=== PATIENT | female | born 1955 | race Caucasian/White ===

== ENCOUNTER 2023-04-07 12:07 | Emergency (ER) | payer MEDICARE, SELFPAY ==
[2023-04-07 12:15] VITALS: BP 176/82; PULSE 68; RESP 18; TEMP 36.8; O2SAT 96; BMI 35.2
--- NOTE | 2023-04-07 12:31 | ECG_ITS ---
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
[2023-04-07 12:52] LABS: Basophils Absolute Auto 0.1 10^3/uL (0.0-0.1); Basophils Percent Auto 0.9 % (0.2-2.0); Eosinophils Absolute Auto 0.3 10^3/uL (0.0-0.7); Eosinophils Percent Auto 3.5 % (0.9-7.0); Hematocrit 42.4 % (36.0-48.0); Hemoglobin 14.2 g/dL (12.0-16.0); Immature Granulocytes Abs Auto 0.02 10^3/uL (0.00-0.03); Immature Granulocytes Pct Auto 0.3 % (0.0-0.5); Lymphocytes Absolute Auto 2.5 10^3/uL (1.2-3.8); Lymphocytes Percent Auto 33.7 % (20.5-60.0); Mean Corpuscular HGB Conc 33.5 g/dL (29.9-35.2); Mean Corpuscular Hemoglobin 28.7 pg (26.7-34.0); Mean Corpuscular Volume 85.7 fL (81.0-99.0); Mean Platelet Volume 8.3 fL (9.5-13.5); Monocytes Absolute Auto 0.4 10^3/uL (0.3-0.8); Monocytes Percent Auto 5.8 % (1.7-12.0); Neutrophils Absolute Auto 4.1 10^3/uL (1.4-6.5); Neutrophils Percent Auto 55.8 % (43.0-75.0); Platelet Count 264 10^3/uL (150-450); Red Blood Count 4.95 10^6/uL (4.20-5.40); Red Cell Distribution Width 12.1 % (11.0-15.0); White Blood Count 7.4 10^3/uL (4.0-11.0)
[2023-04-07 13:10] LABS: Alanine Aminotransferase 15 U/L (14-59); Albumin Level 3.8 g/dL (3.4-5.0); Alkaline Phosphatase 52 U/L (46-116); Anion Gap 8.1; Aspartate Amino Transferase 7 U/L (15-37); BUN Creatinine Ratio 28.8; Bilirubin Total 0.5 mg/dL (0.2-1.0); Calcium 9.1 mg/dL (8.5-10.1); Carbon Dioxide 32.4 mmol/L (21.0-32.0); Chloride 99 mmol/L (98-107); Estimated GFR (African America >60 (>=60); Estimated GFR (Non-African Ame >60 (>=60); Globulin 3.8 g/dL; Glucose 92 mg/dL (74-106); Potassium 3.5 mmol/L (3.5-5.1); Sodium 136 mmol/L (136-145); Total Protein 7.6 g/dL (6.4-8.2); Troponin I High Sensitivity 4.9 pg/mL (4.0-51.3)
[2023-04-07 13:32] VITALS: BP 163/85
[2023-04-07 14:12] VITALS: BP 175/72; PULSE 88; RESP 18; O2SAT 98
--- NOTE | 2023-04-07 17:37 | ED_ITS ---
HPI - General Adult General Chief complaint: Chest Pain Stated complaint: HYPERTENSION Time Seen by Provider: 04/07/23 12:30 Source: patient Mode of arrival: walk-in Limitations: no limitations History of Present Illness HPI narrative: The patient presenting to us with a history of recently having her blood pressure not easy to control and she had amlodipine started yesterday by her primary care doctor, the patient seems to be anxious she is denying any acute complaint at the moment other than the fact that her blood pressure is elevated No specific chest pain or headache at the moment no abdominal pain but the patient is worried about her family history because she have a history of heart disease as well as worried about stroke Related Data Home Medications Medication Instructions Recorded Confirmed albuterol sulfate 90 mcg/actuation inhalation 04/07/23 aerosol inhaler amlodipine 5 mg tablet 5 mg PO DAILY 04/07/23 04/07/23 atorvastatin 40 mg tablet 40 mg PO DAILY 04/07/23 04/07/23 buspirone 10 mg tablet 10 mg PO BID 04/07/23 04/07/23 citalopram 40 mg tablet 40 mg PO DAILY 04/07/23 04/07/23 levothyroxine 75 mcg tablet 75 mcg PO DAILY 04/07/23 04/07/23 (Synthroid) lisinopril 20 mg tablet 20 mg PO DAILY 04/07/23 04/07/23 lisinopril 20 1 tab PO DAILY 04/07/23 04/07/23 mg-hydrochlorothiazide 25 mg tablet montelukast 10 mg tablet 10 mg PO DAILY 04/07/23 04/07/23 omeprazole 40 mg capsule,delayed 40 mg PO DAILY 04/07/23 04/07/23 release potassium chloride 10 mEq 10 meq PO DAILY 04/07/23 04/07/23 tablet,extended release verapamil 180 mg 24 hr 180 mg PO DAILY 04/07/23 04/07/23 capsule,extended release Allergies Allergy/AdvReac Type Severity Reaction Status Date / Time sulfamethoxazole Allergy Intermediate Verified 04/07/23 12:20 [From Bactrim] trimethoprim [From Bactrim] Allergy Intermediate Verified 04/07/23 12:20 Review of Systems ROS Status of ROS 10 or more systems reviewed and unremarkable except as noted in history and below PFSH PFSH Social History Smoking status: Former smoker Exam Narrative Exam Narrative: Nurses notes and vital signs reviewed and patient is not hypoxic. General: Well-appearing and in no apparent distress. Skin: Warm, dry, no pallor noted. No rash. Head: Normocephalic, atraumatic. Neck: Supple, non-tender. Eye: Pupils are equal, round and EOMI. No scleral icterus. Ears, Nose, Mouth, and Throat: TM are clear, no nasal mucosal hypertrophy. Oral mucosa is moist, no posterior oropharynx erythema, uvula is mid-line Cardiovascular: Regular Rate and Rhythm without murmur, gallop or rub. Respiratory: No accessory muscle use or respiratory distress. Lungs are clear to auscultation, no wheezing, rales or rhonchi Chest Wall: no tenderness Back: No midline thoracic or lumbar vertebral tenderness. No CVA tenderness Musculoskeletal: normal ROM, no calf or popliteal tenderness, no lower extremity edema/swelling GI: Abdomen is soft, non-distended. Normal bowel sounds. No masses appreciated. No tenderness to palpation. No rebound, guarding, or rigidity noted. Neurological: A&O x4. No cranial nerve dysfunction observed. No truncal ataxia. Moves all extremities. Sensation intact. Psychiatric: Cooperative and interactive. Normal mood and affect. Constitutional Vital Signs, click to edit/add: Last Vital Signs Temp 98.3 F 04/07/23 12:15 Pulse 88 04/07/23 14:12 Resp 18 04/07/23 14:12 BP 175/72 H 04/07/23 14:12 Pulse Ox 98 04/07/23 14:12 O2 Del Method Room Air 04/07/23 12:15 Course Vital Signs Vital signs: Vital Signs Temperature 98.3 F 04/07/23 12:15 Pulse Rate 68 04/07/23 12:15 Respiratory Rate 18 04/07/23 12:15 Blood Pressure 176/82 H 04/07/23 12:15 Pulse Oximetry 96 04/07/23 12:15 Oxygen Delivery Method Room Air 04/07/23 12:15 Temperature 98.3 F 04/07/23 12:15 Pulse Rate 88 04/07/23 14:12 Respiratory Rate 18 04/07/23 14:12 Blood Pressure 175/72 H 04/07/23 14:12 Pulse Oximetry 98 04/07/23 14:12 Oxygen Delivery Method Room Air 04/07/23 12:15 Medical Decision Making MDM Narrative Medical decision making narrative: The patient EKG was showing sinus rhythm with a heart rate of [address] elevation or depression She is presenting to us with anxiety about her blood pressure and she does seem very anxious most of the history that she gave was about concerns there was no symptoms at the moment The patient blood pressure was 160 systolic in the ER upon presentation and her CBC chemistry showed no acute pathology she was just started on her amlodipine yesterday I will just continue to given the same medication I explained to the patient extensively the importance of giving time for the medication to work The patient is to follow up with primary care physician in next 2-3 days or to return to the emergency department should any of the signs or symptoms worsen or new symptoms develop. The patient agrees with the following Diagnosis and Treatment plan and the patient will be discharged home. Lab Data Labs: Lab Results 04/07/23 Range/Units 12:47 WBC 7.4 (4.0-11.0) 10^3/uL RBC 4.95 (4.20-5.40) 10^6/uL Hgb 14.2 (12.0-16.0) g/dL Hct 42.4 (36.0-48.0) % MCV 85.7 (81.0-99.0) fL MCH 28.7 (26.7-34.0) pg MCHC 33.5 (29.9-35.2) g/dL RDW 12.1 (11.0-15.0) % Plt Count 264 (150-450) 10^3/uL MPV 8.3 L (9.5-13.5) fL Neut % (Auto) 55.8 (43.0-75.0) % Lymph % (Auto) 33.7 (20.5-60.0) % [place] % (Auto) 5.8 (1.7-12.0) % Eos % (Auto) 3.5 (0.9-7.0) % Baso % (Auto) 0.9 (0.2-2.0) % Neut # (Auto) 4.1 (1.4-6.5) 10^3/uL Lymph # (Auto) 2.5 (1.2-3.8) 10^3/uL [place] # (Auto) 0.4 (0.3-0.8) 10^3/uL Eos # (Auto) 0.3 (0.0-0.7) 10^3/uL Baso # (Auto) 0.1 (0.0-0.1) 10^3/uL Abs Immat Gran (auto) 0.02 (0.00-0.03) 10^3/uL Imm/Tot Granulo (auto) 0.3 (0.0-0.5) % Sodium 136 (136-145) mmol/L Potassium 3.5 (3.5-5.1) mmol/L Chloride 99 (98-107) mmol/L Carbon Dioxide 32.4 H (21.0-32.0) mmol/L Anion Gap 8.1 BUN 17.0 (7.0-18.0) mg/dL Creatinine 0.59 (0.55-1.02) mg/dL Est GFR ( Amer) >60 (>=60) Est GFR (Non-Af Amer) >60 (>=60) BUN/Creatinine Ratio 28.8 Glucose 92 (74-106) mg/dL Calcium 9.1 (8.5-10.1) mg/dL Total Bilirubin 0.5 (0.2-1.0) mg/dL AST 7 L (15-37) U/L ALT 15 (14-59) U/L Alkaline Phosphatase 52 (46-116) U/L Troponin I High Sens 4.9 (4.0-51.3) pg/mL Total Protein 7.6 (6.4-8.2) g/dL Albumin 3.8 (3.4-5.0) g/dL Globulin 3.8 g/dL Albumin/Globulin Ratio 1.0 Discharge Plan Discharge Chief Complaint: Chest Pain Clinical Impression: Hypertension Patient Disposition: Home, Self-Care Time of Disposition Decision: 14:19 Prescriptions / Home Meds: No Action amlodipine 5 mg tablet 5 mg PO DAILY albuterol sulfate 90 mcg/actuation HFA aerosol inhaler INHALATION atorvastatin 40 mg tablet 40 mg PO DAILY buspirone 10 mg tablet 10 mg PO BID citalopram 40 mg tablet 40 mg PO DAILY lisinopril-hydrochlorothiazide 20-25 mg tablet 1 tab PO DAILY lisinopril 20 mg tablet 20 mg PO DAILY levothyroxine [Synthroid] 75 mcg tablet 75 mcg PO DAILY montelukast 10 mg tablet 10 mg PO DAILY omeprazole 40 mg capsule,delayed release(DR/EC) 40 mg PO DAILY potassium chloride 10 mEq tablet extended release 10 meq PO DAILY verapamil 180 mg capsule,ext rel. pellets 24 hr 180 mg PO DAILY Instructions: Chronic Hypertension (ED) Stand Alone Forms: Portal Instructions Referrals: Physician,Non-Staff, MD [Primary Care Provider] - 1 week Discharge Date/Time: 04/07/23 14:29
== END 2023-04-07 14:29 | disposition home or self-care (01) ==
PROVIDERS: Emergency Provider Emergency Medicine
DX: I10 Essential (primary) hypertension (principal); Z79.899 Other long term (current) drug therapy; Z79.890 Hormone replacement therapy; Z87.891 Personal history of nicotine dependence
CPT/HCPCS: 36415; 80053; 84484; 85025; 93005; 99284

== ENCOUNTER 2025-03-04 13:00 | Outpatient (OUT) | payer MEDICARE, SELFPAY ==
--- OUTSIDE RECORDS SUMMARY | 2025-03-05 12:23 | XMS_ITS | Encounter Summary ---
Author Organization [facility] tem Address [id number] [address] [place] [address] Care Team Providers Care Supervisor Fish Processing Name Role Phone Rebeca Kelly MD Primary Care Provider [phone] Encounter Details Date Type Department Care Team (Late st Contact Info) Description 04/08/2020 Orders Only [facility] [address] [place] [phone] External, Scanning Provider Social History Tobacco Use Types Packs/Day Years Used Date Smoking Tobacco: Former Cigarettes 0.5 20 Smokeless Tobacco: Never Alcohol Use Standard Drinks/Week Comments No 0 (1 standard drink = 0.6 oz pur e alcohol) Childcare Answer Date Recorded Childcare Unknown 11/18/2018 Employment Answer Date Recorded Employment Unknown 11/18/2018 Comments No Sex and Gender Information Value Date Recorded Sex Assigned at Not on file Legal Sex Female 11:58 AM EDT Gender Identity Not on file Sexual Orientation Not on file COVID-19 Exposure Response Date Recorded In the last month, have you been in contact with someone who was confirmed or suspected to have Coronavirus / COVID-19? No / Unsure 03/30/2020 1:24 PM EDT documented as of this encounter Plan of Treatment Not on file documented as of this encounter Procedures Procedure Name Priority Date/Time Associated Diagnosis Comments MULTIPLE LABS Routine 04/05/2020 documented in this encounter Results * Multiple labs (04/05/2020) us Scanning Provider External NM IMAGING Final Result MANUALLY TRANSCRIBED RESULTS documented in this encounter Visit Diagnoses Not on filedocumented in this encounter Care Teams Supervisor Fish Processing Relationship Specialty Start Date End Date Rebeca Kelly MD [address] [place] [address] PCP - General Internal Medicine 06/13/24 documented as of this encounter
--- OUTSIDE RECORDS SUMMARY | 2025-03-05 12:23 | XMS_ITS | Clinical Summary ---
Author Organization [facility] tem Address [facility] [place] [id number] [address] [place] [address] Care Team Providers Care Ornament Stitcher Name Role Phone Rebeca Kelly MD Primary Care Provider [phone] Allergies Active Allergy Reactions Criticality Noted Date Comments Sulfamethoxazole-Trimethoprim 2017 Pneumococcal Vaccine 01/24/2017 Medications citalopram (CeleXA) 20 mg tablet Take 1 tablet (20 mg total) by mouth in the morning. Active aspirin 81 mg Take 1 tablet (81 mg total) by mouth in the morning. Active levothyroxine (SYNTHROID, LEVOTHROID) 125 MCG tablet Take 75 mcg by mouth daily. Active potassium chloride (K-TAB,KLOR-CON ) 10 MEQ CR tablet Take 1 tablet (10 mEq total) by mouth in the morning. Active atorvastatin (LIPITOR) 40 mg tablet Take 1 tablet (40 mg total) by mouth in the morning. Active albuterol (ACCUNEB) 1.25 mg/3 mL nebulizer solution Inhale 3 mL (1.25 mg total) by nebulization every 6 (six) hours as needed for wheezing. Active levETIRAcetam (KEPPRA) 250 mg tablet Take 2 tablets (500 mg total) by mouth in the morning and 2 tablets (500 mg total) before bedtime. Active montelukast (SINGULAIR) 10 mg tablet Take 1 tablet (10 mg total) by mouth nightly. Active lisinopril-hydr oCHLOROthiazide (PRINZIDE,ZESTO RETIC) 20-25 mg per tablet Take 1 tablet by mouth in the morning. Active loratadine (CLARITIN) 10 mg tablet Take 1 tablet (10 mg total) by mouth in the morning. Active fluticasone propionate (FLOVENT HFA) 110 mcg/actuation inhaler Inhale 2 puffs in the morning and at bedtime. Active lisinopriL (PRINIVIL,ZESTR IL) 20 mg tablet Take 1 tablet (20 mg total) by mouth in the morning. Active ibuprofen (MOTRIN) 800 mg tablet Take 1 tablet (800 mg total) by mouth every 6 (six) hours as needed for pain. 3 Active amoxicillin (AMOXIL) 500 mg capsule Take 1 capsule (500 mg total) by mouth 3 (three) times a day. Active busPIRone (BUSPAR) 10 mg tablet Take 1 tablet (10 mg total) by mouth in the morning and at bedtime. 3 Active omeprazole (PriLOSEC) 40 mg capsule Take 1 capsule (40 mg total) by mouth every morning before breakfast. 3 Active albuterol (PROVENTIL HFA;VENTOLIN HFA) 90 mcg/actuation inhaler Inhale 2 puffs every 4 (four) hours as needed for wheezing or shortness of breath. Active verapamil SR (CALAN-SR) 180 mg CR tablet Take 1 tablet (180 mg total) by mouth in the morning. 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 Her urinary retention has resolved. I recommended stopping the tamsulosin and stopping the bethanechol. Encounters Date Type Department Care Team Description 03/04/2025 Refill [facility] [address] [place] [id number] Hasmukh Trinidad MD Med Refill from Last 3 Months Family History Medical History Relation Name Comments Heart disease Father Lung cancer Father Diabetes Maternal Aunt Heart disease Mother Hyperlipidemia Mother Hypertension Mother Diabetes Paternal Aunt Hypertension Sister Leukemia Sister Relation Name Status Comments Father Maternal Aunt Mother Paternal Aunt Sister Social History Tobacco Use Types Packs/Day Years Used Date Smoking Tobacco: Former Cigarettes 0.5 20 1 - 03/27/1995 Smokeless Tobacco: Never Alcohol Use Standard Drinks/Week Comments No 0 (1 standard drink = 0.6 oz pur e alcohol) Childcare Answer Date Recorded Childcare Unknown 11/18/2018 Employment Answer Date Recorded Employment Unknown 11/18/2018 Hunger Screening Answer Date Recorded Within the past 12 months we worried whether our food would run out before we got money to buy more. Never True 03/06/2024 Within the past 12 months th e food we bought just didn't last and we didn't have money to get more. Never True 03/06/2024 Purpose - Life Answer Date Recorded Purpose and direction in life Unknown Comments No Sex and Gender Information Value Date Recorded Sex Assigned at Not on file Legal Sex Female 11:58 AM EDT Gender Identity Not on file Sexual Orientation Not on file Last Filed Vital Signs Vital Sign Reading Time Taken Comments Blood Pressure 130/70 03/06/2024 10:30 AM EDT Pulse 55 03/06/2024 10:30 AM EDT Temperature 36.6 C (97.9 F) 02/20/2024 3:32 PM EDT Respiratory Rate 18 02/20/2024 5:45 PM EDT Oxygen Saturation 98% 03/06/2024 10:30 AM EDT Inhaled Oxygen Concentration - - Weight 89.8 kg (198 lb) 03/06/2024 10:30 AM EDT Height 152.4 cm (5') 03/06/2024 10:30 AM EDT Body Mass Index 38.67 03/06/2024 10:30 AM EDT Plan of Treatment Health Maintenance Due Date Last Done Comments Depression Screening 1966 Adult BMI Follow Up Plan 1972 DTaP,Tdap and Td Vaccines (1 - Tdap) 1973 Zoster (Shingles) Vaccine (1 of 2) 2004 Fall Risk Screening 10/14/2019 COVID-19 Vaccine (3 - 2024-2 6 season) 2025 08/10/2023, 08/23/2020 Influenza Vaccine 02/16/2025 06/07/2022, , 03/19/2017, Additional history exists Adult BMI Screening 03/06/2025 03/06/2024 Tobacco Screening 03/06/2025 03/06/2024 Colonoscopy 10/16/2025 10/17/2015 Medical Devices Not on file Insurance [employer] Care Teams Ornament Stitcher Relationship Specialty Start Date End Date Rebeca Kelly MD [address] [place], [place] [id number] PCP - General Internal Medicine 06/13/24
--- OUTSIDE RECORDS SUMMARY | 2025-03-05 12:23 | XMS_ITS | Encounter Summary ---
Author Organization [facility] tem Address [id number] [address] [place] [address] Care Team Providers Care Program Developer Name Role Phone Rebeca Kelly MD Primary Care Provider [phone] Encounter Details Date Type Department Care Team (Late st Contact Info) Description 04/07/2020 Orders Only [facility] [address] [phone] Sarah Jacobson MA Palpitation Social History Tobacco Use Types Packs/Day Years [...] Procedure Name Priority Date/Time Associated Diagnosis Comments MAGNESIUM Routine 04/05/2020 Palpitation documented in this encounter Results * Magnesium (04/05/2020) 04/05/2020 us Peterson G Paul DO LAB BLOOD ORDERABLES Final Resul t SUNQUEST documented in this encounter Visit Diagnoses Diagnosis Palpitation Palpitations documented in this encounter Care Teams Program Developer Relationship Specialty Start Date End Date Rebeca Kelly MD [address] [place] [address] PCP - General Internal Medicine 06/13/24 documented as of this encounter
--- OUTSIDE RECORDS SUMMARY | 2025-03-05 12:23 | XMS_ITS | Encounter Summary ---
Author Organization [facility] tem Address [id number] [address] [place] [address] Care Team Providers Care Legal Examiner Name Role Phone Rebeca Kelly MD Primary Care Provider [phone] Encounter Details Date Type Department Care Team (Late st Contact Info) Description 04/08/2020 Orders Only [facility] [address] [place] [phone] External, Scanning Provider Social History Tobacco Use [...] Procedure Name Priority Date/Time Associated Diagnosis Comments LIPID PROFILE Routine 04/05/2020 documented in this encounter Results * Lipid profile (04/05/2020) External Cholesterol 173 MANUALLY TRANSCRIBED RESULTS External Cholesterol:Hdl 3.8 MANUALLY TRANSCRIBED RESULTS External Hdl Cholesterol 46 MANUALLY TRANSCRIBED RESULTS External Ldl (Calc) 101 MANUALLY TRANSCRIBED RESULTS External Triglycerides 129 MANUALLY TRANSCRIBED RESULTS External Very Low Lipoprotein 26 MANUALLY TRANSCRIBED RESULTS us Scanning Provider External LAB BLOOD ORDERABLES Edited Result - Final MANUALLY TRANSCRIBED RESULTS documented in this encounter Visit Diagnoses Not on filedocumented in this encounter Care Teams Legal Examiner Relationship Specialty Start Date End Date Rebeca Kelly MD [address] [place] [address] PCP - General Internal Medicine 06/13/24 documented as of this encounter
--- OUTSIDE RECORDS SUMMARY | 2025-03-05 12:23 | XMS_ITS | Clinical Summary ---
Author Organization [facility] Address [address], [address] [place] [address] Care Team Providers Care Enrollment Clerk Name Role Phone Buck Garibay PA-C Primary Care Provider Allergies Active Allergy Reactions Criticality Noted Date Comments Amlodipine Other (See Comments) 07/14/2024 Sulfamethoxazole-Trimetho prim Swelling,Rash Low 09/10/2017 Ciprofloxacin Other (See Comments) 06/06/2017 Not sure of what but knows that it does not agree with her Fluticasone-Salmeterol Other (See Comments) Iodinated Contrast Media Nausea Only 01/24/2017 Other Anaphylaxis High 01/30/2017 BP meds unsure of what they are Pneumococcal Vaccines 01/29/2017 Prednisone Other (See Comments) 07/14/2024 Sulfacetamide Other (See Comments) 07/14/2024 Sulfamethoxazole Medium 04/07/2023 Medications atorvastatin (LIPITOR) 40 MG tablet Take 1 tablet by mouth daily 30 tablet 3 7 Active furosemide (LASIX) 20 MG tablet Active citalopram (CELEXA) 20 MG tablet Take 1 tablet by mouth Active fluticasone (FLOVENT HFA) 110 MCG/ACT inhaler Inhale 1 puff into the lungs Active levothyroxine (SYNTHROID) 125 MCG tablet Take 1 tablet by mouth Daily Active potassium chloride (KLOR-CON) 20 MEQ packet Take 20 mEq by mouth Active aspirin 81 MG chewable tablet Take 1 tablet by mouth daily Active levETIRAcetam (KEPPRA) 500 MG tablet Take 1 tablet by mouth 2 times daily Active acetaminophen (TYLENOL) 500 MG tablet Take 1 tablet by mouth every 6 hours as needed for Pain Active bethanechol (URECHOLINE) 10 MG tablet Take 1 tablet by mouth 3 times daily Active polyethylene glycol (GLYCOLAX) packet Take 17 g by mouth daily as needed for Constipation Active lisinopril (PRINIVIL;ZESTR IL) 20 MG tablet Take 1 tablet by mouth daily Active LORazepam (ATIVAN) 0.5 MG tablet Take 0.5 mg by mouth every 8 hours as needed for Anxiety Active diphenhydrAMINE (BENADRYL) 25 MG capsule Take 25 mg by mouth every 6 hours as needed for Itching Three times a day prn Active omeprazole (PRILOSEC) 20 MG delayed release capsule Take 20 mg by mouth daily Active verapamil (CALAN SR) 120 MG extended release tablet Take 1 tablet by mouth daily 7 Active montelukast (SINGULAIR) 10 MG tablet Take 1 tablet by mouth daily 7 Active tamsulosin (FLOMAX) 0.4 MG capsule Take 1 capsule by mouth daily 30 capsule 3 7 Active Additional Information Patient not taking.Reported on 01/01/2025 albuterol sulfate HFA 108 (90 Base) MCG/ACT inhaler Inhale 2 puffs into the lungs every 6 hours as needed for Wheezing Active loratadine (CLARITIN) 10 MG tablet 9 Active budesonide-form oterol (SYMBICORT) 160-4.5 MCG/ACT AERO Inhalation for 30 Days Active cetirizine (ZYRTEC) 10 MG tablet Take 1 tablet by mouth Every Day Active lisinopril-hydr oCHLOROthiazide (PRINZIDE;ZESTO RETIC) 20-25 MG per tablet Take 1 tablet by mouth daily 4 Active Active Problems Problem Noted Date Diagnosed Date Asthma, persistent 01/29/2017 Hypothyroidism in adult 01/29/2017 Brain mass 01/25/2017 Midline shift of brain 01/25/2017 Essential hypertension 01/25/2017 Left-sided weakness Meningioma Cerebral edema Hypokalemia Resolved Problems Problem Noted Date Diagnosed Date Resolved Date Post-operative state 018 Encounters Date Type Department Care Team Description 01/27/[address] - [address] Floor, [address] [place] [address] Xuan Foy, PHILIPPE - DRILL SERGEANT MRI Results and Appointment 01/20/2025 Orders Only [place] [address] - Ground Floor, [facility] [place] [id number] Hilary Hensley DO 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 Telephone [place] [address] [place] [address] - Ground Floor, [address] [phone] Hilary Hensley DO 01/01/2025 3:00 PM EDT Office Visit [place] [address] [place] [address] - Ground Floor, [address] [phone] Xuan Foy, PHILIPPE - DRILL SERGEANT Hemangiopericytoma (Primary Dx) 01/01/2025 12:12 PM EDT - 01/03/2025 11:59 PM EDT Hospital Encounter [facility] MRI [address] [place], [place] [id number] Hilary Hensley DO Hemangiopericytoma Discharge Disposition: Home or Self Care 12/12/2024 Telephone [place] [id number]icaela Rios [address] - Ground Floor, [address] [phone] Hilary Hensley DO Need for appt 12/09/[address] [place] [address] - Ground Floor, [address] [phone] Hilary Hensley DO 12/08/2024 [address] [place] [address] - Ground Floor, [address] [place] [phone] Hilary Hensley DO Medication Problem from Last 3 Months Social History Tobacco Use Types Packs/Day Years Used Date Smoking Tobacco: Former Cigarettes Q uit: 06/18/1994 Smokeless Tobacco: Never Tobacco Cessation:Counseling Given: Not Answered Alcohol Use Standard Drinks/Week Comments No 0 (1 standard drink = 0.6 oz pur e alcohol) Comments No Sex and Gender Information Value Date Recorded Sex Assigned at Not on file Legal Sex Female 3:30 PM EST Gender Identity Not on file Sexual Orientation Not on file Last Filed Vital Signs Vital Sign Reading Time Taken Comments Blood Pressure 135/60 01/01/2025 3:01 PM EDT Pulse 66 01/01/2025 3:01 PM EDT Temperature 36.3 C (97.4 F) 06/21/2022 9:33 AM EST Respiratory Rate 18 03/02/2022 9:13 AM EDT Oxygen Saturation 96% 06/21/2022 9:33 AM EST Inhaled Oxygen Concentration - - Weight 91.4 kg (201 lb 6.4 oz) 01/01/2025 3:01 P M EDT Height 152.4 cm (5') 01/01/2025 3:01 PM EDT Body Mass Index 39.33 01/01/2025 3:01 PM EDT Plan of Treatment Upcoming Encounters Date Type Department Care Team (Latest Contact Info) Description 07/20/2025 12:15 PM EST Appointment [facility] MRI [address] [place], [place] [id number] Hilary Hensley, [address] [address] epic/ pt 07/20/2025 2:00 PM EST Office Visit [address] - Ground Floor, [place] [place] [address] [place] [address] [place] [address] [address] [address] 6 month follow up 12/30/2025 1:30 PM EDT Office Visit [address] - Ground Floor, [address] [place] [address] Hilary Hensley, [address] [facility] [address] [place] [address] Considering the malignant nature of this tumor I would recommend continued surveillance but we can definitely space her out to a least every 18 months. She states that she is considering not getting the MRIs anymore considering the discomfort related to contrast as well as the long duration of recurrence free survival. Health Maintenance Due Date Last Done Comments Lipids 1964 Depression Screen 1966 Hepatitis C screen 1972 DTaP/Tdap/Td vaccine (1 - Tdap) 1973 Breast cancer screen 1994 Colonoscopy 10/14/1999 Colorectal Cancer Screen 10/14/1999 FIT/FOBT: Average risk 10/14/1999 Fecal-DNA (Cologuard): Norman ge risk 10/14/1999 Sigmoidoscopy/CT colonography 10/14/1999 Shingles vaccine (1 of 2) 2004 DEXA (modify frequency per FRAX score) 2009 Respiratory Syncytial Virus (RSV) or age 60 yrs+ (1 - Risk 60-74 years 1-dose series) 2014 Diabetes screen 01/26/2020 01/25/2017 Annual Wellness Visit (Medicare Advantage) 06/18/2024 Flu vaccine (#1) 01/16/2025 06/07/2022, 04/05/2018, 03/19/2017 COVID-19 Vaccine (2 - 2024-2 6 season) 2025 08/23/2020 Hepatitis A vaccine Aged Out No longe r eligible based on patient's age to complete this topic Hepatitis B vaccine Aged Out No longe r eligible based on patient's age to complete this topic Hib vaccine Aged Out No longer eligi ble based on patient's age to complete this topic Meningococcal (ACWY) vaccine Aged Out No longer eligible based on patient's age to complete this topic Meningococcal B vaccine Aged Out No l onger eligible based on patient's age to complete this topic Polio vaccine Aged Out No longer elig ible based on patient's age to complete this topic Medical Devices Implanted Type Area Reserve Officer Device Identifier Shelf Expiration Date Model / Serial / Lot Cover Plate Bur Hole Low Prof W/Tab 20mm Implanted:Qty: 4 on 01/30/2017 by Hilary Hensley DO at [facility] Screw/Pl ate/Nail /Gabriel Right: Cranial LASHAUN: ORTHOPAEDICS- M [id number] / / Screw Self Drilling 1.5x4mm Min Order 5 Implanted:Qty: 25 on 01/30/2017 by Hilary Hensley DO at [facility] Screw/Pl ate/Nail /Gabriel Right: Cranial LASHAUN: ORTHOPAEDICS- M [id number] / / Plate Mesh Contourabl 1.7mm [id number] Implanted:Qty: 1 on 01/30/2017 by Hilary Hensley DO at [facility] Screw/Pl ate/Nail /Gabriel Right: Cranial LASHAUN: ORTHOPAEDICS-[facility] [id number] / / Mina-Graft Patch Dura Regeneration 3x3in Implanted:Qty: 1 on 01/30/2017 by Hilary Hensley DO at [facility] Vascular /Graft/P atch/Carlos Manuel ter Right: Cranial [employer]-PM 12/15/2017 [id number] / / [id number] Procedures Procedure Name Priority Date/Time Associated Diagnosis Comments MRI BRAIN W WO CONTRAST Routine 01/01/2025 2:42 PM EDT Hemangiopericytoma CREATININE W/GFR POINT OF CARE Routine 01/01/2025 2:13 PM EDT HEMOGLOBIN A1C Routine 01/25/2017 2:53 AM EDT from Last 3 Months or Most Recently Relevant to Health Maintenance Results * MRI BRAIN W WO CONTRAST (01/01/2025 2:42 PM EDT) Anatomical Region Laterality Modality Head Magnetic Resonan ce 01/01/2025 3:58 PM EDT Impressions 01/01/2025 4:09 PM EDT 1. No acute findings. 2. 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 3. Encephalomalacia in the right temporal occipital region with surrounding gliosis. 4. Scattered mild chronic microvascular white matter ischemic disease. Narrative 01/01/2025 4:09 PM EDT EXAM: MRI BRAIN WITH AND WITHOUT CONTRAST 01/01/2025 02:42:10 PM TECHNIQUE: Multiplanar multisequence MRI of the head/brain was performed with and without the administration of intravenous contrast. COMPARISON: 07/14/2024, 07/18/2023. CLINICAL HISTORY: Hemangiopericytoma. ORDERING SYSTEM PROVIDED HISTORY: Hemangiopericytoma; TECHNOLOGIST PROVIDED HISTORY: STAT Creatinine as needed:->Yes; f/u scan; What is the sedation requirement?->None; Reason for exam: f/u scan, Hemangiopericytoma FINDINGS: BRAIN AND VENTRICLES: No acute infarct. No acute intracranial hemorrhage. No mass effect or midline shift. No hydrocephalus. The sella is unremarkable. Normal flow voids. Scattered mild chronic microvascular white matter ischemic disease. Encephalomalacia noted in the right temporal occipital region with surrounding areas of gliosis. Nodular extra-axial enhancement is noted along the undersurface of the right tentorium measuring 11 x 11 x 8 mm, slightly increased over serial exams dating back to 07/18/2023. ORBITS: No acute abnormality. SINUSES: No acute abnormality. BONES AND SOFT TISSUES: Right-sided craniotomy. No other areas of abnormal enhancement. Procedure Note Orion Henao MD - 01/01/2025 EXAM: MRI BRAIN WITH AND WITHOUT CONTRAST 01/01/2025 02:42:10 PM TECHNIQUE: Multiplanar multisequence MRI of the head/brain was performed with andwithout the administration of intravenous contrast. COMPARISON: 07/14/2024, 07/18/2023. CLINICAL HISTORY: Hemangiopericytoma. ORDERING SYSTEM PROVIDED HISTORY: Hemangiopericytoma;TECHNOLOGIST PROVIDED HISTORY: STAT Creatinine as needed:->Yes; f/u scan;What is the sedation requirement?->None; Reason for exam: f/u scan,Hemangiopericytoma FINDINGS: BRAIN AND VENTRICLES: No acute infarct. No acute intracranial hemorrhage. No mass effect ormidline shift. No hydrocephalus. The sella is unremarkable. Normal flowvoids. Scattered mild chronic microvascular white matter ischemic disease. Encephalomalacia noted in the right temporal occipital region withsurrounding areas of gliosis. Nodular extra-axial enhancement is noted along the undersurface of theright tentorium measuring 11 x 11 x 8 mm, slightly increased over serialexams dating back to 07/18/2023. ORBITS: No acute abnormality. SINUSES: No acute abnormality. BONES AND SOFT TISSUES: Right-sided craniotomy. No other areas of abnormal enhancement. IMPRESSION: 1. No acute findings. 2. 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 3. Encephalomalacia in the right temporal occipital region withsurrounding gliosis. 4. Scattered mild chronic microvascular white matter ischemic disease. Jaco Solarsi DO IMG MRI ORDERABLES Final Resul t * (ABNORMAL) Creatinine W/GFR Point of Care (01/01/2025 2:13 PM EDT) POC Creatinine 0.4(L) 0.51 - 1.19 mg/dL 01/01/2025 2:13 PM EDT [employer] eGFR, POC >90 >60 mL/min/1. 73m2 01/01/2025 2:13 PM EDT [employer] Comment: These results are not intended for use in patients <18 years of age. eGFR results are calculated without a race factor using the 2020 CKD-EPI equation. Careful clinical correlation is recommended, particularly when comparing to results calculated using previous equations. The CKD-EPI equation is less accurate in patients with extremes of muscle mass, extra-renal metabolism of creatine, excessive creatine ingestion, or following therapy that affects renal tubular secretion. 01/01/2025 2:13 PM EDT 01/01/2025 2:16 PM EDT Jaco Solarsi DO POINT OF CARE TEST ORDERABLES Final Result [employer] [address] [place] [address], [facility] [phone] * HEMOGLOBIN A1C (01/25/2017 2:53 AM EDT) Hemoglobin A1C 5.6 4.0 - 6.0 % 01/25/2017 9:39 AM EDT [facility] Estimated Avg Glucose 114 mg/dL 01/25/2017 9:39 AM EDT [facility] Comment: The ADA and AACC recommend providing the estimated average glucose result to permit better patient understanding of their HBA1c result. [employer] [address] [place] [id number] BLOOD SPECIMEN / Unknown 01/25/2017 2:53 AM EDT 01/25/2017 3:09 AM EDT us Alba Heaton MD CHEMISTRY ORDERABLES Final Resul t [employer] [address] [place] [id number], [facility] [phone] [facility] from Last 3 Months or Most Recently Relevant to Health Maintenance Insurance [facility] MEDICARE Advance Directives * Full Code (Latest Code Status on File) Date Activated Date Inactivated Comments 01/30/2017 5:59 PM 02/02/2017 7:26 PM * Full Code Date Activated Date Inactivated Comments 01/29/2017 3:43 PM 01/30/2017 5:59 PM * Full Code Date Activated Date Inactivated Comments 01/29/2017 3:43 PM 01/29/2017 3:43 PM * Full Code Date Activated Date Inactivated Comments 01/25/2017 1:20 AM 01/27/2017 9:36 AM Care Teams Enrollment Clerk Relationship Specialty Start Date End Date Buck Garibay PA-C [address] [place], [place] [id number] PCP - General Family Medicine 06/25/18
--- OUTSIDE RECORDS SUMMARY | 2025-03-05 12:23 | XMS_ITS | Encounter Summary ---
Author Organization [facility] Address [address], [address] [place] [address] Care Team Providers Care Pressure Dispatcher Name Role Phone Buck Garibay PA-C Primary Care Provider [phone] Encounter Details Date Type Department Care Team (Late st Contact Info) Description 01/29/2017 Direct Admit Orders [facility] [address] [place], [place] [id number] Luther Gonzales MD [address] [place] [address] Social History Tobacco Use Types Packs/Day Years Used Date Smoking Tobacco: Former Alcohol Use Standard Drinks/Week Comments No 0 (1 standard drink = 0.6 oz pur e alcohol) Comments Unknown Sex and Gender Information Value Date Recorded Sex Assigned at Not on file Legal Sex Female 3:30 PM EST Gender Identity Not on file Sexual Orientation Not on file documented as of this encounter Plan of Treatment Upcoming Encounters Date Type Department Care Team (Latest Contact Info) Description 07/20/2025 12:15 PM EST Appointment [facility] [address] [place], [place] [phone] Hilary Hensley, [address] [facility] [address] [place] [address] epic/ pt 07/20/2025 2:00 PM EST Office Visit [facility] [address] [facility] [address] - Ground Floor, [place] [place] [address] Hilary Hensley, DO [address] [place] [address] 6 month follow up 12/30/2025 1:30 PM EDT Office Visit [facility] [address] - Ground Floor, [place] [place] [address] Hilary Hensley, DO [address] [place] [address] Considering the malignant nature of this tumor I would recommend continued surveillance but we can definitely space her out to a least every 18 months. She states that she is considering not getting the MRIs anymore considering the discomfort related to contrast as well as the long duration of recurrence free survival. documented as of this encounter Visit Diagnoses Not on filedocumented in this encounter Care Teams Pressure Dispatcher Relationship Specialty Start Date End Date Buck Garibay PA-C [address] [place] [address] PCP - General Family Medicine 06/25/18 documented as of this encounter
--- OUTSIDE RECORDS SUMMARY | 2025-03-05 12:29 | XMS_ITS | CCD ---
Author Organization [facility] [place] [facility] Team Providers Care Arc Air Operator Name Role Phone SHRUTHI, YOUNGSOOK Unavailable Unavailable SHRUTHI, YOUNGSOOK Unavailable Unavailable IMM, MARISOL Unavailable Unavailable SHRUTHI, YOUNGSOOK Unavailable Unavailable SHRUTHI, YOUNGSOOK Unavailable Unavailable IMM, MARISOL Unavailable Unavailable AHAMMAD, LYNDA Unavailable Unavailable KAMINI, TREVIN Unavailable Unavailable IMM, MARISOL P Unavailable Unavailable KAMINI, TREVIN Unavailable Unavailable KAMINI, TREVIN Unavailable Unavailable DEIDRA BARAHONAU N Unavailable Unavailable SADEK, BETRO T Unavailable Unavailable SADEK, BETRO T Unavailable Unavailable KALEB MACK I Unavailable Unavailable IMM, MARISOL P Unavailable Unavailable AHAMMAD, LYNDA Unavailable Unavailable LASZELDA Downs M Unavailable Unavailable THAISCROCE, TAMIKO Unavailable Unavailable Mitchell Gonzáles Unavailable Unavail able Mitchell Gonzáles Unavailable Unavail able Marva Garibay Unavailable Unavailable Marva Garibay Primary Care Provider Marva Garibay PA-C Primary Care Provider [phone] Humaira Beth MD Primary Care Provider Santi Smith MD Unavailable [phone] Rebeca Archer MD Primary Care Provider Marva Garibay PA-C Primary Care Provider [phone] HUMAIRA BETH Primary Care Unavailable CHELSEA YOUSSEF Attending Unavailable CHELSEA YOUSSEF Attending Unavailable CHELSEA YOUSSEF Referring Unavailable BETH, HUMAIRA L Primary Care Unavailable BETH, HUMAIRA L Primary Care Unavailable TIN ROMAN Attending Unavailable MAKENZIE TRINIDAD Attending Unavailable BETH, HUMAIRA L Referring Unavailable BETH, HUMAIRA L Primary Care Unavailable ROBIN REBECA Referring Unavailable ROBIN, REBECA Primary Care Unavailable TRINIDAD, MAKENZIE B Attending Unavailable MAKENZIE TRINIDAD Referring Unavailable ROBIN, REBECA Primary Care Unavailable Luis TUTTLE, Santi Unavailable [phone] Robin TUTTLE, Rebeca Primary Care Provider [phone] JIL EVANGELISTA Attending Unavailable RUSHER, SANTI Vargas Attending Unavailable HILL, PATRICIA Referring Unavailable HILL, PATRICIA Referring Unavailable HILL, PATRICIA Referring Unavailable RUSHER, SANTI A Referring Unavailable AHAMMAD, LYNDA Attending Unavailable AHAMMAD, LYNDA Referring Unavailable MARVA GARIBAY A Primary Care Unavailable AHAMMAD, LYNDA Attending Unavailable AHAMMAD, LYNDA Referring Unavailable MARVA GARIBAY A Primary Care Unavailable AHAMMAD, LYNDA Attending Unavailable AHAMMAD, LYNDA Referring Unavailable GARIBAY, MARVA A Primary Care Unavailable AHAMMAD, LYNDA Attending Unavailable AHAMMAD, LYNDA Referring Unavailable MARVA GARIBAY A Primary Care Unavailable Marisol Clancy MD Primary Care Provider [phone] Bhakti Simpson DO Attending Provider Allergies Allergy Classification Reported Allergen(s) Allergy Type Date of Onset Reaction(s) Facility (6 sources) Ciprofloxacin Drug Allergy 06-06-20 17 Other (See Comments) [place], [place] (16 sources) Sulfamethoxazole / Trimethoprim; Translations: [SULFAMETHOXAZOLE-T RIMETHOPRIM] Drug Allergy 09-11-19 18 Swelling, Rash [place], [place] (1 source) Iodinated Diagnostic Agents Propensity to adverse reactions to drug 01-25-20 17 Nausea Only [place] (1 source) Other Propensity to adverse reactions 01-31-20 17 Anaphylaxis [place] (6 sources) Pneumococcal Vaccines Propensity to adverse reactions to drug 01-30-20 17 [place] (12 sources) Iodinated Contrast Media Propensity to adverse reactions to drug 01-25-20 17 Nausea Only [facility] (11 sources) Pneumococcal vaccine; Translations: [PNEUMOCOCCAL VACCINE] Drug Allergy 01-25-20 17 Unknown Reaction [facility] (6 sources) Iodine Drug Allergy 12-27-19 24 [facility] (2 sources) amLODIPine Drug Allergy 07-14-19 25 Other (See Comments) [facility] (2 sources) fluticasone / salmeterol Drug Allergy 07-14-19 Other (See Comments) [facility] (2 sources) predniSONE Drug Allergy 07-14-19 Other (See Comments) [facility] (2 sources) Sulfacetamide Drug Allergy 07-14-19 Other (See Comments) [facility] (3 sources) Sulfamethoxazole Drug Allergy 04-07-20 rash [facility] [employer] (1 source) Trimethoprim Drug Allergy 02-13-20 rash [facility] NEGATED: Highlighted row has been ruled out! (5 sources) Other Propensity to adverse reactions 01-31-20 Anaphylaxis [facility] [employer] Medications Current Medications Medication Drug Class(es) Dates Sig (Normalized) Sig (Original) acetaminophen 325 mg oral tablet (8 sources) Start: 02-15-2017 End: 02-23-2017 Acetaminophen (Tylenol) 325 mg Tablet Active 500 MG PO EVERY 4-6 HOURS as needed for Pain 60 February 23, 2017 10:29am Complies with drug therapy take 1 tablet by candelaria th every six hours as needed for pain acetaminophen (TYLENOL) 500 MG tablet Ta ke 1 tablet by mouth every 6 hours as needed for Pain Active 200 actuat albuterol 0.09 mg/actuat dry powder inhaler (16 sources) beta2-Adrenergic Agonist Start: 02-12-2025 Albut rayray Sulfate 90 mcg/actuation aerosol powdr breath activated Active 1 INH INHALATION EVERY 4-6 HOURS as needed February 12, 2025 12:00am Complies with drug therapy Start: 02-15-2017 End: 02-23-2017 take 1.25 mg by inhalation every four hours as needed for hypertension Albuterol Sulfate 1.25 mg/3 mL Solution For Nebulization Discontinued 1.25 MG INHALATION Q4H as needed for Hypertension February 15, 2017 12:00am February 23, 2017 9:54am take 2 puff(s) by in halation every four hours for wheezing albuterol HFA 90 mcg/act inhaler Inhale 2 puffs every 4 (four) hours if needed for wheezing Active take 2 puff(s) by in halation every six hours as needed for wheezing albuterol sulfate HFA 108 (90 Base) MCG/ACT inhaler Inhale 2 puffs into the lungs every 6 hours as needed for Wheezing Active take 1.25 mg by inha lation every six hours as needed for wheezing albuterol (ACCUNEB) 1.25 mg/3 mL nebulizer solution Inhale 3 mL (1.25 mg total) by nebulization every 6 (six) hours as needed for wheezing. Active take 2 puff(s) by in halation every four hours as needed for wheezing albuterol (PROVENTIL HFA;VENTOLIN HFA) 90 mcg/actuation inhaler Inhale 2 puffs every 4 (four) hours as needed for wheezing or shortness of breath. Active take 2 puff(s) by in halation every six hours as needed for wheezing albuterol sulfate HFA 108 (90 Base) MCG/ACT inhaler Inhale 2 puffs into the lungs every 6 hours as needed for Wheezing 0 Active amoxicillin 500 mg oral capsule (3 sources) Penicillin-class Antibacterial take 1 capsule by mouth three times daily amoxicillin (AMOXIL) 500 mg capsule Take 1 capsule (500 mg total) by mouth 3 (three) times a day. Active aspirin 81 mg chewable tablet (17 sources) Platelet Aggregation Inhibitor, Nonsteroidal Anti-inflammatory Drug Start: 02-16-20 End: 02-24-20 take 1 tablet by mouth once daily Aspirin 81 mg Tablet,Chewable Active 81 MG PO Daily February 23, 2017 12:00am Complies with drug therapy take 1 tablet by mouth once bhavik y aspirin 81 MG EC tablet Take 81 mg by mouth Daily Active 60 actuat budesonide 0.16 mg/actuat / formoterol fumarate 0.0045 mg/actuat metered dose inhaler (1 source) Corticosteroid, beta2-Adrenergic Agonist budesonide-formotero l (SYMBICORT) 160-4.5 MCG/ACT AERO Inhalation for 30 Days Active buPROPion hydrochloride 75 mg oral tablet (7 sources) Aminoketone Start: 2024 take 1 tablet by mouth once daily Bupropion Hcl 75 mg tablet Active 75 MG PO Daily February 12, 2025 12:00am Complies with drug therapy End: 01-16-2025 take 1 tablet by mouth once daily buPROPion (Wellbutrin) 75 MG tablet Take 75 mg by mouth Daily 01/16/2025 Discontinued (Discontinued by another clinician) busPIRone hydrochloride 10 mg oral tablet (9 sources) Start: 03-14-2023 take 1 tablet by mouth at bedtime busPIRone (BUSPAR) 10 mg tablet Take 1 tablet (10 mg total) by mouth in the morning and at bedtime. 03/14/2023 Active End: 01-16-2025 take 5 mg by mouth in the morning busPIRone (Buspar) 10 MG tablet Take 5 mg by mouth in the morning and 5 mg before bedtime. 01/16/2025 Discontinued (Discontinued by another clinician) cetirizine hydrochloride 10 mg oral tablet (8 sources) Histamine-1 Receptor Antagonist Start: 02-12-2025 take 1 tablet by mouth once daily as needed Cetirizine (All Day Allergy (Cetirizine)) 10 mg tablet Active 10 MG PO Daily as needed February 12, 2025 12:00am Complies with drug therapy take 1 tablet by mouth once bhavik y cetirizine (ZyrTEC) 10 MG tablet Take 10 mg by mouth Daily Active hydroCHLOROthiazide 25 mg / lisinopril 20 mg oral tablet (7 sources) Thiazide Diuretic, Angiotensin Converting Enzyme Inhibitor Start: 02-12-2025 take 1 tablet by mouth once Lisinopril-Hydrochlorothiazide 20-25 mg tablet Active 1 TAB PO Once February 12, 2025 12:00am Complies with drug therapy Start: 04-16-2024 take 1 tablet by candelaria th once daily lisinopril-hydroCHLOROthiazide (PRINZIDE;ZESTORETIC) 20-25 MG per tablet Take 1 tablet by mouth daily 04/16/2024 Active take 1 tablet by candelaria th once in the morning lisinopril-hydroCHLOROthiazide (PRINZIDE,ZESTORETIC) 20-25 mg per tablet Take 1 tablet by mouth in the morning. Active ibuprofen 800 mg oral tablet (3 sources) Nonsteroidal Anti-inflammatory Drug Start: 04-10-2023 take 1 tablet by mouth every six hours as needed for pain ibuprofen (MOTRIN) 800 mg tablet Take 1 tablet (800 mg total) by mouth every 6 (six) hours as needed for pain. 04/10/2023 Active levETIRAcetam 500 mg oral tablet (20 sources) Start: 02-12-2025 take 1 tablet by mouth twice daily Levetiracetam 500 mg tablet Active 500 MG PO Twice daily February 12, 2025 12:00am Complies with drug therapy Start: 12-27-2023 End: 07-08-2024 take 1 tablet by mouth once levETIRAcetam (Keppra) 500 MG tablet Indications: Seizure (HCC) Take 1 tablet (500 mg) by mouth every 12 (twelve) hours 180 tablet 3 07/08/2024 Active Start: 02-23-2017 End: 02-12-2025 take 3 tablets by mouth twice daily Levetiracetam 250 mg Tablet Discontinued 750 MG PO Twice daily February 23, 2017 12:00am February 12, 2025 1:35pm Start: 02-15-2017 End: 02-23-2017 take 1 tablet by mouth every twelve hours Levetiracetam 500 mg Tablet Discontinued 500 MG PO Q12H February 15, 2017 12:00am February 23, 2017 9:53am take 1 tablet by candelaria twice daily levETIRAcetam (KEPPRA) 500 MG tablet Take 1 tablet by mouth 2 times daily Active take 2 tablets by mo [facility] in the morning, then take 2 tablets by mouth at bedtime levETIRAcetam (KEPPRA) 250 mg tablet Take 2 tablets (500 mg total) by mouth in the morning and 2 tablets (500 mg total) before bedtime. Active levothyroxine sodium 0.125 mg oral tablet (17 sources) l-Thyroxine Start: 02-15-2017 End: 02-23-2017 take 1 tablet by mouth once daily Levothyroxine (Synthroid) 125 mcg Tablet Active 125 MCG PO Daily February 23, 2017 10:29am Complies with drug therapy levothyroxine (S ynthroid, Levoxyl) 100 MCG tablet Take by mouth in the morning. Take before meals. Active levothyroxine (S YNTHROID, LEVOTHROID) 125 MCG tablet Take 75 mcg by mouth daily. Active lisinopril 20 mg oral tablet (17 sources) Angiotensin Converting Enzyme Inhibitor Start: 02-15-2017 End: 02-23-2017 take 1 tablet by mouth once daily Lisinopril 20 mg Tablet Active 20 MG PO Daily February 23, 2017 10:29am Complies with drug therapy lisinopril 10 MG tablet Take by mouth Daily Active loratadine 10 mg oral tablet (9 sources) Start: 07-18-2018 loratadine (CLARITIN) 10 MG tablet 07/18/2018 Active omeprazole 40 mg delayed release oral capsule (11 sources) Proton Pump Inhibitor Start: 03-15-2023 take 1 capsule by mouth once daily before breakfast omeprazole (PriLOSEC) 40 mg capsule Take 1 capsule (40 mg total) by mouth every morning before breakfast. 03/15/2023 Active Start: 02-15-2017 End: 02-12-2025 take 1 capsule by mouth once daily Omeprazole 20 mg Capsule,Delayed Release(Dr/Ec) Discontinued 20 MG PO Daily February 23, 2017 10:29am February 12, 2025 1:36pm OXcarbazepine 150 mg oral tablet (6 sources) Anti-epileptic Agent End: 01-16-2025 OXcarbazepine (Trileptal) 150 MG tablet Take 150 mg by mouth 01/16/2025 Discontinued (Discontinued by another clinician) verapamil hydrochloride 120 mg extended release oral tablet (20 sources) Calcium Channel Sherman Start: 02-12-2025 take 1 tablet by mouth twice daily Start: 03-06-2024 take 1 tablet by candelaria th in the morning verapamil SR (CALAN-SR) 180 mg CR tablet Take 1 tablet (180 mg total) by mouth in the morning. 90 tablet 3 03/06/2024 Active Start: 03-30-2020 End: 03-06-2024 take 1 tablet by mouth in the morning verapamil SR (CALAN-SR) 180 mg CR tablet Take 1 tablet (180 mg total) by mouth in the morning. 90 tablet 3 03/06/2024 Active Start: 01-04-2017 End: 02-12-2025 take 1 tablet by mouth once daily Verapamil 120 mg Tablet Extended Release Discontinued 120 MG PO daily February 23, 2017 10:29am February 12, 2025 1:37pm take 1 tablet by candelaria th in the morning, then take 1 tablet by mouth in the evening, then take 1 tablet by mouth at bedtime verapamil (Calan) 120 MG tablet Take 120 mg by mouth in the morning and 120 mg in the evening and 120 mg before bedtime. Active End: 03-06-2024 take 1 tablet by mouth once daily verapamil SR (CALAN-SR) 240 mg CR tablet Take 1 tablet (240 mg total) by mouth nightly. 03/06/2024 Discontinued Completed/Discontinued Medications Medication Drug Class(es) Dates Sig (Normalized) Sig (Original) acetaminophen 325 mg / HYDROcodone bitartrate 5 mg oral tablet (4 sources) Opioid Agonist Start: 02-15-2017 End: 02-12-2025 take 1 tablet by mouth every four to six hours as needed for pain Hydrocodone-Acetam inophen 5-325 mg Tablet Discontinued 1 TAB PO EVERY 4-6 HOURS as needed for Pain February 23, 2017 10:29am February 12, 2025 1:35pm atorvastatin 40 mg oral tablet (17 sources) HMG-CoA Reductase Inhibitor Start: 01-26-2017 End: 02-23-2017 take 1 tablet by mouth once daily at bedtime Atorvastatin (Lipitor) 40 mg Tablet Discontinued 40 MG PO Daily at bedtime February 15, 2017 12:00am February 23, 2017 10:29am take 4 tablets by mouth once damon ly atorvastatin (Lipitor) 10 MG tablet Take 40 mg by mouth Daily Active take 1 tablet by mouth once bhavik y atorvastatin (Lipitor) 10 MG tablet Take 10 mg by mouth Daily Active bethanechol chloride 10 mg oral tablet (8 sources) Cholinergic Muscarinic Agonist Start: 02-15-2017 End: 02-12-2025 take 1 tablet by mouth three times daily Bethanechol Chloride (Urecholine) 10 mg Tablet Discontinued 10 MG PO Three times daily February 23, 2017 10:29am February 12, 2025 1:33pm cephalexin 500 mg oral capsule (1 source) Cephalosporin Antibacterial Start: 02-15-2017 End: 02-23-2017 take 1 capsule by mouth three times daily Cephalexin (Keflex) 500 mg Capsule Discontinued 500 MG PO Three times daily February 15, 2017 12:00am February 23, 2017 9:48am citalopram 20 mg oral tablet (17 sources) Serotonin Reuptake Inhibitor Start: 02-15-2017 End: 02-12-2025 take 1 tablet by mouth once daily Citalopram (Celexa) 20 mg Tablet Discontinued 20 MG PO Daily February 23, 2017 10:29am February 12, 2025 1:33pm End: 01-16-2025 take 1 tablet by mouth once daily citalopram (CeleXA) 10 MG tablet Take 10 mg by mouth Daily 01/16/2025 Discontinued (Discontinued by another clinician) take 2 tablets by [facility] in the morning citalopram (CeleXA) 20 mg tablet Take 2 tablets (40 mg total) by mouth in the morning. Active cloNIDine hydrochloride 0.1 mg oral tablet (1 source) Central alpha-2 Adrenergic Agonist Start: 02-15-2017 End: 02-23-2017 take 1 tablet by mouth every four hours as needed for hypertension Clonidine Hcl 0.1 mg Tablet Discontinued 0.1 MG PO Q4H as needed for Hypertension February 15, 2017 12:00am February 23, 2017 9:48am dexamethasone 0.5 mg oral tablet (6 sources) Corticosteroid Start: 02-15-2017 End: 02-23-2017 take 2 tablets by mouth twice daily Dexamethasone 0.5 mg Tablet Discontinued 2 TAB PO Twice daily February 15, 2017 12:00am February 23, 2017 9:48am Start: 02-15-2017 End: 02-12-2025 take 2 tablets by mouth once daily Dexamethasone 0.5 mg Tablet Discontinued 1 MG PO Daily 3 February 23, 2017 12:00am February 12, 2025 1:35pm Start: 02-15-2017 End: 02-15-2017 Dexamethasone 1.5 mg Tablet Discontinued February 15, 2017 12:00am February 15, 2017 10:27am Start: 02-15-2017 End: 02-15-2017 Dexamethasone 2 mg Tablet Discontinued February 15, 2017 12:00am February 15, 2017 11:17am Start: 02-15-2017 End: 02-23-2017 take 2 mg by mouth twice daily Dexamethasone 4 mg Tabl et Discontinued 2 MG PO Twice daily February 15, 2017 12:00am February 23, 2017 9:49am diphenhydrAMINE hydrochloride 25 mg oral capsule (8 sources) Histamine-1 Receptor Antagonist Start: 02-15-2017 End: 02-12-2025 take 1 capsule by mouth three times daily as needed Diphenhydramine Hcl (Benadryl) 25 mg Capsule Discontinued 25 MG PO Three times daily as needed for Itching 60 February 23, 2017 10:29am February 12, 2025 1:35pm diphenhydrAMINE (BENADRYL) 25 MG capsule Take 25 mg by mouth every 6 hours as needed for Itching Three times a day prn Active fludeoxyglucose F 18 injection 10 millicurie (1 source) Start: 10-05-2022 End: 10-05-2022 fludeoxyglucose F 18 injection 10 millicurie 120 actuat fluticasone propionate 0.11 mg/actuat metered dose inhaler (13 sources) Corticosteroid Start: 02-15-2017 End: 02-12-2025 take 1 puff(s) by inhalation once daily Fluticasone Propionate (Flovent Hfa) 110 mcg/actuation Hfa Aerosol Inhaler Discontinued 1 PUFF INHALATION Daily February 23, 2017 10:29am February 12, 2025 1:35pm take 1 spray(s) nasal route once daily fluticasone (Flonase) 50 MCG/ACT nasal spray Administer 1 spray into each nostril Daily Shake gently. Before first use, prime pump. After use, clean tip and replace cap. Active fluticasone (GERRY VENT HFA) 110 MCG/ACT inhaler Inhale 1 puff into the lungs Active take 2 puff(s) by inhalation at bedtime fluticasone propionate (FLOVENT HFA) 110 mcg/actuation inhaler Inhale 2 puffs in the morning and at bedtime. Active furosemide 20 mg oral tablet (8 sources) Loop Diuretic Start: 02-15-2017 End: 02-12-2025 take 1 tablet by mouth once daily Furosemide (Lasix) 20 mg Tablet Discontinued 20 MG PO Daily February 23, 2017 10:29am February 12, 2025 1:35pm gadoteridol (PROHANCE) injection 10 mL (1 source) Start: 07-14-2024 End: 07-14-2024 take 1 dose intravenously once 10 mL, IntraVENous, IMG ONCE PRN, 1 dose, Starting on Sun07/14/24 at 1239, Until Sun07/14/24 at 1254, Other gadoteridol (PROHANCE) injection 17 mL (1 source) Start: 06-16-2020 End: 06-16-2020 gadoteridol (PROHANCE) injection 17 mL gadoteridol (PROHANCE) injection 18 mL (1 source) Start: 06-21-2022 End: 06-21-2022 gadoteridol (PROHANCE) injection 18 mL gadoteridol (PROHANCE) injection 20 mL (1 source) Start: 01-01-2025 End: 01-01-2025 take 1 dose intravenously once 20 mL, IntraVENous, IMG ONCE PRN, 1 dose, Starting on Sophie 01/01/25 at 1402, Until Sophie 01/01/25 at 1442, Other LORazepam 0.5 mg oral tablet (8 sources) Benzodiazepine Start: 02-15-2017 End: 02-12-2025 take 1 tablet by mouth three times daily as needed for anxiety Lorazepam (Ativan) 0.5 mg Tablet Discontinued 0.5 MG PO Three times daily as needed for Anxiety February 23, 2017 10:29am February 12, 2025 1:36pm take 1 tablet by candelaria th every eight hours as needed for anxiety LORazepam (ATIVAN) 0.5 MG tablet Take 0. 5 mg by mouth every 8 hours as needed for Anxiety Active mineral oil 0.14 mg/mg / petrolatum 0.749 mg/mg / phenylephrine hydrochloride 0.0025 mg/mg rectal ointment (1 source) alpha-1 Adrenergic Agonist Start: 02-23-2017 End: 02-12-2025 Phenyleph-Min Oil-Petrolatum (Hemorrhoidal) 0.25-14-74.9 % Ointment Discontinued 1 EACH ME Q6H as needed for HEMORRHOIDS February 23, 2017 12:00am February 12, 2025 1:36pm montelukast 10 mg oral tablet (17 sources) Leukotriene Receptor Antagonist Start: 01-14-2017 End: 02-12-2025 take 1 tablet by mouth once daily in the evening Montelukast (Singulair) 10 mg Tablet Discontinued 10 MG PO Every evening February 23, 2017 10:29am February 12, 2025 1:36pm ondansetron 4 mg disintegrating oral tablet (2 sources) Serotonin-3 Receptor Antagonist Start: 02-15-2017 End: 02-12-2025 take 1 tablet by mouth every four hours as needed for nausea Ondansetron (Zofran Odt) 4 mg Tablet,Disintegrati ng Discontinued 4 MG PO Q4H as needed for Nausea February 23, 2017 10:29am February 12, 2025 1:36pm polyethylene glycol 3350 35021 mg powder for oral solution (8 sources) Osmotic Laxative Start: 02-15-2017 End: 02-12-2025 Polyethylene Glycol 3350 (Miralax) 17 gram Powder In Packet Discontinued 17 GM PO Daily February 23, 2017 10:29am February 12, 2025 1:36pm microencapsulated potassium chloride 20 meq extended release oral tablet (12 sources) Start: 02-23-2017 End: 02-12-2025 Potassium Chloride (Klor-Con M20) 20 mEq Tablet,Er Particles/Crystals Discontinued 10 MEQ PO daily February 23, 2017 10:29am February 12, 2025 1:36pm Start: 02-15-2017 End: 02-23-2017 Potassium Chloride (Klor-Con M20) 20 mEq Tablet,Er Particles/Crystals Discontinued 20 MEQ PO daily February 15, 2017 12:00am February 23, 2017 10:29am potassium chlori de (KLOR-CON) 20 MEQ packet Take 20 mEq by mouth Active potassium chlori de (K-TAB,KLOR-CON) 10 MEQ CR tablet Take 1 tablet (10 mEq total) by mouth in the morning. Active sennosides, prison 8.6 mg oral tablet (2 sources) Start: 02-23-2017 End: 02-12-2025 Sennosides (Senna Lax) 8.6 m g Tablet Discontinued 2 EACH PO DAILY@1200 as needed for Constipation February 23, 2017 12:00am February 12, 2025 1:36pm Start: 02-15-2017 End: 02-23-2017 take 2 tablets by mouth once daily Sennosides 8.6 mg Tablet Discontinued 2 TAB PO Daily February 15, 2017 12:00am February 23, 2017 10:25am 5 ml sodium chloride 9 mg/ml injection (4 sources) Start: 01-01-2025 10 mL, LesleyE NoZAIRE bobbyN, Starting on Sun01/01/25 at 1402, Until Discontinued, Line Care, For Line Patency: Peripheral IV = 5 mL; Midline or Central Line = 10 mL/lumen. If following IV push medication, administer flush at same rate as the IV push. Flush volume is determined by type of infusion therapy being given. For non-viscous solutions use: Peripheral IV = 5 mL Midline or Central Line = 10 mL/lumen For viscous solutions (i.e. blood components, parenteral nutrition, contrast media, or after obtaining blood sample) use: Peripheral IV = 10 mL Midline or Central Line = 20 mL/lumen Start: 07-14-2024 10 mL, IntraVE Nous, PRN, Starting on Sun07/14/24 at 1239, Until Discontinued, Line Care, For Line Patency: Peripheral IV = 5 mL; Midline or Central Line = 10 mL/lumen. If following IV push medication, administer flush at same rate as the IV push. Flush volume is determined by type of infusion therapy being given. For non-viscous solutions use: Peripheral IV = 5 mL Midline or Central Line = 10 mL/lumen For viscous solutions (i.e. blood components, parenteral nutrition, contrast media, or after obtaining blood sample) use: Peripheral IV = 10 mL Midline or Central Line = 20 mL/lumen Start: 10-05-2022 sodium chlorid e flush 0.9 % injection 5-40 mL Start: 06-21-2022 sodium chlorid e flush 0.9 % injection 10 mL tamsulosin hydrochloride 0.4 mg oral capsule (8 sources) alpha-Adrenergic Sherman Start: 02-03-2017 End: 02-12-2025 take 1 capsule by mouth once daily Tamsulosin 0.4 mg Capsule,Extended Release 24hr Discontinued 0.4 MG PO daily February 23, 2017 10:29am February 12, 2025 1:36pm Problems Active Problems Problem Classification Problem Date Documented Date Episodic/Chronic Anxiety disorders (7 sources) Anxiety; Translations: [Anxiety disorder, unspecified] Onset: 11-28-2023 12-27-2023 Chronic Asthma (6 sources) Persistent asthma; Translations: [Asthma, persistent] Onset: 01-29-2017 01-29-2017 Chronic Cancer of bone and connective tissue (1 source) Primary malignant neoplasm of blood vessel; 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, malignant (HCC)] Chronic Cardiac dysrhythmias (5 sources) Ventricular premature complex; Translations: [Ventricular premature depolarization] Onset: 03-30-2020 03-30-2020 Chronic Cardiac dysrhythmias (7 sources) Bradycardia; Translations: [Bradycardia, unspecified] Onset: 03-30-2020 06-12-2024 Episodic Disorders of lipid metabolism (3 sources) Mixed hyperlipidemia; Translations: [Mixed hyperlipidemia] Onset: 01-06-2021 01-06-2021 Chronic Epilepsy; convulsions (10 sources) Seizure; Translations: [Unspecified convulsions] Onset: 12-27-2023 12-27-2023 Episodic Comment on above: Problem List clean-u p per request of Phys. EHR [facility] Esophageal disorders (1 source) Gastroesophageal reflux disease; Translations: [Gastro-esophageal reflux disease without esophagitis] 05-30-2023 Chronic Comment on above: Problem List clean-u p per request of Phys. EHR [facility] Essential hypertension (14 sources) Essential hypertension; Translations: [Essential (primary) hypertension] Onset: 01-25-2017 01-29-2017 Chronic Comment on above: Problem List clean-u p per request of Phys. 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 Episodic Other and unspecified benign neoplasm (1 source) Benign neoplasm of meninges, unspecified; Translations: [Benign neoplasm of meninges, unspecified] Onset: 01-29-2017 Chronic Other and unspecified benign neoplasm (5 sources) Neoplasm of meninges; Translations: [Benign neoplasm of meninges, unspecified] 01-29-2017 Chronic Other and unspecified benign neoplasm (6 sources) Benign neoplasm of cerebral meninges; 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] 12-27-2023 Chronic Other connective tissue disease (1 source) Midline shift of brain; 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] Onset: 01-25-2017 01-29-2017 Chronic Other connective tissue disease (2 sources) Pain in left foot; Translations: [Pain in left foot] 01-16-2025 Episodic Other nervous system disorders (1 source) Disorder of brain, unspecified; Translations: [Disorder of brain, unspecified] Onset: 01-24-2017 Chronic Other nervous system disorders (6 sources) Cerebral edema; Translations: [Cerebral edema] 01-29-2017 Chronic Other nervous system disorders (2 sources) Difficulty walking; Translations: [Difficulty in walking, not elsewhere classified] 01-16-2025 Chronic Other nutritional; endocrine; and metabolic disorders (3 sources) Body mass index 30+ - obesity; Translations: [Obesity, unspecified] Onset: 01-06-2021 01-06-2021 Chronic Other screening for suspected conditions (not mental disorders or infectious disease) (11 sources) Midline shift of brain; Translations: [Other abnormal findings on diagnostic imaging of central nervous system] Onset: 01-25-2017 01-29-2017 Episodic Other skin disorders (6 sources) Mass lesion of brain; Translations: [Other specified disorders of brain] Onset: 01-25-2017 01-31-2017 Chronic Paralysis (1 source) Left hemiparesis; Translations: [Left-sided weakness] 01-29-2017 Chronic Residual codes; unclassified (3 sources) Obstructive sleep apnea syndrome; Translations: [Obstructive sleep apnea (adult) (pediatric)] Onset: 01-06-2021 01-06-2021 Chronic Residual codes; unclassified (8 sources) Sleep apnea; Translations: [Sleep apnea, unspecified] Onset: 12-27-2023 12-27-2023 Chronic Superficial injury; contusion (2 sources) Foreign body of foot; Translations: [Superficial foreign body, left foot, initial encounter] 01-16-2025 Episodic Thyroid disorders (7 sources) Hypothyroidism; Translations: [Hypothyroidism, unspecified] Onset: 01-29-2017 01-29-2017 Chronic Comment on above: Problem List clean-u p per request of Phys. EHR Cmte Unclassified (1 source) Other specified neoplasm of uncertain behavior of connective and other soft tissue; Translations: [Other specified neoplasm of uncertain behavior of connective and other soft tissue] Onset: 07-14-2024 Past or Other Problems Problem Classification Problem Date Documented Date Episodic/Chronic Conditions associated with dizziness or vertigo (3 sources) Lightheadedness; Translations: [Dizziness and giddiness] Onset: 11-28-2023 07-08-2024 Episodic Genitourinary symptoms and ill-defined conditions (3 sources) Retention of urine; Translations: [Retention of urine, unspecified] Onset: 04-17-2017 04-17-2017 Episodic Nonspecific chest pain (5 sources) Chest pain; Translations: [Other chest pain] Onset: 03-30-2020 03-30-2020 Episodic Other nervous system disorders (6 sources) Paresthesia; Translations: [Paresthesia of skin] Onset: 12-27-2023 12-27-2023 Episodic Residual codes; unclassified (5 sources) Postoperative state; Translations: [Other specified postprocedural states] Resolved: 03-13-2018 03-13-2018 Episodic Residual codes; unclassified (1 source) Postoperative state; Translations: [Post-operative state] Resolved: 03-13-2018 03-13-2018 Spondylosis; intervertebral disc disorders; other back problems (8 sources) Cervico-occipital neuralgia; Translations: [Occipital neuralgia] Onset: 12-27-2023 12-27-2023 Episodic Results Test Name Value Interpretation Reference Range Facility XR Calcaneus - left 2 Viewso n 01-16-2025 Imaging Result: 2 vi ews left foot: Medial oblique, lateral (NWB heel): 01/16/2025: Unremarkable for acute osseous or joint pathology. No distinct radio opaque foreign body is identified. Unremarkable for soft tissue emphysema. [facility] [employer] [facility] [employer] Radiology Study observation (narrative) [facility] Creatinine W/GFR Point of Ca reon 01-01-2025 Creatinine [Mass/Vol] 0.4 mg/dL Low 0.51 - 1.19 mg/dL [facility] eGFR, POC - PINF [facility] Comment on above: These results are not intended for use [...] following therapy that affects renal tubular secretion. Interpretation and review of laboratory results Abnormal [facility] [employer] [facility] Creatinine w/GFR, POCon 12-16 Creatinine [Mass/Vol] 0.4 mg/dL Low 0.51-1.19 [facility] GFR/1.73 sq M.predicted among non-blacks MDRD (S/P/Bld) [Vol rate/Area] mL/min/{1.73_m2} Normal >60 [facility] Comment on above: Result Comment: These results are not intended for use in patients <18 years of age. eGFR results are calculated without a race factor using the 1 CKD-EPI equation. Careful clinical correlation is recommended, particularly when comparing to results calculated using previous equations. The CKD-EPI equation is less accurate in patients with extremes of muscle mass, extra-renal metabolism of creatine, excessive creatine ingestion, or following therapy that affects renal tubular secretion. MR Brain WO and W contrast I Von 01-01-2025 1. No acute findings . 2. 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 3. Encephalomalacia in the right temporal occipital region with surrounding gliosis. 4. Scattered mild chronic microvascular white matter ischemic disease. [facility] EXAM: MRI BRAIN WITH AND WITHOUT CONTRAST [...] craniotomy. No other areas of abnormal enhancement. [facility] Orion Henao MD - 01/01/2025 EXAM: MRI [...] mild chronic microvascular white matter ischemic disease. [facility] Radiology Study observation (narrative) [facility] MR Brain WO and W contrast I VOrdered By: Orion Henao on 01-01-2025 [facility] Work Phone: MRI BRAIN W WO CONTRASTon MRI BRAIN W WO CONTRAST EXAM: MRI BRAIN WITH AND WITHOUT CONTRAST [...] mild chronic microvascular white matter ischemic disease. Interpreted by: Orion Henao MD Signed by: Orion Henao MD 01/01/25 Final result Normal [facility] XR CHEST 2 VWSon 08-09-2024 XR CHEST 2 VWS XR CHEST 2 VWS PA and lateral chest: HISTORY: Chest pain. 2 views of the chest are obtained. Cardiac and mediastinal contours are within normal limits. Lungs are clear. There is no vascular congestion, effusion, or pneumothorax. Osseous structures appear intact. IMPRESSION: No acute findings. Finalized by Brodie Mcknight MD on 08/09/2024 4:20 PM Normal [facility] Creatinine W/GFR Point of Ca reon 07-14-2024 Creatinine [Mass/Vol] 0.5 mg/dL Low 0.51 - 1.19 mg/dL [facility] eGFR, POC - PINF [facility] Comment on above: These results are not intended for use [...] following therapy that affects renal tubular secretion. Interpretation and review of laboratory results Abnormal [facility] Creatinine w/GFR, POCon 06-19 Creatinine [Mass/Vol] 0.5 mg/dL Low 0.51-1.19 [facility] GFR/1.73 sq M.predicted among non-blacks MDRD (S/P/Bld) [Vol rate/Area] mL/min/{1.73_m2} Normal >60 [facility] Comment on above: Result Comment: These results are not intended for [...] following therapy that affects renal tubular secretion. MR Brain WO and W contrast I Von 07-14-2024 Enhancing extra-axia l lesion along the right cerebellar tentorium projecting over the superior aspect of the right cerebellar hemisphere demonstrating progressive slow growth across exams since 06/06/2017. Minimal interval growth since MRI of the brain dated 07/18/2023. Finding is concerning for recurrence. Postoperative changes as detailed. No acute intracranial infarction or hemorrhage. [facility] EXAMINATION: MRI OF THE BRAIN WITHOUT AND WITH CONTRAST 07/14/2024 12:30 pm TECHNIQUE: Multiplanar multisequence MRI of the head/brain was performed without and with the administration of intravenous contrast. COMPARISON: MRI brain with and without contrast dated 07/18/2023 through MRI of the brain dated 06/06/2017. 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 Postoperative right occipital craniotomy defect. Acute Change: No evidence of restricted diffusion to suggest an acute infarct. Hemorrhage: Susceptibility artifact along the surgical bed of the right occipital and temporal lobes resection likely postsurgical. Mass Lesion / Mass Effect: There is redemonstration of extra-axial enhancing mass lesion extending from the right cerebellar tentorium leaflet opposing superior aspect of the right cerebellar hemisphere measuring approximately 0.9 x 0.7 x 0.95 cm (AP X TS x CC) (series 9 image 7) (series 801 image 150). This lesion demonstrates progressive slow growth across exams since MRI of the brain dated 06/06/2017. Chronic Change: Scattered patchy areas of increased T2 and FLAIR signal, likely representing mild chronic microvascular ischemia. T2/FLAIR hyperintense signal at the edges of the postsurgical resection defect/encephalomalacia along the right temporal/occipital lobes consistent with gliosis. Parenchymal Volume Loss: No significant parenchymal volume loss for age. Ventricles: Ex vacuo dilatation along the right occipital horn. Otherwise, the ventricles demonstrates normal caliber. Skull Base: Postsurgical changes as detailed. Pituitary gland and pineal glands are unremarkable.Craniocervical junction is normal.No significant marrow replacement process. Vasculature: Major intracranial arteries and dural venous sinuses demonstrate typical flow voids, suggesting patency by spin echo criteria. ORBITS: The visualized portion of the orbits demonstrate no acute abnormality. SINUSES: The visualized paranasal sinuses and mastoid air cells demonstrate no acute abnormality. Bilateral bo bullosa. BONES/SOFT TISSUES: The bone marrow signal intensity appears normal. The soft tissues demonstrate no acute abnormality. [facility] Casa Michelle MD - EXAMINATION: MRI OF THE BRAIN WITHOUT AND WITH CONTRAST 07/14/2024 12:30 pm TECHNIQUE: Multiplanar multisequence MRI of the head/brain was performed without and with the administration of intravenous contrast. COMPARISON: MRI brain with and without contrast dated 07/18/2023 through MRI of the brain dated 06/06/2017. 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 Postoperative right occipital craniotomy defect. Acute Change: No evidence of restricted diffusion to suggest an acute infarct. Hemorrhage: Susceptibility artifact along the surgical bed of the right occipital and temporal lobes resection likely postsurgical. Mass Lesion / Mass Effect: There is redemonstration of extra-axial enhancing mass lesion extending from the right cerebellar tentorium leaflet opposing superior aspect of the right cerebellar hemisphere measuring approximately 0.9 x 0.7 x 0.95 cm (AP X TS x CC) (series 9 image 7) (series 801 image 150). This lesion demonstrates progressive slow growth across exams since MRI of the brain dated 06/06/2017. Chronic Change: Scattered patchy areas of increased T2 and FLAIR signal, likely representing mild chronic microvascular ischemia. T2/FLAIR hyperintense signal at the edges of the postsurgical resection defect/encephalomalacia along the right temporal/occipital lobes consistent with gliosis. Parenchymal Volume Loss: No significant parenchymal volume loss for age. Ventricles: Ex vacuo dilatation along the right occipital horn. Otherwise, the ventricles demonstrates normal caliber. Skull Base: Postsurgical changes as detailed. Pituitary gland and pineal glands are unremarkable.Craniocervical junction is normal.No significant marrow replacement process. Vasculature: Major intracranial arteries and dural venous sinuses demonstrate typical flow voids, suggesting patency by spin echo criteria. ORBITS: The visualized portion of the orbits demonstrate no acute abnormality. SINUSES: The visualized paranasal sinuses and mastoid air cells demonstrate no acute abnormality. Bilateral bo bullosa. BONES/SOFT TISSUES: The bone marrow signal intensity appears normal. The soft tissues demonstrate no acute abnormality. IMPRESSION: Enhancing extra-axial lesion along the right cerebellar tentorium projecting over the superior aspect of the right cerebellar hemisphere demonstrating progressive slow growth across exams since 06/06/2017. Minimal interval growth since MRI of the brain dated 07/18/2023. Finding is concerning for recurrence. Postoperative changes as detailed. No acute intracranial infarction or hemorrhage. [facility] Radiology Study observation (narrative) [facility] MR Brain WO and W contrast I VOrdered By: Casa Michelle on 07-14-2024 [facility] Work Phone: MRI BRAIN W WO CONTRASTon MRI BRAIN W WO CONTRAST EXAMINATION: MRI OF THE BRAIN WITHOUT AND WITH CONTRAST 07/14/2024 12:30 pm TECHNIQUE: Multiplanar multisequence MRI of the head/brain was performed without and with the administration of intravenous contrast. COMPARISON: MRI brain with and without contrast dated 07/18/2023 through MRI of the brain dated 06/06/2017. 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 Postoperative right occipital craniotomy defect. Acute Change: No evidence of restricted diffusion to suggest an acute infarct. Hemorrhage: Susceptibility artifact along the surgical bed of the right occipital and temporal lobes resection likely postsurgical. Mass Lesion / Mass Effect: There is redemonstration of extra-axial enhancing mass lesion extending from the right cerebellar tentorium leaflet opposing superior aspect of the right cerebellar hemisphere measuring approximately 0.9 x 0.7 x 0.95 cm (AP X TS x CC) (series 9 image 7) (series 801 image 150). This lesion demonstrates progressive slow growth across exams since MRI of the brain dated 06/06/2017. Chronic Change: Scattered patchy areas of increased T2 and FLAIR signal, likely representing mild chronic microvascular ischemia. T2/FLAIR hyperintense signal at the edges of the postsurgical resection defect/encephalomalacia along the right temporal/occipital lobes consistent with gliosis. Parenchymal Volume Loss: No significant parenchymal volume loss for age. Ventricles: Ex vacuo dilatation along the right occipital horn. Otherwise, the ventricles demonstrates normal caliber. Skull Base: Postsurgical changes as detailed. Pituitary gland and pineal glands are unremarkable.Craniocervical junction is normal.No significant marrow replacement process. Vasculature: Major intracranial arteries and dural venous sinuses demonstrate typical flow voids, suggesting patency by spin echo criteria. ORBITS: The visualized portion of the orbits demonstrate no acute abnormality. SINUSES: The visualized paranasal sinuses and mastoid air cells demonstrate no acute abnormality. Bilateral bo bullosa. BONES/SOFT TISSUES: The bone marrow signal intensity appears normal. The soft tissues demonstrate no acute abnormality. IMPRESSION: Enhancing extra-axial lesion along the right cerebellar tentorium projecting over the superior aspect of the right cerebellar hemisphere demonstrating progressive slow growth across exams since 06/06/2017. Minimal interval growth since MRI of the brain dated 07/18/2023. Finding is concerning for recurrence. Postoperative changes as detailed. No acute intracranial infarction or hemorrhage. Interpreted by: Casa Michelle MD Signed by: Casa Michelle MD 07/14/24 Final result [facility] CBC AND AUTO DIFFon 09-04-20 24 ABSOLUTE BASOPHIL 0.1 X10E9/L Normal 0.0-0.2 [facility] Comment on above: Performed By: #### C BCA, CMP, 55666-8, 91406-6, PINR, [id number] #### [facility] ([id number]) [address] [place] [address] 00434 ABSOLUTE NEUTROPHIL 3.9 X10E9/L Normal 1.5-6.6 [facility] Comment on above: Performed By: #### C BCA, CMP, 10223-5, 10571-6, PINR, [id number] #### [facility] ([id number]) [address] [place] [address] 01639 Basophils/100 WBC (Bld) 1.6 % Normal [facility] Comment on above: Performed By: #### C BCA, CMP, 45915-8, 11484-1, PINR, [id number] #### [facility] ([id number]) [address] [place] [address] 08761 Eosinophils (Bld) [#/Vol] 0.2 10*3/uL Normal 0.0-0.4 [facility] Comment on above: Performed By: #### C BCA, CMP, 37774-6, 62506-4, PINR, [id number] #### [facility] ([id number]) [address] [place] [address] 52952 Eosinophils/100 WBC (Bld) 2.9 % Normal [facility] Comment on above: Performed By: #### C BCA, CMP, 88110-7, 96339-6, PINR, 98995-6 #### [facility] ([id number]) [address] [place] [address] 02956 Erythrocyte distribution width (RBC) [Ratio] 13.2 % Normal 11.5-15.0 [facility] Comment on above: Performed By: #### C BCA, CMP, 29477-0, 67717-9, PINR, [id number] #### [facility] ([id number]) [address] [place] [address] 26992 Hematocrit (Bld) [Volume fraction] 38.0 % Normal 35-47 [facility] Comment on above: Performed By: #### C BCA, CMP, 60458-3, 25745-7, PINR, [id number] #### [facility] ([id number]) [address] [place] [address] 39507 Hemoglobin (Bld) [Mass/Vol] 12.8 g/dL Normal 11.7-15.5 [facility] Comment on above: Performed By: #### C BCA, CMP, 30660-3, 90563-7, PINR, 24799-4 #### [facility] ([id number]) [address] [place] [address] 95179 Lymphocytes (Bld) [#/Vol] 3.6 10*3/uL High 1.0-3.5 [facility] Comment on above: Performed By: #### C BCA, CMP, 08602-8, 97482-2, PINR, [id number] #### [facility] ([id number]) [address] [place] [address] 14828 Lymphocytes/100 WBC (Bld) 43.0 % Normal [facility] Comment on above: Performed By: #### C BCA, CMP, 91013-6, 15974-2, PINR, 26675-4 #### [facility] ([id number]) [address] [place] [address] 41817 MCH (RBC) [Entitic mass] 28.5 pg Normal 27-34 [facility] Comment on above: Performed By: #### C BCA, CMP, 80649-8, 15079-9, PINR, 10312-6 #### [facility] ([id number]) [address] [place] [address] 08958 MCHC (RBC) [Mass/Vol] 33.8 g/dL Normal 32-36 [facility] Comment on above: Performed By: #### C BCA, CMP, 11360-5, 06995-3, PINR, 68339-8 #### [facility] ([id number]) [address] [place] [address] 42443 MCV (RBC) [Entitic vol] 84 fL Normal 80-100 [facility] Comment on above: Performed By: #### C BCA, CMP, 85929-8, 22655-0, PINR, 73383-8 #### [facility] ([id number]) [address] [place] [address] 65670 Monocytes (Bld) [#/Vol] 0.4 10*3/uL Normal 0-0.9 [facility] Comment on above: Performed By: #### C BCA, CMP, 24067-7, 88139-4, PINR, [id number] #### [facility] ([id number]) [address] [place] [address] 50938 Monocytes/100 WBC (Bld) 4.8 % Normal [facility] Comment on above: Performed By: #### C BCA, CMP, 62846-1, 46908-8, PINR, 59896-3 #### [facility] ([id number]) [address] [place] [address] 48336 Neutrophils/100 WBC (Bld) 47.7 % Normal [facility] Comment on above: Performed By: #### C BCA, CMP, 86745-5, 62126-9, PINR, 59322-4 #### [facility] ([id number]) [address] [place] [address] 00054 Platelet mean volume (Bld) [Entitic vol] 7.2 fL Normal 7-12 [facility] Comment on above: Performed By: #### C BCA, CMP, 79202-4, 86374-5, PINR, 44750-6 #### [facility] ([id number]) [address] [place] [address] 28701 Platelets (Bld) [#/Vol] 274 10*3/uL Normal 150-450 [facility] Comment on above: Performed By: #### C BCA, CMP, 61263-9, 51591-8, PINR, 90411-4 #### [facility] ([id number]) [address] [place] [address] 35807 RBC COUNT 4.52 X10E12/L Normal 3.80-5.20 [facility] Comment on above: Performed By: #### C BCA, CMP, 67447-4, 59595-1, PINR, 75471-1 #### [facility] ([id number]) [address] [place] [address] 31326 WBC (Bld) [#/Vol] 8.3 10*3/uL Normal 4.0-11.0 [facility] Comment on above: Performed By: #### C BCA, CMP, 54384-3, 04227-5, PINR, 86146-6 #### [facility] ([id number]) [address] [place] [address] 95708 COMPREHENSIVE METABOLIC PANE Gautam 02-20-2024 Albumin [Mass/Vol] 3.9 g/dL Normal 3.2-5.3 [facility] Comment on above: Performed By: #### C BCA, CMP, 61831-0, 57870-8, PINR, 49573-6 #### [facility] ([id number]) [address] [place] [address] 25820 ALP [Catalytic activity/Vol] 46 U/L Normal 39-130 [facility] Comment on above: Performed By: #### C BCA, CMP, 53889-1, 56554-4, PINR, 47335-3 #### [facility] ([id number]) [address] [place] [address] 70678 ALT [Catalytic activity/Vol] 24 U/L Normal 0-31 [facility] Comment on above: Performed By: #### C BCA, CMP, 94427-9, 90248-3, PINR, 12525-1 #### [facility] ([id number]) [address] [place] [address] 82263 Anion gap [Moles/Vol] 9 mmol/L Normal 5-15 [facility] Comment on above: Performed By: #### C BCA, CMP, 01502-6, 26477-0, PINR, 37190-7 #### [facility] ([id number]) [address] [place] [address] 30040 AST [Catalytic activity/Vol] 11 U/L Normal 0-41 [facility] Comment on above: Performed By: #### C BCA, CMP, 39013-5, 79698-0, PINR, 98847-8 #### [facility] ([id number]) [address] [place] [address] 34058 Bilirubin [Mass/Vol] 0.5 mg/dL Normal 0.3-1.2 [facility] Comment on above: Performed By: #### C BCA, CMP, 32137-2, 90639-0, PINR, 38577-2 #### [facility] ([id number]) [address] [place] [address] 16509 Calcium [Mass/Vol] 9.0 mg/dL Normal 8.5-10.5 [facility] Comment on above: Performed By: #### C BCA, CMP, 19884-0, 66088-5, PINR, 34951-1 #### [facility] ([id number]) [address] [place] [address] 55569 Chloride [Moles/Vol] 102 mmol/L Normal 98-109 [facility] Comment on above: Performed By: #### C BCA, CMP, 84063-1, 32554-3, PINR, 06235-1 #### [facility] ([id number]) [address] [place] [address] 04683 CO2 [Moles/Vol] 29 mmol/L Normal 22-32 [facility] Comment on above: Performed By: #### C BCA, CMP, 51720-4, 78031-3, PINR, 52108-8 #### [facility] ([id number]) [address] [place] [address] 34134 Creatinine [Mass/Vol] 0.59 mg/dL Normal 0.40-1.00 [facility] Comment on above: Result Comment: METH OD TRACEABLE TO IDMS STANDARD Performed By: #### C BCA, CMP, 41497-2, 46769-5, PINR, 15057-0 #### [facility] ([id number]) [address] [place] [address] 94710 eGFR (CKD-EPI) NON-RACE DEPENDENT >90 Normal >59 [facility] Comment on above: Result Comment: Reported eGFR is based on the CKD-EPI 1 equation that does not use a race coefficient. Performed By: #### C BCA, CMP, 20568-4, 86670-7, PINR, 39040-5 #### [facility] ([id number]) [address] [place] [address] 60352 Glucose [Mass/Vol] 95 mg/dL Normal 65-99 [facility] Comment on above: Performed By: #### C BCA, CMP, 47426-3, 43745-0, PINR, 29585-5 #### [facility] ([id number]) [address] [place] [address] 91726 Potassium [Moles/Vol] 3.8 mmol/L Normal 3.5-5.0 [facility] Comment on above: Performed By: #### C BCA, CMP, 67822-7, 66620-2, PINR, 95671-3 #### [facility] ([id number]) [address] [place] [address] 69398 Protein [Mass/Vol] 6.9 g/dL Normal 6.0-8.0 [facility] Comment on above: Performed By: #### C BCA, CMP, 09166-1, 02627-4, PINR, 93982-6 #### [facility] ([id number]) [address] [place] [address] 76583 Sodium [Moles/Vol] 140 mmol/L Normal 134-146 [facility] Comment on above: Performed By: #### C BCA, CMP, 42025-7, 26070-2, PINR, 17789-9 #### [facility] ([id number]) [address] [place] [address] 19954 Urea nitrogen [Mass/Vol] 22 mg/dL Normal 5-27 [facility] Comment on above: Performed By: #### C BCA, CMP, 40995-2, 70194-4, PINR, 17436-6 #### [facility] ([id number]) [address] [place] [address] 31251 Fibrin D-dimer DDU (PPP) [Ma ss/Vol]on 02-20-2024 D DIMER <150 Normal <255 [facility] Comment on above: Result Comment: Results <255 ng/mL DDU: The presence of a VTE can safely be excluded with a negative D-Dimer result and Wells score. A negative result doesn't exclude the possibility of DIC. The test be repeated along with other diagnostic tests if the patient's symptoms persist or worsen. [email or web address] Performed By: #### C BCA, CMP, 38429-8, 25562-3, PINR, 04778-2 #### [facility] ([id number]) [address] [place] [address] 51864 PROTIME AND INRon 02-20-2024 INR Coag (PPP) [Relative time] 1.1 {INR} Normal 0.8-1.1 [facility] Comment on above: Performed By: #### C NANNETTE, SHARRON, 62976-5, 12574-4 #### [facility] ([id number]) [address] [place] [address] 67639 PT Coag (PPP) [Time] 12.7 s Normal 9.8-13.2 [facility] Comment on above: Result Comment: NEW REFERENCE RANGE Performed By: #### C NANNETTE, SHARRON, 57833-9, 31943-5 #### [facility] ([id number]) [address] [place] [address] 33619 SARS/FLU A+B/RSV by NAAT/Mol ecularon 02-20-2024 SARS/FLU A+B/RSV by NAAT/Molecular FLU A PCR Negative (qualifier value) FLU B PCR Negative (qualifier value) RSV by PCR Negative (qualifier value) SARS CoV 2 Not detected (qualifier value) NOTE The Xpert Xpress SARS-CoV-2/Flu/RSV Plus test is a rapid, multiplexed real-time RT-PCR test intended for the simultaneous qualitative detection and differentiation of SARS-CoV-2, influenza A, influenza B and respiratory syncytial virus (RSV) viral RNA from individuals suspected of respiratory viral infection consistent with COVID-19 by their healthcare provider. This test has not been validated in asymptomatic patients. The Xpert Xpress SARS-CoV-2 test is intended for use by qualified and trained operators who are performing tests using either ReliSen DX or rVita systems and is limited to laboratories that meet the CLIA requirements to perform high and moderate complexity tests. The Xpert Xpress SARS-CoV-2/Flu/RSV Plus is only for use under the Food and Drug Administration's Emergency Use Authorization. Results are for the simultaneous detection and differentiation of SARS-CoV-2, influenza A, influenza B and RSV nucleic acids in clinical specimens. SARS-CoV-2, influenza A, influenza B and RSV RNA identified by this test are generally detectable in upper respiratory samples during the acute phase of infection. Positive results are indicative of the presence of the identified virus, but do not rule out bacterial infection or co-infection with other pathogens not detected by this test. Clinical correlation with patient history and other diagnostic information is necessary to determine patient infection status. The agent detected may not be the definite cause of disease. Negative results do not preclude SARS-CoV-2, influenza A, influenza B and RSV infection and should not be used as the sole basis for treatment or other patient management decisions. Negative results must be combined with clinical observations, patient history and epidemiological information. An Invalid result may occur with specimen-associated inhibition unable to be resolved with specimen repeat. Fact Sheet for Healthcare Providers: https://www.fda.gov/media/1 29270/download Fact Sheet for Patients: https://www.fda.gov/media/1 27531/download Normal [facility] Comment on above: Performed By: #### C NANNETTE [facility], 07712-8, 49676-9 #### [facility] ([id number]) [address] [place] [address] 15057 Troponin I.cardiac High sens itivity method [Mass/Vol]on 02-20-2024 1 HOUR TROP I, HIGH SENSITIVITY 3 ng/L Normal <16 [facility] Comment on above: Performed By: #### C NANNETTE CMP, 51192-5, 20847-6 #### [facility] ([id number]) [address] [place] [address] 33062 TROPONIN I, HIGH SENSITIVITY 3 ng/L Normal <16 [facility] Comment on above: Performed By: #### C NANNETTE [facility], 83445-2, 71754-2, PINR, 79538-2 #### [facility] ([id number]) [address] [place] [address] 89966 aPTT Coag (PPP) [Time]on aPTT Coag (Bld) [Time] 29 s Normal 26-37 [facility] Comment on above: Result Comment: NEW REFERENCE RANGE Performed By: #### C NANNETTE, CMP, , 78850-7 #### [facility] ([id number]) [address] [place] [address] 28758 CBC AND AUTO DIFFon 11-28-19 24 ABSOLUTE BASOPHIL 0.1 X10E9/L Normal 0.0-0.2 [facility] Comment on above: Performed By: #### C NANNETTE, CMP, , 34638-4 #### [facility] ([id number]) [address] [place] [address] 42580 ABSOLUTE NEUTROPHIL 3.8 X10E9/L Normal 1.5-6.6 [facility] Comment on above: Performed By: #### C BCA, CMP, , 24314-7 #### [facility] ([id number]) [address] [place] [address] 74619 Basophils/100 WBC (Bld) 1.2 % Normal [facility] Comment on above: Performed By: #### Vincent BCA, CMP, , 53281-7 #### [facility] ([id number]) [address] [place] [address] 53239 Eosinophils (Bld) [#/Vol] 0.3 10*3/uL Normal 0.0-0.4 [facility] Comment on above: Performed By: #### C BCA, CMP, , 45779-2 #### [facility] ([id number]) [address] [place] [address] 92867 Eosinophils/100 WBC (Bld) 3.8 % Normal [facility] Comment on above: Performed By: #### Vincent BCA, CMP, , 74297-2 #### [facility] ([id number]) [address] [place] [address] 14384 Erythrocyte distribution width (RBC) [Ratio] 13.3 % Normal 11.5-15.0 [facility] Comment on above: Performed By: #### C NANNETTE, CMP, , 87535-3 #### [facility] ([id number]) [address] [place] [address] 54158 Hematocrit (Bld) [Volume fraction] 39.0 % Normal 35-47 [facility] Comment on above: Performed By: #### Vincent BRUNSON, SHARRON, , 39134-3 #### [facility] ([id number]) [address] [place] [address] 37165 Hemoglobin (Bld) [Mass/Vol] 13.7 g/dL Normal 11.7-15.5 [facility] Comment on above: Performed By: #### Vincent BRUNSON, CMP, , 07355-2 #### [facility] ([id number]) [address] [place] [address] 10413 Lymphocytes (Bld) [#/Vol] 2.4 10*3/uL Normal 1.0-3.5 [facility] Comment on above: Performed By: #### Vincent BRUNSON CMP, , 12326-8 #### [facility] ([id number]) [address] [place] [address] 52968 Lymphocytes/100 WBC (Bld) 33.5 % Normal [facility] Comment on above: Performed By: #### Vincent BRUNSON, CMP, , 27947-3 #### [facility] ([id number]) [address] [place] [address] 84582 MCH (RBC) [Entitic mass] 29.4 pg Normal 27-34 [facility] Comment on above: Performed By: #### Vincent BRUNSON CMP, , 09608-3 #### [facility] ([id number]) [address] [place] [address] 46029 MCHC (RBC) [Mass/Vol] 35.2 g/dL Normal 32-36 [facility] Comment on above: Performed By: #### Vincent BRUNSON, CMP, , 73602-2 #### [facility] ([id number]) [address] [place] [address] 37289 MCV (RBC) [Entitic vol] 84 fL Normal 80-100 [facility] Comment on above: Performed By: #### Vincent BRUNSON CMP, , 88344-0 #### [facility] ([id number]) [address] [place] [address] 83852 Monocytes (Bld) [#/Vol] 0.5 10*3/uL Normal 0-0.9 [facility] Comment on above: Performed By: #### Vincent BRUNSON, CMP, , 41601-0 #### [facility] ([id number]) [address] [place] [address] 07446 Monocytes/100 WBC (Bld) 7.5 % Normal [facility] Comment on above: Performed By: #### Vincent BRUNSON, CMP, , 79216-1 #### [facility] ([id number]) [address] [place] [address] 35125 Neutrophils/100 WBC (Bld) 54.0 % Normal [facility] Comment on above: Performed By: #### Vincent BRUNSON, CMP, , 58839-1 #### [facility] ([id number]) [address] [place] [address] 01149 Platelet mean volume (Bld) [Entitic vol] 6.4 fL Low 7-12 [facility] Comment on above: Performed By: #### C BCA, CMP, , 11458-0 #### [facility] ([id number]) [address] [place] [address] 30635 Platelets (Bld) [#/Vol] 272 10*3/uL Normal 150-450 [facility] Comment on above: Performed By: #### C BCA, CMP, , 77278-5 #### [facility] ([id number]) [address] [place] [address] 66384 RBC COUNT 4.66 X10E12/L Normal 3.80-5.20 [facility] Comment on above: Performed By: #### C BCA, CMP, , 57485-9 #### [facility] ([id number]) [address] [place] [address] 79954 WBC (Bld) [#/Vol] 7.1 10*3/uL Normal 4.0-11.0 [facility] Comment on above: Performed By: #### C BCA, CMP, , 54385-0 #### [facility] ([id number]) [address] [place] [address] 92623 COMPREHENSIVE METABOLIC PANE [facility] 11-28-2023 Albumin [Mass/Vol] 4.1 g/dL Normal 3.2-5.3 [facility] Comment on above: Performed By: #### C BCA, CMP, , 16282-1 #### [facility] ([id number]) [address] [place] [address] 80426 ALP [Catalytic activity/Vol] 47 U/L Normal 39-130 [facility] Comment on above: Performed By: #### C BCA, CMP, , 19557-6 #### [facility] ([id number]) [address] [place] [address] 91740 ALT [Catalytic activity/Vol] 29 U/L Normal 0-31 [facility] Comment on above: Performed By: #### C BCA, CMP, , 18221-9 #### [facility] ([id number]) [address] [place] [address] 37766 Anion gap [Moles/Vol] 7 mmol/L Normal 5-15 [facility] Comment on above: Performed By: #### C BCA, CMP, , 78071-8 #### [facility] ([id number]) [address] [place] [address] [place] [address] AST [Catalytic activity/Vol] 13 U/L Normal 0-41 [facility] Comment on above: Performed By: #### C BCA, CMP, , 15205-1 #### [facility] ([id number]) [address] [place] [address] [place] [address] Bilirubin [Mass/Vol] 0.6 mg/dL Normal 0.3-1.2 [facility] Comment on above: Performed By: #### C BCA, CMP, , 10096-0 #### [facility] ([id number]) [address] [place] [address] 01953 Calcium [Mass/Vol] 8.5 mg/dL Normal 8.5-10.5 [facility] Comment on above: Performed By: #### C BCA, CMP, , 87597-9 #### [facility] ([id number]) [address] [place] [address] [place] [address] Chloride [Moles/Vol] 100 mmol/L Normal 98-109 [facility] Comment on above: Performed By: #### C BCA, CMP, , 30921-6 #### [facility] ([id number]) [address] [place] [address] [place] [address] CO2 [Moles/Vol] 27 mmol/L Normal 22-32 [facility] Comment on above: Performed By: #### C BCA, CMP, , 58315-6 #### [facility] ([id number]) [address] [place] [address] 72210 Creatinine [Mass/Vol] 0.57 mg/dL Normal 0.40-1.00 [facility] Comment on above: Result Comment: METH OD TRACEABLE TO IDMS STANDARD Performed By: #### C NANNETTE, CMP, , 27269-5 #### [facility] ([id number]) [address] [place] [address] 42414 eGFR (CKD-EPI) NON-RACE DEPENDENT >90 Normal >59 [facility] Comment on above: Result Comment: Reported eGFR is based on the CKD-EPI 2020 equation that does not use a race coefficient. Performed By: #### C NANNETTE, CMP, , 83809-5 #### [facility] ([id number]) [address] [place] [address] 58766 Glucose [Mass/Vol] 103 mg/dL High 65-99 [facility] Comment on above: Performed By: #### C NANNETTE, CMP, , 81040-9 #### [facility] ([id number]) [address] [place] [address] 21696 Potassium [Moles/Vol] 3.5 mmol/L Normal 3.5-5.0 [facility] Comment on above: Performed By: #### C BCA, CMP, , 98688-5 #### [facility] ([id number]) [address] [place] [address] 47080 Protein [Mass/Vol] 7.1 g/dL Normal 6.0-8.0 [facility] Comment on above: Performed By: #### C BCA, CMP, , 54483-4 #### [facility] ([id number]) [address] [place] [address] 46822 Sodium [Moles/Vol] 134 mmol/L Normal 134-146 [facility] Comment on above: Performed By: #### C NANNETTE CMP, , 10101-7 #### [facility] ([id number]) [address] [place] [address] 34820 Urea nitrogen [Mass/Vol] 13 mg/dL Normal 5-27 [facility] Comment on above: Performed By: #### C BCA, CMP, , 83988-6 #### [facility] ([id number]) [address] [place] [address] 64882 MAGNESIUMon 11-28-2023 Magnesium [Mass/Vol] 2.0 mg/dL Normal 1.8-2.6 [facility] Comment on above: Performed By: #### C NANNETTE, CMP, , 92864-8 #### [facility] ([id number]) [address] [place] [address] 14771 Troponin I.cardiac High sens itivity method [Mass/Vol]on 11-28-2023 1 HOUR TROP I, HIGH SENSITIVITY 3 ng/L Normal <16 [facility] Comment on above: Performed By: #### 8 9579-7 #### [facility] ([id number]) [address] [place] [address] 61432 TROPONIN I, HIGH SENSITIVITY 3 ng/L Normal <16 [facility] Comment on above: Performed By: #### C BCA, CMP, , 86023-5 #### [facility] ([id number]) [address] [place] [address] 69238 XR CHEST 2 VWSon 11-28-2023 XR CHEST 2 VWS XR CHEST 2 VWS History: Hypertension. Exam/Technique: PA and lateral views of the Chest Comparison: 02/27/2023 Findings: Heart appears mildly enlarged. Lung bases partially obscured by overlapping soft tissue. No evidence of pneumonia, effusion or definitive acute pulmonary pathology. Bony structures are age compatible. IMPRESSION: * No evidence of acute disease. Finalized by Rolly Back DO on 11/28/2023 12:29 PM Normal [facility] No Panel Informationon 10-07 1. Photopenic area i n the right temporoparietal area of the brain consistent with encephalomalacia from prior surgery/tumor resection. 2. No abnormal radiotracer uptake in the neck, chest, abdomen, pelvis, or lower extremities to suggest metastasis. [facility] RIS CONSOLIDATED EXAMINATION: WHOLE BODY PET/CT WITH LOWER EXTREMITIES. 10/05/2022 TECHNIQUE: Following IV injection of 13.518 mCi of F 18 -FDG, PET tumor imaging was acquired from the top of the skull to the mid thighs. Then, a separate acquisition of the lower extremities from mid thigh to the tip of the toes was acquired. Computed tomography was used for purposes of attenuation correction and anatomic localization. Fusion imaging was utilized for interpretation. Body uptake time 63 minutes. Glucose level 86 mg/dl. 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 FINDINGS: HEAD/NECK: Photopenic area in the right temporal occipital area of the brain consistent with known encephalomalacia from craniotomy and tumor removal. No metabolically active cervical adenopathy. CHEST: Uptake of radiotracer in the great vessels and left ventricular myocardium within physiologic range. No metabolically active mediastinal adenopathy. No metabolically active pulmonary nodules. ABDOMEN/PELVIS: Uptake of radiotracer in the liver, spleen and urinary collecting systems is within physiologic range although the patient has bilateral pelviectasis and extra renal collecting systems. Bowel activity is within physiologic range. There is some activity on the perineum which may be related to urinary leakage. No metabolically active intraperitoneal masses. No metabolically active lymph nodes in the abdomen, pelvis or inguinal areas. BONES/SOFT TISSUE: No areas of suspicious metabolic uptake in the osseous or subcutaneous tissues of the lower extremity. There is some radiotracer uptake in the soles of the feet, likely due to activity. There is uptake in both shoulder joints, distribution favoring degenerative process. Uptake of radiotracer in the hips is degenerative in appearance. No suspicious osseous metabolic activity. INCIDENTAL CT FINDINGS: Atherosclerotic calcification of the aorta. Small hiatal hernia. Extra renal dilated collecting systems both kidneys right greater than left. Moderate stool burden. MHPN Mana Pabon MD - 10/07/2022 EXAMINATION: WHOLE BODY PET/CT WITH LOWER EXTREMITIES. 10/05/2022 TECHNIQUE: Following IV injection of 13.518 mCi of F 18 -FDG, PET tumor imaging was acquired from the top of the skull to the mid thighs. Then, a separate acquisition of the lower extremities from mid thigh to the tip of the toes was acquired. Computed tomography was used for purposes of attenuation correction and anatomic localization. Fusion imaging was utilized for interpretation. Body uptake time 63 minutes. Glucose level 86 mg/dl. 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 FINDINGS: HEAD/NECK: Photopenic area in the right temporal occipital area of the brain consistent with known encephalomalacia from craniotomy and tumor removal. No metabolically active cervical adenopathy. CHEST: Uptake of radiotracer in the great vessels and left ventricular myocardium within physiologic range. No metabolically active mediastinal adenopathy. No metabolically active pulmonary nodules. ABDOMEN/PELVIS: Uptake of radiotracer in the liver, spleen and urinary collecting systems is within physiologic range although the patient has bilateral pelviectasis and extra renal collecting systems. Bowel activity is within physiologic range. There is some activity on the perineum which may be related to urinary leakage. No metabolically active intraperitoneal masses. No metabolically active lymph nodes in the abdomen, pelvis or inguinal areas. BONES/SOFT TISSUE: No areas of suspicious metabolic uptake in the osseous or subcutaneous tissues of the lower extremity. There is some radiotracer uptake in the soles of the feet, likely due to activity. There is uptake in both shoulder joints, distribution favoring degenerative process. Uptake of radiotracer in the hips is degenerative in appearance. No suspicious osseous metabolic activity. INCIDENTAL CT FINDINGS: Atherosclerotic calcification of the aorta. Small hiatal hernia. Extra renal dilated collecting systems both kidneys right greater than left. Moderate stool burden. IMPRESSION: 1. Photopenic area in the right temporoparietal area of the brain consistent with encephalomalacia from prior surgery/tumor resection. 2. No abnormal radiotracer uptake in the neck, chest, abdomen, pelvis, or lower extremities to suggest metastasis. [facility] Work Phone: No Panel InformationOrdered By: Mana Nielson on 10-07-2022 [facility] Work Phone: No Panel Informationon 10-05 Radiology Study observation (narrative) [facility] Work Phone: POC Glucose Fingerstickon Glucose [Mass/Vol] 86 mg/dL 65 - 105 mg/dL [facility] Creatinine W/GFR [facility] 06-21-2022 Creatinine [Mass/Vol] 0.67 mg/dL 0.51 - 1.19 mg/dL [facility] eGFR, POC mL/min/1.7 3m2 [facility] Comment on above: Effective Mar 20, 2022 These results are not intended for use [...] following therapy that affects renal tubular secretion. [facility] Creatinine W/GFR [facility] [employer] 06-16-2020 Creatinine [Mass/Vol] 0.52 mg/dL 0.51 - 1.19 mg/dL [facility] [place] GFR Non- >60 >60 mL/min [facility] [place] GFR/1.73 sq M predicted among non-blacks MDRD (S/P/Bld) [Vol rate/Area] mL/min/{1.73_m2} >60 mL/min [facility] [place] GFR/1.73 sq M predicted among non-blacks MDRD (S/P/Bld) [Vol rate/Area] [facility] [place], [place] Comment on above: Average GFR for 60-6 9 years old: 85 mL/min/1.73sq m Chronic Kidney Disease: <60 mL/min/1.73sq m Kidney failure: <15 mL/min/1.73sq m eGFR calculated using average adult body mass. Additional eGFR calculator available at: [email or web address]_[email or web address] MRI BRAIN W WO CONTRASTon Postsurgical change from prior mass resection involving the right temporal and right occipital lobes. No evidence for residual or recurrent mass. No acute intracranial abnormality. [facility] [place] EXAM[facility]ATION: MRI OF THE BRAIN WITHOUT AND WITH CONTRAST 06/16/2020 1:39 pm TECHNIQUE: Multiplanar multisequence MRI of the head/brain was performed without and with the administration of intravenous contrast. COMPARISON: MRI brain performed 08/28/2018. HISTORY: ORDERING SYSTEM PROVIDED HISTORY: Hemangiopericytoma, malignant (HCC) FINDINGS: INTRACRANIAL STRUCTURES/VENTRICLES: The sellar and suprasellar structures, optic chiasm, corpus callosum, pineal gland, tectum, and midline brainstem structures are unremarkable. The craniocervical junction is unremarkable. There is no acute hemorrhage, mass effect, or midline shift. There is stable postsurgical change from mass resection involving the right temporal lobe and right occipital lobe. There is otherwise satisfactory overall silva-white matter differentiation. The ventricular structures are symmetric and unremarkable. The infratentorial structures including the cerebellopontine angles and internal auditory canals are unremarkable. There is no abnormal restricted diffusion. There is no abnormal blooming artifact on susceptibility weighted imaging. There is no abnormal postcontrast enhancement. ORBITS: The visualized portion of the orbits demonstrate no acute abnormality. SINUSES: The visualized paranasal sinuses and mastoid air cells are well aerated. BONES/SOFT TISSUES: The bone marrow signal intensity appears normal. The soft tissues demonstrate no acute abnormality. [facility] [place] [facility], [facility] Incoming R adiant Results From [employer] - 06/16/2020 2:44 PM EST EXAMINATION: MRI OF THE BRAIN WITHOUT AND WITH CONTRAST 06/16/2020 1:39 pm TECHNIQUE: Multiplanar multisequence MRI of the head/brain was performed without and with the administration of intravenous contrast. COMPARISON: MRI brain performed 08/28/2018. HISTORY: ORDERING SYSTEM PROVIDED HISTORY: Hemangiopericytoma, malignant (HCC) FINDINGS: INTRACRANIAL STRUCTURES/VENTRICLES: The sellar and suprasellar structures, optic chiasm, corpus callosum, pineal gland, tectum, and midline brainstem structures are unremarkable. The craniocervical junction is unremarkable. There is no acute hemorrhage, mass effect, or midline shift. There is stable postsurgical change from mass resection involving the right temporal lobe and right occipital lobe. There is otherwise satisfactory overall silva-white matter differentiation. The ventricular structures are symmetric and unremarkable. The infratentorial structures including the cerebellopontine angles and internal auditory canals are unremarkable. There is no abnormal restricted diffusion. There is no abnormal blooming artifact on susceptibility weighted imaging. There is no abnormal postcontrast enhancement. ORBITS: The visualized portion of the orbits demonstrate no acute abnormality. SINUSES: The visualized paranasal sinuses and mastoid air cells are well aerated. BONES/SOFT TISSUES: The bone marrow signal intensity appears normal. The soft tissues demonstrate no acute abnormality. IMPRESSION: Postsurgical change from prior mass resection involving the right temporal and right occipital lobes. No evidence for residual or recurrent mass. No acute intracranial abnormality. [place], [place] Coding Summaryon 03-18-2018 Coding Summary CODING DATE: 018 [facility] STATUS: Home PAYOR: Medicaid HMO ADMIT DX: REASON FOR VISIT DX: R60.0 Localized edema G56.02 Carpal tunnel syndrome, left upper limb FINAL DX: PRINCIPAL: R60.0 Localized edema SECONDARY: G56.02 Carpal tunnel syndrome, left upper limb PROCEDURES DOCTOR NAME DATE NOTE: The code number assigned matches the documented diagnosis and / or procedure in the patient's chart. However, the narrative phrase printed from the coding software may appear abbreviated, or result in slightly different terminology. Coded By: Candice Zeng Date Saved: 03/18/2018 06:09 am [facility] Provider [place] 03-07-2018 Protein mass conc [id number]#1.00OTGTIFF [facility] Provider [place] 03-06-2018 Protein mass conc [id number]#1.00OTGTIFF [facility] Basic Metabolic Profon 02-02 (cont.) [facility] Comment on above: Result Comment: Aver age GFR for 60-69 years old: 85 mL/min/1.73sq mChronic Kidney Disease: <60 mL/min/1.73sq mKidney failure: <15 mL/min/1.73sq meGFR calculated using average adult body mass. Additional eGFR calculator available at:http://www.[employer].Confidex/multiple_crcl_2012.htmSan [facility] [address] [place] [address] Performed By: #### C DP, BMP ####[address] [address] Anion gap 12 mmol/L Normal 9-17 [facility] Comment on above: Performed By: #### C DP, BMP ####[address] [address] Calcium 8.0 mg/dL Low 8.6-10.4 [facility] Comment on above: Performed By: #### C DP, BMP ####[address] [address] Chloride 101 mmol/L Normal 98-107 [facility] Comment on above: Performed By: #### C DP, BMP ####[address] [address] CO2 25 mmol/L Normal 20-31 [facility] Comment on above: Performed By: #### C DP, BMP ####[facility] [address] [place] [address] Creatinine 0.25 mg/dL Low 0.50-0.90 [facility] Comment on above: Performed By: #### C DP, BMP ####[address] [address] eGFR (non-black) mL/min/{1.73_m2} Normal >60 [facility] Comment on above: Performed By: #### C DP, BMP ####[address] [address] Glucose mass conc 141 mg/dL High 70-99 [facility] Comment on above: Performed By: #### C DP, BMP ####[address] [address] Potassium molar conc 3.7 mmol/L Normal 3.7-5.3 [facility] Comment on above: Performed By: #### C DP, BMP ####[address] [address] Sodium 138 mmol/L Normal 135-144 [facility] Comment on above: Performed By: #### C DP, BMP ####[address] [address] Urea nitrogen 13 mg/dL Normal 8-23 [facility] Comment on above: Performed By: #### C DP, BMP ####[address] [address] BUN/CRE Ratio NOT REPORTED Normal 9-20 [facility] Comment on above: Performed By: #### C DP, BMP ####[address] [address] Staging: NOT REPORTED Normal [facility] Comment on above: Performed By: #### C DP, BMP ####[address] [address] CBC with Diffon 02-02-2017 Abs. Basophil 0.10 k/uL Normal 0.0-0.2 [facility] Comment on above: Result Comment: [address] [place] [address] Performed By: #### C DP, BMP ####[address] [address] Abs.Neutrophil (Seg) 11.40 k/uL High 1.8-7.7 [facility] Comment on above: Performed By: #### C DP, BMP ####[address] [address] Basophils/100 WBC Auto (Bld) 0 % [facility] Comment on above: Performed By: #### C DP, BMP ####[address] [address] Eosinophils 0.00 10*3/uL Normal 0.0-0.4 [facility] Comment on above: Performed By: #### C DP, BMP ####[address] [address] Eosinophils/100 leukocytes 0 % [facility] Comment on above: Performed By: #### C DP, BMP ####[address] [address] Erythrocyte distribution width Auto Ratio (RBC) 13.8 % Normal 12.5-15.4 [facility] Comment on above: Performed By: #### C DP, BMP ####[address] [address] Erythrocytes (RBC) 2.84 10*6/uL Low 4.0-5.2 [facility] Comment on above: Performed By: #### C DP, BMP ####[address] [address] Hematocrit (HCT) 24.0 % Low 36-46 [facility] Comment on above: Performed By: #### C DP, BMP ####[address] [address] Hemoglobin mass conc (Bld) 8.2 g/dL Low 12.0-16.0 [facility] Comment on above: Performed By: #### C DP, BMP ####[address] [address] Lymphocytes 1.30 10*3/uL Normal 1.0-4.8 [facility] Comment on above: Performed By: #### C DP, BMP ####[address] [address] Lymphocytes/100 leukocytes 9 % [facility] Comment on above: Performed By: #### C DP, BMP ####[address] [address] MCH 29.0 pg Normal 26-34 [facility] Comment on above: Performed By: #### C DP, BMP ####[address] [address] MCHC mass conc (RBC) 34.4 g/dL Normal 31-37 [facility] Comment on above: Performed By: #### C DP, BMP ####[address] [address] MCV 84.4 fL Normal 80-100 [facility] Comment on above: Performed By: #### C DP, BMP ####[address] [address] Monocytes 0.90 10*3/uL Normal 0.1-1.2 [facility] Comment on above: Performed By: #### C DP, BMP ####[address] [address] Monocytes/100 leukocytes 7 % [facility] Comment on above: Performed By: #### C DP, BMP ####[address] [address] Neutrophil (Seg) 84 % Normal [facility] Comment on above: Performed By: #### C DP, BMP ####[address] [address] Platelet mean volume (PMV) 6.9 fL Normal 6.0-12.0 [facility] Comment on above: Performed By: #### C DP, BMP ####[address] [address] Platelets 206 10*3/uL Normal 140-450 [facility] Comment on above: Performed By: #### C DP, BMP ####[address] [address] WBC (Leukocytes) 13.6 10*3/uL High 3.5-11.0 [facility] Comment on above: Performed By: #### C DP, BMP ####[address] [address] Auto Diff Performed NOT REPORTED Normal [facility] Comment on above: Performed By: #### C DP, BMP ####[address] [address] Erythrocyte morphology NOT REPORTED [facility] Comment on above: Performed By: #### C DP, BMP ####[address] [address] Platelets NOT REPORTED [facility] Comment on above: Performed By: #### C DP, BMP ####[address] [address] WBC Morphology NOT REPORTED Normal [facility] Comment on above: Performed By: #### C DP, BMP ####[address] [address] Discharge Summaryon 02-03-20 17 HIM IP Note OR Ticker Wirer [facility] Basic Metabolic Profon 02-01 (cont.) [facility] Comment on above: Result Comment: Aver age GFR for 60-69 years old: 85 mL/min/1.73sq mChronic Kidney Disease: <60 mL/min/1.73sq mKidney failure: <15 mL/min/1.73sq meGFR calculated using average adult body mass. Additional eGFR calculator available at:http://www.[employer]/multiple_crcl_2012.htmSan [facility] [address] [place] [address] Performed By: #### C DP, BMP ####[address] [address] Anion gap 11 mmol/L Normal 9-17 [facility] Comment on above: Performed By: #### C DP, BMP ####[address] [address] Calcium 7.6 mg/dL Low 8.6-10.4 [facility] Comment on above: Performed By: #### C DP, BMP ####[address] [address] Chloride 104 mmol/L Normal 98-107 [facility] Comment on above: Performed By: #### C DP, BMP ####[address] [address] CO2 24 mmol/L Normal 20-31 [facility] Comment on above: Performed By: #### C DP, BMP ####[address] [address] Creatinine 0.26 mg/dL Low 0.50-0.90 [facility] Comment on above: Performed By: #### C DP, BMP ####[address] [address] eGFR (non-black) mL/min/{1.73_m2} Normal >60 [facility] Comment on above: Performed By: #### C DP, BMP ####[address] [address] Glucose mass conc 128 mg/dL High 70-99 [facility] Comment on above: Performed By: #### C DP, BMP ####[address] [address] Potassium molar conc 3.9 mmol/L Normal 3.7-5.3 [facility] Comment on above: Performed By: #### C DP, BMP ####[address] [address] Sodium 139 mmol/L Normal 135-144 [facility] Comment on above: Performed By: #### C DP, BMP ####[address] [address] Urea nitrogen 14 mg/dL Normal 8- [facility] Comment on above: Performed By: #### C DP, BMP ####[address] [address] BUN/CRE Ratio NOT REPORTED Normal 9- [facility] Comment on above: Performed By: #### C DP, BMP ####[address] [address] Staging: NOT REPORTED Normal [facility] Comment on above: Performed By: #### C DP, BMP ####[address] [address] CBC with Diffon 02-01-2017 Abs. Basophil 0.00 k/uL Normal 0.0-0.2 [facility] Comment on above: Result Comment: [address] [address] Performed By: #### C DP, BMP ####[address] [address] Abs.Neutrophil (Seg) 16.30 k/uL High 1.8-7.7 [facility] Comment on above: Performed By: #### C DP, BMP ####[address] [address] Basophils/100 WBC Auto (Bld) 0 % [facility] Comment on above: Performed By: #### C DP, BMP ####[address] [address] Eosinophils 0.00 10*3/uL Normal 0.0-0.4 [facility] Comment on above: Performed By: #### C DP, BMP ####[address] [address] Eosinophils/100 leukocytes 0 % [facility] Comment on above: Performed By: #### C DP, BMP ####[address] [address] Erythrocyte distribution width Auto Ratio (RBC) 13.6 % Normal 12.5-15.4 [facility] Comment on above: Performed By: #### C DP, BMP ####[address] [address] Erythrocytes (RBC) 2.94 10*6/uL Low 4.0-5.2 [facility] Comment on above: Performed By: #### C DP, BMP ####[address] [address] Hematocrit (HCT) 24.4 % Low 36-46 [facility] Comment on above: Performed By: #### C DP, BMP ####[address] [address] Hemoglobin mass conc (Bld) 8.6 g/dL Low 12.0-16.0 [facility] Comment on above: Performed By: #### C DP, BMP ####[address] [address] Lymphocytes 1.10 10*3/uL Normal 1.0-4.8 [facility] Comment on above: Performed By: #### C DP, BMP ####[address] [address] Lymphocytes/100 leukocytes 6 % [facility] Comment on above: Performed By: #### C DP, BMP ####[address] [address] MCH 29.3 pg Normal 26-34 [facility] Comment on above: Performed By: #### C DP, BMP ####[address] [address] MCHC mass conc (RBC) 35.3 g/dL Normal 31-37 [facility] Comment on above: Performed By: #### C DP, BMP ####[address] [address] MCV 83.0 fL Normal 80-100 [facility] Comment on above: Performed By: #### C DP, BMP ####[address] [address] Monocytes 1.50 10*3/uL High 0.1-1.2 [facility] Comment on above: Performed By: #### C DP, BMP ####[address] [address] Monocytes/100 leukocytes 8 % [facility] Comment on above: Performed By: #### C DP, BMP ####[address] [address] Neutrophil (Seg) 86 % Normal [facility] Comment on above: Performed By: #### C DP, BMP ####[address] [address] Platelet mean volume (PMV) 6.9 fL Normal 6.0-12.0 [facility] Comment on above: Performed By: #### C DP, BMP ####[address] [address] Platelets 195 10*3/uL Normal 140-450 [facility] Comment on above: Performed By: #### C DP, BMP ####[address] [address] WBC (Leukocytes) 18.9 10*3/uL High 3.5-11.0 [facility] Comment on above: Performed By: #### C DP, BMP ####[address] [address] Auto Diff Performed NOT REPORTED Normal [facility] Comment on above: Performed By: #### C DP, BMP ####[address] [address] Erythrocyte morphology NOT REPORTED [facility] Comment on above: Performed By: #### C DP, BMP ####[address] [address] Platelets NOT REPORTED [facility] Comment on above: Performed By: #### C DP, BMP ####[address] [address] WBC Morphology NOT REPORTED Normal [facility] Comment on above: Performed By: #### C DP, BMP ####[address] [address] Calcium, Ionicon 02-01-2017 Calcium 1.11 mmol/L Low 1.13-1.33 [facility] Comment on above: Result Comment: [address] [address] Performed By: #### I OCAL ####[address] [address] CBC with Diffon 01-31-2017 Abs. Basophil 0.00 k/uL Normal 0.0-0.2 [facility] Comment on above: Performed By: #### C DP ####[address] [address] Abs.Neutrophil (Seg) 16.47 k/uL High 1.8-7.7 [facility] Comment on above: Performed By: #### C DP ####[address] [address] Basophils/100 WBC Auto (Bld) 0 % [facility] Comment on above: Performed By: #### C DP ####[address] [address] Blood morphology Normal Normal [facility] Comment on above: Result Comment: [address] [place] [address] Performed By: #### C DP ####[address] [address] Eosinophils 0.00 10*3/uL Normal 0.0-0.4 [facility] Comment on above: Performed By: #### C DP ####[address] [address] Eosinophils/100 leukocytes 0 % [facility] Comment on above: Performed By: #### C DP ####[address] [address] Lymphocytes 1.37 10*3/uL Normal 1.0-4.8 [facility] Comment on above: Performed By: #### C DP ####[address] [address] Lymphocytes/100 leukocytes 7 % [facility] Comment on above: Performed By: #### C DP ####[facility] [place] [address] Monocytes 1.76 10*3/uL High 0.1-1.2 [facility] Comment on above: Performed By: #### C DP ####[address] [address] Monocytes/100 leukocytes 9 % [facility] Comment on above: Performed By: #### C DP ####[address] [address] Neutrophil (Seg) 84 % Normal [facility] Comment on above: Performed By: #### C DP ####[address] [address] Erythrocyte distribution width Auto Ratio (RBC) 13.8 % Normal 12.5-15.4 [facility] Comment on above: Performed By: #### C DP ####[address] [address] Erythrocytes (RBC) 3.19 10*6/uL Low 4.0-5.2 [facility] Comment on above: Performed By: #### C DP ####[address] [address] Hematocrit (HCT) 26.8 % Low 36-46 [facility] Comment on above: Performed By: #### C DP ####[address] [address] Hemoglobin mass conc (Bld) 9.4 g/dL Low 12.0-16.0 [facility] Comment on above: Performed By: #### C DP ####[address] [address] MCH 29.4 pg Normal 26-34 [facility] Comment on above: Performed By: #### C DP ####[address] [place] [address] MCHC mass conc (RBC) 35.1 g/dL Normal 31-37 [facility] Comment on above: Performed By: #### C DP ####[address] [address] MCV 83.8 fL Normal 80-100 [facility] Comment on above: Performed By: #### C DP ####[address] [address] Platelet mean volume (PMV) 7.3 fL Normal 6.0-12.0 [facility] Comment on above: Performed By: #### C DP ####[address] [address] Platelets 226 10*3/uL Normal 140-450 [facility] Comment on above: Performed By: #### C DP ####[address] [address] WBC (Leukocytes) 19.6 10*3/uL High 3.5-11.0 [facility] Comment on above: Performed By: #### C DP ####[address] [address] Auto Diff Performed NOT REPORTED Normal [facility] Comment on above: Performed By: #### C DP ####[address] [address] Erythrocyte morphology NOT REPORTED [facility] Comment on above: Performed By: #### C DP ####[address] [address] Platelets NOT REPORTED [facility] Comment on above: Performed By: #### C DP ####[address] [address] WBC Morphology NOT REPORTED Normal [facility] Comment on above: Performed By: #### C DP ####[address] [address] Comp Metabolic Profon 2016 (cont.) [facility] Comment on above: Result Comment: Aver age GFR for 60-69 years old: 85 mL/min/1.73sq mChronic Kidney Disease: <60 mL/min/1.73sq mKidney failure: <15 mL/min/1.73sq meGFR calculated using average adult body mass. Additional eGFR calculator available at:http://www.[employer] Engine/multiple_crcl_2012.htmShel[address] [place] [address] Performed By: #### C P ####[address] [address] Alanine aminotransferase (ALT) 16 U/L Normal 5-33 [facility] Comment on above: Performed By: #### C P ####[address] [address] Albumin 2.7 g/dL Low 3.5-5.2 [facility] Comment on above: Performed By: #### C P ####[address] [address] Albumin/Globulin Ratio 1.6 {ratio} Normal 1.0-2.5 [facility] Comment on above: Performed By: #### C P ####[address] [address] Alkaline Phos 23 U/L Low 35-104 [facility] Comment on above: Performed By: #### C P ####[address] [address] Anion gap 13 mmol/L Normal 9-17 [facility] Comment on above: Performed By: #### C P ####[facility] [place] [address] Aspartate aminotransferase (AST) 8 U/L Normal <32 [facility] Comment on above: Performed By: #### C P ####[address] [address] Bilirubin Ql (U) 0.42 mg/dL Normal 0.3-1.2 [facility] Comment on above: Performed By: #### C P ####[address] [address] Calcium 6.8 mg/dL Low 8.6-10.4 [facility] Comment on above: Performed By: #### C P ####[address] [address] Chloride 111 mmol/L High 98-107 [facility] Comment on above: Performed By: #### C P ####[address] [address] CO2 19 mmol/L Low 20-31 [facility] Comment on above: Performed By: #### C P ####[address] [address] Creatinine 0.31 mg/dL Low 0.50-0.90 [facility] Comment on above: Performed By: #### C P ####[address] [address] eGFR (non-black) mL/min/{1.73_m2} Normal >60 [facility] Comment on above: Performed By: #### C P ####[facility] [place] [address] Glucose mass conc 127 mg/dL High 70-99 [facility] Comment on above: Performed By: #### C P ####[address] [address] Potassium molar conc 3.6 mmol/L Low 3.7-5.3 [facility] Comment on above: Performed By: #### C P ####[address] [address] Protein 4.4 g/dL Low 6.4-8.3 [facility] Comment on above: Performed By: #### C P ####[address] [address] Sodium 143 mmol/L Normal 135-144 [facility] Comment on above: Performed By: #### C P ####[address] [address] Urea nitrogen 22 mg/dL Normal 02-07 [facility] Comment on above: Performed By: #### C P ####[address] [address] BUN/CRE Ratio NOT REPORTED Normal - [facility] Comment on above: Performed By: #### C P ####[address] [address] Staging: NOT REPORTED [facility] Comment on above: Performed By: #### C P ####[address] [address] Cult, Bloodon 01-31-2017 Cult, Blood Specimen Description .BLOOD Special Requests LT HAND 6ML Culture NO GROWTH 6 DAYS Report Status FINAL 01/31/2017 [facility] Comment on above: Performed By: #### B CUL2 ####[address] [address] Cult,Bloodon 01-31-2017 Cult,Blood Specimen Description .BLOOD Special Requests LT ARM 3ML Culture NO GROWTH 6 DAYS Report Status FINAL 01/31/2017 [facility] Comment on above: Performed By: #### B C ####[address] [place] [address] MRI BRAIN W WO CONTRASTon MRI BRAIN W WO CONTRAST EXAMINATION:MRI OF THE BRAIN WITHOUT AND WITH CONTRAST 01/31/2017 2:27 amTECHNIQUE:Multiplanar multisequence MRI of the head/brain was performed without andwith the administration of intravenous contrast.COMPARISON: 017, 01/29/2017, CT head January 30, 2017HISTORY:ORDERING SYSTEM PROVIDED HISTORY: S/P tumor resectionFINDINGS:INTRACRAN IAL STRUCTURES/VENTRICLES: Right parieto-occipital craniotomydefect with right posterior temporal occipital resection cavity. Extra-axialfluid measuring approximately 8 mm with mild pneumocephalus noted. Resectioncavity contains T1 hyperintense subacute blood product. Leftward midlineshift of 8 mm. Right parietal, occipital, temporal and cerebellarhemispheric edema present. No hydrocephalus. No evidence of acute infarct.Postcontrast images reveal irregular marginal enhancement of the resectioncavity. There is nodularity along the posterior inferior aspect of theresection cavity inseparable from intrinsic T1 hyperintensity. Mildirregular thickening of the right tentorium.ORBITS: The visualized portion of the orbits demonstrate no acute abnormality.SINUSES: The visualized paranasal sinuses and mastoid air cells are wellaerated.BONES/SOFT TISSUES: Right hemispheric craniotomy defect. Scalp soft tissueswelling with fluid and subcutaneous emphysema.IMPRESSION: Gross total resection of right supratentorial and infratentorial avidlyenhancing lesion. Resection cavity contains subacute blood productsuperimposed on minimal margin of irregular enhancement which may obscureresidual tumor. Continued surveillance recommended.Leftward midline shift of 8 mm.Postoperative extra-axial fluid/hemorrhage and pneumocephalus. Scalp fluidand subcutaneous emphysema. Continued surveillance recommended.Interpreted by:ANNA Friasigned by:Maximo Mercer MD01/31/17Final result [facility] APTTon 01-30-2017 aPTT 21.6 s Normal 21.3-31.3 [facility] Comment on above: Result Comment: [address] [place] [address] Performed By: #### B MP ####[facility] [place] [address] Basic Metabolic Profon 01-30 (cont.) [facility] Comment on above: Result Comment: Aver age GFR for 60-69 years old: 85 mL/min/1.73sq mChronic Kidney Disease: <60 mL/min/1.73sq mKidney failure: <15 mL/min/1.73sq meGFR calculated using average adult body mass. Additional eGFR calculator available at:http://www.WP Engine/multiple_crcl_2012.htm[address] [address] Performed By: #### C CHRISTINA, BMP ####[address] [address] Anion gap 13 mmol/L Normal 9-17 [facility] Comment on above: Performed By: #### C CHRISTINA, BMP ####[address] [address] Calcium 7.8 mg/dL Low 8.6-10.4 [facility] Comment on above: Performed By: #### C BC, BMP ####[facility] [address] [address] Chloride 105 mmol/L Normal 98-107 [facility] Comment on above: Performed By: #### C BC, BMP ####[facility] [address] [address] [address] CO2 23 mmol/L Normal 20-31 [facility] Comment on above: Performed By: #### C BC, BMP ####[facility] [place] [address] Creatinine 0.74 mg/dL Normal 0.50-0.90 [facility] Comment on above: Performed By: #### C BC, BMP ####[address] [place] [address] eGFR (non-black) mL/min/{1.73_m2} Normal >60 [facility] Comment on above: Performed By: #### C BC, BMP ####[address] [address] Glucose mass conc 162 mg/dL High 70-99 [facility] Comment on above: Performed By: #### C CHRISTINA, BMP ####[address] [address] Potassium molar conc 4.2 mmol/L Normal 3.7-5.3 [facility] Comment on above: Performed By: #### C BC, BMP ####[facility] [address] [address] Sodium 141 mmol/L Normal 135-144 [facility] Comment on above: Performed By: #### C BC, BMP ####[facility] [address] [address] Urea nitrogen 23 mg/dL Normal 8-23 [facility] Comment on above: Performed By: #### C BC, BMP ####[address] [address] BUN/CRE Ratio NOT REPORTED Normal 9-20 [facility] Comment on above: Performed By: #### C BC, BMP ####[address] [address] Staging: NOT REPORTED Normal [facility] Comment on above: Performed By: #### C BC, BMP ####[facility] [place] [address] (cont.) Normal [facility] Comment on above: Result Comment: Aver age GFR for 60-69 years old: 85 mL/min/1.73sq mChronic Kidney Disease: <60 mL/min/1.73sq mKidney failure: <15 mL/min/1.73sq meGFR calculated using average adult body mass. Additional eGFR calculator available at:http://[email or web address]_[email or web address] [facility] [address] [place] [address] Performed By: #### B MP ####[address] [address] Anion gap 11 mmol/L Normal 9-17 [facility] Comment on above: Performed By: #### B MP ####[facility] [place] [address] Calcium 8.4 mg/dL Low 8.6-10.4 [facility] Comment on above: Performed By: #### B MP ####[facility] [place] [address] Chloride 104 mmol/L Normal 98-107 [facility] Comment on above: Performed By: #### B MP ####[address] [address] CO2 24 mmol/L Normal 20-31 [facility] Comment on above: Performed By: #### B MP ####[address] [address] Creatinine 0.39 mg/dL Low 0.50-0.90 [facility] Comment on above: Performed By: #### B MP ####[address] [place] [address] eGFR (non-black) mL/min/{1.73_m2} Normal >60 [facility] Comment on above: Performed By: #### B MP ####[facility] LehmnaAgwxolhfrh[address]43 [place] [address] Glucose mass conc 143 mg/dL High 70-99 [facility] Comment on above: Performed By: #### B MP ####[facility] LehmanQjdtyxgjcbiz0599 [place] [address] Potassium molar conc 4.1 mmol/L Normal 3.7-5.3 [facility] Comment on above: Performed By: #### B MP ####[facility] [address]mooxlr0474 [place] [address] Sodium 139 mmol/L Normal 135-144 [facility] Comment on above: Performed By: #### B MP ####[facility] [address]ock5760 [place] [address] Urea nitrogen 16 mg/dL Normal 8-23 [facility] Comment on above: Performed By: #### B MP ####[facility] LehmanZezyyonzddrq4583 [place] [address] BUN/CRE Ratio NOT REPORTED Normal 9-20 [facility] Comment on above: Performed By: #### B MP ####[facility] LehmanLlmndlawvyxi7353 [place] [address] Staging: NOT REPORTED Normal [facility] Comment on above: Performed By: #### B MP ####[facility] [address] [address] CBCon 01-30-2017 Erythrocyte distribution width Auto Ratio (RBC) 13.4 % Normal 12.5-15.4 [facility] Comment on above: Performed By: #### C BC, BMP ####[facility] I[address]jbqhjilkg2876 [place] [address] Erythrocytes (RBC) 3.76 10*6/uL Low 4.0-5.2 [facility] Comment on above: Performed By: #### C BC, BMP ####[facility] [address]mb[address]83 [place] [address] Hematocrit (HCT) 31.8 % Low 36-46 [facility] Comment on above: Performed By: #### C BC, BMP ####[address] [address] Hemoglobin mass conc (Bld) 10.9 g/dL Low 12.0-16.0 [facility] Comment on above: Performed By: #### C BC, BMP ####[address] [address] MCH 29.1 pg Normal 26-34 [facility] Comment on above: Performed By: #### C BC, BMP ####[address] [address] MCHC mass conc (RBC) 34.4 g/dL Normal 31-37 [facility] Comment on above: Performed By: #### C BC, BMP ####[address] [address] MCV 84.5 fL Normal 80-100 [facility] Comment on above: Performed By: #### C BC, BMP ####[address] [address] Platelet mean volume (PMV) 6.7 fL Normal 6.0-12.0 [facility] Comment on above: Result Comment: [address] [place] [address] Performed By: #### C BC, BMP ####[address] [address] Platelets 301 10*3/uL Normal 140-450 [facility] Comment on above: Performed By: #### C BC, BMP ####[address] [address] WBC (Leukocytes) 22.0 10*3/uL High 3.5-11.0 [facility] Comment on above: Performed By: #### C BC, BMP ####[facility] [place] [address] CBC with Diffon 01-30-2017 Abs. Basophil 0.00 k/uL Normal 0.0-0.2 [facility] Comment on above: Result Comment: [facility] [address] [place] [address] Performed By: #### B MP ####[address] [address] Abs.Neutrophil (Seg) 10.10 k/uL High 1.8-7.7 [facility] Comment on above: Performed By: #### B MP ####[address] [address] Basophils/100 WBC Auto (Bld) 0 % Normal [facility] Comment on above: Performed By: #### B MP ####[address] [address] Eosinophils 0.00 10*3/uL Normal 0.0-0.4 [facility] Comment on above: Performed By: #### B MP ####[address] [address] Eosinophils/100 leukocytes 0 % Normal [facility] Comment on above: Performed By: #### B MP ####[facility] [place] [address] Erythrocyte distribution width Auto Ratio (RBC) 13.6 % Normal 12.5-15.4 [facility] Comment on above: Performed By: #### B MP ####[address] [address] Erythrocytes (RBC) 4.58 10*6/uL Normal 4.0-5.2 [facility] Comment on above: Performed By: #### B MP ####[address] [address] Hematocrit (HCT) 38.3 % Normal 36-46 [facility] Comment on above: Performed By: #### B MP ####[address] [address] Hemoglobin mass conc (Bld) 13.2 g/dL Normal 12.0-16.0 [facility] Comment on above: Performed By: #### B MP ####[address] [address] Lymphocytes 1.00 10*3/uL Normal 1.0-4.8 [facility] Comment on above: Performed By: #### B MP ####[address] [address] Lymphocytes/100 leukocytes 8 % Normal [facility] Comment on above: Performed By: #### B MP ####[address] [address] MCH 28.8 pg Normal 26-34 [facility] Comment on above: Performed By: #### B MP ####[address] [address] MCHC mass conc (RBC) 34.4 g/dL Normal 31-37 [facility] Comment on above: Performed By: #### B MP ####[address] [address] MCV 83.7 fL Normal 80-100 [facility] Comment on above: Performed By: #### B MP ####[address] [address] Monocytes 0.40 10*3/uL Normal 0.1-1.2 [facility] Comment on above: Performed By: #### B MP ####[address] [address] Monocytes/100 leukocytes 4 % Normal [facility] Comment on above: Performed By: #### B MP ####[address] [place] [address] Neutrophil (Seg) 88 % Normal [facility] Comment on above: Performed By: #### B MP ####[address] [address] Platelet mean volume (PMV) 6.8 fL Normal 6.0-12.0 [facility] Comment on above: Performed By: #### B MP ####[address] [address] Platelets 301 10*3/uL Normal 140-450 [facility] Comment on above: Performed By: #### B MP ####[address] [address] WBC (Leukocytes) 11.5 10*3/uL High 3.5-11.0 [facility] Comment on above: Performed By: #### B MP ####[address] [address] Auto Diff Performed NOT REPORTED Normal [facility] Comment on above: Performed By: #### B MP ####[address] [place] [address] Erythrocyte morphology NOT REPORTED Normal [facility] Comment on above: Performed By: #### B MP ####[address] [address] Platelets NOT REPORTED Normal [facility] Comment on above: Performed By: #### B MP ####[address] [address] WBC Morphology NOT REPORTED Normal [facility] Comment on above: Performed By: #### B ####[facility] [place] [address] HEAD WO CONTRASTon 2016 CT HEAD WO CONTRAST EXAMINATION:CT OF TH E HEAD WITHOUT CONTRAST 01/30/2017 5:25 pmTECHNIQUE:CT of the head was performed without the administration of intravenouscontrast. Dose modulation, iterative reconstruction, and/or weight basedadjustment of the mA/kV was utilized to reduce the radiation dose to as lowas reasonably achievable.COMPARISON:MR brain January 29, 2017.HISTORY:ORDERING SYSTEM PROVIDED HISTORY: POSTOPERATIVE SELLAFINDINGS:BRAIN/VENTRIC LES: There is a new right occipital craniotomy with subjacentintraparenchymal hemorrhage adjacent to the surgical bed in the rightoccipital lobe. The hemorrhage measures approximately 23 x 24 mm. There isstill 8 mm right to left midline shift at the level of the septum pellucidum.There is an extra-axial hypodense fluid collection and air-fluid levelsubjacent to the craniotomy. It measures 9 mm in thickness and 70 mm inlength.There is still some effacement of the right uncus, basilar cisterns and midbrain in the incisura.There is extensive pneumocephalus. There is sulcal effacement of the entireright cerebral hemisphere. Silva-white matter differentiation is preservedhowever.ORBITS: The visualized portion of the orbits demonstrate no acute abnormality.SINUSES: The visualized paranasal sinuses and mastoid air cells demonstrateno acute abnormality.SOFT TISSUES/SKULL: As above.IMPRESSION: Right occipital craniotomy and subjacent intraparenchymal hemorrhage adjacentto the surgical bed. Residual edema and midline shift as above.RECOMMENDATIONS:Case discussed with the clinician at 6 p.m..Interpreted by:ANNA Alvesigned by:Ramo Thomas MD01/30/17Final result [facility] Calcium, Ionicon 01-30-2017 Calcium 1.15 mmol/L Normal 1.13-1.33 [facility] Comment on above: Result Comment: [facility] [place] [address] Performed By: #### O HP, IOCAL ####[address] [address] Calcium 1.14 mmol/L Normal 1.13-1.33 [facility] Comment on above: Result Comment: [facility] [address] [place] [address] Performed By: #### B MP ####[address] [address] Calcium 1.16 mmol/L Normal 1.13-1.33 [facility] Comment on above: Result Comment: [facility] [address] [place] [address] Performed By: #### B MP ####[address] [address] Cult,Urine,Cathon 01-30-2017 Cult,Urine,Cath Specimen Description .CATHETERIZED URINE Special Requests NOT REPORTED Culture NO GROWTH Report Status FINAL 01/30/2017 [facility] Comment on above: Performed By: #### C THUC ####[address] [address] MRSA, DNA, Nasalon 7 MRSA, DNA, Nasal NEGATIVE: MRSA DNA n ot detected by nucleic acid amplification. [facility] Comment on above: Result Comment: Resu lts should be used as an adjunct to nosocomial control efforts to identify patients needing enhanced precautions.The test is not intended to identify patients with staphylococcal infections. Results should not be used to guide or monitor treatment for MRSA infections.[facility] [employer] [address] [place] [address] Performed By: #### B MP ####[address] [address] Magnesiumon 01-30-2017 Magnesium 2.2 mg/dL Normal 1.6-2.6 [facility] Comment on above: Result Comment: [facility] [address] [place] [address] Performed By: #### B MP ####[address] [address] Magnesium 2.0 mg/dL Normal 1.6-2.6 [facility] Comment on above: Result Comment: [facility] [address] [place] [address] Performed By: #### M G ####[address] [address] Open Heart Panelon 7 Parvez Test NOT PERFORMED Normal [facility] Comment on above: Performed By: #### O HP, IOCAL ####[address] [address] Bicarbonate (HCO3) 23.9 mmol/L Normal 22-27 [facility] Comment on above: Performed By: #### O HP, IOCAL ####[address] [address] Body Temp. 37.0 Normal [facility] Comment on above: Performed By: #### O HP, IOCAL ####[address] [address] Chloride 106 mmol/L Normal 98-110 [facility] Comment on above: Result Comment: [facility] [address] [place] [address] Performed By: #### O HP, IOCAL ####[address] [address] CO2 32.4 mmHg Normal 32-45 [facility] Comment on above: Performed By: #### O HP, IOCAL ####[facility] [address] [place] [address] FIO2 54% Normal [facility] Comment on above: Performed By: #### O HP, IOCAL ####[facility] LehmanZjpqeherbhib6839 [place] [address] Glucose mass conc 175 mg/dL High 65-105 [facility] Comment on above: Performed By: #### O HP, IOCAL ####[facility] [address] [place] [address] Hematocrit (HCT) 34.9 % Normal [facility] Comment on above: Performed By: #### O HP, IOCAL ####[facility] [address] [address] Hemoglobin mass conc (Bld) 11.3 g/dL Normal [facility] Comment on above: Performed By: #### O HP, IOCAL ####[facility] [address] [address] Hemoglobin mass conc (Bld) 1.2 % Normal 0-5.0 [facility] Comment on above: Result Comment: %Ref erence Range:Non-Smokers 0.0-0.8 %Smokers 4-20 % Performed By: #### O HP, IOCAL ####[facility] [address] [address] O2 saturation 100.0 % Normal 94-100 [facility] Comment on above: Performed By: #### O HP, IOCAL ####[facility] Rcdlpssrbvio5286 [place] [address] Oxygen in arterial blood 218.0 mm[Hg] High 75-95 [facility] Comment on above: Performed By: #### O HP, IOCAL ####[facility] [address]plfi9383 [place] [address] pH of blood 7.481 [pH] High 7.350-7.45 0 [facility] Comment on above: Performed By: #### O HP, IOCAL ####[address]fcp[address]1155 [place] [address] Positive Base Excess 1.3 mmol/L Normal 0.0-2.0 [facility] Comment on above: Performed By: #### O HP, IOCAL ####[facility] Eg[address]izqtiwcja9672 [place] [address] Potassium molar conc 4.3 mmol/L Normal 3.6-5.0 [facility] Comment on above: Performed By: #### O HP, IOCAL ####[facility] Toagmwfcjooe7483 [place] [address] Sodium 137 mmol/L Normal 136-145 [facility] Comment on above: Performed By: #### O HP, IOCAL ####[facility] Hvcvvnnavmje5463 [place] [address] CO2 NOT REPORTED Normal 32-45 [facility] Comment on above: Performed By: #### O HP, IOCAL ####[facility] Gikdrtuextmp3558 [place] [address] Hemoglobin mass conc (Bld) NOT REPORTED Normal 95.0-98.0 [facility] Comment on above: Performed By: #### O HP, IOCAL ####[facility] Zyxtdoticzvz3486 [place] [address] Mode NOT REPORTED Normal [facility] Comment on above: Performed By: #### O HP, IOCAL ####[facility] Ukvsfdsrlzoo5595 [place] [address] Negative Base Excess NOT REPORTED Normal 0.0-2.0 [facility] Comment on above: Performed By: #### O HP, IOCAL ####[facility] Vsaaudqwhcsm8825 [place] [address] Notification Time NOT REPORTED Normal [facility] Comment on above: Performed By: #### O HP, IOCAL ####[address] Hepzktndxevw[address]52 [place] [address] Notification: NOT REPORTED Normal [facility] Comment on above: Performed By: #### O HP, IOCAL ####[address] Snkltadvtinj6747 [place] [address] O2 Device/Flow/% NOT REPORTED Normal [facility] Comment on above: Performed By: #### O HP, IOCAL ####[facility] Azgjrbmkworc7105 [place] [address] PEEP/CPAP NOT REPORTED Normal [facility] Comment on above: Performed By: #### O HP, IOCAL ####[facility] Biqhrgfjhkhs7259 [place] [address] pH Adjst'd for Temp. NOT REPORTED Normal 7.350-7 .45 0 [facility] Comment on above: Performed By: #### O HP, IOCAL ####[facility] Kaasxsmtldze2602 [place] [address] pO2 Adjst'd for Temp NOT REPORTED Normal 75-95 [facility] Comment on above: Performed By: #### O HP, IOCAL ####[facility] [address] [place] [address] PSV NOT REPORTED Normal [facility] Comment on above: Performed By: #### O HP, IOCAL ####[facility] Gihrftqucpgp9566 [place] [address] Pt. Position NOT REPORTED Normal [facility] Comment on above: Performed By: #### O HP, IOCAL ####[facility] Viyxjxwtztsd5974 [place] [address] Respiratory rate NOT REPORTED [facility] Comment on above: Performed By: #### O HP, IOCAL ####[facility] [address] [place] [address] Set Rate NOT REPORTED [facility] Comment on above: Performed By: #### O HP, IOCAL ####[address] [place] [address] Site Drawn NOT REPORTED Normal [facility] Comment on above: Performed By: #### O HP, IOCAL ####[address] [address] Text for Respiratory NOT REPORTED Normal [facility] Comment on above: Performed By: #### O HP, IOCAL ####[address] [address] Total Hb NOT REPORTED Normal 12.0-16.0 [facility] Comment on above: Performed By: #### O HP, IOCAL ####[address] [address] Total Rate NOT REPORTED Normal [facility] Comment on above: Performed By: #### O HP, IOCAL ####[facility] [address] [place] [address] [place] NOT REPORTED Normal [facility] Comment on above: Performed By: #### O HP, IOCAL ####[address] [address] Parvez Test NOT PERFORMED Normal [facility] Comment on above: Performed By: #### B MP ####[facility] Rcqhffaapmsl0900 [place] [address] Bicarbonate (HCO3) 24.0 mmol/L Normal 22-27 [facility] Comment on above: Performed By: #### B MP ####[facility] Kcqzyjwvozay5393 [place] [address] Body Temp. 37.0 [facility] Comment on above: Performed By: #### B MP ####[address] [place] [address] Chloride 104 mmol/L Normal 98-110 [facility] Comment on above: Result Comment: [facility] [address] [place] [address] Performed By: #### B MP ####[facility] Spcbkpkhefzu0362 [place] [address] CO2 30.4 mmHg Low 32-45 [facility] Comment on above: Performed By: #### B MP ####[facility] Mwsoovqxywaa0351 [place] [address] FIO2 55% Normal [facility] Comment on above: Performed By: #### B MP ####[facility] [address] [address] Glucose mass conc 149 mg/dL High 65-105 [facility] Comment on above: Performed By: #### B MP ####[facility] [address] [address] Hematocrit (HCT) 38.1 % Normal [facility] Comment on above: Performed By: #### B MP ####[facility] [address] [address] Hemoglobin mass conc (Bld) 1.2 % Normal 0-5.0 [facility] Comment on above: Result Comment: %Ref erence Range:Non-Smokers 0.0-0.8 %Smokers 4-20 % Performed By: #### B MP ####[address] [place] [address] Hemoglobin mass conc (Bld) 12.4 g/dL Normal [facility] Comment on above: Performed By: #### B MP ####[address] [address] O2 saturation 99.5 % Normal 94-100 [facility] Comment on above: Performed By: #### B MP ####[facility] LehmanExhwggocewsu3183 [place] [address] Oxygen in arterial blood 146.0 mm[Hg] High 75-95 [facility] Comment on above: Performed By: #### B MP ####[facility] LehmanDzywcgudzqal5560 [place] [address] pH of blood 7.509 [pH] High 7.350-7.45 0 [facility] Comment on above: Performed By: #### B MP ####[facility] Xepccmhwygyw9847 [place] [address] Positive Base Excess 1.9 mmol/L Normal 0.0-2.0 [facility] Comment on above: Performed By: #### B MP ####[facility] [place] [address] Potassium molar conc 4.1 mmol/L Normal 3.6-5.0 [facility] Comment on above: Performed By: #### B MP ####[facility] [place] [address] Sodium 136 mmol/L Normal 136-145 [facility] Comment on above: Performed By: #### B MP ####[facility] [place] [address] CO2 NOT REPORTED Normal 32-45 [facility] Comment on above: Performed By: #### B MP ####[facility] [place] [address] Hemoglobin mass conc (Bld) NOT REPORTED Normal 95.0-98.0 [facility] Comment on above: Performed By: #### B MP ####[facility] [address] [address] Mode NOT REPORTED Normal [facility] Comment on above: Performed By: #### B MP ####[address] [place] [address] Negative Base Excess NOT REPORTED Normal 0.0-2.0 [facility] Comment on above: Performed By: #### B MP ####[address] [address] Notification Time NOT REPORTED [facility] Comment on above: Performed By: #### B MP ####[address] [address] Notification: NOT REPORTED [facility] Comment on above: Performed By: #### B MP ####[address] [address] O2 Device/Flow/% NOT REPORTED [facility] Comment on above: Performed By: #### B MP ####[address] [address] PEEP/CPAP NOT REPORTED [facility] Comment on above: Performed By: #### B MP ####[address] [address] pH Adjst'd for Temp. NOT REPORTED Normal 7.350-7 .45 0 [facility] Comment on above: Performed By: #### B MP ####[address] [address] pO2 Adjst'd for Temp NOT REPORTED Normal 75-95 Me [facility] Comment on above: Performed By: #### B MP ####[address] [address] PSV NOT REPORTED [facility] Comment on above: Performed By: #### B MP ####[address] [address] Pt. Position NOT REPORTED [facility] Comment on above: Performed By: #### B MP ####[facility] [address] [place] [address] Respiratory rate NOT REPORTED [facility] Comment on above: Performed By: #### B MP ####[facility] LehmanFavtqiolsvcf0653 [place] [address] Set Rate NOT REPORTED [facility] Comment on above: Performed By: #### B MP ####[facility] Rvviqydnfego0598 [place] [address] Site Drawn NOT REPORTED [facility] Comment on above: Performed By: #### B MP ####[address] [place] [address] Text for Respiratory NOT REPORTED Normal [facility] Comment on above: Performed By: #### B MP ####[address] [address] Total Hb NOT REPORTED Normal 12.0-16.0 [facility] Comment on above: Performed By: #### B MP ####[facility] [place] [address] Total Rate NOT REPORTED [facility] Comment on above: Performed By: #### B MP ####[address] [place] [address] [place] NOT REPORTED Normal [facility] Comment on above: Performed By: #### B MP ####[facility] [place] [address] Parvez Test NOT PERFORMED [facility] Comment on above: Performed By: #### B MP ####[facility] [place] [address] Bicarbonate (HCO3) 24.6 mmol/L Normal 22-27 [facility] Comment on above: Performed By: #### B MP ####[facility] Szzdrauctbnq3970 [place] [address] Body Temp. 37.0 [facility] Comment on above: Performed By: #### B MP ####[facility] [place] [address] Chloride 105 mmol/L Normal 98-110 [facility] Comment on above: Result Comment: [facility] [address] [place] [address] Performed By: #### B MP ####[address] [address] CO2 35.3 mmHg Normal 32-45 [facility] Comment on above: Performed By: #### B MP ####[address] [address] FIO2 96% Normal [facility] Comment on above: Performed By: #### B MP ####[address] [address] Glucose mass conc 154 mg/dL High 65-105 [facility] Comment on above: Performed By: #### B MP ####[address] [address] Hematocrit (HCT) 38.7 % Normal [facility] Comment on above: Performed By: #### B MP ####[address] [address] Hemoglobin mass conc (Bld) 12.6 g/dL [facility] Comment on above: Performed By: #### B MP ####[address] [address] Hemoglobin mass conc (Bld) 1.1 % Normal 0-5.0 [facility] Comment on above: Result Comment: %Ref erence Range:Non-Smokers 0.0-0.8 %Smokers 4-20 % Performed By: #### B MP ####[facility] [place] [address] O2 saturation 100.0 % Normal 94-100 [facility] Comment on above: Performed By: #### B MP ####[address] [address] Oxygen in arterial blood 346.0 mm[Hg] High 75-95 [facility] Comment on above: Performed By: #### B MP ####[address] [address] pH of blood 7.457 [pH] High 7.350-7.45 0 [facility] Comment on above: Performed By: #### B MP ####[address] [address] Positive Base Excess 1.5 mmol/L Normal 0.0-2.0 [facility] Comment on above: Performed By: #### B MP ####[address] [address] Potassium molar conc 4.0 mmol/L Normal 3.6-5.0 [facility] Comment on above: Performed By: #### B MP ####[address] [address] Sodium 139 mmol/L Normal 136-145 [facility] Comment on above: Performed By: #### B MP ####[address] [address] CO2 NOT REPORTED Normal 32-45 [facility] Comment on above: Performed By: #### B MP ####[facility] [place] [address] Hemoglobin mass conc (Bld) NOT REPORTED Normal 0.0-1.5 [facility] Comment on above: Performed By: #### B MP ####[address] [place] [address] Mode NOT REPORTED [facility] Comment on above: Performed By: #### B MP ####[address] [address] Negative Base Excess NOT REPORTED Normal 0.0-2.0 [facility] Comment on above: Performed By: #### B MP ####[address] [address] Notification Time NOT REPORTED [facility] Comment on above: Performed By: #### B MP ####[address] [address] Notification: NOT REPORTED [facility] Comment on above: Performed By: #### B MP ####[address] [address] O2 Device/Flow/% NOT REPORTED [facility] Comment on above: Performed By: #### B MP ####[address] [address] PEEP/CPAP NOT REPORTED [facility] Comment on above: Performed By: #### B MP ####[address] [address] pH Adjst'd for Temp. NOT REPORTED Normal 7.350-7 .45 0 [facility] Comment on above: Performed By: #### B MP ####[address] [address] pO2 Adjst'd for Temp NOT REPORTED Normal 75-95 [facility] Comment on above: Performed By: #### B MP ####[address] [address] PSV NOT REPORTED [facility] Comment on above: Performed By: #### B MP ####[facility]imm[facility] Lehman[address] [place] [address] Pt. Position NOT REPORTED [facility] Comment on above: Performed By: #### B MP ####[facility] LehmanLqloktfyhpvq2748 [place] [address] Respiratory rate NOT REPORTED [facility] Comment on above: Performed By: #### B MP ####[facility] [address] [place] [address] Set Rate NOT REPORTED [facility] Comment on above: Performed By: #### B MP ####[address] [address] Site Drawn NOT REPORTED [facility] Comment on above: Performed By: #### B MP ####[facility] LehmanY[address]olqq[address] [place] [address] Text for Respiratory NOT REPORTED Normal [facility] Comment on above: Performed By: #### B MP ####[facility] LehmanLvdkpwkjhayt6932 [place] [address] Total Hb NOT REPORTED Normal 12.0-16.0 [facility] Comment on above: Performed By: #### B MP ####[facility] LehmanSbopkzlytate[address] [place] [address] Total Rate NOT REPORTED [facility] Comment on above: Performed By: #### B MP ####[facility] LehmanItruibbtyuaf2909 [place] [address] VT NOT REPORTED [facility] Comment on above: Performed By: #### B MP ####[address] [address] PTon 01-30-2017 INR Coag RelTime (PPP) 1.1 {INR} [facility] Comment on above: Result Comment: Ther apeutic Range: Moderate Anticoagulant Intensity: INR = 2.0-3.0 High Anticoagulant Intensity: INR = 2.5-3.[address] [address] Performed By: #### B MP ####[address] [address] Prothrombin time (PT) Coag time (PPP) 12.1 s Normal 9.4-12.6 [facility] Comment on above: Performed By: #### B MP ####[address] [address] APTTon 01-29-2017 aPTT 19.8 s Low 21.3-31.3 [facility] Comment on above: Result Comment: No c lot found in specimen, results questionable.[address] [address] Performed By: #### C BC, BMP, PT, PTT ####[address] [address] Basic Metabolic Profon 01-29 (cont.) [facility] Comment on above: Result Comment: Aver age GFR for 60-69 years old: 85 mL/min/1.73sq mChronic Kidney Disease: <60 mL/min/1.73sq mKidney failure: <15 mL/min/1.73sq meGFR calculated using average adult body mass. Additional eGFR calculator available at:http://www.[employer].com/multiple_crcl_2012.htm[address] [address] Performed By: #### B MP ####[address] [address] Anion gap 11 mmol/L Normal 9-17 [facility] Comment on above: Performed By: #### B MP ####[facility] [address] [place] [address] Calcium 7.9 mg/dL Low 8.6-10.4 [facility] Comment on above: Performed By: #### B MP ####[facility] [address] [place] [address] Chloride 103 mmol/L Normal 98-107 [facility] Comment on above: Performed By: #### B MP ####[facility] [place] [address] CO2 26 mmol/L Normal 20-31 [facility] Comment on above: Performed By: #### B MP ####[facility] [address]4356 [place] [address] Creatinine 0.50 mg/dL Normal 0.50-0.90 [facility] Comment on above: Performed By: #### B MP ####[facility] V[address]8993 [place] [address] eGFR (non-black) mL/min/{1.73_m2} Normal >60 [facility] Comment on above: Performed By: #### B MP ####[facility] Z[address]cpf5007 [place] [address] Glucose mass conc 129 mg/dL High 70-99 [facility] Comment on above: Performed By: #### B MP ####[facility] [address]lem[address]270 [place] [address] Potassium molar conc 4.0 mmol/L Normal 3.7-5.3 [facility] Comment on above: Performed By: #### B MP ####[facility] [address]61 [place] [address] Sodium 140 mmol/L Normal 135-144 [facility] Comment on above: Performed By: #### B MP ####[facility] [place] [address] Urea nitrogen 21 mg/dL Normal 8- [facility] Comment on above: Performed By: #### B MP ####[facility] [place] [address] BUN/CRE Ratio NOT REPORTED Normal - [facility] Comment on above: Performed By: #### B MP ####[address] [address] Staging: NOT REPORTED [facility] Comment on above: Performed By: #### B MP ####[address] [address] (cont.) Normal [facility] Comment on above: Result Comment: Aver age GFR for 60-69 years old: 85 mL/min/1.73sq mChronic Kidney Disease: <60 mL/min/1.73sq mKidney failure: <15 mL/min/1.73sq meGFR calculated using average adult body mass. Additional eGFR calculator available at:http://www.[employer]/multiple_crcl_2012.htmSan [facility] [address] [place] [address] Performed By: #### C BC, BMP, PT, PTT ####[address] [address] Anion gap 12 mmol/L Normal 9- [facility] Comment on above: Performed By: #### C BC, BMP, PT, PTT ####[address] [address] Calcium 8.7 mg/dL Normal 8.6-10.4 [facility] Comment on above: Performed By: #### C BC, BMP, PT, PTT ####[address] [address] Chloride 102 mmol/L Normal 98-107 [facility] Comment on above: Performed By: #### C BC, BMP, PT, PTT ####[facility] [address]253 [place] [address] CO2 24 mmol/L Normal 20-31 [facility] Comment on above: Performed By: #### C BC, BMP, PT, PTT ####[facility] L[address]unrrzqmd8404 [place] [address] Creatinine 0.37 mg/dL Low 0.50-0.90 [facility] Comment on above: Performed By: #### C BC, BMP, PT, PTT ####[facility] Ept[address]9775 [place] [address] eGFR (non-black) mL/min/{1.73_m2} Normal >60 [facility] Comment on above: Performed By: #### C BC, BMP, PT, PTT ####[facility] Vrhhvqsbub[address]6916 [place] [address] Glucose mass conc 135 mg/dL High 70-99 [facility] Comment on above: Performed By: #### C BC, BMP, PT, PTT ####[facility] Jhdcjlujbdex9039 [place] [address] Potassium molar conc 4.3 mmol/L Normal 3.7-5.3 [facility] Comment on above: Performed By: #### C BC, BMP, PT, PTT ####[facility] A[address]pb6947 [place] [address] Sodium 138 mmol/L Normal 135-144 [facility] Comment on above: Performed By: #### C BC, BMP, PT, PTT ####[facility] [address]tr[address]ls[address]1114 [place] [address] Urea nitrogen 20 mg/dL Normal 8-23 [facility] Comment on above: Performed By: #### C BC, BMP, PT, PTT ####[facility] Ulpt[address]ukxi[address]bb5060 [place] [address] BUN/CRE Ratio NOT REPORTED Normal 9-20 [facility] Comment on above: Performed By: #### C BC, BMP, PT, PTT ####[address] [address] Staging: NOT REPORTED [facility] Comment on above: Performed By: #### C BC, BMP, PT, PTT ####[facility] [address] [place] [address] CBCon 01-29-2017 Erythrocyte distribution width Auto Ratio (RBC) 13.7 % Normal 12.5-15.4 [facility] Comment on above: Performed By: #### C BC, BMP, PT, PTT ####[address] [address] Erythrocytes (RBC) 4.99 10*6/uL Normal 4.0-5.2 [facility] Comment on above: Performed By: #### C BC, BMP, PT, PTT ####[facility] [address] [place] [address] Hematocrit (HCT) 41.8 % Normal 36-46 [facility] Comment on above: Performed By: #### C BC, BMP, PT, PTT ####[facility]ino SystemsYajzamwfbabn1254 [place] [address] Hemoglobin mass conc (Bld) 14.2 g/dL Normal 12.0-16.0 [facility] Comment on above: Performed By: #### C BC, BMP, PT, PTT ####[facility] SystemsWygnlgppictl5077 [place] [address] MCH 28.4 pg Normal 26-34 [facility] Comment on above: Performed By: #### C BC, BMP, PT, PTT ####[address] [address] MCHC mass conc (RBC) 33.9 g/dL Normal 31-37 [facility] Comment on above: Performed By: #### C BC, BMP, PT, PTT ####[address] [address] MCV 83.9 fL Normal 80-100 [facility] Comment on above: Performed By: #### C BC, BMP, PT, PTT ####[address] [address] Platelet mean volume (PMV) 7.3 fL Normal 6.0-12.0 [facility] Comment on above: Result Comment: [address] [address] Performed By: #### C BC, BMP, PT, PTT ####[address] [address] Platelets 329 10*3/uL Normal 140-450 [facility] Comment on above: Performed By: #### C BC, BMP, PT, PTT ####[address] [address] WBC (Leukocytes) 10.4 10*3/uL Normal 3.5-11.0 [facility] Comment on above: Performed By: #### C BC, BMP, PT, PTT ####[address] [address] History and Physicalon 01-29 HIM IP Note OR Ticker Wirer [facility] IR ANGIOGRAM CAROTID CEREBRA L BILATERALon 01-29-2017 IR ANGIOGRAM CAROTID CEREBRAL BILATERAL Date:01/29/2017 5:47 PMProcedure: Cerebral angiogram with PVA particle embolization of the large right meningioma from the right occipital artery.Operators: Mack Wong M.D.Clinical history:61 y.o.?female?who presents with h/o htn, hypothyroidism, Afib, asthma tx from [place] for rle weakness, numbness and forgetfulness x 3 weeks with headache and gait ataxia. ?Ct head concerning for right parietal meningioma with midline shift. MRI brain confirming 5.7x6.6x8.4cm enhancing extraaxial mass with extension in the right posterior fossa and mass effect after evaluation by Dr. Hensley, she was referred for cerebral angiogram with possible preoperative embolization prior to surgical resection.AnesthesiaGeneral anesthesia was supervised by the anesthesia departmentContrast: Visipaque [id number] CcFluoroscopy time: 24.3 MinutesVessel selection1. Right common carotid artery2. Right internal carotid artery3. Right external carotid artery4. Superselective angiography from the right occipital artery5. Right vertebral artery6. Right common femoral arteryIntervention1. Contour PVA particle 150- 250 um embolization from the right occipital arteryProcedureThe rationale risks and benefits of the procedure were discussed with the patient and her family. After all of their questions were appropriately answered to satisfaction, informed consent was obtained from the patient. She understood all of the risks and complications related to the procedure and demonstrated a willingness to proceed.The patient was brought to the neuroangiography room and placed on the angiographic table in the supine position. A timeout was taken to recheck information regarding the patient's identification and procedure with staff present in the procedure room.The patient's groins were prepped and draped in the usual sterile fashion. Following 1% lidocaine as local anesthetic, using a micropuncture set, the right common femoral artery was accessed and a 6 Liberian 55 cm sheath was inserted over the wire. The sheath was then flushed and connected to regulated pressurized, heparinized saline infusion.A 5 Liberian angled glide catheter in conjunction with a Agennix glide wire was used to successfully select the vessels:1. Right common carotid artery2. Right internal carotid artery3. Right external carotid artery4. Superselective angiography from the right occipital artery5. Right vertebral artery6. Right common femoral arteryMultiple contrast injections were performed and the cervical as well as the cranial vessels were imaged in multiple projections.InterventionA roadmap was then obtained from the right common carotid artery. A Tad II exchange wire was then positioned within the right external carotid artery. The 5 Liberian angled glide catheter was exchanged for a Hytle 6 Liberian guiding catheter.Then a Prowler select plus microcatheter in conjunction with a Synchro 2 14 microwire was carefully navigated and positioned within the right occipital artery. Superselective angiography was performed to confirm arterial supply to approximately three quarters of the posterior portion of the large parietal temporal and occipital meningioma.Then under continuous fluoroscopy, with contour PVA 150-250 um particles and 50-50 contrast, particle embolization proceeded until there was contrast stagnation with minimal reflux. After the microcatheter was carefully removed and the guiding catheter cleared, follow-up angiography demonstrated sluggish anterograde flow within the proximal right occipital artery. There was decreased parenchymal blush from arterial feeders from the right occipital artery. There is residual arterial feeders from the right middle meningeal arteries.Due to concern of possible necrosis, there was no further embolization from the right middle meningeal arterial feeders.Final angiography from the right internal carotid artery demonstrated no evidence of distal embolic nor thromboembolic complications.After the procedure was completed the catheter was then removed. Hemostasis was achieved with a StarClose 6F closure device and approximately 5 min of manual compression. The patient tolerated the procedure well with no immediate complications and was transported to recovery unit for further monitoring.DiscussionRight common carotid artery cervical images:No evidence of hemodynamic stenosis at the right carotid bifurcationRight internal carotid artery cranial images:No evidence evidence of aneurysmal sac, arteriovenous malformation, or fistula in the distal right internal carotid artery, right middle cerebral artery or right anterior cerebral artery. There is superior displacement of the distal right M3 and M4 branches in the temporal regions. This likely represents mass effect from the underlying meningioma. In addition there is a dominant left transverse sinus. There is decreased venous drainage within the right transverse sinus with likely mass effect from the meningioma.Right external carotid artery cranial images:There is predominant arterial feeders from the right occipital artery distal branches along with some arterial feeders from the right middle meningeal artery to the large meningioma.Right vertebral artery cranial images:There are several distal right posterior cerebral artery arterial feeders to the large meningioma. There is no evidence of aneurysm or arteriovenous malformation in the left posterior cerebral artery basilar artery or visualized cerebellar arteries. Again the right transverse sinus is hypoplastic or stenotic.Selective angiography from the right occipital artery images:There is contrast opacification of approximately 50 percent of the large meningioma from branches of the right occipital artery.Right external carotid artery cranial images status post PVA embolization:There is sluggish anterograde flow with decreased parenchymal blush of the large meningioma. There is residual arterial feeders from the right middle meningeal artery branches.Right internal carotid arteries cranial images status post embolization:There is no evidence of distal embolic nor thromboembolic complications.Right common femoral artery images:There is no evidence of intimal dissection at the puncture site.Impression:1. Superior displacement of the distal right M3 and M4 MCA branches in the temporal regions. This likely represents mass effect from the underlying meningioma. 2. Arterial supply to the meningioma predominantly from right occipital artery branches along with right middle meningeal and distal right posterior cerebral artery branches.3. Hypoplastic or stenotic right transverse sinus with a dominant left transverse patent sinus.Intervention1. Successful Contour PVA 1 50-2 50 um particles embolization from the right occipital artery of the large right meningioma with residual arterial feeders from the right middle meningeal arteries.The above findings were discussed with the patient , her family and Dr. Jignesh Wong M.D.Final report electronically signed by Mack Wong M.D. on 01/29/2017 7:04 PMInterpreted by:ANNA Smithigned by:Mack Wong MD01/29/17Final result [facility] K (Potassium)on 01-29-2017 Potassium molar conc 2.0 mmol/L Critically low 3.7-5.3 [facility] Comment on above: Result Comment: [facility] [place], [place] [id number] [phone] Performed By: #### K ####[facility] [place], [place] [id number] MRI BRAIN W CONTRASTon 01-29 MRI BRAIN W CONTRAST EXAMINATION:MRI OF THE BRAIN WITH CONTRAST 01/29/2017 9:20 pmTECHNIQUE:Multiplanar multisequence MRI of the head/brain was performed with theadministration of intravenous contrast. Stealth protocol with fiducials.COMPARISON:MRV and MRA head January 26, 2017. MR brain January 24, 2017HISTORY:ORDERING SYSTEM PROVIDED HISTORY: STEALTH PROTOCOL W FIDUCIALSFINDINGS:INTRACRAN IAL STRUCTURES/VENTRICLES: No acute abnormality is seen within thesellar/suprasellar regions.There appears to be a large supratentorial and slightly infratentorialextra-axial lobulated avidly enhancing mass measuring 61 x 58 x 76 mm in APtransverse and craniocaudal dimension. It causes local sulcal effacement andeffacement of the occipital horn of the right lateral ventricle. There is 8mm right to left midline shift. There is effacement of the occipital horn ofthe right lateral ventricle and midbrain, right greater than left. There is5-6 mm tonsillar ectopia of the cerebellum. There appears to be diffusesulcal effacement throughout the right cerebral hemisphere.ORBITS: The visualized portion of the orbits demonstrate no acute abnormality.SINUSES: The visualized paranasal sinuses and mastoid air cells are wellaerated.BONES/SOFT TISSUES: The bone marrow signal intensity appears normal. Thecraniocervical junction is normal in appearance.IMPRESSION: Large extra-axial mass as above causing midline shift and transtentorialherniation.In terpreted by:ANNA Alvesigned by:Ramo Thomas MD01/29/17Final result [facility] MRSA, DNA, Nasalon 7 Specimen Description .NASAL SWAB Normal [facility] Comment on above: Performed By: #### B MP ####[facility] [address] [place] [address] PTon 01-29-2017 INR Coag RelTime (PPP) 1.1 {INR} [facility] Comment on above: Result Comment: Ther apeutic Range: Moderate Anticoagulant Intensity: INR = 2.0-3.0 High Anticoagulant Intensity: INR = 2.5-3.5[facility] [place] [address] Performed By: #### C BC, BMP, PT, PTT ####[facility] [address] [place] [address] Prothrombin time (PT) Coag time (PPP) 12.1 s Normal 9.4-12.6 [facility] Comment on above: Result Comment: No c lot found in specimen, results questionable. Performed By: #### C BC, BMP, PT, PTT ####[address] [address] Type + Screenon 01-29-2017 Type + Screen Sample Expiration 02/01/2017 Arm Band Number [id number] ABO/Rh(D) A POSITIVE Antibody Screen NEGATIVE Unit Number [id number] Blood Component Type Leukocyte Reduced Red Cell Unit Division 00 Status of Unit REL FROM ALLOC Transfusion Status OK TO TRANSFUSE Crossmatch Result COMPATIBLE Unit Number [id number] Blood Component Type Leukocyte Reduced Red Cell Unit Division 00 Status of Unit REL FROM ALLOC Transfusion Status OK TO TRANSFUSE Crossmatch Result COMPATIBLEMer Laboratories [address] [place] [address] [facility] Comment on above: Performed By: #### T YS ####[address] [address] Urinalysis, Routineon 2016 Acetaminophen mass conc Negative Normal NEG [facility] Comment on above: Performed By: #### NAEL Michel ####[address] [address] Bilirubin (direct) Negative Normal NEG [facility] Comment on above: Performed By: #### NAEL Michel ####[facility] [address] [address] Hemoglobin mass conc (Bld) MODERATE Abnormal NEG [facility] Comment on above: Performed By: #### NAEL Michel ####[facility] [address] [address] Nitrite,Ur Negative Normal NEG [facility] Comment on above: Performed By: #### NAEL Michel ####[facility] [address] [address] Turbidity CLEAR Normal CLEAR [facility] Comment on above: Performed By: #### NAEL Michel ####[address] [address] Urine, color YELLOW Normal YEL [facility] Comment on above: Performed By: #### NAEL Michel ####[address] [place] [address] Urine, glucose presence Negative Normal NEG [facility] Comment on above: Performed By: #### NAEL Michel ####[address] [address] Urine, leukocyte esterase presence Negative Normal NEG [facility] Comment on above: Result Comment: [address] [address] Performed By: #### NAEL Michel ####[address] [address] Urine, pH 6.5 [pH] Normal 5.0-8.0 [facility] Comment on above: Performed By: #### NAEL Michel ####[address] [address] Urine, protein presence Negative Normal NEG [facility] Comment on above: Performed By: #### NAEL Michel ####[facility] [address] [place] [address] Urine, specific gravity 1.036 High 1.005-1.03 0 [facility] Comment on above: Performed By: #### NAEL Michel ####[facility] [address]otcjk3516 [place] [address] Urobilinogen,Ur Normal Normal NORM [facility] Comment on above: Performed By: #### NAEL Michel ####[facility] [address]17 [place] [address] Comment NOT REPORTED Normal City [facility] Comment on above: Performed By: #### NAEL Michel ####[address] [address] Urinalysis,Microon 7 ----- [facility] Comment on above: Performed By: #### NAEL Michel ####[address] [address] Urine WBC's 5 TO 10 Normal 0-5 [facility] Comment on above: Performed By: #### NAEL Michel ####[address] [address] Urine, epithelial cells in sediment 0 TO 2 Normal 0-5 [facility] Comment on above: Result Comment: [address] [address] Performed By: #### NAEL Michel ####[address] [address] Urine, erythrocytes 20 TO 50 Normal 0-4 [facility] Comment on above: Result Comment: Refe rence range defined for non-centrifuged specimen. Performed By: #### NAEL Michel ####[address] [address] Epithelial, Renal NOT REPORTED Normal 0 [facility] Comment on above: Performed By: #### NAEL Michel ####[address] [address] Mucus Strands NOT REPORTED Normal NONE [facility] Comment on above: Performed By: #### NAEL Michel ####[address] [address] Other Observations NOT REPORTED Normal NREQ [facility] Comment on above: Performed By: #### NAEL Michel ####[address] [address] Trichomonas NOT REPORTED [facility] Comment on above: Performed By: #### U A, UMICAO ####[facility] [address]3450 [place] [address] Urine, amorphous sediment presence in sediment NOT REPORTED [facility] N[facility] Comment on above: Performed By: #### U A, UMICAO ####[facility] [address]taqklxj[address] [place] [address] Urine, bacteria in sediment NOT REPORTED Normal NONE [facility] Comment on above: Performed By: #### U A, UMICAO ####[facility] [address]70 [place] [address] Urine, casts in sediment NOT REPORTED Normal 0-8 [facility] Comment on above: Performed By: #### U A, UMICAO ####[facility] Xetvyoyyuqsj1063 [place] [address] Urine, crystals in sediment NOT REPORTED Normal NONE [facility] Comment on above: Performed By: #### U A, UMICAO ####[facility] [address]ikudilazep9789 [place] [address] Urine, yeast presence in sediment NOT REPORTED Normal NONE [facility] Comment on above: Performed By: #### U A, UMICAO ####[facility] Tspz[address]ylbxrxv6097 [place] [address] Basic Metabolic Profon 01-26 (cont.) [facility] Comment on above: Result Comment: Aver age GFR for 60-69 years old: 85 mL/min/1.73sq mChronic Kidney Disease: <60 mL/min/1.73sq mKidney failure: <15 mL/min/1.73sq meGFR calculated using average adult body mass. Additional eGFR calculator available at:http://www.[employer].com/multiple_crcl_2012.htmSan [facility] [address] [place] [address] Performed By: #### B MP ####[facility] [address]67 [place] [address] Anion gap 17 mmol/L Normal 9-17 [facility] Comment on above: Performed By: #### B MP ####[facility] Bcblaqihivst7674 [place] [address] Calcium 9.0 mg/dL Normal 8.6-10.4 [facility] Comment on above: Performed By: #### B MP ####[facility] [place] [address] Chloride 105 mmol/L Normal 98-107 [facility] Comment on above: Performed By: #### B MP ####[facility] [place] [address] CO2 21 mmol/L Normal 20-31 [facility] Comment on above: Performed By: #### B MP ####[facility] Bfpccpbsrzhy4043 [place] [address] Creatinine 0.45 mg/dL Low 0.50-0.90 [facility] Comment on above: Performed By: #### B MP ####[facility] [place] [address] eGFR (non-black) mL/min/{1.73_m2} Normal >60 [facility] Comment on above: Performed By: #### B MP ####[facility] Kgvbsdtdvbvk3659 [place] [address] Glucose mass conc 128 mg/dL High 70-99 [facility] Comment on above: Performed By: #### B MP ####[facility] Lmlentrwgtse8360 [place] [address] Potassium molar conc 4.0 mmol/L Normal 3.7-5.3 [facility] Comment on above: Performed By: #### B MP ####[facility] [address] [place] [address] Sodium 143 mmol/L Normal 135-144 [facility] Comment on above: Performed By: #### B MP ####[facility] [place] [address] Urea nitrogen 18 mg/dL [facility] Comment on above: Performed By: #### B MP ####[facility] LehmanTwyhamvnaxdy[address] [place] [address] BUN/CRE Ratio NOT REPORTED [facility] - [facility] Comment on above: Performed By: #### B MP ####[facility] LehmanHpqnteqmlbao9412 [place] [address] Staging: NOT REPORTED [facility] Comment on above: Performed By: #### B MP ####[facility] LehmanBiluhcqshgrf8609 [place] [address] MRA HEAD WO CONTRASTon 01-26 MRA HEAD WO CONTRAST EXAMINATION:MRA OF THE HEAD WITHOUT CONTRAST; MRA/MRV OF THE HEAD WITH AND WITHOUTCONTRAST 01/26/2017 3:38 amTECHNIQUE:MRA of the head was performed utilizing auet-yc-wsougn imaging with [employer]. No intravenous contrast was administered.; Multiplanar multisequenceMRA/MRV of the head was performed with and without the administration ofintravenous contrast.COMPARISON:MRI brain January 25, 2017HISTORY:ORDERING SYSTEM PROVIDED HISTORY: HEADACHE; ORDERING SYSTEM PROVIDED HISTORY:surgical planningFINDINGS:There are extensive motion artifacts.MRA brain:ANTERIOR CIRCULATION: The internal carotid arteries are normal in course andcaliber without focal stenosis. The anterior cerebral and middle cerebralarteries demonstrate no focal stenosis.POSTERIOR CIRCULATION: The posterior cerebral arteries demonstrate no focalstenosis. The vertebral and basilar arteries appear unremarkable.ANEURYSM: No intracranial aneurysm is seen.There is a known right temporoparietal lobe large mass measuring 5.3 x 6.4cm, more likely to be extra-axial than intra-axial. There are small vesselswithin the mass which is hypervascular.MRV head:Limited evaluation of the venous sinuses due to motion artifacts. There isasymmetrically decreased signal in the right transverse sinus, possiblyrelated to tumor compression or tumor involvement of the right transversesinus. The distal right sigmoid sinus and the right jugular bulb are patent.The remainder of the intracranial venous sinuses are patent.IMPRESSION: Extensive motion artifacts.Unremarkable MRA of the head.Known right temporoparietal lobe large hypervascular mass, more likely to beextra-axial than intra-axial.Asymmetrically decreased signal in the right transverse sinus, possiblysecondary to tumor compression or tumor involvement of the right transversesinus. The distal right sigmoid sinus and the right jugular bulb are patent.Interpreted by:ANNA Lantiguaigned by:Abner Jacobson MD01/26/17Final result [facility] MRV HEAD W WO CONTRASTon MRV HEAD W WO CONTRAST EXAMINATION:MRA OF THE HEAD WITHOUT CONTRAST; MRA/MRV OF THE HEAD WITH AND WITHOUTCONTRAST 01/26/2017 3:38 amTECHNIQUE:MRA of the head was performed utilizing trnj-is-kpfvsy imaging with MIPimages. No intravenous contrast was administered.; Multiplanar multisequenceMRA/MRV of the head was performed with and without the administration ofintravenous contrast.COMPARISON:MRI brain January 25, 2017HISTORY:ORDERING SYSTEM PROVIDED HISTORY: HEADACHE; ORDERING SYSTEM PROVIDED HISTORY:surgical planningFINDINGS:There are extensive motion artifacts.MRA brain:ANTERIOR CIRCULATION: The internal carotid arteries are normal in course andcaliber without focal stenosis. The anterior cerebral and middle cerebralarteries demonstrate no focal stenosis.POSTERIOR CIRCULATION: The posterior cerebral arteries demonstrate no focalstenosis. The vertebral and basilar arteries appear unremarkable.ANEURYSM: No intracranial aneurysm is seen.There is a known right temporoparietal lobe large mass measuring 5.3 x 6.4cm, more likely to be extra-axial than intra-axial. There are small vesselswithin the mass which is hypervascular.MRV head:Limited evaluation of the venous sinuses due to motion artifacts. There isasymmetrically decreased signal in the right transverse sinus, possiblyrelated to tumor compression or tumor involvement of the right transversesinus. The distal right sigmoid sinus and the right jugular bulb are patent.The remainder of the intracranial venous sinuses are patent.IMPRESSION: Extensive motion artifacts.Unremarkable MRA of the head.Known right temporoparietal lobe large hypervascular mass, more likely to beextra-axial than intra-axial.Asymmetrically decreased signal in the right transverse sinus, possiblysecondary to tumor compression or tumor involvement of the right transversesinus. The distal right sigmoid sinus and the right jugular bulb are patent.Interpreted by:ANNA Lantiguaigned by:Abner Jacobson MD01/26/17Final result [facility] Basic Metabolic Profon 01-25 (cont.) [facility] Comment on above: Result Comment: Aver age GFR for 60-69 years old: 85 mL/min/1.73sq mChronic Kidney Disease: <60 mL/min/1.73sq mKidney failure: <15 mL/min/1.73sq meGFR calculated using average adult body mass. Additional eGFR calculator available at:http://www.[employer]/eXIthe[employer]_crcl_2012.htmSan [facility] [address] [place] [address] Performed By: #### L ACTIC, PT, CBC, BMP ####[facility]ino SystemsLytdundgjmls[address] [place] [address] Anion gap 14 mmol/L Normal 9-17 [facility] Comment on above: Performed By: #### L ACTIC, PT, CBC, BMP ####[facility] SystemsLyahsnmwckrc[address] [place] [address] Calcium 9.0 mg/dL Normal 8.6-10.4 [facility] Comment on above: Performed By: #### L ACTIC, PT, CBC, BMP ####[facility] SystemsUekhvvqrppzx[address] [place] [address] Chloride 101 mmol/L Normal 98-107 [facility] Comment on above: Performed By: #### L ACTIC, PT, CBC, BMP ####[facility] SystemsWoegomrigfhw[address] [place] [address] CO2 24 mmol/L Normal 20-31 [facility] Comment on above: Performed By: #### L ACTIC, PT, CBC, BMP ####[address] [place] [place] [address] Creatinine 0.43 mg/dL Low 0.50-0.90 [facility] Comment on above: Performed By: #### L ACTIC, PT, CBC, BMP ####[address] [address] eGFR (non-black) mL/min/{1.73_m2} Normal >60 [facility] Comment on above: Performed By: #### L ACTIC, PT, CBC, BMP ####[facility] [address]wt[address] [place] [address] Glucose mass conc 149 mg/dL High 70-99 [facility] Comment on above: Performed By: #### L ACTIC, PT, CBC, BMP ####[facility] [address]hauu[address]7 [place] [address] Potassium molar conc 3.4 mmol/L Low 3.7-5.3 [facility] Comment on above: Performed By: #### L ACTIC, PT, CBC, BMP ####[address] [place] [address] Sodium 139 mmol/L Normal 135-144 [facility] Comment on above: Performed By: #### L ACTIC, PT, CBC, BMP ####[facility] [address]xzuvr5666 [place] [address] Urea nitrogen 13 mg/dL Normal 8-23 [facility] Comment on above: Performed By: #### L ACTIC, PT, CBC, BMP ####[facility] [address] [place] [address] BUN/CRE Ratio NOT REPORTED Normal 9-20 [facility] Comment on above: Performed By: #### L ACTIC, PT, CBC, BMP ####[address] [place] [address] Staging: NOT REPORTED [facility] Comment on above: Performed By: #### L ACTIC, PT, CBC, BMP ####[address] [place] [address] (cont.) [facility] Comment on above: Result Comment: Aver age GFR for 60-69 years old: 85 mL/min/1.73sq mChronic Kidney Disease: <60 mL/min/1.73sq mKidney failure: <15 mL/min/1.73sq meGFR calculated using average adult body mass. Additional eGFR calculator available at:http://www.[employer]/multiple_crcl_2012.htmSan Gabriel Valley [facility] [address] [place] [address] Performed By: #### B MP ####[address] [address] Anion gap 15 mmol/L Normal 9-17 [facility] Comment on above: Performed By: #### B MP ####[facility] [place] [address] Calcium 9.3 mg/dL Normal 8.6-10.4 [facility] Comment on above: Performed By: #### B MP ####[address] [place] [address] Chloride 99 mmol/L Normal 98-107 [facility] Comment on above: Performed By: #### B MP ####[address] [address] CO2 25 mmol/L Normal 20-31 [facility] Comment on above: Performed By: #### B MP ####[address] [address] Creatinine 0.37 mg/dL Low 0.50-0.90 [facility] Comment on above: Performed By: #### B MP ####[address] [address] eGFR (non-black) mL/min/{1.73_m2} Normal >60 [facility] Comment on above: Performed By: #### B MP ####[address] [address] Glucose mass conc 76 mg/dL Normal 70-99 [facility] Comment on above: Performed By: #### B MP ####[address] [address] Potassium molar conc 3.7 mmol/L Normal 3.7-5.3 [facility] Comment on above: Performed By: #### B MP ####[address] [address] Sodium 139 mmol/L Normal 135-144 [facility] Comment on above: Performed By: #### B MP ####[address] [address] Urea nitrogen 10 mg/dL Normal 8-23 [facility] Comment on above: Performed By: #### B MP ####[address] [address] BUN/CRE Ratio NOT REPORTED Normal 9-20 [facility] Comment on above: Performed By: #### B MP ####[address] [address] Staging: NOT REPORTED [facility] Comment on above: Performed By: #### B MP ####[address] [address] CBCon 01-25-2017 Erythrocyte distribution width Auto Ratio (RBC) 13.2 % Normal 12.5-15.4 [facility] Comment on above: Performed By: #### L ACTIC, PT, CBC, BMP ####[address] [address] Erythrocytes (RBC) 4.88 10*6/uL Normal 4.0-5.2 [facility] Comment on above: Performed By: #### L ACTIC, PT, CBC, BMP ####[facility] [address] [place] [address] Hematocrit (HCT) 41.2 % Normal 36-46 [facility] Comment on above: Performed By: #### L ACTIC, PT, CBC, BMP ####[address] [address] Hemoglobin mass conc (Bld) 13.7 g/dL Normal 12.0-16.0 [facility] Comment on above: Performed By: #### L ACTIC, PT, CBC, BMP ####[address] [address] MCH 28.1 pg Normal 26-34 [facility] Comment on above: Performed By: #### L ACTIC, PT, CBC, BMP ####[address] [address] MCHC mass conc (RBC) 33.3 g/dL Normal 31-37 [facility] Comment on above: Performed By: #### L ACTIC, PT, CBC, BMP ####[facility] [address]ecv[address]uk[address]127 [place] [address] MCV 84.4 fL Normal 80-100 [facility] Comment on above: Performed By: #### L ACTIC, PT, CBC, BMP ####[address] [address] Platelet mean volume (PMV) 6.8 fL Normal 6.0-12.0 [facility] Comment on above: Result Comment: [facility] [employer] [address] [place] [address] Performed By: #### L ACTIC, PT, CBC, BMP ####[facility] [address]bw[address]pevm3598 [place] [address] Platelets 289 10*3/uL Normal 140-450 [facility] Comment on above: Performed By: #### L ACTIC, PT, CBC, BMP ####[facility] SystemsEnjujewkxbdk9818 [place] [address] WBC (Leukocytes) 8.3 10*3/uL Normal 3.5-11.0 [facility] Comment on above: Performed By: #### L ACTIC, PT, CBC, BMP ####[facility] [address]dnjiexvxjax4799 [place] [address] CT ABDOMEN PELVIS W IV CONTR Yovani 01-25-2017 CT ABDOMEN PELVIS W IV CONTRAST EXAMINATION:CT OF THE ABDOMEN AND PELVIS WITH CONTRAST 01/25/2017 12:05 amTECHNIQUE:CT of the abdomen and pelvis was performed with the administration ofintravenous contrast. Multiplanar reformatted images are provided for review.Dose modulation, iterative reconstruction, and/or weight based adjustment ofthe mA/kV was utilized to reduce the radiation dose to as low as reasonablyachievable.COMPAR ALYCIA:None.HISTORY:ORDERING SYSTEM PROVIDED HISTORY: metastatic workupTECHNOLOGIST PROVIDED HISTORY:Additional Contrast?->NoneFINDINGS:Low er Chest: There is a 5 mm nodule in the right lower lobe adjacent to themajor fissure on the 1st scan obtained through the lung bases. The heartsize is normal.Organs: There are a few small low-attenuation lesions within the livermeasuring up to 1.2 cm. A few have well-defined margins and may representcysts. Others are less well-defined. The spleen, pancreas, adrenal glandsand kidneys are normal.GI/Bowel: Unopacified bowel loops are grossly normal. No evidence bowelobstruction.Pelvis: Urinary bladder is grossly normal. There are several surgical clipsin the lower pelvis apparently related to complete hysterectomy. Severalclips in the left pelvic sidewall suggest prior lymph node dissection.Peritoneum/Retro peritoneum: There is no adenopathy, free air or free fluid.There is no omental tumor.Bones/Soft Tissues: No definite osseous metastatic disease.IMPRESSION: There are a few small low-attenuation lesions within the liver that mayrepresent a combination of small hepatic cysts and hemangiomas. Metastaticdisease is not excluded. If prior studies are available, comparison would behelpful.There is a 5 mm right basilar lung nodule adjacent to the major fissure onthe 1st scan obtained. This likely represents a lymph node. Metastaticlesion is not excluded.Evidence of a hysterectomy with lymph node dissection.Interpreted by:ANNA Pinkigned by:Mitchell Salcido MD01/25/17Final result [facility] CT CHEST W CONTRASTon 2016 CT CHEST W CONTRAST EXAMINATION:CT OF TH E CHEST WITH CONTRAST 01/25/2017 12:05 amTECHNIQUE:CT of the chest was performed with the administration of intravenouscontrast. Multiplanar reformatted images are provided for review. Dosemodulation, iterative reconstruction, and/or weight based adjustment of themA/kV was utilized to reduce the radiation dose to as low as reasonablyachievable.COMPAR ALYCIA:None.HISTORY:ORDERING SYSTEM PROVIDED HISTORY: metastatic work upFINDINGS:Mediastinum: There is no mediastinal or hilar adenopathy. The heart size isnormal. No pericardial. Thoracic aorta is normal caliber.Lungs/pleura: There is a 5 mm triangular-shaped nodule with smooth margins inthe right lower lobe adjacent to the major fissure (axial scan 55). No otherpulmonary nodules. The lungs are free of acute infiltrate. No pneumothoraxor pleural effusionUpper Abdomen: There several low-attenuation lesions in the liver measuringup to 1.2 cm. These described on the concurrent CT.Soft Tissues/Bones: No definite osseous metastatic disease.IMPRESSION: 5 mm triangular-shaped nodule with smooth margins adjacent to right majorfissure likely represents a lymph node. Small metastatic lesion is notentirely excluded and if prior studies are available, comparison would behelpful.No other abnormality in the chest to suggest metastatic disease.Interpreted by:ANNA Pinkigned by:Mitchell Salcido MD01/25/17Final result [facility] ED Noteon 01-25-2017 HIM IP Note OR Ticker Wirer [facility] HIM IP Note OR Ticker Wirer [facility] HIM IP Note OR Ticker Wirer [facility] HIM IP Note OR Ticker Wirer [facility] Hemoglobin A1Con 01-25-2017 Glucose mass conc 114 mg/dL Normal [facility] Comment on above: Result Comment: The ADA and AACC recommend providing the estimated average glucose result to permit better patient understanding of their HBA1c result.[employer] [address] [place] [address] Performed By: #### T SHX, GLYHGB ####[address] [address] Hemoglobin A1c/Hemoglobin.total mass fraction (Bld) 5.6 % Normal 4.0-6.0 [facility] Comment on above: Performed By: #### T SHX, GLYHGB ####[facility] [address] [place] [address] History and Physicalon 01-25 HIM IP Note OR Ticker Wirer [facility] Lactic Acidon 01-25-2017 Lactic Acid,Whole Bl 2.4 mmol/L High 0.7-2.1 [facility] Comment on above: Result Comment: [employer] [address] [place] [address] Performed By: #### L ACTIC, PT, CBC, BMP ####[facility] [address] [place] [address] Lactate NOT REPORTED [facility] Comment on above: Performed By: #### L ACTIC, PT, CBC, BMP ####[facility] [address] [place] [address] MRI BRAIN W WO CONTRASTon MRI BRAIN W WO CONTRAST EXAMINATION:MRI OF THE BRAIN WITHOUT AND WITH CONTRAST 01/25/2017 1:21 amTECHNIQUE:Multiplanar multisequence MRI of the head/brain was performed without andwith the administration of intravenous contrast.COMPARISON:None.HI STORY:ORDERING SYSTEM PROVIDED HISTORY: Intracranial Mass seen on CTFINDINGS:INTRACRANIAL STRUCTURES/VENTRICLES: There is a 5.7 x 6.6 x 8.4 cm(transverse by AP by craniocaudal) enhancing mass of the righttemporoparietal occipital lobes, more likely to be extra-axial thanintra-axial in location. There is calcification associated with the mass atthe inferior aspect. There is extension of the mass through the righttentorium into the right posterior fossa. There is adjacent vasogenic edemaparticularly in the right parietal occipital lobes. There is mass effectwith 1 cm right to left midline shift. There is displacement of the alberto andmidbrain to the left. There is involvement of the mass with the righttransverse and sigmoid sinuses without occlusion.There are scattered foci of T2/FLAIR hyperdensity in the subcortical andperiventricular white matter likely related to mild chronic microvasculardisease. There is no acute infarct. No abnormal extra-axial fluid collectionor hydrocephalus. The sella/suprasellar region appear unremarkable. Thenormal signal voids within the major intracranial vessels appear maintained.There is mild crowding of the foramen magnum.ORBITS: The visualized portion of the orbits otherwise demonstrate no acuteabnormality.SINUSES: There is scattered mild mucosal thickening in the paranasal sinuses.The bilateral mastoid air cells are clear.BONES/SOFT TISSUES: The bone marrow signal intensity appears normal. Thecraniocervical junction is normal in appearance.IMPRESSION: 5.7 x 6.6 x 8.4 cm enhancing mass of the right temporoparietal occipitallobes, more likely to be extra-axial than intra-axial in location. Findingsare likely related to a meningioma. Less likely differential considerationsinclude primary RANGE CONSERVATIONIST neoplasm or metastatic disease.Extension of the mass through the right tentorium into the right posteriorfossa, with possible involvement of the right transverse and sigmoid sinuseswithout sinus occlusion.Vasogenic edema and mass effect in the adjacent brain parenchyma, with 1 cmright to left midline shift.Displacement of the alberto and midbrain to the left.The results were called by Dr. Abner Jacobson MD to Dr. CHRISTY SALVADOR on01/25/2017 at 02:05.Interpreted by:ANNA Lantiguaigned by:Abner Jacobson MD01/25/17Final result [facility] MRSA, DNA, Nasalon 7 MRSA, DNA, Nasal NEGATIVE: MRSA DNA n ot detected by nucleic acid amplification. [facility] Comment on above: Result Comment: Resu lts should be used as an adjunct to nosocomial control efforts to identify patients needing enhanced precautions.The test is not intended to identify patients with staphylococcal infections. Results should not be used to guide or monitor treatment for MRSA infections.[facility] [employer] [address] [place] [address] Performed By: #### M RSANO ####[address] [address] Specimen Description .NASAL SWAB Normal [facility] Comment on above: Performed By: #### M RSANO ####[address] [address] PTon 01-25-2017 INR Coag RelTime (PPP) 1.1 {INR} [facility] Comment on above: Result Comment: Ther apeutic Range: Moderate Anticoagulant Intensity: INR = 2.0-3.0 High Anticoagulant Intensity: INR = 2.5-3.[address] [address] Performed By: #### L ACTIC, PT, CBC, BMP ####[address] [address] Prothrombin time (PT) Coag time (PPP) 12.0 s Normal 9.4-12.6 [facility] Comment on above: Performed By: #### L ACTIC, PT, CBC, BMP ####[address] [id number] TSH w/reflex to FT4on 2016 Thyroid stimulating hormone (TSH) 4.51 m[IU]/L [facility] Comment on above: Result Comment: [employer] [address] [place] [address] Performed By: #### T SHX, GLYHGB ####Kimmie [address] [place] [address] Type + Screenon 01-25-2017 Type + Screen Sample Expiration 01/28/2017 Arm Band Number BE [id number] ABO/Rh(D) A POSITIVE Antibody Screen NEGATIVE [facility] [address] [place] [address] [facility] Comment on above: Performed By: #### T YS ####Kimmie [id number] [place] [address] XR CHEST STANDARD TWO VWon 0 01-25-2017 XR CHEST STANDARD TWO VW EXAMINATION:TWO VIEWS OF THE CHEST01/25/2017 11:16 amCOMPARISON:CT 01/24/2017HISTORY:ORDERING SYSTEM PROVIDED HISTORY: COUGH , SOBTECHNOLOGIST PROVIDED HISTORY:Reason for exam:->COUGH , SOBAcuity: UnknownType of Exam: UnknownFINDINGS:Heart is stable in size without evidence of vascular congestion. Lungs areessentially clear. No focal infiltrates or significant pleural effusions areseen. The patient is slightly rotated. Monitor leads overlie the chest.Mild degenerative changes of the spine and shoulders with no acute osseousabnormality identified. .IMPRESSION: No acute findings.Interpreted by:ANNA Pedrazaigned by:Aramis Lubin MD01/25/17Final result [facility] ED Noteon 01-24-2017 HIM IP Note OR Ticker Wirer [facility] HIM IP Note OR Ticker Wire[facility] HIM IP Note OR Ticker Wirer [facility] ED Provider Noteon 7 HIM IP Note OR Ticker Wirer [facility] Vital Signs Date Time Vital Sign Value Performing Clinician Facility 02-12-2025 13:38-0400 Body height 152.4 cm Marisol Clancy MD Work Phone: [facility] 02-12-2025 13:38-0400 Body mass index (BMI) [Ratio] 40 kg/m2 Marisol Clancy MD Work Phone: [facility] 02-12-2025 13:38-0400 Body weight 92.98 kg Marisol Clancy MD Work Phone: [facility] 02-12-2025 13:38-0400 Diastolic blood pressure 96 mm[Hg] Marisol Clancy MD Work Phone: [facility] 02-12-2025 13:38-0400 Heart rate 62 /min Marisol Clancy MD Work Phone: [facility] 02-12-2025 13:38-0400 SaO2% (BldA) [Mass fraction] 97 % Marisol Clancy MD Work Phone: [facility] 02-12-2025 13:38-0400 Systolic blood pressure 148 mm[Hg] Marisol Clancy MD Work Phone: [facility] 01-16-2025 10:00-0400 Body height 152.4 cm Santi Poe DPM Work Phone: [facility] 01-16-2025 10:00-0400 Body mass index (BMI) [Ratio] 39.06 kg/m2 Santi Poe DPM Work Phone: [facility] 01-16-2025 10:00-0400 Body weight 90.72 kg Santi Poe DPM Work Phone: [facility] 07-08-2024 12:17-0500 Body height 152.4 cm Jil Lowe PA Work Phone: [facility] 07-08-2024 12:17-0500 Body mass index (BMI) [Ratio] 40.04 kg/m2 Jil Lowe PA Work Phone: [facility] 07-08-2024 12:17-0500 Body weight 92.99 kg Jil Lowe PA Work Phone: [facility] 07-08-2024 12:17-0500 Diastolic blood pressure 84 mm[Hg] Jil Lowe PA Work Phone: [facility] 07-08-2024 12:17-0500 Heart rate 62 /min Jil Lowe PA Work Phone: [facility] 07-08-2024 12:17-0500 Respiratory rate 16 /min Jil Lowe PA Work Phone: [facility] 07-08-2024 12:17-0500 SaO2% (BldA) [Mass fraction] 98 % Jil Lowe PA Work Phone: [facility] 07-08-2024 12:17-0500 Systolic blood pressure 132 mm[Hg] Jil Lowe PA Work Phone: [facility] 03-06-2024 10:30-0400 Body height 152.4 cm Makenzie Trinidad MD Work Phone: [facility] 03-06-2024 10:30-0400 Body mass index (BMI) [Ratio] 38.67 kg/m2 Makenzie Trinidad MD Work Phone: [facility] 03-06-2024 10:30-0400 Body weight 89.81 kg Makenzie Trinidad MD Work Phone: [facility] 03-06-2024 10:30-0400 Diastolic blood pressure 70 mm[Hg] Makenzie Trinidad MD Work Phone: [facility] 03-06-2024 10:30-0400 Heart rate 55 /min Makenzie Trinidad MD Work Phone: [facility] 03-06-2024 10:30-0400 SaO2% (BldA) [Mass fraction] 98 % Makenzie Trinidad MD Work Phone: [facility] 03-06-2024 10:30-0400 Systolic blood pressure 130 mm[Hg] Makenzie Trinidad MD Work Phone: [facility] Encounters Encounter Date Encounter Type Care Provider Facility Start: [facility]DA [facility] Start: 07-20-2025 ambulatory [facility] Start: 02-12-2025 End: 02-12-2025 ambulatory Marisol Clancy MD Work Phone: [facility] Work Phone: Start: 02-12-2025 End: 02-12-2025 Patient encounter procedure Bhakti Simpson DO -[facility] Work Phone: Start: 01-16-2025 End: 01-16-2025 Bamboo flowsheet Santi Poe DPM Work Phone: [facility] Start: 01-16-2025 End: 01-16-2025 Bamboo flowsheet Santi Poe DPM Work Phone: [facility] Start: 01-16-2025 End: 01-16-2025 ambulatory SANTI POE Not Available Start: 01-16-2025 End: 01-16-2025 Office outpatient new 30 minutes Santi Poe DPM Work Phone: [facility] Comment on above: Superficial foreign body of left foot without major open wound and without infection, initial encounter (Primary Dx); Pain in left foot; Difficulty walking Start: 01-16-2025 End: 01-16-2025 ambulatory SANTI POE Not Available Start: 01-01-2025 End: 01-03-2025 ambulatory [facility] Start: 01-01-2025 End: 01-03-2025 Subsequent hospital visit by physician Lynda Hensley DO Work Phone: [facility] 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 Start: 10-02-2024 End: 10-02-2024 ambulatory MAKENZIE TRINIDAD [facility] Start: 08-08-2024 End: 08-08-2024 ambulatory REBECA ARCHER [facility] Start: 07-14-2024 End: 01-29-2025 ambulatory [facility]DA [facility] Start: 07-14-2024 End: 07-16-2024 Subsequent hospital visit by physician Lynda Hensley DO Work Phone: [facility] 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 Start: 07-08-2024 End: 07-08-2024 Bamboo flowsheet Jil Lowe PA Work Phone: [facility] Start: 07-08-2024 End: 07-08-2024 Bamboo flowsheet Jil Lowe PA Work Phone: [facility] Start: 07-08-2024 End: 07-08-2024 ambulatory JIL LOWE Not Available Start: 07-08-2024 End: 07-08-2024 Office outpatient visit 25 minutes Jil Evangelista PA Work Phone: [facility] Comment on above: Occipital neuralgia of right side (Primary Dx); Seizure (CMS/HCC); Sleep apnea, unspecified type; Lightheadedness Start: 06-04-2024 End: 06-12-2024 Telephone encounter Tiffanie Chaudhry RN [facility] Start: 06-02-2024 End: 06-02-2024 ambulatory PATRICIA SIMON Not Available Start: 03-06-2024 End: 03-06-2024 Office outpatient visit 25 minutes Makenzie Trinidad MD Work Phone: [facility] Comment on above: Essential hypertensi on (Primary Dx); Ventricular premature depolarization Start: 03-06-2024 End: 03-06-2024 ambulatory MAKENZIE TRINIDAD [facility] Start: 03-05-2024 End: 03-05-2024 Telephone encounter Sarah Davis CMA [facility] Start: 02-20-2024 End: 02-20-2024 Emergency department patient visit HUMAIRA BETH [facility] Start: 02-11-2024 End: 02-11-2024 ambulatory PATRICIA SIMON Not Available Start: 11-28-2023 End: 11-29-2023 Emergency department patient visit CHELSEA YOUSSEF [facility] Start: 10-05-2022 End: 10-07-2022 Subsequent hospital visit by physician Pedro Martínez Pet/Ct Room 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, malignant (HCC) Start: 03-01-2018 End: 03-04-2018 Patient encounter Mitchell Dimitrios Nivia Facility:[facility] Start: 03-21-2017 Ambulatory [facility] Facility : Start: 01-30-2017 Ambulatory [facility] Facility : Start: 01-29-2017 End: 02-02-2017 Evaluation and management of inpatient BETRO T [facility] Start: 01-24-2017 End: 01-26-2017 [facility] Procedures Date Procedure Procedure Detail Performing Clinician Start: 01-16-2025 Radex calcaneus mini mum 2 views Santi Poe DPM Work Phone: Start: 01-01-2025 Mri brain brain stem w/o w/contrast material Lynda Ahammad DO Work Phone: Start: 01-01-2025 CREATININE W/GFR POI NT OF CARE Lynda Ahammad DO Work Phone: Start: 07-14-2024 Mri brain brain stem w/o w/contrast material Lynda Ahammad DO Work Phone: Start: 07-14-2024 CREATININE W/GFR POI NT OF CARE Lynda Ahammad DO Work Phone: Start: 03-06-2024 Follow-up visit Follow-up MAKENZIE TRINIDAD Start: 10-05-[address] attenuation whole body Lynda Ahammad DO Work Phone: Start: 10-05-2022 Glucose blood reagen t strip Lynda Ahammad DO Work Phone: Start: 06-21-2022 Mri brain brain stem w/o w/contrast material Lynda Ahammad DO Work Phone: Start: 06-21-2022 CREATININE W/GFR POI NT OF CARE Lynda Ahammad DO Work Phone: Start: 06-16-2020 Mri brain brain stem w/o w/contrast material Lynda Ahammad Work Phone: Start: 06-16-2020 CREATININE W/GFR POI NT OF CARE Lynda Ahammad Work Phone: Start: 02-02-2017 PULSE OXIMETRY, CONTINUOUS LYNDA AHAMMAD Start: 02-02-2017 MISCELLANEOUS NURSIN G CARE ORDER (SPECIFY) LYNDA AHAMMAD Start: 02-02-2017 POC GLUCOSE FINGERSTICK LYNDA AHAMMAD Start: 02-02-2017 POCT GLUCOSE LYNDA AHA MMAD Start: 02-02-2017 PULSE OXIMETRY, CONTINUOUS LYNDA AHAMMAD Start: 02-02-2017 IP CONSULT TO UROLOGY Z UBAIR AHAMMAD Start: 02-02-2017 NURSING COMMUNICATION Z UBAIR AHAMMAD Start: 02-02-2017 DISCHARGE PATIENT ZUBAI R AHAMMAD Start: 02-02-2017 WOUND CARE LYNDA AHA MMAD Start: 02-02-2017 POC GLUCOSE FINGERSTICK LYNDA AHAMMAD Start: 02-02-2017 POCT GLUCOSE LYNDA AHA MMAD Start: 02-02-2017 INCENTIVE SPIROMETRY RT LYNDA AHAMMAD Start: 02-02-2017 INITIATE OXYGEN THER APY PROTOCOL LYNDA AHAMMAD Start: 02-02-2017 PULSE OXIMETRY, CONTINUOUS LYNDA AHAMMAD Start: 02-02-2017 BASIC METABOLIC PANEL Z UBAIR AHAMMAD Start: 02-02-2017 CBC WITH AUTO DIFFERENTIAL LYNDA AHAMMAD Start: 02-02-2017 POCT GLUCOSE LYNDA AHA MMAD Start: 02-02-2017 PULSE OXIMETRY, CONTINUOUS LYNDA AHAMMAD Start: 02-02-2017 INTAKE AND OUTPUT ZUBAI R AHAMMAD Start: 02-02-2017 NEURO CHECKS LYNDA AHA MMAD Start: 02-02-2017 PULSE OXIMETRY, CONTINUOUS LYNDA AHAMMAD Start: 02-01-2017 POC GLUCOSE FINGERSTICK LYNDA AHAMMAD Start: 02-01-2017 POCT GLUCOSE LYNDA AHA MMAD Start: 02-01-2017 PULSE OXIMETRY, CONTINUOUS LYNDA AHAMMAD Start: 02-01-2017 POC GLUCOSE FINGERSTICK LYNDA AHAMMAD Start: 02-01-2017 PULSE OXIMETRY, CONTINUOUS LYNDA AHAMMAD Start: 02-01-2017 TRANSFER PATIENT LYNDA AHAMMAD Start: 02-01-2017 CALCIUM, IONIZED LYNDA AHAMMAD Start: 02-01-2017 POC GLUCOSE FINGERSTICK LYNDA AHAMMAD Start: 02-01-2017 POCT GLUCOSE LYNDA AHA MMAD Start: 02-01-2017 PULSE OXIMETRY, CONTINUOUS LYNDA AHAMMAD Start: 02-01-2017 HOME ECONOMICS TEACHER EVAL AND TREAT ZUBA IR AHAMMAD Start: 02-01-2017 DIET GENERAL LYNDA AHA MMAD Start: 02-01-2017 POCT GLUCOSE LYNDA AHA MMAD Start: 02-01-2017 INCENTIVE SPIROMETRY RT LYNDA AHAMMAD Start: 02-01-2017 INITIATE OXYGEN THER APY PROTOCOL LYNDA AHAMMAD Start: 02-01-2017 PULSE OXIMETRY, CONTINUOUS LYNDA AHAMMAD Start: 02-01-2017 POC GLUCOSE FINGERSTICK LYNDA AHAMMAD Start: 02-01-2017 IP CONSULT TO IV TEAM Z UBAIR AHAMMAD Start: 02-01-2017 BASIC METABOLIC PANEL Z UBAIR AHAMMAD Start: 02-01-2017 CBC WITH AUTO DIFFERENTIAL LYNDA AHAMMAD Start: 02-01-2017 POCT GLUCOSE LYNDA AHA MMAD Start: 02-01-2017 PULSE OXIMETRY, CONTINUOUS LYNDA AHAMMAD Start: 02-01-2017 ELEVATE HEELS OFF OF BED LYNDA AHAMMAD Start: 02-01-2017 HEAD OF BED 60 DEGRE ES OR LESS LYNDA AHAMMAD Start: 02-01-2017 NURSING COMMUNICATION Z UBAIR AHAMMAD Start: 02-01-2017 TURN PATIENT LYNDA AHA MMAD Start: 02-01-2017 INTAKE AND OUTPUT ZUBAI R AHAMMAD Start: 02-01-2017 NEURO CHECKS LYNDA AHA MMAD Start: 02-01-2017 PULSE OXIMETRY, CONTINUOUS LYNDA AHAMMAD Start: 02-01-2017 BLADDER SCAN LYNDA AHA MMAD Start: 02-01-2017 STRAIGHT CATH LYNDA AH AMMAD Start: 01-31-2017 POC GLUCOSE FINGERSTICK LYNDA AHAMMAD Start: 01-31-2017 POCT GLUCOSE LYNDA AHA MMAD Start: 01-31-2017 PULSE OXIMETRY, CONTINUOUS LYNDA AHAMMAD Start: 01-31-2017 POC GLUCOSE FINGERSTICK LYNDA AHAMMAD Start: 01-31-2017 IP CONSULT TO PHYSIC AL MEDICINE REHAB LYNDA AHAMMAD Start: 01-31-2017 PULSE OXIMETRY, CONTINUOUS LYNDA AHAMMAD Start: 01-31-2017 CBC WITH AUTO DIFFERENTIAL LYNDA AHAMMAD Start: 01-31-2017 PREVIOUS SPECIMEN ZUBAI R AHAMMAD Start: 01-31-2017 POC GLUCOSE FINGERSTICK LYNDA AHAMMAD Start: 01-31-2017 POCT GLUCOSE LYNDA AHA MMAD Start: 01-31-2017 PULSE OXIMETRY, CONTINUOUS LYNDA AHAMMAD Start: 01-31-2017 COMPREHENSIVE METABO LIC PANEL LYNDA AHAMMAD Start: 01-31-2017 POC GLUCOSE FINGERSTICK LYNDA AHAMMAD Start: 01-31-2017 POCT GLUCOSE LYNDA AHA MMAD Start: 01-31-2017 INCENTIVE SPIROMETRY RT LYNDA AHAMMAD Start: 01-31-2017 INITIATE OXYGEN THER APY PROTOCOL LYNDA AHAMMAD Start: 01-31-2017 PULSE OXIMETRY, CONTINUOUS LYNDA AHAMMAD Start: 01-31-2017 POCT GLUCOSE LYNDA AHA MMAD Start: 01-31-2017 PULSE OXIMETRY, CONTINUOUS LYNDA AHAMMAD Start: 01-31-2017 Mri brain brain stem w/o w/contrast material LYNDA AHAMMAD Start: 01-31-2017 INTAKE AND OUTPUT ZUBAI R AHAMMAD Start: 01-31-2017 NEURO CHECKS LYNDA AHA MMAD Start: 01-31-2017 PULSE OXIMETRY, CONTINUOUS LYNDA AHAMMAD Start: 01-30-2017 POC GLUCOSE FINGERSTICK LYNDA AHAMMAD Start: 01-30-2017 POCT GLUCOSE LYNDA AHA MMAD Start: 01-30-2017 PULSE OXIMETRY, CONTINUOUS LYNDA AHAMMAD Start: 01-30-2017 BASIC METABOLIC PANEL Z UBAIR AHAMMAD Start: 01-30-2017 CBC LYNDA AHA MMAD Start: 01-30-2017 ADVANCE DIET TOLE RATED (NURSING COMMUNICATION) LYNDA AHAMMAD Start: 01-30-2017 AMBULATE PATIENT LYNDA AHAMMAD Start: 01-30-2017 CBC LYNDA AHA MMAD Start: 01-30-2017 FULL CODE LYNDA AHA MMAD Start: 01-30-2017 PLACE INTERMITTENT PNEUMATIC COMPRESSION DEVICE LYNDA AHAMMAD Start: 01-30-2017 WOUND CARE LYNDA AHA MMAD Start: 01-30-2017 Ct head/brain w/o contrast material LYNDA AHAMMAD Start: 01-30-2017 PULSE OXIMETRY, CONTINUOUS LYNDA AHAMMAD Start: 01-30-2017 CALCIUM, IONIZED LYNDA AHAMMAD Start: 01-30-2017 OPEN HEART PANEL LYNDA AHAMMAD Start: 01-30-2017 POCT GLUCOSE LYNDA AHA MMAD Start: 01-30-2017 CALCIUM, IONIZED LYNDA AHAMMAD Start: 01-30-2017 OPEN HEART PANEL LYNDA AHAMMAD Start: 01-30-2017 PULSE OXIMETRY, CONTINUOUS LYNDA AHAMMAD Start: 01-30-2017 SURGICAL PATHOLOGY ZUBA IR AHAMMAD Start: 01-30-2017 SURGICAL PATHOLOGY ZUBA IR AHAMMAD Start: 01-30-2017 CALCIUM, IONIZED LYNDA AHAMMAD Start: 01-30-2017 OPEN HEART PANEL LYNDA AHAMMAD Start: 01-30-2017 POCT GLUCOSE LYNDA AHA MMAD Start: 01-30-2017 INCENTIVE SPIROMETRY RT LYNDA AHAMMAD Start: 01-30-2017 INITIATE OXYGEN THER APY PROTOCOL LYNDA AHAMMAD Start: 01-30-2017 PULSE OXIMETRY, CONTINUOUS LYNDA AHAMMAD Start: 01-30-2017 APTT LYNDA AHA MMAD Start: 01-30-2017 BASIC METABOLIC PANEL Z UBAIR AHAMMAD Start: 01-30-2017 CBC WITH AUTO DIFFERENTIAL LYNDA AHAMMAD Start: 01-30-2017 MAGNESIUM LYNDA AHA MMAD Start: 01-30-2017 PROTIME-INR LYNDA AHA MMAD Start: 01-30-2017 POCT GLUCOSE LYNDA AHA MMAD Start: 01-30-2017 PULSE OXIMETRY, CONTINUOUS LYNDA AHAMMAD Start: 01-30-2017 DAILY WEIGHTS LYNDA AH AMMAD Start: 01-30-2017 INTAKE AND OUTPUT ZUBAI R AHAMMAD Start: 01-30-2017 NEURO CHECKS LYNDA AHA MMAD Start: 01-30-2017 PULSE OXIMETRY, CONTINUOUS LYNDA AHAMMAD Start: 01-29-2017 MAGNESIUM LYNDA AHA MMAD Start: 01-29-2017 POC GLUCOSE FINGERSTICK LYNDA AHAMMAD Start: 01-29-2017 Mri brain brain stem w/contrast material LYNDA AHAMMAD Start: 01-29-2017 POCT GLUCOSE LYNDA AHA MMAD Start: 01-29-2017 PULSE OXIMETRY, CONTINUOUS LYNDA AHAMMAD Start: 01-29-2017 BASIC METABOLIC PANEL Z UBAIR AHAMMAD Start: 01-29-2017 CULTURE, URINE CATHETER LYNDA AHAMMAD Start: 01-29-2017 Microscopic urinalysis LYNDA AHAMMAD Start: 01-29-2017 Urinalysis LYNDA AHA MMAD Start: 01-29-2017 MRSA DNA PROBE, NASAL Z UBAIR AHAMMAD Start: 01-29-2017 POTASSIUM LYNDA AHA MMAD Start: 01-29-2017 POC GLUCOSE FINGERSTICK LYNDA AHAMMAD Start: 01-29-2017 PREPARE RBC (CROSSMATCH) LYNDA AHAMMAD Start: 01-29-2017 CATHETER REMOVAL LYNDA AHAMMAD Start: 01-29-2017 INSERT GARCIA CATHETER Z UBAIR AHAMMAD Start: 01-29-2017 IP CONSULT TO ENDOVASCULAR NEUROSURGERY LYDNA AHAMMAD Start: 01-29-2017 IP CONSULT TO NEUROSURGERY LYNDA AHAMMAD Start: 01-29-2017 PLACE INTERMITTENT PNEUMATIC COMPRESSION DEVICE LYNDA AHAMMAD Start: 01-29-2017 REASON FOR NO CHEMIC AL VTE PROPHYLAXIS LYNDA AHAMMAD Start: 01-29-2017 ASSESS LYNDA AHA MMAD Start: 01-29-2017 ENCOURAGE DEEP BREAT MILADIS AND COUGHING LYNDA AHAMMAD Start: 01-29-2017 INCENTIVE SPIROMETRY RT LYNDA AHAMMAD Start: 01-29-2017 INITIATE OXYGEN THER APY PROTOCOL LYNDA AHAMMAD Start: 01-29-2017 INTAKE AND OUTPUT ZUBAI R AHAMMAD Start: 01-29-2017 NEURO CHECKS LYNDA AHA MMAD Start: 01-29-2017 NEURO/VASCULAR CHECKS Z UBAIR AHAMMAD Start: 01-29-2017 NOTIFY PHYSICIAN (SPECIFY) LYNDA AHAMMAD Start: 01-29-2017 NURSING COMMUNICATION Z UBAIR AHAMMAD Start: 01-29-2017 OT EVAL AND TREAT ZUBAI R AHAMMAD Start: 01-29-2017 PT EVAL AND TREAT ZUBAI R AHAMMAD Start: 01-29-2017 PULSE OXIMETRY, CONTINUOUS LYNDA AHAMMAD Start: 01-29-2017 VITAL SIGNS LYNDA AHA MMAD Start: 01-29-2017 WOUND DRESSING LYNDA A YULIA Start: 01-29-2017 INITIATE RT PROTOCOL ZU JOSE AHAMMAD Start: 01-29-2017 IP CONSULT TO SOCIAL WORK LYNDA AHAMMAD Start: 01-29-2017 MISCELLANEOUS NURSIN G CARE ORDER (SPECIFY) LYNDA AHAMMAD Start: 01-29-2017 POCT GLUCOSE LYNDA AHA MMAD Start: 01-29-2017 SEIZURE PRECAUTIONS ZUB AIR AHAMMAD Start: 01-29-2017 TELEMETRY MONITORING ZU JOSE AHAMMAD Start: 01-29-2017 PATIENT STATUS (DIRECT) LYNDA AHAMMAD Start: 01-29-2017 Slctv cath carotid/i nnom art angio intrcranl art LYNDA AHAMMAD Start: 01-29-2017 ACTIVATED CLOTTING TIME LYNDA AHAMMAD Start: 01-29-2017 TYPE AND SCREEN LYNDA AHAMMAD Start: 01-29-2017 APTT LYNDA AHA MMAD Start: 01-29-2017 BASIC METABOLIC PANEL Z UBAIR AHAMMAD Start: 01-29-2017 CBC LYNDA AHA MMAD Start: 01-29-2017 PROTIME-INR LYNDA AHA MMAD Start: 01-27-2017 POCT GLUCOSE LYNDA AHA MMAD Start: 01-26-2017 POCT GLUCOSE LYNDA AHA MMAD Start: 01-26-2017 DISCHARGE PATIENT ZUBAI R AHAMMAD Start: 01-26-2017 BASIC METABOLIC PANEL Z UBAIR AHAMMAD Start: 01-26-2017 POCT GLUCOSE LYNDA AHA MMAD Start: 01-26-2017 POC GLUCOSE FINGERSTICK LYNDA AHAMMAD Start: 01-26-2017 POCT GLUCOSE LYNDA AHA MMAD Start: 01-26-2017 POCT GLUCOSE LYNDA AHA MMAD Start: 01-26-2017 Mra head w/o & w/con trast material LYNDA AHAMMAD Start: 01-26-2017 Mra head w/o contrst material LYNDA AHAMMAD Start: 01-26-2017 MISCELLANEOUS NURSIN G CARE ORDER (SPECIFY) LYNDA AHAMMAD Start: 01-25-2017 POC GLUCOSE FINGERSTICK LYNDA AHAMMAD Start: 01-25-2017 POCT GLUCOSE LYNDA AHA MMAD Start: 01-25-2017 POC GLUCOSE FINGERSTICK LYNDA AHAMMAD Start: 01-25-2017 TYPE AND SCREEN LYNDA AHAMMAD Start: 01-25-2017 DIET GENERAL LYNDA AHA MMAD Start: 01-25-2017 POCT GLUCOSE LYNDA AHA MMAD Start: 01-25-2017 SEIZURE PRECAUTIONS ZUB AIR AHAMMAD Start: 01-25-2017 POC GLUCOSE FINGERSTICK LYNDA AHAMMAD Start: 01-25-2017 Chest x-ray LYNDA AHA MMAD Start: 01-25-2017 POC GLUCOSE FINGERSTICK LYNDA AHAMMAD Start: 01-25-2017 POCT GLUCOSE LYNDA AHA MMAD Start: 01-25-2017 BASIC METABOLIC PANEL Z UBAIR AHAMMAD Start: 01-25-2017 CBC LYNDA AHA MMAD Start: 01-25-2017 LACTIC ACID, PLASMA ZUB AIR AHAMMAD Start: 01-25-2017 PROTIME-INR LYNDA AHA MMAD Start: 01-25-2017 CULTURE BLOOD #1 LYNDA AHAMMAD Start: 01-25-2017 CULTURE BLOOD #2 LYNDA AHAMMAD Start: 01-25-2017 HEMOGLOBIN A1C LYNDA A YULIA Start: 01-25-2017 TSH WITH REFLEX LYNDA AHAMMAD Start: 01-25-2017 MRSA DNA PROBE, NASAL Z UBAIR AHAMMAD Start: 01-25-2017 DAILY WEIGHTS LYNDA AH AMMAD Start: 01-25-2017 FULL CODE LYNDA AHA MMAD Start: 01-25-2017 IP CONSULT TO SOCIAL WORK LYNDA AHAMMAD Start: 01-25-2017 NOTIFY PHYSICIAN (SPECIFY) LYNDA AHAMMAD Start: 01-25-2017 OT EVAL AND TREAT ZUBAI R AHAMMAD Start: 01-25-2017 PLACE INTERMITTENT PNEUMATIC COMPRESSION DEVICE LYNDA AHAMMAD Start: 01-25-2017 PT EVAL AND TREAT ZUBAI R AHAMMAD Start: 01-25-2017 REASON FOR NO CHEMIC AL VTE PROPHYLAXIS LYNDA AHAMMAD Start: 01-25-2017 VITAL SIGNS LYNDA AHA MMAD Start: 01-25-2017 Mri brain brain stem w/o w/contrast material LYNDA AHAMMAD Start: 01-25-2017 Ct abdomen & pelvis w/contrast material LYNDA AHAMMAD Start: 01-25-2017 Ct thorax w/contrast material LYNDA AHAMMAD Start: 01-25-2017 BASIC METABOLIC PANEL Z UBAIR AHAMMAD Start: 01-24-2017 PATIENT STATUS (FROM ED OR OR/PROCEDURAL) LYNDA AHAMMAD Start: 01-24-2017 IP CONSULT TO RANGE CONSERVATIONIST AL MEDICINE LYNDA AHAMMAD Start: 01-24-2017 IP CONSULT TO NEUROSURGERY LYNDA AHAMMAD Start: 10-17-2015 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 EHR Cmte Plan of Treatment Date Care Activity Detail Author Start: 12-30-2025 End: 12-30-2025 Patient encounter procedure 12/30/2025 1:30 PM EDT Office Visit [facility] [address] [place] [address] [address] [place] [address] Shellie LyndaDO jovi [address] [facility] [address] [place] [address] [facility] Start: 12-09-2025 End: 12-09-2025 Patient encounter procedure 12/09/2025 2:00 PM EDT Office Visit [facility] [address], [address] [place] [id number] Lynda Hensley DO [address] [place] [id number] [facility] Start: 10-16-2025 Screening for malignant neoplasm of colon Colonoscopy [facility] Start: 03-06-2025 Adult BMI Screening Adult BMI Screening [facility] Start: 03-06-2025 Tobacco Screening Tobacco Screening [facility] Start: 02-19-2025 Adult BMI Screening Adult BMI Screening [facility] Start: 01-16-2025 Influenza vaccination Flu vaccine (#1) Lyndsey [facility] Start: 01-16-2025 End: 01-16-2025 Patient encounter procedure 01/16/2025 10:00 AM EDT Office Visit [facility] [address] [place] [id number] Santi Poe DPM [address] [place], [place] [id number] Arrived [facility] Comment on above: Arrived Start: 11-27-2024 Tobacco Screening Tobacco Screening [facility] Start: 07-08-2024 End: 07-08-2025 Levetiracetam level Levetiracetam level Lab Routine Seizure (CMS/HCC) Expected: 07/08/2024 (Approximate), Expires: 07/08/2025 [facility] Work Phone: Comment on above: Expected: 07/08/2024 (Approximate), Expi res: 07/08/2025 Start: 07-08-2024 End: 07-08-2024 Patient encounter procedure 07/08/2024 12:20 PM EST Office Visit KENDRA HINOJOSA [address] [place] [id number] Jil Evangelista PA [address] [place] [address] Arrived KENDRA HINOJOSA Comment on above: Arrived Start: 06-18-2024 Annual Wellness Visit (Medicare Advantage) Annual Wellness Visit (Medicare Advantage) [facility] Start: 06-12-2024 End: 06-12-2025 Holter monitor study Holter monitor 24-48 hour Cardiac Services Routine Bradycardia Expected: 06/12/2024, Expires: 06/12/2025 [facility] Work Phone: Comment on above: Expected: 06/12/2024, Expires: Start: 03-06-2024 End: 03-06-2024 Patient encounter procedure 03/06/2024 10:45 AM EDT Office Visit [facility] [address] [place] [address] Makenzie Trinidad MD [address] [place] [address] [facility] Start: 02-17-2024 COVID-19 Vaccine ( season) COVID-19 Vaccine ( season) [facility] Start: 02-17-2024 COVID-19 Vaccine ( season) COVID-19 Vaccine ( season) [facility] Start: 02-17-2024 COVID-19 Vaccine ( season) COVID-19 Vaccine ( season) [facility] Start: 02-17-2024 COVID-19 Vaccine ( season) COVID-19 Vaccine ( season) [facility] Start: 02-17-2024 Influenza vaccination Influenza Vaccine [facility] Start: 01-17-2024 Influenza vaccination Flu vaccine (#1) [facility] Start: 06-25-2023 End: 06-25-2023 Patient encounter procedure 06/25/2023 Office Visit Neurosurgery Lynda Hensley, [address] [facility] [address] [place] [id number] [facility] Start: 06-16-2021 Creatinine measurement Creatinine monitoring [place], [place] Start: 06-15-2021 End: 06-15-2021 Office Visit 06/15/2021 Office Visit Neurosurgery Lynda Hensley, DO [address] [facility] [address] [place] [id number] [facility] Start: 04-05-2021 Lipid panel Lipids [facility] Start: 10-18-2020 COVID-19 Vaccine (2 - Booster for Sotero series) COVID-19 Vaccine (2 - Booster for Sotero series) [facility] Start: 06-14-2020 Annual Wellness Visit (AWV) Annual Wellness Visit (AWV) [facility] Start: 02-17-2020 Influenza vaccination Flu vaccine (#1) [place], [place] Start: 01-26-2020 Diabetes screen Diabetes screen [facility] Start: 10-14-2019 Fall Risk Screening Fall Risk Screening [facility] Start: 02-02-2018 Potassium monitoring Potassium monitoring [place], [place] Start: 01-25-2018 TSH Qn TSH testing [place], [place] Start: 2014 Respiratory Syncytial Virus (RSV) or age 60 yrs+ (1 - Risk 60-74 years 1-dose series) Respiratory Syncytial Virus (RSV) or age 60 yrs+ (1 - Risk 60-74 years 1-dose series) [facility] Start: 2009 Screening for osteoporosis DEXA (modify frequency per FRAX score) [facility] Start: 2004 Administration of varicella zoster vaccine Zoster (Shingles) Vaccine (1 of 2) [facility] Start: 2004 Screening for malignant neoplasm of breast Breast cancer screen [facility] Start: 2004 Screening for malignant neoplasm of colon Colon cancer screen colonoscopy [place], [place] Start: 2004 Shingles Vaccine (1 of 2) Shingles Vaccine (1 of 2) [facility] Start: 10-14-1999 Screening for malignant neoplasm of colon [facility] Start: 1994 Screening for malignant neoplasm of breast Breast cancer screen [facility] Start: 10-14-1975 Screening for malignant neoplasm of cervix Cervical cancer screen [place], [place] Start: 1973 DTaP,Tdap and Td Vaccines (1 - Tdap) DTaP,Tdap and Td Vaccines (1 - Tdap) [facility] Start: 1973 DTaP/Tdap/Td vaccine (1 - Tdap) DTaP/Tdap/Td vaccine (1 - Tdap) [facility] Start: 1972 Adult BMI Follow Up Plan Adult BMI Follow Up Plan [facility] Start: 1972 Hepatitis C screening Hepatitis C screen [facility] Start: 1969 HIV screening HIV screen [place], [place] Start: 1966 Depression Screen Depression Screen [facility] Start: 1966 Depression Screening Depression Screening [facility] Start: 1964 Lipid panel [facility] [email or web address] Start: 1954 Hepatitis C screening Hepatitis C screen [place], [place] Start: 1954 Medicare Annual Wellness Visit Medicare Annual Wellness Visit [facility] MRI BRAIN W WO CONTRAST MRI BRAI N W WO CONTRAST 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 [id number] [place] [id number] 2021 Medicare [facility] MEDICARE [facility] MEDICARE ADVANTAGE [id number] 2021-Present [phone] [address] [place] [id number] 2021 Medicare O [facility] MEDICARE Member Subscriber Plan / Payer (Effective 2021-Present) Name: Sourav Fuller Relation to Subscriber: Self Name: Sourav Fuller Payer ID: [id number] (NAIC) Group ID: [id number] Type: Not on file Address: [address] [place] [id number] 2021 Medicare [id number] 2014 Medicare [employer] MEDICARE A ETNA MEDICARE ADVANTAGE O [id number] 2014-Present [address] [place] [address] Medicare [id number] 1959 Unknown [id number] 1954 Unknown [id number] [id number]. 1286 1954 Unknown [id number] 2.16.840.1.464646.3.579.2. 1286 1954 Unknown [id number] 2.16.840.1.602968.3.579.2. 1286 1954 Unknown [id number] 2.16.840.1.357180.3.579.2. 1286 1954 Unknown [id number] 2.16.840.1.455588.3.579.2. 1286 1954 Unknown [id number] 2.16.840.1.586494.3.579.2. 1286 1954 Unknown [id number] 2.16.840.1.383018.3.579.2. 1259 1954 Unknown [id number] 2.16.840.1.472242.3.579.2. 1259 1954 Unknown [id number] 2.16.840.1.078179.3.579.2. 1259 1954 Unknown [id number] 2.16.840.1.446852.3.579.2. 125 1954 Unknown [id number] 2.16.840.1.369730.3.579.2. 1259 1954 Unknown [id number] 2.16.840.1.230769.3.579.2. 1259 1954 Unknown [id number] 2.16.840.1.287615.3.579.2. 175 1954 Unknown [id number] 2.16.840.1.694713.3.579.2. 175 1954 Unknown [id number] 2.16.840.1.993737.3.579.2. 175 1954 Unknown [id number] 2.16.840.1.200949.3.579.2. 175 Social History Date Type Detail Facility Start: 08-28-2018 End: 02-12-2025 Tobacco smoking status PAIS Former sm[email or web address] Start: 08-28-2018 End: 07-14-2024 Tobacco use and exposure [place] used [place] Start: 08-28-2018 End: 01-01-2025 Alcohol intake Current non-drinker of alcohol (finding) [place], [place] Start: 1955 Sex Assigned At Not on file [place] Exposure to SARS-CoV -2 (event) Not sure [place] Start: 03-27-1975 End: 03-27-1995 History of tobacco use Current smoker [facility] [employer] Work Phone: Start: 03-27-1975 End: 03-27-1995 History of tobacco use Cigarette Smoker [facility] Start: 03-06-2024 End: 01-16-2025 Cigarettes smoked current (pack per day) - Reported 0.5 [facility] Start: 03-06-2024 End: 01-16-2025 Tobacco use panel [facility] Childcare Unknown [facility] Start: 07-28-2012 End: 01-21-2015 Sex Female (finding) [facility] Start: 12-27-2023 End: 01-16-2025 Alcoholic beverage intake Lifetime non-drinker (finding) [facility] Start: 12-27-2023 Alcohol Comment caffeine: 2-3 cups per day [facility] Start: 1955 Sex assigned at Female [facility] Start: 12-27-2023 Gender identity Identifies as female gender (finding) [facility] Start: 12-27-2023 Sexual orientation Heterosexual (finding) [facility] Medical Equipment Procedure Code Equipment Code Equipment Origin al Text Equipment Identifier Dates Cover Plate Bur Hole Low Prof W/Tab 20mm [id number] Start: 01-30-2017 Screw Self Drill ing 1.5x4mm Min Order 5 [id number] Start: 01-30-2017 Plate Mesh Conto urabl 1.7mm [id number] Start: 01-30-2017 Mina-Graft Patch Dura Regeneration 3x3in [id number] Start: 01-30-2017 Clinical Notes 03-05-2024 to 01-16-2025 Santi Poe DPM - 01/16/2025 10:00 AM EDTPatient InstructionsTelephone Encounter - Tiffanie Chaudhry RN - 06/04/2024 3:58 PM ESTTelephone Encounter - Makenzie Trinidad MD - 06/04/2024 3:58 PM EST Note Date & Type Note Facility 01-16-2025 History of Presen t illness Narrative Images from the original note were not included. Subjective Patient ID: Caity Fuller is a 69 y.o. female who presents for Foreign Body (PT is here today for possible foreign body in the Lt heel, she thinks she stepped on glass about 1.5 weeks ago. There is a small red area that is tender for her. /SS: 8W). HPI Initial patient encounter and assessment. Chief complaint: Painful left heel, associated with suspected foreign body injury; sustained some 1.5 weeks previously, on or about 01/05/2025. Describes a broken table top of her deck furniture consisting of tempered glass; she was subsequently sleeping up the area, barefoot at the time of the incident. Suspects a small residual piece of glass in her left heel. Attempts for removal have been ineffective. She notes no obvious redness, warmth or swelling. Denies streaking or constitutional symptoms. Has noted no active bleeding or drainage. Symptoms impacting ADLs and her ability to walk comfortably. Medications Current Outpatient Medications: albuterol HFA 90 mcg/act inhaler, Inhale 2 puffs every 4 (four) hours if needed for wheezing, Disp: , Rfl: aspirin 81 MG EC tablet, Take 81 mg by mouth Daily, Disp: , Rfl: atorvastatin (Lipitor) 10 MG tablet, Take 40 mg by mouth Daily, Disp: , Rfl: cetirizine (ZyrTEC) 10 MG tablet, Take 10 mg by mouth Daily, Disp: , Rfl: fluticasone (Flonase) 50 MCG/ACT nasal spray, Administer 1 spray into each nostril Daily Shake gently. Before first use, prime pump. After use, clean tip and replace cap., Disp: , Rfl: levETIRAcetam (Keppra) 500 MG tablet, Take 1 tablet (500 mg) by mouth every 12 (twelve) hours, Disp: 180 tablet, Rfl: 3 levothyroxine (Synthroid, Levoxyl) 100 MCG tablet, Take by mouth in the morning. Take before meals., Disp: , Rfl: lisinopril 10 MG tablet, Take by mouth Daily, Disp: , Rfl: lisinopril-hydroCHLOROthiazide 20-25 MG tablet, Take 1 tablet by mouth Daily, Disp: , Rfl: montelukast (Singulair) 10 MG tablet, Take by mouth, Disp: , Rfl: verapamil (Calan) 120 MG tablet, Take 120 mg by mouth in the morning and 120 mg in the evening and 120 mg before bedtime., Disp: , Rfl: Allergies Bactrim [sulfamethoxazole-trimethoprim] , Iodinated contrast media, Iodine, and Pneumococcal vaccine Past Surgical History Past Surgical History: Procedure Laterality Date CARPAL TUNNEL RELEASE Right 01/20/2018 MENINGOCELE REPAIR Right 01/30/2017 parietal meningioma with recent resection and craniotomy Family History Family History Problem Relation Name Age of Onset Cancer Father Cancer Sister Diabetes Other Hypertension Other Objective General assessment: Alert and oriented. Pleasant disposition. Independently ambulatory, wearing Skechers footwear. Vascular: DP 2/4 bilateral. PT 2/4 bilateral. CFT brisk all digits. Gradient temperature: Warm-slightly cool bilateral. Symmetrical, mild pitting edema bilateral ankles. Neurologic: Tactile and light touch sensation intact. Dermatologic: Skin turgor is good. Web space areas are clean, dry, non-inflamed. Unremarkable for eczema or dermatitis. Focused exam left heel: Distinct, portal of entry site located plantar-lateral rim of the left heel. The site is slightly inflamed and erythematous, without kriss cellulitis, swelling, warmth or soft tissue fluctuance. No drainage is encountered. Localized callus formation, with eventual identification of a small shard of glass; with resultant small superficial soft tissue cleft. Otherwise unremarkable for deep probing or tracking. Soft tissue envelope well-perfused. There are no other clinical signs of trauma. Orthopedic: Range of motion: Functional ankle, subtalar and 1st MTP joint range of motion. Lesion pattern: No forefoot or digital discrete keratotic lesions are noted. Radiology: RADIOGRAPHS: 2 views left foot: Medial oblique, lateral left heel (NWB): 01/16/2025: Unremarkable for acute osseous or joint pathology. No distinct radio opaque foreign body is identified. Unremarkable for soft tissue emphysema. Assessment/Plan Superficial foreign body without infection left heel; sustained approximately 1.5 weeks previous; on or about 01/05/2025. Plan: Review of clinical and x-ray findings, nature of the foreign body injury and subsequent condition, treatment strategy, rationale and objectives. Left heel: Excision of small shard of glass as described. Patient noted favorable relief of heel pain upon leaving the clinic. Daily care: Cleanse once or twice daily with warm soapy water; apply Neosporin ointment or equivalent until areas effectively healed. Band-Aid dressing as necessary. Follow up: Patient agrees to monitor response and follow as needed. Procedure: LEFT HEEL: Aseptic technique and topical xylocaine cream anesthetic: #15 scalpel utilized to debride localized callus tissue and open portal of entry site. Excision of a small shard of glass. Site cleansing. Amerigel dressing. Procedure well tolerated. This note was created with the assistance of a speech recognition program. While intending to generate a timely document that accurately reflects the content of the visit, no guarantee can be provided that every grammatical or spelling mistake has been or will be identified or corrected. Thank you for your understanding. Santi Poe DPM documented in this encounter [facility] 01-16-2025 Instructions Santi Poe DPM - 01/16/2025 10:00 AM EDT Post-procedure instructions as noted documented in this encounter [facility] 06-04-2024 Miscellaneous Notes Formattin g of this note might be different from the original. Received p/c from pt. [place] there was a recall on Verapamil ER and wants to know if needs to keep taking something that was started many years ago. [place] Operator called [facility] to see if there is a recall. Phamacist isn't aware of this. Patient wants to know if still needs to be on Verapamil Will message RBP for advice Yes continue, would get a repeat holter to make sure no significant chun, I had previously decreased dose Response called to pt. Central scheduling phone number provider to pt to schedule documented in this encounter [facility] 06-04-2024 Telephone encount er Note Received p/c from pt. [place] there was a recall on Verapamil ER and wants to know if needs to keep taking something that was started many years ago. [place] Operator [facility] to see if there is a recall. Phamacist isn't aware of this. Patient wants to know if still needs to be on Verapamil Will message RBP for advice [facility] 06-04-2024 Telephone encount er Note Yes continue, would get a repeat holter to make sure no significant chun, I had previously decreased dose [facility] 06-04-2024 Telephone encount er Note Response called to pt. Central scheduling phone number provider to pt to schedule [facility] 03-06-2024 History of Presen t illness Narrative Sourav Fuller Date of visit: 03/06/2024 Date of : 1955 Age: 68 y.o. Patient Active Problem List Diagnosis Urinary retention Palpitation Other chest pain Ventricular premature depolarization Obesity (BMI 30-39.9) PHYLLIS (obstructive sleep apnea) Essential hypertension Mixed hyperlipidemia Allergies Allergen Reactions Bactrim [Sulfamethoxazole-Trimethoprim] Pneumococcal Vaccine Current Outpatient Medications Medication Sig Dispense Refill albuterol (ACCUNEB) 1.25 mg/3 mL nebulizer solution Inhale 3 mL (1.25 mg total) by nebulization every 6 (six) hours as needed for wheezing. albuterol (PROVENTIL HFA;VENTOLIN HFA) 90 mcg/actuation inhaler Inhale 2 puffs every 4 (four) hours as needed for wheezing or shortness of breath. aspirin 81 mg Take 1 tablet (81 mg total) by mouth in the morning. atorvastatin (LIPITOR) 40 mg tablet Take 1 tablet (40 mg total) by mouth in the morning. citalopram (CeleXA) 20 mg tablet Take 1 tablet (20 mg total) by mouth in the morning. fluticasone propionate (FLOVENT HFA) 110 mcg/actuation inhaler Inhale 2 puffs in the morning and at bedtime. levETIRAcetam (KEPPRA) 250 mg tablet Take 2 tablets (500 mg total) by mouth in the morning and 2 tablets (500 mg total) before bedtime. levothyroxine (SYNTHROID, LEVOTHROID) 125 MCG tablet Take 75 mcg by mouth daily. lisinopriL (PRINIVIL,ZESTRIL) 20 mg tablet Take 1 tablet (20 mg total) by mouth in the morning. lisinopril-hydroCHLOROthiazide (PRINZIDE,ZESTORETIC) 20-25 mg per tablet Take 1 tablet by mouth in the morning. montelukast (SINGULAIR) 10 mg tablet Take 1 tablet (10 mg total) by mouth nightly. omeprazole (PriLOSEC) 40 mg capsule Take 1 capsule (40 mg total) by mouth every morning before breakfast. potassium chloride (K-TAB,KLOR-CON) 10 MEQ CR tablet Take 1 tablet (10 mEq total) by mouth in the morning. amoxicillin (AMOXIL) 500 mg capsule Take 1 capsule (500 mg total) by mouth 3 (three) times a day. busPIRone (BUSPAR) 10 mg tablet Take 1 tablet (10 mg total) by mouth in the morning and at bedtime. ibuprofen (MOTRIN) 800 mg tablet Take 1 tablet (800 mg total) by mouth every 6 (six) hours as needed for pain. loratadine (CLARITIN) 10 mg tablet Take 1 tablet (10 mg total) by mouth in the morning. verapamil SR (CALAN-SR) 180 mg CR tablet Take 1 tablet (180 mg total) by mouth in the morning. 90 tablet 3 No current facility-administered medications for this visit. 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 Hematuria Hypertension Hypothyroidism Obesity Peripheral neuropathy Renal mass Seizures ([facility]-HCC) Sleep apnea Ureteropelvic junction obstruct, congenital Urinary retention No data recorded No data recorded No data recorded Past Surgical History: Procedure Laterality Date BRAIN SURGERY COLONOSCOPY HYSTERECTOMY 1989 RELEASE CARPAL TUNNEL Right 02/20/2018 Performed by Mitchell Gonzáles DO at [facility] TONSILLECTOMY Family History Problem Relation Age of Onset Hypertension Mother Hyperlipidemia Mother Heart disease Mother Hypertension Sister Leukemia Sister Diabetes Maternal Aunt Diabetes Paternal Aunt Heart disease Father Lung cancer Father Social History Socioeconomic History Marital status: Spouse name: Not on file Number of children: Not on file Years of education: Not on file Highest education level: Not on file Occupational History Not on file Tobacco Use Smoking status: Former Current packs/day: 0.00 Average packs/day: 0.5 packs/day for 20.0 years (10.0 ttl pk-yrs) Types: Cigarettes Start date: 03/27/1975 Quit date: 03/27/1995 Years since quittin.9 Smokeless tobacco: Never Vaping Use Vaping status: Never Used Substance and Sexual Activity Alcohol use: No Drug use: No Sexual activity: Yes Partners: Male Other Topics Concern Caffeine Use No Social History Narrative Not on file Social Determinants of Health Financial Resource Strain: Not on file Food Insecurity: No Food Insecurity (03/06/2024) Hunger Screening Food Insecurity - Worry: Never True Food Insecurity - Inability: Never True Transportation Needs: Not on file Physical Activity: Not on file Stress: Not on file Social Connections: Not on file Interpersonal Safety: Not on file Housing Instability: Not on file Review of Systems Review of Systems Constitutional: Negative. HENT: Negative. Eyes: Negative. Respiratory: Positive for cough. Hematologic/Lymphatic: Negative. Skin: Positive for itching and rash. Musculoskeletal: Positive for back pain. Gastrointestinal: Negative. Neurological: Positive for headaches and light-headedness. Psychiatric/Behavioral: Positive for depression. The patient is nervous/anxious. Allergic/Immunologic: Positive for environmental allergies. CARDIOVASCULAR: Please review HPI. Physical Examination General appearance: Alert, oriented and cooperative. In no acute distress. Skin: Warm and dry to touch. Head: Normocephalic, without obvious abnormality, atraumatic. Ears, Nose, Mouth, Throat: Throat clear without erythema or exudate. Dentition intact. Eyes: Conjunctivae unremarkable, EOM intact. Neck: No JVD, No carotid bruit. Neck supple, trachea midline. Respiratory: Clear to auscultation bilaterally, no use of accessory muscles. Cardiovascular: RRR with normal S1 and S2 with no murmurs. Gastrointestinal: Soft, non-tender. Bowel sounds normal. Musculoskeletal: No peripheral edema. Neurologic: Oriented to time, person and place, affect appropriate. No focal/major motor defects noted. Psychiatric: Appropriate mood, memory and judgement. VITAL SIGNS: BP 130/70 (BP Site: Left Arm, BP Postition: Sitting) Pulse 55 Ht 152.4 cm (5') Wt 89.8 kg (198 lb) SpO2 98% BMI 38.67 kg/m Orders Placed or Reconciled This Encounter Medications verapamil SR (CALAN-SR) 180 mg CR tablet Sig: Take 1 tablet (180 mg total) by mouth in the morning. Dispense: 90 tablet Refill: 3 Medications Discontinued During This Encounter Medication Reason verapamil SR (CALAN-SR) 240 mg CR tablet verapamil SR (CALAN-SR) 180 mg CR tablet Reorder IMPRESSIONS/PLAN 1. Essential hypertension 2. Ventricular premature depolarization Impression . Asymptomatic iatrogenic bradycardia HTN PVCs low burden Decrease verap to 180 No other changes TODAYS ORDERS No orders of the defined types were placed in this encounter. FOLLOW UP Return in about 1 year (around 03/06/2025). PCP: Humaira Beth MD Referring Physician: Humaira Beth MD [address] [place] [address] documented in this encounter [facility] 03-05-2024 Miscellaneous Notes Formattin g of this note might be different from the original. Called patient to remind them to bring their most current copy of their medication list with them to their appt. Patient verbalizes understanding. documented in this encounter [facility] 03-05-2024 Telephone encount er Note Called patient to remind them to bring their most current copy of their medication list with them to their appt. Patient verbalizes understanding. [facility] Evaluation note Diagnosis Hemangiopericytoma Neoplasm of uncertain behavior of connective and other soft tissue documented in this encounter [employer] Phone: evaluation note* Diagnosis Hemangiopericytoma Neoplasm of uncertain behavior of connective and other soft tissue documented in this encounter [facility] [employer] Work Phone: evaluation note* Diagnosis Bradycardia- Primary Other specified cardiac dysrhythmias [facility]* Diagnosis Occipital neuralgia of right side- Primary Seizure (CMS/HCC) Other convulsions Sleep apnea, unspecified type Lightheadedness Dizziness and giddiness documented in this encounter [facility] HealthcareEvaluation note* Diagnosis Hemangiopericytoma Neoplasm of uncertain behavior of connective and other soft tissue documented in this encounter [facility]* Diagnosis Essential hypertension- Primary Unspecified essential hypertension Ventricular premature depolarization Other premature beats documented in this encounter [facility] SystemEvaluation note* Diagnosis Hemangiopericytoma Neoplasm of uncertain behavior of connective and other soft tissue documented in this encounter [facility] Diagnosis Superficial foreign body of left foot without major open wound and without infection, initial encounter- Primary Pain in left foot Pain in soft tissues of limb Difficulty walking Difficulty in walking documented in this encounter [facility]* Diagnosis Onset Date Resolution Status Admit Date Seizures noneactive February 12, 025 1:14pm [facility] Work Phone: InstructionsNot on filedocumented in this encounter [facility] SystemInstructionsNot on filedocumented in this encounter [facility] SystemInstructionsNot on filedocumented in this encounter [facility] SystemReason for referral (narrative)No reason for referral information availablePar[facility] Work Phone: Reason for visit Narrative* Imaging (Routine) - Closed Specialty Diagnoses / Procedures Referred By Kody larios Referred To Contact Radiology Diagnoses Hemangiopericytoma Procedures MRI BRAIN W WO CONTRAST Lynda Hensley, DO [address] [facility] [address] [place] [address] Phone: tel: fax: Referral ID Status Reason Start Date Expiration Date Visits Re quested Visits Authorized [id number] Closed 01/11/2025 01/11/2026 [address] 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 ACP-Advance Directive ACP-Power of Geophysical Manager Latest Code Status on File Code Status Date Activated Date Inactivated Comments Full Code 01/30/2017 5:59 PM 02/02/2017 7:26 PM Full Code 01/29/2017 3:43 PM 01/30/2017 5:59 PM Full Code 01/29/2017 3:43 PM 01/29/2017 3:43 PM Full Code 01/25/2017 1:20 AM 01/27/2017 9:36 AM Latest Code Status on File Code Status Date Activated Date Inactivated Comments Full Code 01/30/2017 5:59 PM 02/02/2017 7:26 PM Code Status History Code Status Date Activated Date Inactivated Comments Full Code 01/29/2017 3:43 PM 01/30/2017 5:59 PM Full Code 01/29/2017 3:43 PM 01/29/2017 3:43 PM Full Code 01/25/2017 1:20 AM 01/27/2017 9:36 AM Date Activated Date Inactivated Comments 01/30/2017 5:59 PM 02/02/2017 7:26 PM Date Activated Date Inactivated Comments 01/29/2017 3:43 PM 01/30/2017 5:59 PM Date Activated Date Inactivated Comments 01/29/2017 3:43 PM 01/29/2017 3:43 PM Date Activated Date Inactivated Comments 01/25/2017 1:20 AM 01/27/2017 9:36 AM Advance Directive Response Recorded Date/ Time Advance Directives No April 2:36pm Reason for Referral Status Reason Specialty Diagnoses / Procedures Referre d By Contact Referred To Contact Closed Radiology Diagnoses Hemangiopericytoma, malignant (HCC) Procedures MRI BRAIN W WO CONTRAST HC MRI-BRAIN WO & W CONTRAST Ahammad, Lynda, DO [address] [facility] [address] [place] [address] [facility] [address] [place] [address] Specialty Diagnoses / Procedures Referred By Contac t Referred To Contact Radiology Diagnoses Hemangiopericytoma Procedures MRI BRAIN W WO CONTRAST Ahammad, Lynda, DO [address] [facility] [address] [place] [phone] Referral ID Status Reason Start Date Expiration Date Visits Re quested Visits Authorized [id number] Closed 06/16/2022 09/13/2022 1 1 Specialty Diagnoses / Procedures Referred By Contac t Referred To Contact Radiology Diagnoses Hemangiopericytoma Procedures PET CT WHOLE BODY Shellie, Lynda, DO [address] [facility] [address] [place] [phone] Referral ID Status Reason Start Date Expiration Date Visits Re quested Visits Authorized [id number] Closed 10/03/2022 12/31/2022 1 1 Referral ID Status Reason Start Date Expiration Date Visits Re quested Visits Authorized [id number] Closed 06/19/2024 07/18/2025 1 1 Assessments Diagnosis Hemangiopericytoma, malignant (HCC) Malignant neoplasm of connective and other soft tissue, site unspecified Chief Complaint and Reason for Visit Reason for Visit Admit Date Seizures February 12, 2025 1: 14pm Additional Source Comments INFORMATION SOURCE (unrecogn ized section and content) DATE CREATED AUTHOR 12/12/2017 [facility] DATE CREATED AUTHOR AUTHOR'S ORGANIZ ATION 12/12/2017 [facility] DATE CREATED AUTHOR AUTHOR'S ORGANIZ ATION 04/04/2018 [facility] DATE CREATED AUTHOR AUTHOR'S ORGANIZ ATION 10/05/2024 [facility] DATE CREATED AUTHOR AUTHOR'S ORGANIZ ATION 01/18/2025 [facility] EPIC DATE CREATED AUTHOR AUTHOR'S ORGANIZ ATION 02/01/2025 [facility] Reason for Visit (unrecogniz ed section and content) Status Reason Specialty Diagnoses / Procedures Referre d By Contact Referred To Contact Closed Radiology Diagnoses Hemangiopericytoma, malignant (HCC) Procedures MRI BRAIN W WO CONTRAST HC MRI-BRAIN WO & W CONTRAST Vaishnavi Hensleyir, DO [address] [facility] [address] [address] [facility] [address] [place] [address] Specialty Diagnoses / Procedures Referred By Kody t Referred To Contact Radiology Diagnoses Hemangiopericytoma Procedures MRI BRAIN W WO CONTRAST Lynda Hensley, DO [address] [facility] [address] [phone] Referral ID Status Reason Start Date Expiration Date Visits Re quested Visits Authorized [id number] Closed 06/16/2022 09/13/2022 1 1 Specialty Diagnoses / Procedures Referred By Kody larios Referred To Contact Radiology Diagnoses Hemangiopericytoma Procedures PET CT WHOLE BODY Lynda Hensley, DO [address] [facility] [address] [address] Referral ID Status Reason Start Date Expiration Date Visits Re quested Visits Authorized [id number] Closed 10/03/2022 12/31/2022 1 1 Reason Comments Seizures Referral ID Status Reason Start Date Expiration Date Visits Re quested Visits Authorized [id number] Closed 06/19/2024 07/18/2025 1 1 Reason Comments Follow-up 6 MONTHS Palpitations Hypertension Reason Comments Foreign Body PT is here today for possible foreign body in the Lt heel, she thinks she stepped on glass about 1.5 weeks ago. There is a small red area that is tender for her. SS: 8W Care Teams (unrecognized sec tion and content) Arc Air Operator Relationship Specialty Start Date End Date Marva Garibay PA-C [address] [place] [address] PCP - General Family Medicine 06/25/18 Arc Air Operator Relationship Specialty Start Date End Date Marva Garibay PA-C [address] [place], [place] [id number] PCP - General Family Medicine 06/25/18 Arc Air Operator Relationship Specialty Start Date End Date Marva Garibay PA-C [address] [place] [address] PCP - General Family Medicine 06/25/18 Arc Air Operator Relationship Specialty Start Date End Date Humaira Beth MD [address] [place] [address] PCP - General Family Medicine 02/20/24 Arc Air Operator Relationship Specialty Start Date End Date Rebeca Archer MD [address] [place] [id number] PCP - General Internal Medicine 06/02/24 Santi Smith MD [address] [place] [address] Referring Physician Neurology 06/02/24 Arc Air Operator Relationship Specialty Start Date End Date Rebeca Archer MD [address] [place] [place] [id number] PCP - General Internal Medicine 06/02/24 Santi Smith MD [address] [place] [place] [phone] Referring Physician Neurology 06/02/24 Arc Air Operator Relationship Specialty Start Date End Date Marva Garibay PA-C [address] [place] [address] PCP - General Family Medicine 06/25/18 Arc Air Operator Relationship Specialty Start Date End Date Humaira Beth MD [address] [place] [phone] PCP - General Family Medicine 02/20/24 Arc Air Operator Relationship Specialty Start Date End Date Humaira Beth MD [address] [place] [phone] PCP - General Family Medicine 02/20/24 Arc Air Operator Relationship Specialty Start Date End Date Marva Garibay PA-C [address] [place] [address] PCP - General Family Medicine 06/25/18 Arc Air Operator Relationship Specialty Start Date End Date Rebeca Archer MD [address] [place] [phone] PCP - General Internal Medicine 06/02/24 Santi Smith MD [address] [place] [address] Referring Physician Neurology 06/02/24 Arc Air Operator Relationship Specialty Start Date End Date Rebeca Archer MD [address] [facility] [place] [phone] PCP - General Internal Medicine 06/02/24 Santi Smith MD [address] [place] [address] Referring Physician Neurology 06/02/24 Team Status: Active Member Role Status Dates Marisol Clancy MD Primary Care Provider Active Team Status: Inactive Member Role Status Dates Marisol Clancy MD Primary Care Provider Active Sta rt: February 12, 2025 End: February 12, 2025 Bhakti Simpson DO Attending Provider Active Sta rt: February 12, 2025 End: February 12, 2025 Goals (unrecognized section and content) Goals may be documented in a n alternate section FOR RECORDS PERTAINING TO PATIENTS WHO ARE OR HAVE BEEN ENROLLED IN A CHEMICAL DEPENDENCY/SUBSTANCEABUSE PROGRAM, SOME INFORMATION MAY BE OMITTED. This clinical summary was aggregated from multiple sources. Caution should be exercised in using it in the provision of clinical care. This summary normalizes information from multiple sources, and as a consequence, information in this document may materially change the coding, format and clinical context of patient data. In addition, data may be omitted in some cases. CLINICAL DECISIONS SHOULD BE BASED ON THE PRIMARY CLINICAL RECORDS. [facility]. provides no warranty or guarantee of the accuracy or completeness of information in this document.
== END 2025-03-04 13:01 | disposition home or self-care (01) ==
LOC: SLEEP 03-05 12:20
PROVIDERS: PCP Psychiatry & Neurology Neurology; Visit Provider Psychiatry & Neurology Neurology
DX: G47.33 Obstructive sleep apnea (adult) (pediatric) (principal)
CPT/HCPCS: 95806

== ENCOUNTER 2025-05-26 21:07 | Outpatient (OUT) | payer MEDICARE, SELFPAY ==
--- OUTSIDE RECORDS SUMMARY | 2024-11-24 10:00 | XMS_ITS ---
Author Organization [facility] vices Address [address] [place] [id number] Care Team Providers Care Master Ocean Yacht Name Role Phone Rebeca Kelly Primary Care Provider REASON FOR VISIT asthma Social History Sex Assigned At : Social History Observation Description Sex Assigned At Female Encounters Encounter Location Date Provider Diagnosis Main [address] [place] [phone] 11/24/2024 Rebeca Kelly Plan Of Treatment Next Appt Details Provider Name:Nakia corcoran, 11/18/2025 03:00:00 PM, [address] [place] [address], [phone], Progress Notes * Sourav KOHLI SDOB:[birth year] (69 yo F)Acc No.[id number]:11/24/2024 Medical Note Patient: Andrew Sourav davis :?Rebeca Kelly MDDOB:1955???Age:69 Y???Sex: FemaleDate:11/24/2024Phone:[phone]:[address] [place], [place] [id number] Subjective: * Chief Complaints: * A sthma * Electronic signature of Rebeca Kelly MD on 05/26/2025 at 09:11 PM ESTSign off status: Pending * Provider: Juno Kelly MD Date: 0 11/24/2024 Generated for Printing/Faxing/eTransmitting on:?05/26/2025 09:11 PM EST
--- OUTSIDE RECORDS SUMMARY | 2025-04-28 03:45 | XMS_ITS ---
Author Organization [facility] vices Address [address] [place] [id number] Care Team Providers Care Timber Feller Name Role Phone Rebeca Kelly Primary Care Provider Jeremy Be [phone] REASON FOR VISIT Recall ()- Social History Sex Assigned At : Social History Observation Description Sex Assigned At Female Encounters Encounter Location Date Provider Diagnosis [facility] [address] [place] [id number] 04/28/2025 Jeremy Be Plan Of Treatment Next Appt Details Provider Name:Nakiaelma Meléndezcarla corcoran, 11/18/2025 03:00:00 PM, [address] [place] [address], [phone], Progress Notes * Sourav KOHLI SDOB:[birth year] (69 yo F)Acc No.[id number]:04/28/2025 Patient:?Sourav Kohli :?Jeremy Be DDSDOB:1955???Age:69 Y ???Sex:FemaleDate:04/28/2025Phone:[phone]:[address] [place], [place] [phone]:Rebeca Kelly Subjective: * Chief Complaints: * R ecall (A)- 69 Billing Information: * Procedure Codes: * Electronic signature of Jeremy Be DDS on 05/26/2025 at 09:11 PM ESTSign off status: Pending * Provider: Corwin Be DDS Date: 06/28/2024 Generated for Printing/Faxing/eTransmitting on:?05/26/2025 09:11 PM EST
--- OUTSIDE RECORDS SUMMARY | 2025-05-26 21:11 | XMS_ITS | Clinical Summary ---
Author Organization [facility] Address [address] [facility] [place] [address] Care Team Providers Care Sampling Expert Name Role Phone No, Pcp TRAFFIC POLICE OFFICER Primary Care Provider Unavailabl e Social History Tobacco UseTypesPacks/DayYears UsedDateSmoking Tobacco: Never Assessed CommentsUnknownSex and Gender InformationValueDate RecordedSex Assigned at Not on fileLegal OqfCqtkox58/19/2020 9:17 AM ESTGender IdentityNot on fileSexual OrientationNot on file Plan of Treatment Not on file Medical Devices Not on file Insurance MemberSubscriberPlan / Payer (Effective 2021-Present)Name:Sourav Fuller Member ID:[id number] Relation to Subscriber:SelfName:Sourav Fuller Subscriber ID:[id number] Payer ID:Not on file Group ID:Not on file Type:Not on file Address: [facility] [id number] [place] [phone] Care Teams Team MemberRelationshipSpecialtyStart DateEnd Date No, Pcp, TRAFFIC POLICE OFFICER N/A Do not use [facility]CP - [facility] Vrfbrksq73/21/20
--- OUTSIDE RECORDS SUMMARY | 2025-05-26 21:11 | XMS_ITS | CCD ---
Author Organization [facility] Care Team Providers Care Prescription Clerk Name Role Phone SHRUTHI, OLVINSOOK Unavailable Unavailable SHRUTHI, YOUNGSOOK Unavailable Unavailable IMM, MARISOL Unavailable Unavailable SHRUTHI, YOUNGSOOK Unavailable Unavailable SHRUTHI, YOUNGSOOK Unavailable Unavailable IMM, MARISOL Unavailable Unavailable AHAMMAD, LYNDA Unavailable Unavailable KAMINI, TREVIN Unavailable Unavailable IMM, MARISOL P Unavailable Unavailable KAMINI, TREVIN Unavailable Unavailable KAMINI, TREVIN Unavailable Unavailable JENNIFER BARAHONA Unavailable Unavailable SADEK, BETRO T Unavailable Unavailable SADEK, BETRO T Unavailable Unavailable KALEBMACK I Unavailable Unavailable IMM, MARISOL P Unavailable Unavailable AHAMMAD, LYNDA Unavailable Unavailable LASZELDA Downs M Unavailable Unavailable SANTACROCE, TAMIKO Unavailable Unavailable Mitchell Gonzáles Unavailable Unavail able Mitchell Gonzáles Unavailable Unavail able Marva Garibay Unavailable Unavailable Marva Garibay Primary Care Provider Marva Garibay PA-C Primary Care Provider Humaira Beth MD Primary Care Provider Santi Smith MD Unavailable Rebeca Kelly MD Primary Care Provider [phone] Marva Garibay PA-C Primary Care Provider Santi Smith MD Unavailable Rebeca Kelly MD Primary Care Provider JIL EVANGELISTA Attending Unavailable SANTI OPE Attending Unavailable PATRICIA SIMON Referring Unavailable PATRICIA SIMON Referring Unavailable PATRICIA SIMON Referring Unavailable SANTI POE Referring Unavailable AHAMMAD, LYNDA Attending Unavailable AHAMMAD, LYNDA Referring Unavailable MARVA GARIBAY Primary Care Unavailable AHAMMAD, LYNDA Attending Unavailable AHAMMAD, LYNDA Referring Unavailable MARVA GARIBAY Primary Care Unavailable AHAMMAD, LYNDA Attending Unavailable AHAMMAD, LYNDA Referring Unavailable MARVA GARIBAY A Primary Care Unavailable AHAMMAD, LYNDA Attending Unavailable AHAMMAD, LYNDA Referring Unavailable MARVA GARIBAY Primary Care Unavailable Imm Marisol TUTTLE Primary Care Provider Bhakti Simpson DO Attending Provider Robin TUTTLE [facility] Primary Care Provider Jil Martines APRN Attending Provider ROBIN, REBECA Primary Care Unavailable RANDA COLEMAN Attending Unavailable ROBIN, REBECA Primary Care Unavailable QUINTENANANDHAMPERI Dos Santos Admitting Unavailable QUINTENRENAE Attending Unavailable ROBIN, REBECA Primary Care Unavailable ADOLFO STOKES Attending Unavailable ROBIN, REBECA Referring Unavailable ROBIN, REBECA Primary Care Unavailable ROBIN, REBECA Referring Unavailable ROBIN, REBECA Primary Care Unavailable NAYAK MAKENZIE B Attending Unavailable NAYAK, MAKENZIE B Referring Unavailable ROBIN, REBECA Primary Care Unavailable ROBIN, REBECA Referring Unavailable ROBIN, REBECA Primary Care Unavailable Allergies Allergy ClassificationReported Allergen(s)Allergy TypeDate of OnsetReaction(s) Facility (6 sources)CiprofloxacinDrug Bipzmfz68-00-4698Lcfhv (See Comments)[place], [place] (19 sources)Sulfamethoxazole / Trimethoprim; Translations: [SULFAMETHOXAZOLE-TRIMETHOPRIM]Drug Xpqjbnw53-52-1019Lrmyowve, [place], [place] (1 source)Iodinated Diagnostic AgentsPropensity to adverse reactions to drug 51-56-0549Qzntrk [place], [place] (1 source)OtherPropensity to adverse fmbnfftki64-03-5037FhgxafdhpwzRguhm Health- [place], [place] (6 sources)Pneumococcal VaccinesPropensity to adverse reactions to drug 85[place]29[place]9350[place] (13 sources)Iodinated Contrast MediaPropensity to adverse reactions to drug 50-80-8887Zobrnt [facility] (15 sources)Pneumococcal vaccine; Translations: [PNEUMOCOCCAL VACCINE]Drug Vjoujqy43-90-2182Kitxicj ReactionProMedica Health System (6 sources)IodineDrug Zhejaut40-94-7209[facility] (2 sources)amLODIPineDrug Rpaavyj32-28-5634Opfef (See Comments)[facility] [employer] [facility] (2 sources)fluticasone / salmeterolDrug Nndgrsl55-45-2877Ycege (See Comments)[facility] (2 sources)predniSONEDrug Dwtpwln40-06-6639Iaiin (See Comments)[facility] (2 sources)SulfacetamideDrug Yepgemd26-65-7627Rdzhg (See Comments)[facility] (4 sources)SulfamethoxazoleDrug Ibaytek66-13-0107irgvUjy [facility] CenterOxigene [facility] (2 sources)TrimethoprimDrug Hqhswbm08-35-9210vaahOndscuiavWright-Patterson Medical CenterNEGATED: Highlighted row has been ruled out! (5 sources)OtherPropensity to adverse lzlpqmacy27-52-0166CrtshfecsrtIOP SECBookmate [facility]ITALRam Power Medications Current Medications MedicationDrug Class(es)DatesSig (Normalized)Sig (Original)acetaminophen 325 mg oral tablet (10 sources)Start: 02-15-2017 End: 80-14-9950Jmfoitzuhxyua (Tylenol) 325 mg Tablet Active 500 MG PO EVERY 4-6 HOURS as needed for Pain 60 0 February 23, 2017 10:29am Complies with drug therapytake 1 tablet by mouth every six hours as needed for painacetaminophen (TYLENOL) 500 MG tablet Take 1 tablet by mouth every 6 hours as needed for Pain Smzpvo466 actuat albuterol 0.09 mg/actuat dry powder inhaler (20 sources)beta2-Adrenergic AgonistStart: 34-72-4898Nciryxnmd Sulfate 90 mcg/actuation aerosol powdr breath activated Active 1 INH INHALATION EVERY 4-6 HOURS as needed February 12, 2025 12:00am Complies with drug therapyStart: 02-15-2017 End: 08-53-9841iauz 1.25 mg by inhalation every four hours as needed for hypertensionAlbuterol Sulfate 1.25 mg/3 mL Solution For Nebulization Discontinued 1.25 MG INHALATION Q4H as needed for Hypertension February 15, 2017 12:00am February 23, 2017 9:54am End: 35-86-3729oeis 3 mL by inhalation every six hours as needed for wheezing albuterol (ACCUNEB) 1.25 mg/3 mL nebulizer solution Inhale 3 mL (1.25 mg total) by nebulization every 6 (six) hours as needed for wheezing. 04/17/2025 Discontinuedtake 2 puff(s) by inhalation every four hours as needed for wheezing albuterol (PROVENTIL HFA;VENTOLIN HFA) 90 mcg/actuation inhaler Inhale 2 puffs every 4 (four) hoursas needed for wheezing or shortness of breath. Activetake 2 puff(s) by inhalation every four hours for wheezingalbuterol HFA 90 mcg/act inhaler Inhale 2 puffs every 4 (four) hours if needed for wheezing Activetake 2 puff(s) by inhalation every six hours as needed for wheezingalbuterol sulfate HFA 108 (90 Base) MCG/ACT inhaler Inhale 2 puffs into the lungs every 6 hours as needed for Wheezing Activetake 2 puff(s) by inhalation every six hours as needed for wheezingalbuterol sulfate HFA 108 (90 Base) MCG/ACT inhaler Inhale 2 puffs into the lungs every 6 hours as needed for Wheezing 0 Activeaspirin 81 mg chewable tablet (20 sources)Platelet Aggregation Inhibitor, Nonsteroidal Anti-inflammatory Drug Start: 02-15-2017 End: 56-89-1076vzcf 1 tablet by mouth once dailyAspirin 81 mg Tablet,Chewable Active 81 MG PO Daily February 23, 2017 12:00am Complies with drug therapytake 1 tablet by mouth in the morningaspirin 81 mg Take 1 tablet (81 mg total) by mouth in the morning. Activeazithromycin 250 mg oral tablet (1 source)Macrolide AntimicrobialStart: 87-77-8948gtfo 1 tablet by mouth in the morningazithromycin (ZITHROMAX) 250 mg tablet Take 1 tablet (250 mg total) by mouth in the morning. 04/13/2025 ActiveBudesonide / formoterol (2 sources)Corticosteroid, beta2-Adrenergic Agonisttake 2 puff(s) by inhalation in the morningbudesonide-formoteroL (SYMBICORT) 160-4.5 mcg/actuation inhaler Inhale 2 puffs in the morning and 2puffs before bedtime. Activebudesonide- formoterol (SYMBICORT) 160-4.5 MCG/ACT AERO Inhalation for 30 Days Active buPROPion hydrochloride 75 mg oral tablet (8 sources)AminoketoneStart: 74-92-7790mttk 1 tablet by mouth once daily Bupropion Hcl 75 mg tablet Active 75 MG PO Daily February 12, 2025 12:00am Complies with drug therapy End: 48-98-7210ptwx 1 tablet by mouth once dailybuPROPion (Wellbutrin) 75 MG tablet Take 75 mg by mouth Daily 01/16/2025 Discontinued (Discontinuedby another clinician)cetirizine hydrochloride 10 mg oral tablet (10 sources)Histamine-1 Receptor AntagonistStart: 95-70-5561pofb 1 tablet by mouth once daily as neededCetirizine (All Day Allergy (Cetirizine)) 10 mg tablet Active 10 MG PO Daily as needed January 12:00am Complies with drug therapyhydroCHLOROthiazide 25 mg / lisinopril 20 mg oral tablet (11 sources)Thiazide Diuretic, Angiotensin Converting Enzyme InhibitorStart: 19-39-4924tkfz 1 tablet by mouth onceLisinopril-Hydrochlorothiazide 20-25 mg tablet Active 1 TAB PO Once February 12, 2025 12:00am Complies with drug therapy Start: 67-65-8639epsi 1 tablet by mouth once dailylisinopril-hydroCHLOROthiazide (PRINZIDE;ZESTORETIC) 20-25 MG per tablet Take 1 tablet by mouth daily 04/16/2024 Activeibuprofen 800 mg oral tablet (6 sources)Nonsteroidal Anti-inflammatory DrugStart: 63-50-3143qqop 1 tablet by mouth every six hours as needed for painibuprofen (MOTRIN) 800 mg tablet Take 1 tablet (800 mg total) by mouth every 6 (six) hours as needed for pain. 04/10/2023 ActivelevETIRAcetam 500 mg oral tablet (20 sources)Start: 02-12-2025 End: 07-50-8184fqnu 1 tablet by mouth twice dailyLevetiracetam 500 mg tablet Active 500 MG PO Twice daily 60 5 February 12, 2025 2:25pm Complies with drug therapyStart: 12-27-2023 End: 18-83-0667uwfw 1 tablet by mouth oncelevETIRAcetam (Keppra) 500 MG tablet Indications: Seizure (HCC) Take 1 tablet (500 mg) by mouth every 12 (twelve) hours 180 tablet 3 07/08/2024 ActiveStart: 02-23-2017 End: 40-51-7005qwwp 3 tablets by mouth twice dailyLevetiracetam 250 mg Tablet Discontinued 750 MG PO Twice daily 60 0 February 23, 2017 12:00am February 12, 2025 1:35pmStart: 02-15-2017 End: 93-41-6404tjdq 1 tablet by mouth every twelve hoursLevetiracetam 500 mg Tablet Discontinued 500 MG PO Q12H February 15, 2017 12:00am February 23, 2017 9:53amtake 2 tablets by mouth in the morning, then take 2 tablets by mouth at bedtimelevETIRAcetam (KEPPRA) 250 mg tablet Take 2 tablets (500 mg total) by mouth in the morning and 2 tablets (500 mg total) before bedtime. Activetake 1 tablet by mouth twice dailylevETIRAcetam (KEPPRA) 500 MG tablet Take 1 tablet by mouth 2 times daily Activelevothyroxine sodium 0.125 mg oral tablet (20 sources)l-ThyroxineStart: 02-15-2017 End: 25-05-5439zeqo 1 tablet by mouth once dailyLevothyroxine (Synthroid) 125 mcg Tablet Active 125 MCG PO Daily February 23, 2017 10:29am Complies with drug therapytake 1 tablet by mouth in the morninglevothyroxine (SYNTHROID, LEVOTHROID) 75 MCG tablet Take 1 tablet (75 mcg total) by mouth in the morning. Active End: 67-94-9899owelxpkqjvdqs (SYNTHROID, LEVOTHROID) 125 MCG tablet Take 75 mcg by mouth daily. 04/17/2025 Discontinuedlevothyroxine (Synthroid, Levoxyl) 100 MCG tablet Take by mouth in the morning. Take before meals. Activelisinopril 20 mg oral tablet (20 sources)Angiotensin Converting Enzyme InhibitorStart: 02-15-2017 End: 84-54-6403nhvd 1 tablet by mouth once dailyLisinopril 20 mg Tablet Active 20 MG PO Daily February 23, 2017 10:29am Complies with drug therapy lisinopril 10 MG tablet Take by mouth Daily Activeloratadine 10 mg oral tablet (12 sources)Start: 07-18-2018 End: 43-33-5783vptwpfsefy (CLARITIN) 10 MG tablet 07/18/2018 ActiveOXcarbazepine 150 mg oral tablet (6 sources)Anti-epileptic Agent End: 81-06-0313RHwmtpokiwmfh (Trileptal) 150 MG tablet Take 150 mg by mouth 01/16/2025 Discontinued (Discontinued by another clinician)verapamil hydrochloride 180 mg extended release oral tablet (20 sources)Calcium Channel BlockerStart: 02-12-2025 End: 68-39-3282ntmw 1 tablet by mouth twice dailyVerapamil 120 mg tablet extended release Discontinued 120 MG PO Twice daily February 12, 2025 1:36pm April 06, 2025 4:00pmStart: 03-30-2020 End: 67-21-2818rtfa 1 tablet by mouth onceVerapamil 180 mg tablet extended release Active 180 MG PO Once April 06, 2025 12:00am Complies with drug therapyStart: 01-04-2017 End: 76-13-9105hqok 1 tablet by mouth once dailyVerapamil 120 mg Tablet Extended Release Discontinued 120 MG PO daily 30 0 February 23, 2017 10:29am February 12, 2025 1:37pmtake 1 tablet by mouth in the morning, then take 1 tablet by mouth in the evening, then take 1 tablet by mouth at bedtimeverapamil (Calan) 120 MG tablet Take 120 mg by mouth in the morning and 120 mg in the evening and 120 mg before bedtime. Active End: 37-39-0731ohzf 1 tablet by mouth once dailyverapamil SR (CALAN-SR) 240 mg CR tablet Take 1 tablet (240 mg total) by mouth nightly. 03/06/2024 Discontinued Completed/Discontinued Medications MedicationDrug Class(es)DatesSig (Normalized)Sig (Original)acetaminophen 325 mg / HYDROcodone bitartrate 5 mg oral tablet (8 sources)Opioid AgonistStart: 02-15-2017 End: 06-09-8245dqwz 1 tablet by mouth every four to six hours as needed for pain Hydrocodone-Acetaminophen 5-325 mg Tablet Discontinued 1 TAB PO EVERY 4-6 HOURS as needed for Pain 0 February 23, 2017 10:29am February 12, 2025 1:35pm amoxicillin 500 mg oral capsule (6 sources)Penicillin-class Antibacterial End: 01-44-8230sqwt 1 capsule by mouth three times dailyamoxicillin (AMOXIL) 500 mg capsule Take 1 capsule (500 mg total) by mouth 3 (three) times a day. Discontinuedatorvastatin 40 mg oral tablet (20 sources)HMG-CoA Reductase InhibitorStart: 01-26-2017 End: 06-19-6238kgnv 1 tablet by mouth once daily at bedtimeAtorvastatin (Lipitor) 40 mg Tablet Discontinued 40 MG PO Daily at bedtime February 15, 2017 12:00am February 23, 2017 10:29amtake 4 tablets by mouth once daily atorvastatin (Lipitor) 10 MG tablet Take 40 mg by mouth Daily Activetake 1 tablet by mouth once dailyatorvastatin (Lipitor) 10 MG tablet Take 10 mg by mouth Daily Activebethanechol chloride 10 mg oral tablet (10 sources)Cholinergic Muscarinic AgonistStart: 02-15-2017 End: 59-12-0588ccfw 1 tablet by mouth three times dailyBethanechol Chloride (Urecholine) 10 mg Tablet Discontinued 10 MG PO Three times daily 90 0 February 23, 2017 10:29am February 12, 2025 1:33pmbusPIRone hydrochloride 10 mg oral tablet (12 sources)Start: 03-14-2023 End: 01-38-4020mqeg 1 tablet by mouth at bedtimebusPIRone (BUSPAR) 10 mg tablet Take 1 tablet (10 mg total) by mouth in the morning and at bedtime.03/14/2023 04/17/2025 Discontinued End: 48-44-1807luau 5 mg by mouth in the morningbusPIRone (Buspar) 10 MG tablet Take 5 mg by mouth in the morning and 5 mg before bedtime. 01/16/2025 Discontinued (Discontinued by another clinician)cephalexin 500 mg oral capsule (2 sources)Cephalosporin AntibacterialStart: 02-15-2017 End: 68-21-5613frge 1 capsule by mouth three times dailyCephalexin (Keflex) 500 mg Capsule Discontinued 500 MG PO Three times daily February 15, 2017 12:00am February 23, 2017 9:48amcitalopram 20 mg oral tablet (20 sources)Serotonin Reuptake InhibitorStart: 02-15-2017 End: 37-28-7052ialj 1 tablet by mouth once dailyCitalopram (Celexa) 20 mg Tablet Discontinued 20 MG PO Daily 30 0 February 23, 2017 10:29am February 12, 2025 1:33pm End: 42-97-0533kwpk 1 tablet by mouth once dailycitalopram (CeleXA) 10 MG tablet Take 10 mg by mouth Daily 01/16/2025 Discontinued (Discontinued byanother clinician)take 2 tablets by mouth in the morningcitalopram (CeleXA) 20 mg tablet Take 2 tablets (40 mg total) by mouth in the morning. ActivecloNIDine hydrochloride 0.1 mg oral tablet (2 sources)Central alpha-2 Adrenergic AgonistStart: 02-15-2017 End: 32-35-2180hecc 1 tablet by mouth every four hours as needed for hypertensionClonidine Hcl 0.1 mg Tablet Discontinued 0.1 MG PO Q4H as needed for Hypertension February 15, 201712:00am February 23, 2017 9:48amdexamethasone 0.5 mg oral tablet (12 sources)CorticosteroidStart: 02-15-2017 End: 74-41-0214qcwu 2 tablets by mouth twice dailyDexamethasone 0.5 mg Tablet Discontinued 2 TAB PO Twice daily February 15, 2017 12:00am February 23, 2017 9:48amStart: 02-15-2017 End: 18-70-5100nlco 2 tablets by mouth once dailyDexamethasone 0.5 mg Tablet Discontinued 1 MG PO Daily 3 0 February 23, 2017 12:00am January 1:35pmStart: 02-15-2017 End: 33-14-8800Sdkrqploiowes 1.5 mg Tablet Discontinued February 15, 2017 12:00am February 15, 2017 10:27amStart: 02-15-2017 End: 82-73-6894Ocdcolrsvpviu 2 mg Tablet Discontinued February 15, 2017 12:00am February 15, 2017 11:17amStart: 02-15-2017 End: 28-86-6808uerr 2 mg by mouth twice dailyDexamethasone 4 mg Tablet Discontinued 2 MG PO Twice daily February 15, 2017 12:00am February 9:49amdiphenhydrAMINE hydrochloride 25 mg oral capsule (10 sources)Histamine-1 Receptor AntagonistStart: 02-15-2017 End: 01-54-0983uche 1 capsule by mouth three times daily as needed Diphenhydramine Hcl (Benadryl) 25 mg Capsule Discontinued 25 MG PO Three times daily as needed for Itching 60 0 February 23, 2017 10:29am February 12, 2025 1:35pmdiphenhydrAMINE (BENADRYL) 25 MG capsule Take 25 mg by mouth every 6 hours as needed for Itching Three times a day prn Activefludeoxyglucose F 18 injection 10 millicurie (1 source)Start: 10-05-2022 End: 06-67-5976fuwlrstodfdyoej F 18 injection 10 xacacfnmly897 actuat fluticasone propionate 0.11 mg/actuat metered dose inhaler (18 sources)CorticosteroidStart: 02-15-2017 End: 97-60-6291jfql 1 puff(s) by inhalation once dailyFluticasone Propionate (Flovent Hfa) 110 mcg/actuation Hfa Aerosol Inhaler Discontinued 1 PUFF INHAL ATION Daily 30 0 February 23, 2017 10:29am February 12, 2025 1:35pm End: 06-57-6202iumz 2 puff(s) by inhalation at bedtimefluticasone propionate (FLOVENT HFA) 110 mcg/actuation inhaler Inhale 2 puffs in the morning and at bedtime. 04/17/2025 Discontinuedtake 1 spray(s) nasal route once daily fluticasone (Flonase) 50 MCG/ACT nasal spray Administer 1 spray into each nostril Daily Shake gently. Before first use, prime pump. After use, clean tip and replace cap. Activefluticasone (FLOVENT HFA) 110 MCG/ACT inhaler Inhale 1 puff into the lungs Activefurosemide 20 mg oral tablet (10 sources)Loop DiureticStart: 02-15-2017 End: 96-83-1495cpsx 1 tablet by mouth once dailyFurosemide (Lasix) 20 mg Tablet Discontinued 20 MG PO Daily 30 0 February 23, 2017 10:29am 2024 1:35pmgadoteridol (PROHANCE) injection 10 mL (1 source)Start: 07-14-2024 End: 39-39-4907aftu 1 dose intravenously once10 mL, IntraVENous, IMG ONCE PRN, 1 dose, Starting on Sun07/14/24 at 1239, Until Sun07/14/24 at 1254, Other gadoteridol (PROHANCE) injection 17 mL (1 source)Start: 06-16-2020 End: 75-01-2917uoyjjtgiiyk (PROHANCE) injection 17 mLgadoteridol (PROHANCE) injection 18 mL (1 source)Start: 06-21-2022 End: 96-26-1092jyyycaakppe (PROHANCE) injection 18 mLgadoteridol (PROHANCE) injection 20 mL (1 source)Start: 01-01-2025 End: 13-06-4126adiy 1 dose intravenously once20 mL, IntraVENous, IMG ONCE PRN, 1 dose, Starting on Sophie 01/01/25 at 1402, Until Sophie 01/01/25 at 1442, OtherLORazepam 0.5 mg oral tablet (10 sources)BenzodiazepineStart: 02-15-2017 End: 31-56-0193wxlq 1 tablet by mouth three times daily as needed for anxiety Lorazepam (Ativan) 0.5 mg Tablet Discontinued 0.5 MG PO Three times daily as needed for Anxiety February 23, 2017 10:29am February 12, 2025 1:36pmtake 1 tablet by mouth every eight hours as needed for anxietyLORazepam (ATIVAN) 0.5 MG tablet Take 0.5 mg by mouth every 8 hours as needed for Anxiety Activemineral oil 0.14 mg/mg / petrolatum 0.749 mg/mg / phenylephrine hydrochloride 0.0025 mg/mg rectal ointment (2 sources)alpha-1 Adrenergic AgonistStart: 02-23-2017 End: 82-48-3803Jfkqtuuwq-Min Oil-Petrolatum (Hemorrhoidal) 0.25-14-74.9 % Ointment Discontinued 1 EACH IA Q6H as needed for HEMORRHOIDS February 23, 2017 12:00am February 12, 2025 1:36pmmontelukast 10 mg oral tablet (20 sources)Leukotriene Receptor AntagonistStart: 01-14-2017 End: 89-20-7700jsgb 1 tablet by mouth once daily in the eveningMontelukast (Singulair) 10 mg Tablet Discontinued 10 MG PO Every evening February 23, 2017 10:29am February 12, 2025 1:36pmomeprazole 20 mg delayed release oral capsule (17 sources)Proton Pump InhibitorStart: 04-16-2025 End: 49-67-7513ctmg 2 capsules by mouth in the morningomeprazole (PriLOSEC) 20 mg capsule Take 2 capsules (40 mg total) by mouth in the morning. 60 capsule 04/16/2025 04/17/2025 DiscontinuedStart: 84-82-1388ethi 1 capsule by mouth once daily before breakfastomeprazole (PriLOSEC) 40 mg capsule Take 1 capsule (40 mg total) by mouth every morning before breakfast. 03/15/2023 ActiveStart: 02-15-2017 End: 85-88-3408hquz 1 capsule by mouth once dailyOmeprazole 20 mg Capsule,Delayed Release(Dr/Ec) Discontinued 20 MG PO Daily 30 February 23, 2017 10:29am February 12, 2025 1:36pmondansetron 4 mg disintegrating oral tablet (4 sources)Serotonin-3 Receptor AntagonistStart: 02-15-2017 End: 78-25-9176kdti 1 tablet by mouth every four hours as needed for nausea Ondansetron (Zofran Odt) 4 mg Tablet,Disintegrating Discontinued 4 MG PO Q4H as needed for Nausea February 23, 2017 10:29am February 12, 2025 1:36pm polyethylene glycol 3350 26533 mg powder for oral solution (10 sources)Osmotic LaxativeStart: 02-15-2017 End: 12-55-2456Zhhvkmvndaee Glycol 3350 (Miralax) 17 gram Powder In Packet Discontinued 17 GM PO Daily February 23, 2017 10:29am February 12, 2025 1:36pmmicroencapsulated potassium chloride 20 meq extended release oral tablet (18 sources)Start: 02-23-2017 End: 05-21-4604Durttdoth Chloride (Klor-Con M20) 20 mEq Tablet,Er Particles/Crystals Discontinued 10 MEQ PO daily 30 February 23, 2017 10:29am February 12, 2025 1:36pmStart: 02-15-2017 End: 72-03-1643Txregdgnx Chloride (Klor-Con M20) 20 mEq Tablet,Er Particles/Crystals Discontinued 20 MEQ PO daily February 15, 2017 12:00am February 23, 2017 10:29am End: 35-93-6455qzkmzbigc chloride (K-TAB,KLOR-CON) 10 MEQ CR tablet Take 1 tablet (10 mEq total) by mouth in the morning. 04/17/2025 Discontinuedpotassium chloride (KLOR-CON) 20 MEQ packet Take 20 mEq by mouth Activesennosides, care home 8.6 mg oral tablet (4 sources)Start: 02-23-2017 End: 10-89-5843Hrmzjfibhu (Senna Lax) 8.6 mg Tablet Discontinued 2 EACH PO DAILY@1200 as needed for Constipation 30 0 February 23, 2017 12:00am February 12, 2025 1:36pmStart: 02-15-2017 End: 61-15-0919bovc 2 tablets by mouth once dailySennosides 8.6 mg Tablet Discontinued 2 TAB PO Daily February 15, 2017 12:00am February 23, 2017 1 0:25am5 ml sodium chloride 9 mg/ml injection (4 sources)Start: mL, IntraVENous, PRN, Starting on Sophie 01/01/25 at 1402, Until Discontinued, Line Care, For [...] mL Midline or Central Line = 20 mL/lumenStart: mL, IntraVENous, PRN, Starting on 07/14/24 at 1239, Until Discontinued, Line Care, For [...] mL Midline or Central Line = 20 mL/lumenStart: 10-05-2022 sodium chloride flush 0.9 % injection 5-40 mLStart: 69-64-6262cekufq chloride flush 0.9 % injection 10 mLtamsulosin hydrochloride 0.4 mg oral capsule (10 sources)alpha-Adrenergic BlockerStart: 02-03-2017 End: 66-20-5913kmys 1 capsule by mouth once dailyTamsulosin 0.4 mg Capsule,Extended Release 24hr Discontinued 0.4 MG PO daily 30 0 February 23, 2017 10:29am February 12, 2025 1:36pm Problems Active Problems Problem ClassificationProblemDateDocumented DateEpisodic/ChronicAbdominal pain (1 source)Abdominal painOnset: 23-12-0038LxzjmaajKlgokwl disorders (6 sources)Anxiety; Translations: [Anxiety disorder, unspecified]Onset: 642205-10-6684MpvuvekPtesws (6 sources)Persistent asthma; Translations: [Asthma, persistent]Onset: 442419-61-2830ZfykeusFebkvy of bone and connective tissue (1 source)Primary malignant neoplasm of blood vessel; 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, malignant (HCC)]ChronicCardiac dysrhythmias (7 sources)Ventricular premature complex; Translations: [Ventricular premature depolarization]Onset: [id number]u associated with dizziness or vertigo (3 sources)Lightheadedness; Translations: [Dizziness and giddiness]Onset: 319789-50-1963IwjjgcbeOplaedtq atherosclerosis and other heart disease (5 sources)Ischemic chest pain; Translations: [Chronic ischemic heart disease, unspecified]Onset: 314007-26-3454FywlxxuGpapkheu mellitus without complication (1 source)Hyperglycemia, unspecified; Translations: [Hyperglycemia, unspecified] Onset: 02-39-7502RblcbpaiClvzvisqd of lipid metabolism (8 sources)Mixed hyperlipidemia; Translations: [Mixed hyperlipidemia]Onset: 715197-93-0346CwlqswrF Codes: Adverse effects of medical drugs (1 source)Adverse effect of glucocorticoids and synthetic analogues, initial encounter; Translations: [Adverse effect of glucocorticoids and synthetic analogues, initial encounter]Onset: 07-89-1738FwryikjrTbqplkqp; convulsions (2 sources)Seizure disorder; Translations: [Epilepsy, unspecified, not intractable, without status epilepticus]06-70-8372RscodjaPztckweq; convulsions (12 sources)Seizure; Translations: [Unspecified convulsions]Onset: 12-27-2023 19-21-4257PasispcaFxesobq on above:Problem List clean-up per request of Phys. EHR CmteEsophageal disorders (3 sources)Gastroesophageal reflux disease; Translations: [Gastro-esophageal reflux disease without esophagitis]Onset: 691657-36-5610IikhorpLprybyp on above:Problem List clean-up per request of Phys. EHR CmteEssential hypertension (19 sources)Essential hypertension; Translations: [Essential (primary) hypertension]Onset: 427956-32-6016KhilidfQsvxmbq on above:Problem List clean-up per request of Phys. 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 EpisodicNonspecific chest pain (7 sources)Chest pain; Translations: [Other chest pain]Onset: 03-30-2020 69-32-3221NgcwegbwMrozg and unspecified benign neoplasm (1 source)Benign neoplasm of meninges, unspecified; Translations: [Benign neoplasm of meninges, unspecified]Onset: 37-05-7356NjysvhhFryvs and unspecified benign neoplasm (7 sources)Neoplasm of meninges; Translations: [Benign neoplasm of meninges, unspecified]28-62-1401ThvrhutTsewj and unspecified benign neoplasm (6 sources)Benign neoplasm of cerebral meninges; 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]94-80-5882WymudgiBjrvm connective tissue disease (1 source)Midline shift of brain; 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]Onset: 608400-85-5684UtypxbhJcnhx connective tissue disease (2 sources)Pain in left foot; Translations: [Pain in left foot]01-16-2025 EpisodicOther gastrointestinal disorders (1 source)HeartburnOnset: 99-57-6976RvjymeylSatdk nervous system disorders (1 source)Disorder of brain, unspecified; Translations: [Disorder of brain, unspecified]Onset: 32-50-6447UbludbtYonqk nervous system disorders (6 sources)Cerebral edema; Translations: [Cerebral edema]24-24-6489ZxvmbmsVlbxt nervous system disorders (2 sources)Difficulty walking; Translations: [Difficulty in walking, not elsewhere classified]78-75-7625PpavryyZdtrt nervous system disorders (2 sources)Numbness and tingling sensation of skin; Translations: [Anesthesia of skin]62-09-2850WnpfxjjmRkswp nutritional; endocrine; and metabolic disorders (6 sources)Body mass index 30+ - obesity; Translations: [Obesity, unspecified] Onset: 097029-08-4426MjrybemWfujp screening for suspected conditions (not mental disorders or infectious disease) (11 sources)Midline shift of brain; Translations: [Other abnormal findings on diagnostic imaging of central nervous system]Onset: 579203-68-6586Phoowkvm Other skin disorders (6 sources)Mass lesion of brain; Translations: [Other specified disorders of brain]Onset: 267553-78-9872XskldeiVxjiathgc (1 source)Left hemiparesis; Translations: [Left-sided weakness]45-89-8200Qbcmryr Residual codes; unclassified (9 sources)Obstructive sleep apnea syndrome; Translations: [Obstructive sleep apnea (adult) (pediatric)]Onset: 655936-95-4675HkncibdNhbopxop codes; unclassified (8 sources)Sleep apnea; Translations: [Sleep apnea, unspecified]Onset: 492269-40-8024VqurgavFzavdaze codes; unclassified (2 sources)Hypersomnia; Translations: [Hypersomnia, unspecified]02-12-2025 ChronicResidual codes; unclassified (1 source)Obstructive sleep apnea (adult) (pediatric); Translations: [Obstructive sleep apnea (adult) (pediatric)]Onset: 78-89-1108HxapuysFszkwkguani injury; contusion (2 sources)Foreign body of foot; Translations: [Superficial foreign body, left foot, initial encounter]21-13-4209KkobbvavCrdolld disorders (8 sources)Hypothyroidism; Translations: [Hypothyroidism, unspecified]Onset: 003492-58-3289DfzwefqRwfwgcv on above:Problem List clean-up per request of Phys. EHR CmteUnclassified (1 source)Other specified neoplasm of uncertain behavior of connective and other soft tissue; Translations: [Other specified neoplasm of uncertain behavior of connective and other soft tissue]Onset: 70-44-5586Gsgyvhcerkkk (1 source)Cough, unspecified; Translations: [Cough, unspecified]Onset: 04-07-2025 Past or Other Problems Problem ClassificationProblemDateDocumented DateEpisodic/ChronicCardiac dysrhythmias (12 sources)Bradycardia; Translations: [Bradycardia, unspecified]Onset: 798660-51-1042AirephqzEprfftmsyabtn symptoms and ill-defined conditions (6 sources)Retention of urine; Translations: [Retention of urine, unspecified] Onset: 572593-80-7828UhifyqqtOkrbf nervous system disorders (6 sources)Paresthesia; Translations: [Paresthesia of skin]Onset: 12-27-2023 50-64-8815AzuyhmmoGujvrdeg codes; unclassified (5 sources)Postoperative state; Translations: [Other specified postprocedural states] Resolved: 861962-25-2624HjbwldgqSfuknzmc codes; unclassified (1 source)Postoperative state; Translations: [Post-operative state] Resolved: 739997-34-0545Ztpbwarxmxr; intervertebral disc disorders; other back problems (8 sources)Cervico-occipital neuralgia; Translations: [Occipital neuralgia] Onset: 012331-09-5430Plxiszkx Results Test NameValueInterpretationReference RangeFacilityCBC WITH AUTO DIFFERENTIALon 17-72-0576AZCOFOFZM ABSOLUTE COUNT BY AUTOMATED COUNT0.0 X10^9/LNormal0.0-0.2 [facility] MemorialComment on above:Performed By: #### CBCA #### [facility] ([address] [address] VIRBASOPHILS RELATIVE PERCENT BY AUTOMATED COUNT0.6 %Normal [facility] MemorialComment on above:Performed By: #### CBCA #### [facility] ([address] [place] [address] VIRCELLAVISION DIFFERENTIAL TYPEAUTOMATED DIFFERENTIALNormal [facility] MemorialComment on above:Performed By: #### CBCA #### [facility] ([address] [place] [address] VIREosinophils (Bld) [#/Vol]0.2 10*3/uLNormal0.0-0.4[facility] MemorialComment on above:Performed By: #### CBCA #### [address] [place] [address] VIREOSINOPHILS RELATIVE PERCENT BY AUTOMATED COUNT3.3 %Normal [facility] MemorialComment on above:Performed By: #### CBCA #### [facility] ([address] [address] VIRErythrocyte distribution width (RBC) [Ratio]13.4 %Normal 11.5-15ProHouston Methodist The Woodlands HospitalComment on above:Performed By: #### CBCA #### [address] [place] [address] VIRHematocrit (Bld) [Volume fraction]38.8 %Eakydx14-75 [facility] MemorialComment on above:Performed By: #### CBCA #### [facility] ([address] [place] [address] VIRHemoglobin (Bld) [Mass/Vol]13.1 g/sSAxpbpm96.7-15.5 [facility] MemorialComment on above:Performed By: #### CBCA #### [facility] ([address] [place] [address] VIRLymphocytes (Bld) [#/Vol]3.2 10*3/uLNormal1.0-3.5PGenesis HospitalComment on above:Performed By: #### CBCA #### [facility] ([facility]) [address] [place] [address] [place] [address] VIRLYMPHOCYTES RELATIVE PERCENT BY AUTOMATED COUNT43.8 %Normal [facility] MemorialComment on above:Performed By: #### CBCA #### [facility] ([facility]) [address] [place] [address] [place] [address] VIRMCH (RBC) [Entitic mass]27.7 egRqlghq63-23ApwOmunldHouston Methodist The Woodlands HospitalComment on above:Performed By: #### CBCA #### [facility] ([address] [place] [address] VIRMCHC (RBC) [Mass/Vol]33.7 g/xQYrrxll13-01PrgQoezdeKettering Health Greene MemorialComment on above:Performed By: #### CBCA #### [facility] ([address] [place] [address] VIRMCV (RBC) [Entitic vol]82 dCHxgyhz86-900HvfCviyoa [place] HospitalComment on above:Performed By: #### CBCA #### [facility] ([address] [place] [address] VIRMonocytes (Bld) [#/Vol]0.6 10*3/uLNormal0.0-0.9[facility] MemorialComment on above:Performed By: #### CBCA #### [facility] ([address] [place] [address] VIRMONOCYTES RELATIVE PERCENT BY AUTOMATED COUNT8.3 %Normal [facility] MemorialComment on above:Performed By: #### CBCA #### [facility] ([address] [place] [address] VIRNEUTROPHILS ABSOLUTE COUNT BY AUTOMATED COUNT3.2 X10^9/L Normal1.5-6.6[facility] MemorialComment on above:Performed By: #### CBCA #### [facility] ([address] [place] [address] VIRNEUTROPHILS RELATIVE PERCENT BY AUTOMATED COUNT44.0 %Normal [facility] MemorialComment on above:Performed By: #### CBCA #### [facility] ([address] [place] [address] VIRPlatelet mean volume (Bld) [Entitic vol]6.6 fLLow7-12 [facility] MemorialComment on above:Performed By: #### CBCA #### [facility] ([address] [place] [address] VIRPlatelets (Bld) [#/Vol]248 10*3/wCSxaahf924-294DhjTbnhgc [facility] HospitalComment on above:Performed By: #### CBCA #### [facility] ([address] [place] [address] VIRRBC COUNT4.72 X10^12/LNormal3.8-5.2PGenesis HospitalComment on above:Performed By: #### CBCA #### [facility] ([address] [place] [address] VIRWBC (Bld) [#/Vol]7.3 10*3/uLNormal4-11[facility] MemorialComment on above:Performed By: #### CBCA #### [facility] ([address] [place] [address] VIRCOMPREHENSIVE METABOLIC PANELon 84-96-4383Vnkoqtq [Mass/Vol]3.6 g/dLNormal3.2-5.3PGenesis HospitalComment on above: Performed By: #### CBCA #### [facility] ([facility]) [facility] [address] [facility] [place] [address] VIRALP [Catalytic activity/Vol]45 U/MTxqstc81-899DwbGsapsmHouston Methodist The Woodlands HospitalComment on above:Performed By: #### CBCA #### [facility] ([place] [address] [facility] [place] [address] VIRALT [Catalytic activity/Vol]26 U/LNormal<=31ProMedEllett Memorial Hospital HospitalComment on above:Performed By: #### CBCA #### [facility] ([place] [address] [place] [address] VIRAnion gap [Moles/Vol]9 mmol/LNormal5-15ProHouston Methodist The Woodlands HospitalComment on above:Performed By: #### CBCA #### [facility] ([place] [address] [place] [address] VIRAST [Catalytic activity/Vol]12 U/LNormal<=41ProHouston Methodist The Woodlands HospitalComment on above:Performed By: #### CBCA #### [facility] ([place] [address] [place] [address] VIRBilirubin [Mass/Vol]0.8 mg/dLNormal0.3-1.2PGenesis HospitalComment on above:Performed By: #### CBCA #### [facility] ([place] [address] [facility] [place] [address] VIRCalcium [Mass/Vol]8.8 mg/dLNormal8.5-10.5PGenesis HospitalComment on above:Performed By: #### CBCA #### [facility] ([place] [address] [place] [address] VIRChloride [Moles/Vol]102 mmol/UAihaff62-779SznBqhcduHouston Methodist The Woodlands HospitalComment on above:Performed By: #### CBCA #### [facility]) [address] [place] [address] VIRCO2 [Moles/Vol]27 mmol/CBxkrqg04-08IhpRphhes [facility] HospitalComment on above:Performed By: #### CBCA #### [facility] ([address] [place] [address] VIRCreatinine [Mass/Vol]0.45 mg/dLNormal0.40-1.00ProHouston Methodist The Woodlands HospitalComment on above:Result Comment: METHOD TRACEABLE TO IDMS STANDARDPerformed By: #### CBCA #### [facility] ([address] [place] [address] VIREGFR (CKD-EPI) NON-RACE DEPENDENT>^90Normal>=60ProHouston Methodist The Woodlands HospitalComment on above:Result Comment: eGFR not reported due to non- numeric value for Creatinine. Reported eGFR is based on the CKD-EPI 2020 equation that does not use a race coefficient.Performed By: #### CBCA #### [facility] ([address] [place] [address] VIRGlucose [Mass/Vol]104 mg/xCIavp96-85FmsZhrgtaHouston Methodist The Woodlands HospitalComment on above:Performed By: #### CBCA #### [address] [place] [address] VIRPotassium [Moles/Vol]3.1 mmol/LLow3.5-5.0ProHouston Methodist The Woodlands HospitalComment on above:Performed By: #### CBCA #### [facility] ([address] [place] [address] VIRProtein [Mass/Vol]6.4 g/dLNormal6.0-8.0ProHouston Methodist The Woodlands HospitalComment on above:Performed By: #### CBCA #### [facility] ([address] [address] VIRSodium [Moles/Vol]138 mmol/HSmnnza430-018UwqZegrgh [facility] HospitalComment on above:Performed By: #### CBCA #### [facility] ([address] [address] VIRUrea nitrogen [Mass/Vol]16 mg/dLNormal5-27ProHouston Methodist The Woodlands HospitalComment on above:Performed By: #### CBCA #### [facility] ([address] [address] VIRMAGNESIUMon 07-63-3643Rqhnqcsgz [Mass/Vol]2.1 mg/dLNormal 1.8-2.6ProHouston Methodist The Woodlands HospitalComment on above:Performed By: #### CBCA #### [facility] ([address] [address] VIRPOTASSIUMon 48-10-1086Kvjivaauq [Moles/Vol]3.5 mmol/LNormal 3.5-5.0ProHouston Methodist The Woodlands HospitalComment on above:Performed By: #### CBCA #### [facility] ([address] [address] VIRAPTTon 48-63-2750vRLT Coag (Bld) [Time]27 vMiymdq86-36 [facility] MemorialComment on above:Performed By: #### PTT ####[facility] ([address] [address] VIRB-TYPE NATRIURETIC PEPTIDEon 14-34-5427Qysbjwexvdl peptide B (Bld) [Mass/Vol]18 pg/mL Normal<=100ProHouston Methodist The Woodlands HospitalComment on above:Performed By: #### BNP ####[facility] ([address] [address] VIRCBC WITH AUTO DIFFERENTIALon 99-39-3684XYCLGYOAQ ABSOLUTE COUNT BY AUTOMATED COUNT0.1 X10^9/LNormal0.0-0.2Pro[facility] Developmental CenterComment on above:Performed By: #### CBCA ####[facility] ([address], [place] VIRBASOPHILS RELATIVE PERCENT BY AUTOMATED COUNT 1.0 %NormalKettering Health Greene MemorialComment on above:Performed By: #### CBCA ####[facility] ([address] [id number] VIRCELLAVISION DIFFERENTIAL TYPEAUTOMATED DIFFERENTIALNormalProHouston Methodist The Woodlands HospitalComment on above:Performed By: #### CBCA ####[facility] ([address], [place] VIREosinophils (Bld) [#/Vol] 0.3 10*3/uLNormal0.0-0.4[facility] MemorialComment on above:Performed By: #### CBCA ####[facility] ([address], [id number] VIREOSINOPHILS RELATIVE PERCENT BY AUTOMATED COUNT3.2 % NormalKettering Health Greene MemorialComment on above:Performed By: #### CBCA ####[facility] ([address], [id number] VIRErythrocyte distribution width (RBC) [Ratio]13.4 %Ttoybi53.5-15ProHouston Methodist The Woodlands HospitalComment on above:Performed By: #### CBCA ####[facility] ([address], [id number] VIRHematocrit (Bld) [Volume fraction]42.8 %Rbvnzo34-14InoSehpkdHouston Methodist The Woodlands HospitalComment on above: Performed By: #### CBCA ####[facility] ([address] [id number] VIRHemoglobin (Bld) [Mass/Vol]14.4 g/zPSeenlc76.7-15.5 [facility] MemorialComment on above:Performed By: #### CBCA ####[facility] ([facility])[address] [place] [address].[place], [id number] VIR Lymphocytes (Bld) [#/Vol]3.5 10*3/uLNormal1.0-3.5PGenesis Hospital Comment on above:Performed By: #### CBCA ####[facility] ([facility])[address] [place] [address].[place], [id number] VIRLYMPHOCYTES RELATIVE PERCENT BY AUTOMATED COUNT39.5 %NormalProHouston Methodist The Woodlands HospitalComment on above:Performed By: #### CBCA ####[facility] ([address], [id number] VIRMCH (RBC) [Entitic mass]27.8 gfYesshm74-55EayBlnnmxHouston Methodist The Woodlands HospitalComment on above:Performed By: #### CBCA ####[facility] ([address], [id number] VIRMCHC (RBC) [Mass/Vol]33.8 g/gDSjzjsg73-43MygBtbqqkHouston Methodist The Woodlands HospitalComment on above: Performed By: #### CBCA ####[facility] ([address], [id number] VIRMCV (RBC) [Entitic vol]82 tPBifveo18-211OqmNvxdgv [facility] HospitalComment on above:Performed By: #### CBCA ####[facility] ([address], [place] VIRMonocytes (Bld) [#/Vol]0.7 10*3/uLNormal0.0-0.9ProHouston Methodist The Woodlands HospitalComment on above: Performed By: #### CBCA ####[facility] ([facility])[address] [place] [address].[place], [id number] VIRMONOCYTES RELATIVE PERCENT BY AUTOMATED COUNT7.7 % NormalKettering Health Greene MemorialComment on above:Performed By: #### CBCA ####[facility] ([place] [address], [id number] VIRNEUTROPHILS ABSOLUTE COUNT BY AUTOMATED COUNT4.4 X10^9/LNormal1.5-6.6 [facility] MemorialComment on above:Performed By: #### CBCA ####[facility] ([place] [address], [id number] VIR NEUTROPHILS RELATIVE PERCENT BY AUTOMATED COUNT48.6 %[facility] HospitalComment on above:Performed By: #### CBCA ####[facility] ([address], [id number] VIRPlatelet mean volume (Bld) [Entitic vol]6.8 fLLow7-12PGenesis HospitalComment on above:Performed By: #### CBCA ####[facility] ([address], [place] VIRPlatelets (Bld) [#/Vol]295 10*3/zORcczfo913-020UizXtuiap [facility] HospitalComment on above:Performed By: #### CBCA ####[facility] ([address], [id number] VIRRBC COUNT5.19 X10^12/LNormal3.8-5.2PNorthern [facility] Term Acute Hospital HospitalComment on above:Performed By: #### CBCA ####[facility] ([address], [place] VIRWBC (Bld) [#/Vol]8.9 10*3/uLNormal4-11ProNorwalk Memorial Hospital HospitalComment on above:Performed By: #### CBCA ####[facility] [address], [id number] VIRCOMPREHENSIVE METABOLIC PANELon 84-68-9864Zooromb [Mass/Vol]4.2 g/dLNormal3.2-5.3PGenesis HospitalComment on above:Performed By: #### CMP ####[facility] ([address] [place] [address] VIRALP [Catalytic activity/Vol]56 U/FTvvxbu60-690YfpFjpsztHouston Methodist The Woodlands HospitalComment on above: Performed By: #### CMP ####[address] [place] [address] VIRALT [Catalytic activity/Vol]30 U/LNormal<=31 [facility] MemorialComment on above:Performed By: #### CMP ####[address] [place] [address] VIRAnion gap [Moles/Vol]12 mmol/LNormal5-15ProHouston Methodist The Woodlands HospitalComment on above: Performed By: #### CMP ####[address] [place] [address] VIRAST [Catalytic activity/Vol]13 U/LNormal<=41 [facility] MemorialComment on above:Performed By: #### CMP ####[address] [address] VIRBilirubin [Mass/Vol]1.0 mg/dLNormal0.3-1.2PGenesis HospitalComment on above: Performed By: #### CMP ####[address] [place] [address] VIRCalcium [Mass/Vol]8.8 mg/dLNormal8.5-10.5PNorthern [facility] HospitalComment on above:Performed By: #### CMP ####[facility] ([address] [place] [address] VIRChloride [Moles/Vol]97 mmol/BJlw33-803KrzYmhgtfHouston Methodist The Woodlands HospitalComment on above: Performed By: #### CMP ####[facility] ([address] [place] [address] VIRCO2 [Moles/Vol]28 mmol/SEinxzj80-72NqoCbcqaa [facility] HospitalComment on above:Performed By: #### CMP ####[facility] ([address] [place] [address] VIRCreatinine [Mass/Vol]0.53 mg/dLNormal0.40-1.00ProHouston Methodist The Woodlands HospitalComment on above: Result Comment: METHOD TRACEABLE TO IDMS STANDARDPerformed By: #### CMP ####[facility] ([address], [place] [address] VIREGFR (CKD-EPI) NON-RACE DEPENDENT>^90Normal>=60ProHouston Methodist The Woodlands HospitalComment on above:Result Comment: eGFR not reported due to non-numeric value for Creatinine. Reported eGFR is based on the CKD-EPI 2020 equation that does not use a race coefficient.Performed By: #### CMP ####[facility] ([address] [place] [address] VIRGlucose [Mass/Vol]93 mg/wPPauvnt14-80KpsHlcxfbHouston Methodist The Woodlands HospitalComment on above:Performed By: #### CMP ####[facility] ([address] [place] [address] VIRPotassium [Moles/Vol]3.3 mmol/LLow3.5-5.0[facility] Comment on above:Performed By: #### CMP ####[facility] ([address] [place] [address] VIRProtein [Mass/Vol]7.1 g/dLNormal 6.0-8.0ProLaurel Oaks Behavioral Health Center Jones HospitalComment on above:Performed By: #### CMP ####[facility] ([address], [place] [address] VIRSodium [Moles/Vol]137 mmol/CDyudjo728-194GpmFyotbuKettering Health Greene Memorial Comment on above:Performed By: #### CMP ####[facility] ([address] [place] [address] VIRUrea nitrogen [Mass/Vol]15 mg/dL Normal5-27ProHouston Methodist The Woodlands HospitalComment on above:Performed By: #### CMP ####[facility] ([address], [place] [address] VIRD-DIMERon 04-22-2025D DIMER<^253Abnils1-699NijJtdtmpKettering Health Greene Memorial Comment on above:Result Comment: Results <255 ng/mL DDU: The presensence of a VTE can safely be excluded with a negative D-Dimer result and Wells score. A negative result doesn't exclude the possibility of DIC. The test should be repeated along with other diagnostic tests if the patient's symptoms persist or worsen.Performed By: #### DDMR ####[facility] ([address], [place] VIRMAGNESIUMon 17-25-7865Fkspiqpsu [Mass/Vol]2.0 mg/dLNormal1.8-2.6ProHouston Methodist The Woodlands HospitalComment on above:Performed By: #### MG ####[facility] ([address] [address] VIRPROTIME AND INRon 50-20-8031ZLC0.2Romtbf4.9-1.2ProMedKaiser Foundation HospitalComment on above:Performed By: #### PINR ####[facility] ([address] VIRPT Coag (PPP) [Time]11.5 s Normal9.8-13.2Pro[facility] Developmental CenterComment on above:Performed By: #### PINR ####[facility] ([facility])[address] [place] [address] [place] [address] VIRTROP I, HIGH SENSITIVITY 1 HOURon [id number] I, HIGH SENSITIVITY4 ng/LNormal<16ProHouston Methodist The Wood[facility] HospitalComment on above:Performed By: #### [email or web address] ####[facility] ([facility])[address] [place] [address] [place] [address] VIRTROPONIN I, HIGH SENSITIVITY 0 HOURon 04-22-2025 TROPONIN I, HIGH SENSITIVITY3 ng/LNormal<16ProHouston [facility] Wood[facility] HospitalComment on above:Performed By: #### [email or web address] ####[facility] ([facility])[address] [place] [address] [place] [address] VIRXR CHEST 1 VWon [id number] CHEST 1 VWXR CHEST 1 VW XR CHEST 1 VW HISTORY: Chest pain, chest tightness, dizziness COMPARISON: 04/16/2025 FINDINGS: No pleural effusion, pneumothorax, or focal airspace opacity. Cardiomediastinal silhouette appears within normal limits given portable technique. IMPRESSION: * No evidence for acute pulmonary process. Approved by Resident: Arnaud Malone MD on 04/22/2025 5:34 PM I, Lucius Arroyo MD have personally reviewed the image(s) and agree with and/or edited the report Finalized by Lucius Arroyo MD on 04/22/2025 5:39 PMNormalProHouston Methodist The Woodlands HospitalPOCT EKGon [id number] Health SystemB-TYPE NATRIURETIC PEPTIDEon 74-72-5097Zlhjrajwglm peptide B (Bld) [Mass/Vol]85 pg/mLNormal<=100[facility] on above:Performed By: #### BNP #### [facility] ([facility]) [address] [place] [address] [place] [address] VIRBASIC METABOLIC PANELon 90-59-3262Hgnpj gap [Moles/Vol]13 mmol/LNormal5-15ProHouston Methodist The Woodlands HospitalComment on above:Performed By: #### BMP #### [facility] ([address] [place] [address] VIRCalcium [Mass/Vol]8.7 mg/dLNormal8.5-10.5PGenesis HospitalComment on above:Performed By: #### BMP #### [facility] ([address] [place] [address] VIRChloride [Moles/Vol]101 mmol/ZHiuzop45-974PpeYxvqegHouston Methodist The Woodlands HospitalComment on above:Performed By: #### BMP #### [facility] ([address] [place] [address] VIRCO2 [Moles/Vol]24 mmol/KBgpzzx86-64WyyGsgxoqGenesis HospitalComment on above:Performed By: #### BMP #### [facility] ([address] [place] [address] VIRCreatinine [Mass/Vol]0.61 mg/dLNormal0.40-1.00[facility] Greene MemorialComment on above:Result Comment: METHOD TRACEABLE TO IDMS STANDARDPerformed By: #### BMP #### [facility] ([address] [place] [address] VIREGFR (CKD-EPI) NON-RACE DEPENDENT>^90Normal>=60ProHouston Methodist The Woodlands HospitalComment on above:Result Comment: eGFR not reported due to non- numeric value for Creatinine. Reported eGFR is based on the CKD-EPI 2020 equation that does not use a race coefficient.Performed By: #### BMP #### [facility] ([address] [place] [address] VIRGlucose [Mass/Vol]190 mg/uMGano95-63BwfUnzfhtHouston Methodist The Woodlands HospitalComment on above:Performed By: #### BMP #### [facility] ([address] [place] [address] VIRPotassium [Moles/Vol]3.8 mmol/LNormal3.5-5.0ProHouston Methodist The Woodlands HospitalComment on above:Performed By: #### BMP #### [facility] ([address] [place] [address] VIRSodium [Moles/Vol]138 mmol/URwhkhr690-259PmeQrvyon [facility]remont HospitalComment on above:Performed By: #### BMP #### [facility] ([address] [place] [address] VIRUrea nitrogen [Mass/Vol]23 mg/dLNormal5-27ProHouston Methodist The Woodlands HospitalComment on above:Performed By: #### BMP #### [facility] ([address] [place] [address] VIRCBC WITH AUTO DIFFERENTIALon 84-36-2362LGLFQEZPU ABSOLUTE COUNT (10*3/UL) BY AUTOMATED COUNT0.1 10*3/uLNormal0.0-0.2PGenesis HospitalComhenry ford [facility] on above:Performed By: #### CBCA #### [facility] ([address] [address] VIRBASOPHILS RELATIVE PERCENT BY AUTOMATED COUNT0.5 %Normal [facility] Greene MemorialComment on above:Performed By: #### CBCA #### [facility] ([address] [address] VIRCELLAVISION DIFFERENTIAL TYPEAUTOMATED DIFFERENTIALNormal [facility] Greene MemorialComment on above:Performed By: #### CBCA #### [facility] ([address] [place] [address] VIREosinophils (Bld) [#/Vol]0.0 10*3/uLNormal0.0-0.4[facility] MemorialComment on above:Performed By: #### CBCA #### [facility] ([address] [address] VIREOSINOPHILS RELATIVE PERCENT BY AUTOMATED COUNT0.0 %Normal [facility] MemorialComhenry ford west bloom[facility] hospital on above:Performed By: #### CBCA #### [facility] ([address] [address] VIRErythrocyte distribution width (RBC) [Ratio]13.5 %Normal 11.5-15[facility] Greene MemorialComment on above:Performed By: #### CBCA #### [facility] ([address] [address] VIRHematocrit (Bld) [Volume fraction]39.5 %Wlmcix91-82 [facility] Greene MemorialComment on above:Performed By: #### CBCA #### [facility] ([address] [address] VIRHemoglobin (Bld) [Mass/Vol]13.4 g/wOHbpuex21.7-15.5 [facility] MemorialComment on above:Performed By: #### CBCA #### [facility] ([address] [address] VIRLYMPHOCYTES ABSOLUTE COUNT (10*3/UL) BY AUTOMATED COUNT1.2 10*3/uLNormal1.0-3.5PGenesis HospitalComment on above:Performed By: #### CBCA #### [facility] ([address] [address] VIRLYMPHOCYTES RELATIVE PERCENT BY AUTOMATED COUNT12.6 %Normal [facility] Greene MemorialComment on above:Performed By: #### CBCA #### [facility] ([address] [address] VIRMCH (RBC) [Entitic mass]28.1 kiJzciqz11-43LrnAgbncwHouston Methodist The Woodlands HospitalComment on above:Performed By: #### CBCA #### [facility] ([address] [place] [address] VIRMCHC (RBC) [Mass/Vol]33.9 g/fSPsnvju96-17LdpGrbgzyHouston Methodist The Woodlands HospitalComment on above:Performed By: #### CBCA #### [facility] ([address] [place] [address] VIRMCV (RBC) [Entitic vol]83 bZAocrlo83-583QdhOymghg Fremont HospitalComment on above:Performed By: #### CBCA #### [facility] ([address] [address] VIRMONOCYTES ABSOLUTE COUNT (10*3/UL) BY AUTOMATED COUNT0.2 10*3/uLNormal0.0-0.9[facility] MemorialComment on above:Performed By: #### CBCA #### [facility] ([address] [place] [address] VIRMONOCYTES RELATIVE PERCENT BY AUTOMATED COUNT1.9 %Normal [facility] Greene MemorialComment on above:Performed By: #### CBCA #### [facility] ([address] [place] [address] VIRNEUTROPHILS ABSOLUTE COUNT BY AUTOMATED COUNT8.4 10*3/uL High1.5-6.6ProHouston Methodist The Woodlands HospitalComment on above:Performed By: #### CBCA #### [facility] ([address] [address] VIRNEUTROPHILS RELATIVE PERCENT BY AUTOMATED COUNT85.0 %Normal [facility] Greene MemorialComment on above:Performed By: #### CBCA #### [facility] ([address] [place] [address] VIRPlatelet mean volume (Bld) [Entitic vol]7.0 fLNormal7-12 [facility] MemorialComment on above:Performed By: #### CBCA #### [facility] ([address] [place] [address] VIRPlatelets (Bld) [#/Vol]272 10*3/eJNdfngd308-823EpkXeprqb Fremont HospitalComment on above:Performed By: #### CBCA #### [facility] ([facility]) [address] [place] [address]. [place] [address] VIRRBC COUNT4.76 X10E12/LNormal3.8-5.2PGenesis HospitalComment on above:Performed By: #### CBCA #### [facility] ([address] [place] [address] VIRWBC (Bld) [#/Vol]9.8 10*3/uLNormal4-11ProHouston Methodist The Woodlands HospitalComment on above:Performed By: #### CBCA #### [facility] ([address] [place] [address] VIRD-DIMERon 04-16-2025D DIMER<^165Fpunfd7-030MfqYfqistKettering Health Greene MemorialComment on above:Result Comment: Results <255 ng/mL DDU: The presensence of a VTE can safely be excluded with a negative D-Dimer result and Wells score. A negative result doesn't exclude the possibility of DIC. The test should be repeated along with other diagnostic tests if the patient's symptoms persist or worsen.Performed By: #### DDMR #### [facility] ([address] [place] [address] VIRLIVER PANELon 36-12-3826Ymipuus [Mass/Vol]4.0 g/dLNormal 3.2-5.3PGenesis HospitalComment on above:Performed By: #### LIVR #### [facility] ([place] [address] [place] [address] VIRALP [Catalytic activity/Vol]51 U/FQpiqns02-636RjhNyljtjHouston Methodist The Woodlands HospitalComment on above:Performed By: #### LIVR #### [facility] ([place] [address] [place] [address] VIRALT [Catalytic activity/Vol]28 U/LNormal<=31ProMedKaiser Foundation HospitalComment on above:Performed By: #### LIVR #### [facility] ([place] [address] [place] [address] VIRAST [Catalytic activity/Vol]16 U/LNormal<=41ProHouston Methodist The Woodlands HospitalComment on above:Performed By: #### LIVR #### [place] [address] [place] [address] VIRBilirubin [Mass/Vol]0.5 mg/dLNormal0.3-1.2PGenesis HospitalComment on above:Performed By: #### LIVR #### [facility] ([address] [place] [address] VIRBilirubin.indirect [Mass/Vol]0.2 mg/dLNormal<=0.4ProHouston Methodist The Woodlands HospitalComment on above:Performed By: #### LIVR #### [place] [address] [place] [address] VIRProtein [Mass/Vol]7.2 g/dLNormal6.0-8.0ProHouston Methodist The Woodlands HospitalComment on above:Performed By: #### LIVR #### [place] [address] [place] [address] VIRTROP I, HIGH SENSITIVITY 1 HOURon 19-65-3943WGQKNZQR I, HIGH SENSITIVITY3 ng/LNormal<16ProHouston Methodist The Woodlands HospitalComment on above: Performed By: #### TNIHS1 #### [facility] ([facility]) [address] [address] VIRTROPONIN I, HIGH SENSITIVITY 0 HOURon 74-92-1385MUCUIIYT I, HIGH SENSITIVITY3 ng/LNormal<16[facility] Greene MemorialComment on above: Performed By: #### TNIHS0 #### [facility] ([facility]) [address] [address] VIRXR CHEST 2 VWSon 60-02-3073ZV CHEST 2 VWSXR CHEST 2 VWS XR CHEST 2 VWS HISTORY: Chest tightness, shortness breath, cough COMPARISON: 04/07/2025 TECHNIQUE: Frontal and lateral views of the chest obtained. FINDINGS: The cardiomediastinal silhouette is within normal limits. Pulmonary vasculature is unremarkable. Discoid like atelectasis at the left base otherwise no focal consolidation. No pleural effusions. No evidence of pneumothorax. IMPRESSION: * No radiographic evidence of acute cardiopulmonary process. Approved by Resident Sal Maddox MD on 04/16/2025 3:28 AM I, Linda Asher MD have personally reviewed the image(s) and agree with and/or edited the report Finalized by Linda Asher MD on 04/16/2025 3:54 [facility] VWSon 60-06-3126UA CHEST 2 VWSXR CHEST 2 VWS XR CHEST 2 VWS HISTORY: Cough in a former smoker with history of asthma, rule out pneumonia COMPARISON: Multiple prior chest radiographs most recent 08/08/2024 FINDINGS: PA and lateral upright films obtained. The cardiomediastinal silhouette is within normal limits. No pneumothorax or pleural effusion. No consolidation. Degenerative changes of the visualized thoracic spine. IMPRESSION: * No radiographic evidence of acute cardiopulmonary process. Approved by Betsy Stein MD on 04/07/2025 2:30 PM I, Alejandro Valladares MD have personally reviewed the image(s) and agree with and/or edited the report Finalized by Alejandro Valladares MD on 04/07/2025 3:53 PMNKettering Health DaytonXR Calcaneus - left 2 Viewson 12-74-2277Klbdkyi Result: 2 views left foot: Medial oblique, lateral (NWB heel): 01/16/2025: Unremarkable for acute osseous or joint pathology. No distinct radio opaque foreign body is identified. Unremarkable for soft tissue emphysema.[facility] HealthcareRadiology Study observation (narrative)[facility] HealthcareCreatinine W/GFR Point of Careon 28-94-3944Lyzuncoqhj [Mass/Vol]0.4 mg/dLLow0.51 - 1.19 mg/dLBon Fau[facility] Higgle [facility] - DublineGFR, POC- PINF [facility] CenterComment on above: These results are not intended for use in patients <18 years of age. eGFR results are calculated without a race factor using the 2021 CKD-EPI equation. Careful clinical correlation is recommended, particularly when comparing to results calculated using previous equations. The CKD-EPI equation is less accurate in patients with extremes of muscle mass, extra-renal metabolism of creatine, excessive creatine ingestion, or following therapy that affects renal tubular secretion. Interpretation and review of laboratory resultsAbnormalBon Memorial Health System Bon Memorial Health SystemCreatinine w/GFR, POCon 70-78-6373Gqsozlvhti [Mass/Vol] 0.4 mg/dLLow0.51-1.19Mer[facility] Health Willard HospitalGFR/1.73 sq M.predicted among non-blacks MDRD (S/P/Bld) [Vol rate/Area]mL/min/{1.73_m2}Normal>60MerMercy Medical Center Merced Dominican CampusComment on above:Result Comment: These results are not intended for use in patients <18 years of age. eGFR results are calculated without a race factor using the 2021 CKD-EPI equation. Careful clinical correlation is recommended, particularly when comparing to results calculated using previous equations. The CKD-EPI equation is less accurate in patients with extremes of muscle mass, extra-renal metabolism of creatine, excessive creatine ingestion, or following therapy that affects renal tubular secretion.MR Brain WO and W contrast Nela . No acute findings. 2. 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 3. Encephalomalacia in the right temporal occipital region with surrounding gliosis. 4. Scattered mild chronic microvascular white matter ischemic disease. MORENITA LEAEXAM: MRI BRAIN WITH AND WITHOUT CONTRAST 01/01/2025 [...] the undersurface of the right tentorium measuring 11x 11 x 8 mm, slightly increased over serial exams dating back to 07/18/2023. ORBITS: No acute abnormality. SINUSES: No acute abnormality. BONES AND SOFT TISSUES: Right-sided craniotomy. No other areas of abnormal enhancement. [facility] Orion Hurtado MD - 01/01/2025 EXAM: MRI BRAIN WITH [...] the undersurface of the right tentorium measuring 11x 11 x 8 mm, slightly increased over serial exams dating back to 07/18/2023. ORBITS: No acute abnormality. SINUSES: No acute abnormality. BONES AND SOFT TISSUES: Right-sided craniotomy. No other areas of abnormal enhancement. IMPRESSION: 1. No acute findings. 2. 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 3. Encephalomalacia in the right temporal occipital region with surrounding gliosis. 4. Scattered mild chronic microvascular white matter ischemic disease. [facility] Hospital CenterRadiology Study observation (narrative)[facility] Brain WO and W contrast IVOrdered By: rOion Henao on 33-65-9430OxtReston Hospital Center Work Phone: MRI BRAIN W WO CONTRASTon 07-76-6711MYW BRAIN W WO CONTRASTEXAM: MRI BRAIN WITH AND WITHOUT CONTRAST 01/01/2025 [...] the undersurface of the right tentorium measuring 11x 11 x 8 mm, slightly increased over serial exams dating back to 07/18/2023. ORBITS: No acute abnormality. SINUSES: No acute abnormality. BONES AND SOFT TISSUES: Right-sided craniotomy. No other areas of abnormal enhancement. IMPRESSION: 1. No acute findings. 2. 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 3. Encephalomalacia in the right temporal occipital region with surrounding gliosis. 4. Scattered mild chronic microvascular white matter ischemic disease. Interpreted by: Orion Henao MD Signed by: Orion Henao MD 01/01/25 Final resultNormalMerMercy Medical Center Merced Dominican CampusXR CHEST 2 VWSon 10-68-2944TF CHEST 2 VWSXR CHEST 2 VWS PA and lateral chest: HISTORY: Chest pain. 2 views of the chest are obtained. Cardiac and mediastinal contours are within normal limits. Lungsare clear. There is no vascular congestion, effusion, or pneumothorax. Osseous structures appear intact. IMPRESSION: No acute findings. Finalized by Brodie Mcknight MD on 08/09/2024 4:20 PMNormalKettering Health Greene MemorialCreatinine W/GFR Point of Careon 76-92-7749Jajvetjukn [Mass/Vol]0.5 mg/dLLow0.51 - 1.19 mg/dLBon Memorial Health SystemeGFR, POC- PINFBon Memorial Health SystemComment on above: These results are not intended [...] tubular secretion. Interpretation and review of laboratory resultsAbnormalBon Memorial Health System Bon Memorial Health SystemCreatinine w/GFR, POCon 55-18-9076Cxomomurni [Mass/Vol] 0.5 mg/dLLow0.51-1.19Mer[facility] Willard HospitalGFR/1.73 sq M.predicted among non-blacks MDRD (S/P/Bld) [Vol rate/Area]mL/min/{1.73_m2}Normal>60MerMercy Medical Center Merced Dominican CampusComment on above:Result Comment: These results are not intended for [...] or following therapy that affects renal tubular secretion.MR Brain WO and W contrast Nela 44-24-0173Aiyrboewx extra-axial lesion along the right cerebellar tentorium projecting over the superior aspect of the right cerebellar hemisphere demonstrating progressive slow growth across exams since 06/06/2017. Minimal interval growth since MRI of the brain dated 07/18/2023. Finding is concerning for recurrence. Postoperative changes as detailed. No acute intracranial infarction or hemorrhage. [facility] RIS CONSOLIDATEDEXAMINATION: MRI OF THE BRAIN WITHOUT AND WITH [...] The soft tissues demonstrate no acute abnormality. Casa Jacobs MD - 07/14/2024 EXAMINATION: MRI OF THE BRAIN WITHOUT AND [...] detailed. No acute intracranial infarction or hemorrhage. [facility] CenterRadiology Study observation (narrative)[facility] Brain WO and W contrast IVOrdered By: Casa Michelle on [id number] Hospital Center Work Phone: MRI BRAIN W WO CONTRASTon 64-52-3670QGK BRAIN W WO CONTRASTEXAMINATION: MRI OF THE BRAIN WITHOUT AND WITH [...] Signed by: Casa Michelle MD 07/14/24 Final resultNormalMercy Arrowhead Regional Medical CenterNo Panel Informationon . Photopenic area in the right temporoparietal area of the brain consistent with encephalomalacia from prior surgery/tumor resection. 2. No abnormal radiotracer uptake in the neck, chest, abdomen, pelvis, or lower extremities to suggest metastasis. [facility] RIS CONSOLIDATEDEXAMINATION: WHOLE BODY PET/CT WITH LOWER EXTREMITIES. 10/05/2022 [...] right greater than left. Moderate stool burden. [facility] Mana Ortega MD - 10/07/2022 EXAMINATION: WHOLE BODY PET/CT [...] pelvis, or lower extremities to suggest metastasis. [employer] Phone: No Panel InformationOrdered By: Mana Nielson on [id number] Phone: no Panel Informationon 64-38-6535Eyeptenop Study observation (narrative)[employer] Phone: pOC Glucose Fingerstickon 34-54-7300Gewnlor [Mass/Vol] 86 mg/dL65 - 105 mg/dLBON LEAD-DEADWOOD REGIONAL HOSPITALCreatinine W/GFR Point of Care 08-16-1840Betukqqnin [Mass/Vol]0.67 mg/dL0.51 - 1.19 mg/dLBON KINDRED HOSPITAL DAYTONeGFR, POCmL/min/1.09k2NVE [facility] Comment on above: Effective Mar 20, 2022 [...] following therapy that affects renal tubular secretion. BON [facility] DAYTONCreatinine W/GFR Point of [facility] 75-37-1622Zjctmsbqwr [Mass/Vol]0.52 mg/dL0.51 - 1.19 mg/dLPremier Health Atrium Medical Center, KYGFR Non->60>60 mL/minPremier Health Atrium Medical Center, KYGFR/1.73 sq M predicted among non- blacks MDRD (S/P/Bld) [Vol rate/Area]mL/min/{1.73_m2}>60 mL/minPremier Health Atrium Medical Center, KYGFR/1.73 sq M predicted among non-blacks MDRD (S/P/Bld) [Vol rate/Area][facility], KYComment on above:Average GFR for 60-69 years old: 85 mL/min/1.73sq m Chronic Kidney Disease: <60 mL/min/1.73sq m Kidney failure: <15 mL/min/1.73sq m eGFR calculated using average adult body mass. Additional eGFR calculator available at: http://www.[employer] [place]/multiple_crcl_2011.htm MRI BRAIN W WO CONTRASTon 33-16-9899Nnljlmharybf change from prior mass resection involving the right temporal and right occipital lobes. No evidence for residual or recurrent mass. No acute intracranial abnormality.[facility], KYEXAMINATION: MRI OF THE BRAIN WITHOUT AND WITH CONTRAST 06/16/2020 1:39 pm TECHNIQUE: Multiplanar multisequence MRI of the head/brain was performed without and with the administration of intravenous contrast. COMPARISON: MRI brain performed 08/28/2018. HISTORY: ORDERING SYSTEM PROVIDED HISTORY: Ori ngiopericytoma, malignant (HCC) FINDINGS: INTRACRANIAL STRUCTURES/VENTRICLES: The sellar [...] structures are symmetric and unremarkable. The infratentorial stru ctures including the cerebellopontine angles and internal auditory canals are unremarkable. There is no abnormal restricted diffusion. There is no abnormal blooming artifact on susceptibility weighted imaging. There is no abnormal postcontrast enhancement. ORBITS: The visualized portion of the orbits demonstrate no acute abnormality. SINUSES: The visualized paranasal sinuses and mastoid air cellsare well aerated. BONES/SOFT TISSUES: The bone marrow signal intensity appears normal. The soft tissues demonstrate no acute abnormality. [facility] [place], [place], [facility] Incoming Radiant Results From [employer] - 06/16/2020 2:44 PM EST EXAMINATION: MRI [...] or recurrent mass. No acute intracranial abnormality. [facility] Atrium Medical CenterChasidy Summaryon 73-34-5701Lqomjn SummaryCODING DATE: 03/18/2018 [facility] STATUS: Home PAYOR: Medicaid HMO ADMIT [...] By: Candice Zeng Date Saved: 03/18/2018 06:09 [facility] Provider [place] 46-39-0930Pikydwq mass conc [id number]#1.00[facility] Provider [place] 34-38-1659Jcphtva mass conc [id number]#1.00[facility] HospitalBasic Metabolic Profon 02-02-2017(cont.)NormalMercy Health Willard HospitalComment on above:Result Comment: Average GFR for 60-69 years old: 85 mL/min/1.73sq mChronic Kidney Disease: <60 mL/min/1.73sq mKidney failure: <15 mL/min/1.73sq meGFR calculated using average adult body mass. Additional eGFR calculator available at:http://www.[employer] [place]/multiple_crcl_2012.htm[address] 99[address]808 ([phone] By: #### CDP, BMP ####[address] [place] [address] Anion gap12 mmol/LNormal9-17Mer[facility] Health Willard HospitalComment on above:Performed By: #### JONAS, BMP ####[address] [place] [address] Calcium8.0 mg/dLLow8.6-10.4Mer[facility] Health Willard HospitalComment on above: Performed By: #### JONAS, BMP ####[address] [place] [address] Gtgkvwpu387 mmol/TBpjnpb68-537RwwsvMercy Health Willard Hospital Comment on above:Performed By: #### JONAS, BMP ####[address] [place] [address] KB248 mmol/CGhapkc34-38QpwmdMercy Health Willard HospitalComment on above:Performed By: #### JONAS, BMP ####[address] [place] [address] Dsvyintnko6.25 mg/dLLow0.50-0.90Mer[facility] Health Willard HospitalComment on above:Performed By: #### JONAS, BMP ####[address] [place] [address] eGFR (non-black) mL/min/{1.73_m2}Normal>60Mer[facility] Health Willard HospitalComment on above: Performed By: #### JONAS, BMP ####[address] [place] [address] Glucose mass ojby163 mg/dZOokw77-84HkfyzFountain Valley Regional Hospital and Medical CenterComment on above:Performed By: #### JONAS, BMP ####[address] [place] [address] Potassium molar conc3.7 mmol/LNormal 3.7-5.3MFountain Valley Regional Hospital and Medical CenterComment on above:Performed By: #### JONAS, BMP ####Kimmie Dvsftmzelssb8091 [place] [phone] mmol/FMlonib348-775YchxdMercy Health Willard HospitalComment on above:Performed By: #### CDP, BMP ####Kimmie Rdlnusjdudwe[address] [place] [address] 16455 Urea wlgpqhuu99 mg/dLNormal8-23Mer[facility] Willard HospitalComment on above:Performed By: #### CDP, BMP ####[facility] SystemVoxer LLCBsavxymjnoid697[address] [place] [address] BUN/CRE RatioNOT REPORTEDNormal9-20[facility] Willard HospitalComment on above:Performed By: #### JONAS, BMP ####[address] [phone]:NOT REPORTED NormalMercy Health Willard HospitalComment on above:Performed By: #### JONAS, BMP ####Kimmie Kygapbzsjgxi[address] [place] [address] CBC with Diffon [id number]. Basophil0.10 k/uLNormal0.0-0.2MFountain Valley Regional Hospital and Medical CenterComment on above:Result Comment: [facility] [address] [place] [address] Performed By: #### JONAS, BMP ####[address] [address] Abs.Neutrophil (Seg) 11.40 k/uLHigh1.8-7.7Mer[facility] Health Willard HospitalComment on above:Performed By: #### CDP, BMP ####SuadVoxer LLCHpvagaqktbgr6406[address] [place] [address] Basophils/100 WBC Auto (Bld)0 %NormalMercy Health Willard HospitalComment on above:Performed By: #### CDP, BMP ####[facility] [address] [place] [address], [place] [address] Tybddabvzom9.00 10*3/uLNormal0.0-0.4Mer[facility] Health Willard HospitalComment on above:Performed By: #### CDP, BMP ####Kimmie [address] [address] Eosinophils/100 leukocytes0 %NormalMercy Health Willard HospitalComment on above:Performed By: #### CDP, BMP ####Kimmie [address] [address] Erythrocyte distribution width Auto Ratio (RBC)13.8 %Normal 12.5-15.4Mer[facility] Health Willard HospitalComment on above:Performed By: #### CDP, BMP ####[facility] Systemameena [address] [address] Erythrocytes (RBC)2.84 10*6/uLLow4.0-5.2MFountain Valley Regional Hospital and Medical CenterComment on above:Performed By: #### CDP, BMP ####[address] [address] Hematocrit (HCT)24.0 %Viv43-15QezwsMercy Health Willard HospitalComment on above:Performed By: #### CDP, BMP ####[facility] Systemameena [address] [address] Hemoglobin mass conc (Bld)8.2 g/dLLow12.0-16.0Mer[facility] Health Willard HospitalComment on above: Performed By: #### CDP, BMP ####[address] [address] Oxuqsblyqda3.30 10*3/uLNormal1.0-4.8Mer[facility] Health Willard HospitalComment on above:Performed By: #### CDP, BMP ####[address] [address] Lymphocytes/100 leukocytes9 %NormalMercy Health Willard HospitalComment on above:Performed By: #### CDP, BMP ####Kimmie [address] [address] YHN34.0 iyZuhfla83-16 [facility] Willard HospitalComment on above:Performed By: #### CDP, BMP ####Kimmie [address] [address] MCHC mass conc (RBC)34.4 g/rLXplqrd99-92LeejxMercy Health Willard HospitalComment on above: Performed By: #### CDP, BMP ####[facility] Systemameena [address] [address] GXM22.4 hRQjujsl90-024ZfcjkMercy Health Willard HospitalComment on above:Performed By: #### CDP, BMP ####[address] [address] Qweaainaw6.90 10*3/uLNormal0.1-1.2MFountain Valley Regional Hospital and Medical CenterComment on above:Performed By: #### CDP, BMP ####Kimmie [address] [address] Monocytes/100 leukocytes 7 %NormalMercy Health Willard HospitalComment on above:Performed By: #### CDP, BMP ####[address] [address] Neutrophil (Seg)84 %NormalMercy Health Willard HospitalComment on above: Performed By: #### CDP, BMP ####Suad[address] [address] Platelet mean volume (PMV)6.9 fLNormal6.0-12.0Mer[facility] Health Willard HospitalComment on above:Performed By: #### CDP, BMP ####[facility] Systemamenea [address] [address] Ehnqnstek517 10*3/uL Mahjjf664-978KfannMercy Health Willard HospitalComment on above:Performed By: #### JONAS, BMP ####[facility]cy Jroqfhqvcczd9413 [place] [address] WBC (Leukocytes)13.6 10*3/uLHigh3.5-11.0MerMercy Medical Center Merced Dominican CampusComment on above:Performed By: #### CDP, BMP ####[facility] Meiwiktaacfn0114 [place], [place] [phone] Diff PerformedNOT REPORTEDThe Bellevue HospitalComment on above:Performed By: #### JONAS, BMP ####[facility] Oawuffoquzul3779 [place], [place] [phone] morphology NOT REPORTEDNoKing's Daughters Medical Center OhioComment on above:Performed By: #### JONAS, BMP ####Kimmie Rgzdolynfwdi3821 [place] [address] PlateletsNOT REPORTEDThe Bellevue HospitalComment on above: Performed By: #### JONAS, BMP ####[facility] Pkoryinmsrcm2565 [place], [place] [phone] MorphologyNOT REPORTEDThe Bellevue HospitalComment on above:Performed By: #### JONAS, BMP ####[facility] Dwiyhkplntjj[address] [place] [address] [phone] Summaryon [id number] IP Note OR TranscriptionNormalMercy Health Willard HospitalBasic Metabolic Profon 02-01-2017(cont.)NormalMercy Health Willard HospitalComment on above:Result Comment: Average GFR for 60-69 years old: 85 mL/min/1.73sq mChronic Kidney Disease: <60 mL/min/1.73sq mKidney failure: <15 mL/min/1.73sq meGFR calculated using average adult body mass. Additional eGFR calculator available at:http://www.[employer] [place]/multiple_crcl_2012.htmUniversity [facility]als [facility] [address] [place] [address] Performed By: #### JONAS, BMP ####Kimmie Ofiesdxxatmx3092 [place] [address] Anion gap11 mmol/LNormal 9-17Mer[facility] Willard HospitalComment on above:Performed By: #### JONAS, BMP ####Suady Jigjucmringb7299 [place] [address] Estngpu3.6 mg/dLLow8.6-10.4Mer[facility] Health Willard HospitalComment on above:Performed By: #### JONAS, BMP ####Kimmie Llexqtsbeila5932 [place] [address] Yiwcjkih606 mmol/FYqvsbq83-210XirzyMercy Health Willard HospitalComment on above: Performed By: #### JONAS, BMP ####Kimmie Bcrmrrdlanxm4312 [place] [address] PC232 mmol/LGpthgi34-26DjqvoMercy Health Willard HospitalComment on above:Performed By: #### JONAS, BMP ####Kimmie Jxfntkfjbdha4195 [place] [address] Osuvxrrnpt1.26 mg/dLLow0.50-0.90Mer[facility] Health Willard HospitalComment on above:Performed By: #### JONAS, BMP ####Suady Treyuqbavfcb0346 [place] [address] eGFR (non-black) mL/min/{1.73_m2}Normal>60Mer[facility] Willard HospitalComment on above: Performed By: #### JONAS, BMP ####Suady Rfhbjderwcrd0739 [place] [address] Glucose mass ycwr731 mg/mIXjem28-28IhdiyFountain Valley Regional Hospital and Medical CenterComment on above:Performed By: #### JONAS, BMP ####[facility]cy Nzojtruheqqt4782 [place] [address] Potassium molar conc3.9 mmol/LNormal 3.7-5.3MFountain Valley Regional Hospital and Medical CenterComment on above:Performed By: #### JONAS, BMP ####Kimmie Fpfzlqsjmiqh[address] [place] [address] Sodium139 mmol/SNxgfwz234-776RfmsuMercy Health Willard HospitalComment on above:Performed By: #### JONAS, BMP ####Kimmie Lqpshywgvgud[address] [place] [address] 12075 Urea dacqhjpb51 mg/dLNormal8-23Mer[facility] Will[facility] HospitalComment on above:Performed By: #### JONAS, BMP ####Kimmie Iabhfttfkacm[address] [place] [address]3909 BUN/CRE RatioNOT REPORTEDNormal9-20[facility] Will[facility] HospitalComment on above:Performed By: #### JONAS, BMP ####Kimmie Nmrshjzmuuqw[address] [place] [address] Staging:NOT REPORTED NormalMercy Health Willard HospitalComment on above:Performed By: #### JONAS, BMP ####Kimmie Zjvejzizyzhy[address] [place] [address] CBC with Diffon [id number]. Basophil0.00 k/uLNormal0.0-0.2MFountain Valley Regional Hospital and Medical CenterComment on above:Result Comment: [employer] [facility] [place] [address] [phone] By: #### JONAS, BMP ####[facility] SystemVoxer LLCHzxsxkxorsds089[address] [place] [address] Abs.Neutrophil (Seg) 16.30 k/uLHigh1.8-7.7Mer[facility] Willard HospitalComment on above:Performed By: #### JONAS, BMP ####Kimmie Lxmrskwkkclv4[address] [place] [address] Basophils/100 WBC Auto (Bld)0 %NormalMercy Health Willard HospitalComment on above:Performed By: #### CDP, BMP ####Kimmie Bwgncxrsbukm4215 [place] [address] Iqdkukbghkn4.00 10*3/uLNormal0.0-0.4[facility] Will[facility] HospitalComment on above:Performed By: #### CDP, BMP ####Suady Iiadilqyslee[address] [place] [address] Eosinophils/100 leukocytes0 %NormalMercy Health Willard HospitalComment on above:Performed By: #### CDP, BMP ####Kimmie [address] [address] Erythrocyte distribution width Auto Ratio (RBC)13.6 %Normal 12.5-15.4Mer[facility] Willard HospitalComment on above:Performed By: #### CDP, BMP ####Kimmie Ggxqexxxwmtp24[address] [place] [address] Erythrocytes (RBC)2.94 10*6/uLLow4.0-5.2MFountain Valley Regional Hospital and Medical CenterComment on above:Performed By: #### CDP, BMP ####Kimmie Wnhqokcqrfwr[address] [place] [address] Hematocrit (HCT)24.4 %Jml77-29ScoesMercy Medical Center Merced Dominican CampusComment on above:Performed By: #### CDP, BMP ####Kimmie Ywdxddgyyxkw3082 [place] [address] Hemoglobin mass conc (Bld)8.6 g/dLLow12.0-16.0Mer[facility] Willard HospitalComment on above: Performed By: #### CDP, BMP ####Kimmie Rqyjpddzwwrh[address] [place] [address] Ltorhqqxeio6.10 10*3/uLNormal1.0-4.8Mer[facility] Will[facility] HospitalComment on above:Performed By: #### CDP, BMP ####Kimmie [address] [address] Lymphocytes/100 leukocytes6 %NormalMercy Health Willard HospitalComment on above:Performed By: #### CDP, BMP ####Kimmie [address] [address] VAM83.3 euUmqbkp58-43 [facility] HospitalComment on above:Performed By: #### CDP, BMP ####Kimmie [address] [address] MCHC mass conc (RBC)35.3 g/qACtofmm89-37GkeglMercy Health Willard HospitalComment on above: Performed By: #### CDP, BMP ####[facility]ame[facility] [address] [address] MJI99.0 sKQoycel11-514WvrepMercy Health Willard HospitalComment on above:Performed By: #### CDP, BMP ####[address] [address] Gelacmrmi0.50 10*3/uLHigh0.1-1.2MFountain Valley Regional Hospital and Medical CenterComment on above:Performed By: #### CDP, BMP ####Kimmie [address] [address] Monocytes/100 leukocytes 8 %NormalMercy Health Willard HospitalComment on above:Performed By: #### CDP, BMP ####[address] [address] Neutrophil (Seg)86 %NormalMercy Health Willard HospitalComment on above: Performed By: #### CDP, BMP ####[address] [address] Platelet mean volume (PMV)6.9 fLNormal6.0-12.0Mer[facility] Willard HospitalComment on above:Performed By: #### CDP, BMP ####Kimmie [address] [phone] 10*3/uL Acyfjt154-624IzylzMercy Health Willard HospitalComment on above:Performed By: #### CDP, BMP ####Kimmie [address] [address] WBC (Leukocytes)18.9 10*3/uLHigh3.5-11.0Mer[facility] Will[facility] HospitalComment on above:Performed By: #### JONAS, BMP ####Kimmie [address] [address] Auto Diff PerformedNOT REPORTEDNoKing's Daughters Medical Center OhioComment on above:Performed By: #### CDP, BMP ####[facility] SystemOxigene [address] [address] Erythrocyte morphology NOT REPORTEDNoKing's Daughters Medical Center OhioComment on above:Performed By: #### JONAS, BMP ####[facility] Systemame[facility] [address] [address] PlateletsNOT REPORTEDThe Bellevue HospitalComment on above: Performed By: #### CDP, BMP ####[address] [address] WBC MorphologyNOT REPORTEDThe Bellevue HospitalComment on above:Performed By: #### CDP, BMP ####[facility] SystemOxigene [address] [address] Calcium, Ionicon 93-57-9689Djimrdx5.11 mmol/LLow1.13-1.33Mer[facility] Willard HospitalComment on above:Result Comment: [employer] [address] [place] [address] Performed By: #### IOCAL ####[address] [address] CBC with Diffon [id number]. Basophil0.00 k/uLNormal0.0-0.2 [facility] Will[facility] HospitalComment on above:Performed By: #### CDP ####[address] [address] Abs.Neutrophil (Seg)16.47 k/uLHigh1.8-7.7Mer[facility] Willard HospitalComment on above: Performed By: #### CDP ####[address] [address] Basophils/100 WBC Auto (Bld)0 %NormalMercy Health Willard HospitalComment on above:Performed By: #### CDP ####[address] [phone] morphologyNormalNormalMercy Health Willard HospitalComment on above:Result Comment: [address] [address] Performed By: #### CDP ####[address] [address] Azjxfbkjqtx7.00 10*3/uL Normal0.0-0.4Mer[facility] Willard HospitalComment on above:Performed By: #### CDP ####[address] [address] Eosinophils/100 leukocytes0 %NormalMercy Health Willard HospitalComment on above:Performed By: #### CDP ####[address] [address] Fnnqlzxhvss6.37 10*3/uLNormal1.0-4.8Mer[facility] Willard HospitalComment on above:Performed By: #### CDP ####[address] [place] [address] Lymphocytes/100 leukocytes7 %NormalMercy Health Willard HospitalComment on above:Performed By: #### CDP ####[address] [place] [phone] 10*3/uL High0.1-1.2MFountain Valley Regional Hospital and Medical CenterComment on above:Performed By: #### CDP ####[address] [address] Monocytes/100 leukocytes9 %NormalMercy Health Willard HospitalComment on above:Performed By: #### CDP ####[address] [address] Neutrophil (Seg)84 %NormalMercy Health Willard Hospital Comment on above:Performed By: #### CDP ####[address] [address] Erythrocyte distribution width Auto Ratio (RBC) 13.8 %Kflqll74.5-15.4Mer[facility] Willard HospitalComment on above:Performed By: #### CDP ####[address] [address] Erythrocytes (RBC)3.19 10*6/uLLow4.0-5.2MFountain Valley Regional Hospital and Medical CenterComment on above:Performed By: #### CDP ####[address] [phone] (HCT)26.8 %Cpa29-33QvjzoMercy Health Willard Hospital Comment on above:Performed By: #### CDP ####[facility] [place] [address] Hemoglobin mass conc (Bld)9.4 g/dLLow12.0-16.0 [facility] Willard HospitalComment on above:Performed By: #### CDP ####[address] [place] [phone] pg Tyoelt72-53AbachMercy Health Willard HospitalComment on above:Performed By: #### CDP ####Kimmie [address] [place] [address] MCHC mass conc (RBC)35.1 g/nLDbfdyj10-49HeoulMercy Health Willard HospitalComment on above: Performed By: #### CDP ####Kimmie [address] [place] [address] ESM06.8 wPQrcslv73-789NcwwvMercy Health Willard HospitalComment on above:Performed By: #### CDP ####Kimmie [address] [address] Platelet mean volume (PMV)7.3 fLNormal6.0-12.0Mer[facility] Will[facility] HospitalComment on above:Performed By: #### CDP ####Kimmie [address] [phone] 10*3/uL Tikjlw396-605SziurMercy Health Willard HospitalComment on above:Performed By: #### CDP ####Kimmie [address] [address] WBC (Leukocytes)19.6 10*3/uLHigh3.5-11.0Mer[facility] Will[facility] HospitalComment on above:Performed By: #### CDP ####Kimmie [address] [place] [address] Auto Diff PerformedNOT REPORTEDThe Bellevue HospitalComment on above:Performed By: #### CDP ####[facility]ame[facility] [address] [address] Erythrocyte morphologyNOT REPORTEDThe Bellevue HospitalComment on above:Performed By: #### CDP ####[address], [place] [phone] REPORTED The Bellevue HospitalComment on above:Performed By: #### CDP ####Kimmie [address] [phone] Morphology NOT REPORTEDNormalMercy Health Willard HospitalComment on above:Performed By: #### CDP ####[address] [phone] Metabolic Profon 01-31-2017(cont.)The Bellevue HospitalComment on above:Result Comment: Average GFR for 60-69 years old: 85 mL/min/1.73sq mChronic Kidney Disease: <60 mL/min/1.73sq mKidney failure: <15 mL/min/1.73sq meGFR calculated using average adult body mass. Additional eGFR calculator available at:http://www.[employer] [place]/multiple_crcl_2011.htm[address] [address] [phone] By: #### CP ####[address] [phone] aminotransferase (ALT)16 U/LNormal5-33[facility] HospitalComment on above:Performed By: #### CP ####[address] [address] Albumin2.7 g/dLLow3.5-5.2[facility] Medical CenterComment on above: Performed By: #### CP ####[address] [phone]/Globulin Ratio1.6 {ratio}Normal1.0-2.5Mer[facility] Will[facility] HospitalComment on above:Performed By: #### CP ####[address] [phone] Phos23 U/LLow 35-104Mer[facility] Willard HospitalComment on above:Performed By: #### CP ####Kimmie Wyvrcqnqnodf4078 [place] [address] Anion gap13 mmol/LNormal9-17[facility] Will[facility] HospitalComment on above:Performed By: #### CP ####[address] [place] [address] Aspartate aminotransferase (AST)8 U/LNormal<32[facility] Comment on above:Performed By: #### CP ####[address] [place] [address] Bilirubin Ql (U)0.42 mg/dLNormal0.3-1.2MFountain Valley Regional Hospital and Medical CenterComment on above:Performed By: #### CP ####[address] [address] Pejjhzz0.8 mg/dLLow 8.6-10.4[facility] Will[facility] HospitalComment on above:Performed By: #### CP ####[address] [place] [address] Dixgpbyh731 mmol/TVrhv43-059QeogvMercy Health Willard HospitalComment on above:Performed By: #### CP ####[facility] Qjvhdldciacq5223 [place] [address] QR050 mmol/JReu55-86CqjnaMercy Health Willard HospitalComment on above:Performed By: #### CP ####[facility] Jlqvcowtlbjw3068 [place] [address] Creatinine0.31 mg/dLLow0.50-0.90Mer[facility] Willard HospitalComment on above:Performed By: #### CP ####[facility] [place] [address] eGFR (non-black)mL/min/{1.73_m2}Normal>60Mer[facility] Willard HospitalComment on above:Performed By: #### CP ####[address] [address] Glucose mass mssn854 mg/hXYwpo51-40YzepoFountain Valley Regional Hospital and Medical CenterComment on above:Performed By: #### CP ####[address] [address] Potassium molar conc3.6 mmol/LLow3.7-5.3MFountain Valley Regional Hospital and Medical CenterComment on above:Performed By: #### CP ####[address] [address] Protein4.4 g/dLLow6.4-8.3MFountain Valley Regional Hospital and Medical CenterComment on above: Performed By: #### CP ####[address] [phone] mmol/CGiagrm263-353YzzjiMercy Health Willard Hospital Comment on above:Performed By: #### CP ####[address] [address] Urea dpqhsxoe04 mg/dLNormal8-23[facility] HospitalComment on above:Performed By: #### CP ####[address] [address] BUN/CRE RatioNOT REPORTEDNormal9-20[facility] HospitalComment on above:Performed By: #### CP ####[address] [phone]:NOT REPORTED NormalMercy Health Willard HospitalComment on above:Performed By: #### CP ####[address] [phone], Bloodon [id number], BloodSpecimen Description .BLOOD Special Requests LT HAND 6ML Culture NO GROWTH 6 DAYS Report Status FINAL 01/31/2017The Bellevue HospitalComment on above:Performed By: #### BCUL2 ####SuadOxigene Kcyqblaljbez5047 [place], [place] 4838[address] Cult,Bloodon [id number],BloodSpecimen Description .BLOOD Special Requests LT ARM 3ML Culture NO GROWTH 6 DAYS Report Status FINAL 01/31/2017The [facility]vue HospitalComment on above:Performed By: #### BC ####[address]kmkczh[address] [place] [address] MRI BRAIN W WO CONTRASTon [id number] BRAIN W WO CONTRAST EXAMINATION:MRI OF THE BRAIN WITHOUT AND WITH CONTRAST 01/31/2017 2:27 amTECHNIQUE:Multiplanar multisequence MRI of the head/brain was performed without andwith the administration of intravenous contra st.COMPARISON:01/25/2017, 01/29/2017, CT head January 30, 2017HISTORY:ORDERING SYSTEM PROVIDED HISTORY: S/P tumor resectionFINDINGS:INTRACRANIAL STRUCTURES/VENTRICLES: Right parieto-occipital craniotomydefect with right posterior temporal occipital resection cavity. Extra-axialfluid measuring approximately 8 mm with mild pneumocephalus noted. Resectioncavity contains T1 hyperintense subacute bloodproduct. Leftward midlineshift of 8 mm. Right parietal, [...] surveillance recommended.Interpreted by:ANNA Friasigned by:Maximo Mercer MD01/31/17Final resultNormalMercy Health Willard Hospital APTTon [id number] jCpqksu36.3-31.3[facility] Comment on above:Result Comment: [address] [address] Performed By: #### BMP ####[address] [phone] Metabolic Profon 01-30-2017(cont.)Normal [facility] Willard HospitalComment on above:Result Comment: Average GFR for 60-69 years old: 85 mL/min/1.73sq mChronic Kidney Disease: <60 mL/min/1.73sq mKidney failure: <15 mL/min/1.73sq meGFR calculated using average adult body mass. Additional eGFR calculator available at:http://www.[employer] [place]/multiple_crcl_2012.htm[address] [address] Performed By: #### CBC, BMP ####[address] [phone] gap13 mmol/LNormal 9-17[facility] Will[facility] HospitalComment on above:Performed By: #### CBC, BMP ####[facility] Zhqcf[address] [place] [address] Cgspakm0.8 mg/dLLow8.6-10.4[facility] Will[facility] HospitalComment on above:Performed By: #### CBC, BMP ####[facility] [address]xnrjm[address] [place] [address] Veeqixhz114 mmol/NGzzvqo45-392TgutnMercy Health Willard HospitalComment on above: Performed By: #### CBC, BMP ####Kimmie Bfhjcpgqwace9740 [place] [address] SF100 mmol/OLiqktu52-54HwoykMercy Health Willard HospitalComment on above:Performed By: #### CBC, BMP ####Kimmie Wlxssgdbqstg9137 [place] [address] Gzmuahhxwh1.74 mg/dLNormal0.50-0.90Mer[facility] Willard HospitalComment on above:Performed By: #### CBC, BMP ####Kimmie [address]aryllmzz[address] [place] [address] eGFR (non-black) mL/min/{1.73_m2}Normal>60Mer[facility] Willard HospitalComment on above: Performed By: #### CBC, BMP ####Kimmie Fysutzgxbcdu[address] [place] [address] Glucose mass fnvy925 mg/pQHpjg82-85UrzduFountain Valley Regional Hospital and Medical CenterComment on above:Performed By: #### CBC, BMP ####Kimmie Olggmggtvdwg5308 [place] [address] Potassium molar conc4.2 mmol/LNormal 3.7-5.3MFountain Valley Regional Hospital and Medical CenterComment on above:Performed By: #### CBC, BMP ####Kimmie Ujpbredouzsv0620 [place] [address] Lvvkhc197 mmol/GTapvvm596-197EvaqoMercy Health Willard HospitalComment on above:Performed By: #### CBC, BMP ####Suady Shfnxenvwjnk3456 [place] [address] Urea mg/dLNormal8-23[facility] Will[facility] HospitalComment on above:Performed By: #### CBC, BMP ####Mercy Wjgqoyutywex6526 [place] [address] BUN/CRE RatioNOT REPORTEDNormal9-20MerBaxter Regional Medical Centerent Medical CenterComment on above:Performed By: #### CBC, BMP ####Kmimie Frrpnaawvdse[address]388 [place] [address] Staging:NOT REPORTED NormalMercy Health Willard HospitalComment on above:Performed By: #### CBC, BMP ####Kimmie Jirxmvbdbldk7978 [place] [address] (cont.) NormalMercy Health Willard HospitalComment on above:Result Comment: Average GFR for 60-69 years old: 85 mL/min/1.73sq mChronic Kidney Disease: <60 mL /min/1.73sq mKidney failure: <15 mL/min/1.73sq meGFR calculated using average adult body mass. Additional eGFR calculator available at:http://www.[employer]/multiple_crcl_2012.htmMichelle Ville [address] [place] [address] Performed By: #### BMP ####[facility]ame[facility] Wwsiwmrhiqtp4278 [place] [phone] gap11 mmol/LNormal 9-17[facility] Willard HospitalComment on above:Performed By: #### BMP ####Kimmie Nzdmiiwaqsuc7574 [place] [address] Utomfci1.4 mg/dLLow8.6-10.4[facility]ard HospitalComment on above:Performed By: #### BMP ####Suady Alukpbjmozeh1405 [place] [address] Qjcdtaxe794 mmol/MDhmudo32-084HrlhkMercy Health Willard HospitalComment on above: Performed By: #### BMP ####Suady Wfodhswuzydh0146 [place] [address] XT523 mmol/UAjsvsv30-65MdbkwMercy Health Willard HospitalComment on above:Performed By: #### BMP ####Suady Xukjtckqnuuy6760 [place] [address] Lzyyjxcspz6.39 mg/dLLow0.50-0.90Mer[facility] Willard HospitalComment on above:Performed By: #### BMP ####Kimmie Lehman[address] [place] [address] eGFR (non-black)mL/min/{1.73_m2}Normal>60[facility] Will[facility] HospitalComment on above:Performed By: #### BMP ####Kimmie [address] [address] Glucose mass axgk260 mg/oNMefa31-14TqqdyFountain Valley Regional Hospital and Medical CenterComment on above:Performed By: #### BMP ####[address] [address] Potassium molar conc4.1 mmol/LNormal3.7-5.3MFountain Valley Regional Hospital and Medical Center Comment on above:Performed By: #### BMP ####Suad Qxvbivkfoonj[address] [place] [phone] mmol/NYpugto651-478HbfpbMercy Health Willard HospitalComment on above:Performed By: #### BMP ####Kimmie [address] [address] Urea ypuicalm52 mg/dLNormal8-23Mer[facility] Will[facility] HospitalComment on above:Performed By: #### BMP ####Suad[address] [address] BUN/CRE RatioNOT REPORTEDNormal9-20[facility] HospitalComment on above:Performed By: #### BMP ####[address] [address] Staging:NOT REPORTEDNormalMercy Health Willard HospitalComment on above: Performed By: #### BMP ####Suad[address] [address] CBCon 24-61-5738Crxfxdyxorf distribution width Auto Ratio (RBC)13.4 %Fpvjyr82.5-15.4Mer[facility] Health Willard HospitalComment on above: Performed By: #### CBC, BMP ####Kimmie [address] [address] Erythrocytes (RBC)3.76 10*6/uLLow4.0-5.2MercVan Ness campusComment on above:Performed By: #### CBC, BMP ####[facility] [address] [address] Hematocrit (HCT)31.8 % Ged18-52GimliMercy Health Willard HospitalComment on above:Performed By: #### CBC, BMP ####[address] [phone] mass conc (Bld)10.9 g/dLLow12.0-16.0Mer[facility] Willard HospitalComment on above:Performed By: #### CBC, BMP ####[address] [phone] tjSmebsl59-86YnublMercy Health Willard Hospital Comment on above:Performed By: #### CBC, BMP ####[address] [address] MCHC mass conc (RBC)34.4 g/xUXxhiza71-84UlcjnMercy Health Willard HospitalComment on above:Performed By: #### CBC, BMP ####[facility] [address] [address] NFD31.5 mMWtfibt08-442 [facility] HospitalComment on above:Performed By: #### CBC, BMP ####[address] [phone] mean volume (PMV)6.7 fLNormal6.0-12.0Mer[facility] Willard HospitalComment on above:Result Comment: [facility] [address] [place] [address] Performed By: #### CBC, BMP ####[address] [phone] 10*3/wQJabkrc521-275HwspbMercy Health Willard HospitalComment on above:Performed By: #### CBC, BMP ####[address] [address] WBC (Leukocytes)22.0 10*3/uLHigh3.5-11.0Mer[facility] Willard HospitalComment on above:Performed By: #### CBC, BMP ####[address] [address] CBC with Diffon 57-81-8721Snn. Basophil0.00 k/uLNormal0.0-0.2 [facility] HospitalComment on above:Result Comment: [facility] [address] [place] [address] Performed By: #### BMP ####[address] [address] Abs.Neutrophil (Seg)10.10 k/uLHigh1.8-7.7Mer[facility] Willard HospitalComment on above:Performed By: #### BMP ####[address] [address] Basophils/100 WBC Auto (Bld)0 %NormalMercy Health Willard HospitalComment on above:Performed By: #### BMP ####[address] [address] Djndmgwguzm8.00 10*3/uLNormal0.0-0.4Mer[facility] Willard HospitalComment on above:Performed By: #### BMP ####[address] [place] [address] Eosinophils/100 leukocytes0 %NormalMercy Health Willard HospitalComment on above:Performed By: #### BMP ####Kimmie [address] [address] Erythrocyte distribution width Auto Ratio (RBC)13.6 %Etchln35.5-15.4Mer[facility] Willard HospitalComment on above:Performed By: #### BMP ####Kimmie [address] [phone] (RBC)4.58 10*6/uLNormal4.0-5.2MFountain Valley Regional Hospital and Medical CenterComment on above:Performed By: #### BMP ####Suad[address] [address] Hematocrit (HCT)38.3 %Ajsxsq18-63MarewMercy Health Willard HospitalComment on above:Performed By: #### BMP ####Kimmie [address] [address] Hemoglobin mass conc (Bld)13.2 g/rMBeswvn97.0-16.0Mer[facility] Will[facility] HospitalComment on above:Performed By: #### BMP ####Kimmie [address] [phone] 10*3/uL Normal1.0-4.8Mer[facility] Willard HospitalComment on above:Performed By: #### BMP ####Kimmie [address] [address] Lymphocytes/100 leukocytes8 %NormalMercy Health Willard HospitalComment on above:Performed By: #### BMP ####Kimmie [address] [phone] rqNkjgco90-60MfcqbMercy Health Willard HospitalComment on above:Performed By: #### BMP ####Kimmie Smbmvnkyevbc9598 [place] [address] MCHC mass conc (RBC)34.4 g/vVDhuglw13-40EhqqcMercy Health Willard HospitalComment on above:Performed By: #### BMP ####Kimmie Ygrkzyfwesvf0502 [place] [address] GNZ26.7 fEItmrua81-853DysxsMercy Health Willard HospitalComment on above:Performed By: #### BMP ####Kimmie Xrqxbzi[address] [place] [address] Pwgkhfbhk7.40 10*3/uLNormal0.1-1.2MFountain Valley Regional Hospital and Medical CenterComment on above:Performed By: #### BMP ####Kimmie Lwoxjggkawtm[address] [place] [address] Monocytes/100 leukocytes 4 %NormalMercy Health Willard HospitalComment on above:Performed By: #### BMP ####Kimmie Xriezxgxoxqx[address] [place] [address] Neutrophil (Seg)88 %NormalMercy Health Willard HospitalComment on above:Performed By: #### BMP ####Kimmie Xbhxchmyeftr2444 [place] [address] Platelet mean volume (PMV)6.8 fLNormal6.0-12.0[facility] Comment on above:Performed By: #### BMP ####Kimmie Vbstfjullwbk0184 [place] [phone] 10*3/qVUxqjuq877-607UuadxMercy Health Willard HospitalComment on above:Performed By: #### BMP ####Kimmie Pxdfztsoddqw[address] [place] [address] WBC (Leukocytes)11.5 10*3/uLHigh3.5-11.0Mer[facility] Will[facility] HospitalComment on above:Performed By: #### BMP ####Mercy Zedivnkcmiha3328 [place] [address] Auto Diff PerformedNOT REPORTEDNormalMercy Health Willard HospitalComment on above:Performed By: #### BMP ####Mercy Mzpoobjxldhn5987 [place] [address] Erythrocyte morphologyNOT REPORTEDNoKing's Daughters Medical Center OhioComment on above:Performed By: #### BMP ####Mercy Cwwcxrjttoel7536 [place] [address] PlateletsNOT REPORTEDThe Bellevue HospitalComment on above:Performed By: #### BMP ####[facility]cy Abvyrxkfvxqf7337 [place] [address] WBC MorphologyNOT REPORTEDNoKing's Daughters Medical Center OhioComment on above:Performed By: #### BMP ####Kimmie Nekpiujegfui2863 [place] [address] CT HEAD WO CONTRASTon [id number] HEAD WO CONTRASTEXAMINATION:CT OF THE HEAD WITHOUT CONTRAST 01/30/2017 5:25 pmTECHNIQUE:CT of the head was performedwithout the administration of intravenouscontrast. Dose modulation, iterative reconstruction, and/or weight basedadjustment of the mA/kV was utilized to reduce the radiation dose to as lowas reasonably achievable.COMPARISON:MR brain January 29, 2017.HISTORY:ORDERING SYSTEM PROVIDED HISTORY: POSTOPERATIVE SELLAFINDINGS:BRAIN/VENTRICLES: There is a new right occipital craniotomy with subjacentintraparenchymal hemorrhage adjacent to the surgical bed in the rightoccipital lobe. The hemorrhage measures approximately 23 x 24 mm. There isstill 8 mm right to left midline shift at the level of the septum pellucidum.There is an extra-axial hypodense fluid collection and air-fluid levelsubjacent to thecraniotomy. It measures 9 mm in thickness and [...] Residual edema and midline shift as above.RECOMMENDATIONS:Case discussedwith the clinician at 6 p.m..Interpreted by:ANNA Alvesigned by:Ramo Thomas MD01/30/17Final resultNormal [facility] Willard HospitalCalcium, Ionicon 47-54-2365Qfvalww1.15 mmol/L Normal1.13-1.33Mer[facility] Willard HospitalComment on above:Result Comment: [facility] [address] [place] [address] Performed By: #### OHP, IOCAL ####[address] [address] Gkttfea8.14 mmol/LNormal1.13-1.33[facility] Will[facility] HospitalComment on above:Result Comment: ADDED ON[address] [address] Performed By: #### BMP ####[address] [address] Skohvmc3.16 mmol/LNormal 1.13-1.33Mer[facility] Will[facility] HospitalComment on above:Result Comment: [facility] [address] [place] [address] Performed By: #### BMP ####[address] [address] Cult,Urine,Cathon [id number],Urine,CathSpecimen Description .CATHETERIZED URINE Special Requests NOT REPORTED Culture NO GROWTH Report Status FINAL 01/30/2017NormalMercy Health Willard HospitalComment on above:Performed By: #### CTHUC ####[facility] [address] [address] MRSA, DNA, Nasalon [id number], DNA, NasalNEGATIVE: MRSA DNA not detected by nucleic acid amplification.The Bellevue HospitalComment on above:Result Comment: Results should be used as an adjunct to nosocomial control efforts to identify patients needing enhanced precautions.The test is not intended to identify patients with staphylococcal infections. Results should not be used to guide or monitor treatment for MRSA infections.[facility] [address] [place] [address] Performed By: #### BMP ####[address] [address] Magnesiumon 00-67-5700Wowhhssyi7.2 mg/dLNormal1.6-2.6MFountain Valley Regional Hospital and Medical CenterComment on above:Result Comment: [employer] [address] [place] [address] Performed By: #### BMP ####[address] [address] Vfichzltv2.0 mg/dLNormal 1.6-2.6MFountain Valley Regional Hospital and Medical CenterComment on above:Result Comment: [employer] [address] [place] [address] Performed By: #### MG ####[address] [address] Open Heart Panelon 32-71-3938Lzijy TestNOT PERFORMEDNoKing's Daughters Medical Center [place] Comment on above:Performed By: #### OHP, IOCAL ####[facility] SystemVoxer LLCPunqgjskehdi[address] [place] [address] Bicarbonate (HCO3)23.9 mmol/MSldqhx38-83UjnbgMercy Health Willard HospitalComment on above:Performed By: #### OHP, IOCAL ####[facility] [address]drzrkmoq[address] [place] [address], [place] [address] Body Temp.37.0 NormalMercy Health Willard HospitalComment on above:Performed By: #### OHP, IOCAL ####Suady Rjlihwzwlonm8345 [place] [address] Chloride 106 mmol/AUsvwks36-390MedykMercy Health Willard HospitalComment on above:Result Comment: [facility] [address] [place] [address] Performed By: #### OHP, IOCAL ####Suady Vvgaggtaidox6767 [place] [address] WQ140.4 gxWlEkoufw07-34KgquhMercy Health Willard HospitalComment on above:Performed By: #### OHP, IOCAL ####Suady Zrgtilmhbjfk2273 [place] [address] JCR351%NormalMercy Health Willard Hospital Comment on above:Performed By: #### OHP, IOCAL ####Suady Mitbczkaojdt9917 [place] [address] Glucose mass wfpa010 mg/hGHtax05-837VpphiMercy Health Willard HospitalComment on above:Performed By: #### OHP, IOCAL ####Suady Opqjclqslped2205 [place] [address] Hematocrit (HCT)34.9 % NormalMercy Health Willard HospitalComment on above:Performed By: #### OHP, IOCAL ####[facility] Weehmleigbvp8568 [place] [address] Hemoglobin mass conc (Bld)11.3 g/dLNormalMercy Health Willard HospitalComment on above:Performed By: #### OHP, IOCAL ####[facility] Bdsahmhiniec4728 [place] [address] Hemoglobin mass conc (Bld)1.2 %Normal0-5.0Mer[facility] Willard HospitalComment on above:Result Comment: %Reference Range:Non- Smokers 0.0-0.8 %Smokers 4-20 %Performed By: #### ARMIN IOCAL ####Kimmie Xnustkwlnblh6218 [place] [address] O2 mahzbdwrpy509.0 % Uckrnj62-389XdxzpMercy Health Willard HospitalComment on above:Performed By: #### ARMIN, IOCAL ####Kimmie Smkvcmzughvq0954 [place] [address] Oxygen in arterial cojih388.0 mm[Hg]Yhcs17-73EuygvMercy Health Willard Hospital Comment on above:Performed By: #### ARMIN, IOCAL ####Kimmie Yzjxekbaocba0784 [place] [address] pH of blood7.481 [pH]High7.350-7.450Mer[facility] Willard HospitalComment on above:Performed By: #### ARMIN, IOCAL ####Kimmie Uleqtxbevcnp1429 [place] [address] Positive Base Excess1.3 mmol/LNormal0.0-2.0Mer[facility] Will[facility] HospitalComment on above:Performed By: #### ARMIN, IOCAL ####Suady Varsmpvhlikx5659 [place] [address] Potassium molar conc4.3 mmol/LNormal3.6-5.0[facility] Will[facility] HospitalComment on above:Performed By: #### OHLeo, IOCAL ####[facility] Hftfikmigire8905 [place] [address] Kthhgw102 mmol/LNormal 136-145Mer[facility] Willard HospitalComment on above:Performed By: #### OHLeo, IOCAL ####[facility] Cdgjkvyrwaiy0307 [place] [address] CT2YYA JJPHZTDWKuwfbg95-42HdepuMercy Health Willard HospitalComment on above:Performed By: #### OHP, IOCAL ####Mercy Ysghmutarkkd2986 [place] [address] Hemoglobin mass conc (Bld)NOT BBLQBNXZBnsgbx25.0-98.0Mer[facility] Will[facility] HospitalComment on above:Performed By: #### OHP, IOCAL ####[facility]cy Slfltrgozfxi0917 [place] [address] ModeNOT REPORTEDNormal [facility] HospitalComment on above:Performed By: #### OHP, IOCAL ####[facility]cy Vdfmqnoxidep2959 [place] [address] Negative Base ExcessNOT REPORTEDNormal0.0-2.0Mer[facility] Will[facility] HospitalComment on above: Performed By: #### OHP, IOCAL ####[facility]cy Taelvrxrzrhb6810 [place] [address] Notification TimeNOT REPORTEDNoalMercy Health Willard HospitalComment on above:Performed By: #### OHP, IOCAL ####[facility]cy Xirxjuvryydj7217 [place] [address] Notification:NOT REPORTEDNormalMercy Health Willard HospitalComment on above:Performed By: #### OHP, IOCAL ####[facility]cy Pmpoajstbmgs7320 [place] [address] O2 Device/Flow/%NOT REPORTEDNormalMercy Health Willard HospitalComment on above:Performed By: #### OHP, IOCAL ####Mercy Obrasfziaqmx0634 [place] [address] PEEP/CPAPNOT REPORTEDThe [facility] Hospital Comment on above:Performed By: #### OHP, IOCAL ####Mercy Ckgnkhkacqmn9859 [place] [address] pH Adjst'd for Temp.NOT REPORTEDNormal 7.350-7.450Mer[facility] Will[facility] HospitalComment on above:Performed By: #### OHP, IOCAL ####[facility] Oewpgxvvjyix0353 [place] [address] oJ6 Adjst'd for TempNOT MHIZSWJWIirnmy63-04SsuuiMercy Health Willard HospitalComment on above:Performed By: #### OHP, IOCAL ####[facility] Tofkwiczrikt9645 [place] [address] PSVNOT REPORTEDThe Bellevue HospitalComment on above:Performed By: #### OHP, IOCAL ####[facility] Auiwhetnstse6196 [place] [address] Pt. PositionNOT REPORTEDThe Bellevue HospitalComment on above:Performed By: #### OHP, IOCAL ####[facility] Cezgqedsqguf1651 [place] [phone] rateNOT REPORTEDThe Bellevue HospitalComment on above:Performed By: #### OHP, IOCAL ####[facility] Qullyneztxqk1493 [place] [phone] RateNOT REPORTEDThe [facility] Comment on above:Performed By: #### OHP, IOCAL ####[facility] Qinaynjntrry2888 [place] [phone] DrawnNOT REPORTEDThe Bellevue HospitalComment on above:Performed By: #### OHP, IOCAL ####[facility] Bfsatqftehtb9884 [place] [phone] for RespiratoryNOT REPORTEDThe Bellevue HospitalComment on above:Performed By: #### OHP, IOCAL ####[facility] Btdynuwyhuas2273 [place] [address] Total HbNOT DZIUPJNEMoqabn08.0-16.0Mer[facility] Will[facility] HospitalComment on above:Performed By: #### OHP, IOCAL ####Kimmie Ryrzspiuqerf7422 [place] [address] Total RateNOT REPORTEDNoalMercy Health Willard HospitalComment on above:Performed By: #### OHP, IOCAL ####Kimmie Sihkecjmjsus7977 [place] [address] VTNOT REPORTEDNoal [facility] HospitalComment on above:Performed By: #### OHP, IOCAL ####Kimmie Hoxuxuauswgk3136 [place] [address] Allen TestNOT PERFORMEDNoKing's Daughters Medical Center OhioComment on above:Performed By: #### BMP ####Kimmie Lehman[address] [place] [address] Bicarbonate (HCO3)24.0 mmol/NThhefd05-98EqughMercy Health Willard HospitalComment on above:Performed By: #### BMP ####Kimmie Baclvqfjviex[address] [place] [address] Body Temp.37.0NormalMercy Health Willard HospitalComment on above:Performed By: #### BMP ####Kimmie Lehman[address] [place] [address] Ikwcjkgh156 mmol/EYkvzcf45-305NoskbMercy Health Willard Hospital Comment on above:Result Comment: [facility] [place] [address] Performed By: #### BMP ####Kimmie Lehman[address] [place] [address] SY466.4 mwPaZdv82-79KmurbMercy Health Willard HospitalComment on above:Performed By: #### BMP ####Kimmie Oazxyrfxoilu[address] [place] [address] YCQ753%NormalMercy Health Willard Hospital Comment on above:Performed By: #### BMP ####Kimmie Qwfplfxapneh6089 [place] [address] Glucose mass gbta463 mg/uSZxaw27-079ZeehpMercy Health Willard HospitalComment on above:Performed By: #### BMP ####Kimmie Xsqrukrjxtxq8798 [place] [phone] (HCT)38.1 % NormalMercy Health Willard HospitalComment on above:Performed By: #### BMP ####Kimmie Xkzjkqroavvs1200 [place] [address] Hemoglobin mass conc (Bld)1.2 %Normal0-5.0Mer[facility] Willard HospitalComment on above: Result Comment: %Reference Range:Non-Smokers 0.0-0.8 %Smokers 4-20 %Performed By: #### BMP ####[address] [place] [address] Hemoglobin mass conc (Bld)12.4 g/dLNormalMercy Health Willard HospitalComment on above:Performed By: #### BMP ####[address] [place] [address] O2 bykmravpwd14.5 %Fmncgp91-521XxwhlMercy Health Willard HospitalComment on above:Performed By: #### BMP ####[address] [place] [address] Oxygen in arterial jpejl370.0 mm[Hg]Mjzx16-10 [facility] HospitalComment on above:Performed By: #### BMP ####[facility] Yrlkbszvqrxu6151 [place] [address] pH of blood 7.509 [pH]High7.350-7.450Mer[facility] Will[facility] HospitalComment on above: Performed By: #### BMP ####[facility] [place] [address] Positive Base Excess1.9 mmol/LNormal0.0-2.0Mer[facility] Will[facility] HospitalComment on above:Performed By: #### BMP ####Kimmie Akwsswhfbcpo5986 [place] [address] Potassium molar conc4.1 mmol/LNormal 3.6-5.0Mer[facility] HospitalComment on above:Performed By: #### BMP ####Kimmie Amfvyxnalvpx[address] [place] [phone] mmol/AKlkvrp582-805XanfsMercy Health Willard HospitalComment on above:Performed By: #### BMP ####Kimmie Jvovwzhjptgb[address] [place] [address] CO2NOT OBPXQZHZYbdxfg72-34GecheMercy Health Willard HospitalComment on above: Performed By: #### BMP ####Suad[address] [address] Hemoglobin mass conc (Bld)NOT OWWPQBRLIfkgei79.0-98.0Mer[facility] HospitalComment on above:Performed By: #### BMP ####Kimmie [address] [address] ModeNOT REPORTEDNormal [facility] HospitalComment on above:Performed By: #### BMP ####Kimmie Mmxeafuddtfp[address] [place] [address] Negative Base ExcessNOT REPORTEDNormal0.0-2.0Mer[facility] HospitalComment on above: Performed By: #### BMP ####Su[address] [address] Notification TimeNOT REPORTEDNormalMercy Health Willard HospitalComment on above:Performed By: #### BMP ####Kimmie [address] [address] Notification:NOT REPORTEDNormalMercy Health Willard HospitalComment on above:Performed By: #### BMP ####Kimmie [address] [phone] Device/Flow/%NOT REPORTEDNormalMercy Health Willard HospitalComment on above:Performed By: #### BMP ####Kimmie [address] [address] PEEP/CPAPNOT REPORTEDNormalMercy Health Willard HospitalComment on above: Performed By: #### BMP ####Kimmie Qjogajntrnai[address] [place] [phone] Adjst'd for Temp.NOT REPORTEDNormal7.350-7.450Mer[facility] HospitalComment on above:Performed By: #### BMP ####Su[address] [phone] Adjst'd for TempNOT XMUFJCWTQsnpps95-04IwtteMercy Health Willard HospitalComment on above:Performed By: #### BMP ####[address] [address] PSVNOT REPORTEDNormalMercy Health Willard HospitalComment on above:Performed By: #### BMP ####Suad Karwqfcjoiwa[address] [place] [address] Pt. PositionNOT REPORTEDNormalMercy Health Willard HospitalComment on above: Performed By: #### BMP ####[facility] [address]jfijwzejuk[address] [place] [address] Respiratory rateNOT REPORTEDNormalMercy Health Willard HospitalComment on above:Performed By: #### BMP ####[address] [phone] RateNOT REPORTEDrmalMercy Health Willard HospitalComment on above:Performed By: #### BMP ####[facility] [address]clfhmlbwjio[address] [place] [address] Site DrawnNOT REPORTEDThe Bellevue HospitalComment on above:Performed By: #### BMP ####Kimmie Isoblwmfkopi87[address] [place] [phone] for RespiratoryNOT REPORTEDNoalMercy Health Willard HospitalComment on above:Performed By: #### BMP ####Kimmie Mrnlyuhnbjqv[address] [place] [address] Total HbNOT BMLPJCMAQywhmu03.0-16.0Mer[facility] HospitalComment on above: Performed By: #### BMP ####[facility] Rrwcylntgzsl[address] [place] [phone] RateNOT REPORTEDNoKing's Daughters Medical Center [place] Comment on above:Performed By: #### BMP ####Suad Bsbqajvuqmet8[address] [place] [address] VTNOT REPORTEDThe Bellevue HospitalComment on above:Performed By: #### BMP ####[facility] SystemVoxer LLCWmuaarmrwgje86[address] [place] [address] [address] TestNOT PERFORMEDNormMercy Health Lorain HospitalComment on above:Performed By: #### BMP ####SuadVoxer LLCExzijmmmvmpi4913[address] [place] [address] Bicarbonate (HCO3)24.6 mmol/LWppuxu91-95 [facility] HospitalComment on above:Performed By: #### BMP ####SuadVoxer LLCKzfykecwtudu5913[address] [place] [address] Body Temp.37.0 NormalMercy Health Willard HospitalComment on above:Performed By: #### BMP ####[address] [address] Kzpkslza911 mmol/SZdezzs56-508MjhcaMercy Health Willard HospitalComment on above:Result Comment: [employer] [address] [place] [address] Performed By: #### BMP ####[address] [place] [phone] ghTdPglddl23-34WcnyhMercy Health Willard HospitalComment on above:Performed By: #### BMP ####[address] [phone]%NormalMercy Health Willard HospitalComment on above:Performed By: #### BMP ####[address] [address] Glucose mass xlud065 mg/hMIkbw44-493UyraqMercy Health Willard HospitalComment on above:Performed By: #### BMP ####[address] [address] Hematocrit (HCT)38.7 %NormalMercy Health Willard HospitalComment on above:Performed By: #### BMP ####[address] [address] Hemoglobin mass conc (Bld)12.6 g/dL NormalMercy Health Willard HospitalComment on above:Performed By: #### BMP ####Su[address] [address] Hemoglobin mass conc (Bld)1.1 %Normal0-5.0Mer[facility] Willard HospitalComment on above: Result Comment: %Reference Range:Non-Smokers 0.0-0.8 %Smokers 4-20 %Performed By: #### BMP ####Su[address] [address] O2 cympzlofym119.0 %Erksts86-784ZcuevMercy Health Willard HospitalComment on above:Performed By: #### BMP ####[address] [address] Oxygen in arterial tbwol000.0 mm[Hg]Axsj98-70DyvtsMercy Health Willard HospitalComment on above:Performed By: #### BMP ####Kimmie [address] [place] [address]29 pH of blood7.457 [pH] High7.350-7.450Mercy Health Willard HospitalComment on above:Performed By: #### BMP ####Kimmie [address] [address] Positive Base Excess1.5 mmol/LNormal0.0-2.0[facility] Comment on above:Performed By: #### BMP ####Kimmie [address] [address] Potassium molar conc4.0 mmol/LNormal3.6-5.0Mer[facility] Willard HospitalComment on above:Performed By: #### BMP ####[address] [phone] mmol/LNormal 136-145Mer[facility] Willard HospitalComment on above:Performed By: #### BMP ####[address] [phone] VICWHLAJHbeijb48-54InrbtMercy Health Willard HospitalComment on above:Performed By: #### BMP ####Kimmie [address] [address] Hemoglobin mass conc (Bld)NOT REPORTEDNormal0.0-1.5Mer[facility] Health Willard HospitalComment on above:Performed By: #### BMP ####[address] [address] ModeNOT REPORTEDNormalMercy Health Willard HospitalComment on above:Performed By: #### BMP ####[address] [address] Negative Base ExcessNOT REPORTEDNormal0.0-2.0 [facility] Willard HospitalComment on above:Performed By: #### BMP ####[facility] [address] [place] [address] Notification TimeNOT REPORTEDrmalMercy Health Willard HospitalComment on above:Performed By: #### BMP ####[address] [address] Notification:NOT REPORTEDNormalMercy Health Willard HospitalComment on above: Performed By: #### BMP ####[facility] [address]qd[address]axt[address] [place] [address]274 O2 Device/Flow/%NOT REPORTEDKindred HospitalalMercy Health Willard HospitalComment on above:Performed By: #### BMP ####[facility] Ccmleviepwqa[address] [place] [address] 80106 PEEP/CPAPNOT REPORTEDrmalMercy Health Willard HospitalComment on above:Performed By: #### BMP ####[facility] SystemVoxer LLCPkuavcekjxnv5756[address] [place] [address] 09250 pH Adjst'd for Temp.NOT REPORTEDNormal 7.350-7.450Mer[facility] Health Willard HospitalComment on above:Performed By: #### BMP ####[employer] [place] [address] pO2 Adjst'd for TempNOT AYGWQNINEjbkja33-18AbjufMercy Medical Center Merced Dominican CampusComment on above:Performed By: #### BMP ####[employer] [place] [address]39 PSVNOT REPORTEDrmMercy Health Lorain HospitalComment on above:Performed By: #### BMP ####[address] [place] [address] 6[address]60 Pt. PositionNOT REPORTEDKindred HospitalalMercy Health Willard Hospital Comment on above:Performed By: #### BMP ####[facility] [address]nhcrdxob[address] [place] [address]134 Respiratory rateNOT REPORTEDNormalMercy Health Willard HospitalComment on above:Performed By: #### BMP ####Kimmie Lehman[address] [place] [address] 47794 Set RateNOT REPORTED NormalMercy Health Willard HospitalComment on above:Performed By: #### BMP ####Kimmie Lehman[address] [place] [phone] DrawnNOT REPORTEDNormalMercy Health Willard HospitalComment on above:Performed By: #### BMP ####Kimmie [address] [address] Text for RespiratoryNOT REPORTEDNormalMercy Health Willard HospitalComment on above:Performed By: #### BMP ####Kimmie [address] [phone] HbNOT IPJEOMVRUtxfnt65.0-16.0Mer[facility] Willard HospitalComment on above:Performed By: #### BMP ####Kimmie [address] [phone] RateNOT REPORTEDNormalMercy Health Willard HospitalComment on above:Performed By: #### BMP ####Kimmie [address] [address] VTNOT REPORTEDNormMercy Health Lorain HospitalComment on above:Performed By: #### BMP ####[address] [phone] 02-23-0998UQL Coag RelTime (PPP)1.1 {INR}NormalMercy Health Willard HospitalComment on above:Result Comment: Therapeutic Range: Moderate Anticoagulant Intensity: INR = 2.0-3.0 High Anticoagulant Intensity: INR = 2.5-3.[address] [address] [phone] By: #### BMP ####[place] [place], [place] [phone] time (PT) Coag time (PPP)12.1 s Normal9.4-12.6Mer[facility] Medical CenterComment on above:Performed By: #### BMP ####[address] [phone] on 92-40-6584xOAD47.8 sLow21.3-31.3[facility] Medical CenterComment on above:Result Comment: No clot found in specimen, results questionable.[address] [address] [phone] By: #### CBC, BMP, PT, PTT ####[address] [phone] Metabolic Profon 01-29-2017(cont.)NormalMercy Health Willard HospitalComment on above:Result Comment: Average GFR for 60-69 years old: 85 mL/min/1.73sq mChronic Kidney Disease: <60 mL/min/1.73sq mKidney failure: <15 mL/min/1.73sq meGFR calculated using average adult body mass. Ad ditional eGFR calculator available at:http://www.[employer].com/multiple_crcl_2012.htm[address] [address] [phone] By: #### BMP ####[facility] Systemameena Bcajveiknriq2278 [place], [place] [phone] gap11 mmol/LNormal 9-17Mer[facility] Willard HospitalComment on above:Performed By: #### BMP ####Kimmie [address] [phone] mg/dLLow8.6-10.4Mer[facility] Health Willard HospitalComment on above:Performed By: #### BMP ####[facility] Azkwkmpcvqqb7678 [place] [address] Jmbfkipa502 mmol/HXcroqj65-066BgbpaMercy Health Willard HospitalComment on above: Performed By: #### BMP ####[facility]ame[facility] Cnpfqghkjwnk0903 [place] [address] NN686 mmol/XXplkbo63-31VowtgMercy Health Willard HospitalComment on above:Performed By: #### BMP ####[facility] Sderxpoyiqgk2913 [place] [address] Ckifoulbgj2.50 mg/dLNormal0.50-0.90Mer[facility] Health Willard HospitalComment on above:Performed By: #### BMP ####[facility] Batboigllbdo2864 [place] [address] eGFR (non-black)mL/min/{1.73_m2}Normal>60Mer[facility] Health Willard HospitalComment on above:Performed By: #### BMP ####[facility] Wfdwronjfapw3798 [place] [address] Glucose mass bjwy395 mg/sOAwyu26-39MnkxcFountain Valley Regional Hospital and Medical CenterComment on above:Performed By: #### BMP ####[place] [place] [address] Potassium molar conc4.0 mmol/LNormal3.7-5.3MFountain Valley Regional Hospital and Medical Center Comment on above:Performed By: #### BMP ####[facility] Ejahxqeytocm4617 [place] [address] Nmmgqm912 mmol/DGmqsug255-042ClknbMercy Health Willard HospitalComment on above:Performed By: #### BMP ####[facility] Fmtgplzwomfs6381 [place] [address] Urea winoycgj49 mg/dLNormal8-23Mer[facility] Will[facility] HospitalComment on above:Performed By: #### BMP ####Kimmie [address] [address] BUN/CRE RatioNOT REPORTEDNormal9-20[facility] Willard HospitalComment on above:Performed By: #### BMP ####Kimmie [address] [address] Staging:NOT REPORTEDNormalMercy Health Willard HospitalComment on above: Performed By: #### BMP ####Kimmie [address] [address] (cont.)NormalMercy Health Willard HospitalComment on above: Result Comment: Average GFR for 60-69 years old: 85 mL/min/1.73sq mChronic Kidney Disease: <60 mL/min/1.73sq mKidney failure: <15 mL/min/1.73sq meGFR calculated using average adult body mass. Additional eGFR calculator available at:http://www.[employer]/multiple_crcl_2012.htm[address] [address] [phone] By: #### CBC, BMP, PT, PTT ####[facility] Systemameena [address] [address] Anion gap12 mmol/LNormal9-17Mer[facility] Willard HospitalComment on above:Performed By: #### CBC, BMP, PT, PTT ####Kimmie [address] [phone] mg/dLNormal8.6-10.4[facility] Comment on above:Performed By: #### CBC, BMP, PT, PTT ####[facility] Systemameena [address] [phone] mmol/WNzupre39-611PwotuMercy Health Willard HospitalComment on above:Performed By: #### CBC, BMP, PT, PTT ####[facility] [address] [place] [address] LD463 mmol/L Imwtct16-06BhzdqMercy Health Willard HospitalComment on above:Performed By: #### CBC, BMP, PT, PTT ####Kimmie [address]cyr[address] [place] [address] Rwibofzypm7.37 mg/dLLow0.50-0.90Mer[facility] Willard HospitalComment on above:Performed By: #### CBC, BMP, PT, PTT ####Kimmie [address]ht[address]ylvosh[address] [place] [address] eGFR (non-black) mL/min/{1.73_m2}Normal>60Mer[facility] Willard HospitalComment on above: Performed By: #### CBC, BMP, PT, PTT ####Kimmie [address]urlzuvet[address] [place] [address] Glucose mass ngqd744 mg/yGNthk64-94DesxxFountain Valley Regional Hospital and Medical CenterComment on above:Performed By: #### CBC, BMP, PT, PTT ####SuadVoxer LLCMdcdwvadhdid047[address] [place] [address] Potassium molar conc4.3 mmol/LNormal3.7-5.3MFountain Valley Regional Hospital and Medical CenterComment on above:Performed By: #### CBC, BMP, PT, PTT ####SaudVoxer LLCDwsdoutsypma5208[address] [place] [address] Mhzrbs934 mmol/BKrpebl797-300IfrijMercy Health Willard HospitalComment on above:Performed By: #### CBC, BMP, PT, PTT ####SuadVoxer LLCUrykeftshfzu9950[address] [place] [address] Urea pzhmuqab65 mg/dL Normal8-23Mer[facility] Willard HospitalComment on above:Performed By: #### CBC, BMP, PT, PTT ####[employer] [place] [address] BUN/CRE RatioNOT REPORTEDNormal9-20[facility] Will[facility] HospitalComment on above:Performed By: #### CBC, BMP, PT, PTT ####Kimmie Lehman[address] [place] [address] Staging:NOT REPORTED NormalMercy Health Willard HospitalComment on above:Performed By: #### CBC, BMP, PT, PTT ####Kimmie Hecirjebjzqk[address] [place] [address] CBCon 58-10-5186Nfiflagyqtn distribution width Auto Ratio (RBC)13.7 %Normal 12.5-15.4Mer[facility] Willard HospitalComment on above:Performed By: #### CBC, BMP, PT, PTT ####Kimmie [address]qblf[address] [place] [address] Erythrocytes (RBC)4.99 10*6/uLNormal4.0-5.2[facility] Medical CenterComment on above:Performed By: #### CBC, BMP, PT, PTT ####Kimmie [address] [place] [address] Hematocrit (HCT)41.8 % Bojlmr92-93ZymvwMercy Health Willard HospitalComment on above:Performed By: #### CBC, BMP, PT, PTT ####Kimmie V[address]jgj[address] [place] [address]42 Hemoglobin mass conc (Bld)14.2 g/hFZfpmgt32.0-16.0Mer[facility] Will[facility] HospitalComment on above:Performed By: #### CBC, BMP, PT, PTT ####Kimmie [address]zfs[address] [place] [address] YED28.4 pg Dnzetc08-84EewwnMercy Health Willard HospitalComment on above:Performed By: #### CBC, BMP, PT, PTT ####Kimmie Jylzs[address]flngk[address] [place] [address]16 MCHC mass conc (RBC)33.9 g/rLJgvgcp59-39TodfbMercy Health Willard HospitalComment on above:Performed By: #### CBC, BMP, PT, PTT ####[employer] [place] [phone] aDWwxgqf05-243 [facility] HospitalComment on above:Performed By: #### CBC, BMP, PT, PTT ####[facility] Hgirwdqiqqdz[address] [place] [address] Platelet mean volume (PMV)7.3 fLNormal6.0-12.0[facility] Comment on above:Result Comment: [facility] [employer] [facility] [place] [address] [phone] By: #### CBC, BMP, PT, PTT ####[address] [phone] 10*3/uL Zazoyz897-733PeiesMercy Health Willard HospitalComment on above:Performed By: #### CBC, BMP, PT, PTT ####[address] [address] WBC (Leukocytes)10.4 10*3/uLNormal3.5-11.0Mer[facility] Will[facility] HospitalComment on above:Performed By: #### CBC, BMP, PT, PTT ####[facility] SystemVoxer LLCHhgbvsjhvzpx265[address] [place] [address] History and Physicalon 34-70-8795VXK IP Note OR TranscriptionNormalMercy Health Willard HospitalIR ANGIOGRAM CAROTID CEREBRAL BILATERALon [id number] ANGIOGRAM CAROTID CEREBRAL BILATERALDate:01/29/2017 5:47 PMProcedure: Cerebral angiogram with PVA particle embolization of the large right meningioma from the right occipital artery.Operators: Mack Wong M.D.Clinical history:61 y.o.?female?who presents with h/o htn, hypothyroidism, Afib, asthma tx from [facility] for rle weakness, numbness and forgetfulness x 3 weeks with headache and gait ataxia. 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 MRI brain confirming 5.7x6.6x8.4cm [...] on the angiographic table in the supine positio n. A timeout was taken to recheck information regarding the patient's identification and procedure with staff present in the procedure room.The patient's groins were prepped and draped in the usual sterile fashion. Following 1% lidocaine as local anesthetic, using a micropuncture set, the right common femoral artery was accessed and a 6 Polish 55 cm sheath was inserted over the wire. The sheath was then flushed and connected to regulated pressurized, heparinized saline infusion.A 5 Polish angled glide catheter in conjunction with a ViditumFracture glide wire was used to successfully select the vessels:1. Right common carotid artery2. Right internal carotid artery3. Right external carotid artery4. Superselective angiography from the right occipital artery5. Right vertebral artery6. Right common femoral arteryMultiple contrast injections were performed and the cervical as well as the cranial vessels were imaged in multiple projections.InterventionA roadmap was then obtained from the right commoncarotid artery. A Tad II exchange wire was then positioned within the right external carotid artery. The 5 Polish angled glide catheter was exchanged for a Edictiveoy 6 Polish guiding catheter.Then a Prowler select plus microcatheter in conjunction with a Synchro 2 14 microwire was carefully navigated and positioned within the right occipital artery. Superselective angiography was performed to confirmarterial supply to approximately three quarters of the [...] in the temporal regions. This likely represents masseffect from the underlying meningioma. In addition there is a dominant left transverse sinus. Thereis decreased venous drainage within the right transverse sinus with likely mass effect from the meni ngioma.Right external carotid artery cranial images:There is predominant [...] intimal dissection at the puncture site.Impression:1. Superior displacementof the distal right M3 and M4 MCA [...] 7:04 PMInterpreted by:ANNA Smithigned by:Mack Wong MD01/29/17Final resultNormalMercy Arrowhead Regional Medical CenterK (Potassium)on 59-85-2229Biwnkqapq molar conc2.0 mmol/LCritically low3.7-5.3[facility] Medical CenterComment on above:Result Comment: [employer] [facility] [place], [place] [phone] By: #### K ####[employer] [place] [address] MRI BRAIN W CONTRASTon [id number] BRAIN W CONTRASTEXAMINATION:MRI OF THE BRAIN WITH CONTRAST 01/29/2017 9:20 pmTECHNIQUE:Multiplanar multisequence MRIof the head/brain was performed with theadministration of intravenous contrast. Stealth protocol with fiducials.COMPARISON:MRV and MRA head January 26, 2017. MR brain January 24, 2017HISTORY:ORDERING SYSTEM PROVIDED HISTORY: STEALTH PROTOCOL W FIDUCIALSFINDINGS:INTRACRANIAL STRUCTURES/VENTRICLES: No acute abnormality is seen within thesellar/suprasellar regions.There appears to be a large supratentorial and slightly infratentorialextra-axial lobulated avidly enhancing mass measuring 61 x 58 x 76 mm in APtransverse and craniocaudal dimension. It causes local sulcal effacement andeffacement of theoccipital horn of the right lateral ventricle. There is 8mm right to left midline shift. There is effacement of the occipital horn ofthe right lateral ventricle and midbrain, right greater than left.There is5-6 mm tonsillar ectopia of the cerebellum. There appears to be diffusesulcal effacement throughout the right cerebral hemisphere.ORBITS: The visualized portion of the orbits demonstrate no acute abnormality.SINUSES: The visualized paranasal sinuses and mastoid air cells are wellaerated.BONES/SOFT TISSUES: The bone marrow signal intensity appears normal. Thecraniocervical junction is normal in appearance.IMPRESSION: Large extra-axial mass as above causing midline shift and transtentorialherniation.Interpreted by:ANNA Alvesigned by:Ramo Thomas MD01/29/17Final resultNoKing's Daughters Medical Center OhioMRSA, DNA, Nasalon [id number] Description.NASAL SWABNormalMercy Health Willard HospitalComment on above:Performed By: #### BMP ####[employer] [place] [address] 9[address]98 PTon 69-94-1392YFZ Coag RelTime (PPP)1.1 {INR}NormalMercy Health Willard Hospital Comment on above:Result Comment: Therapeutic Range: Moderate Anticoagulant Intensity: INR = 2.0-3.0 High Anticoagulant Intensity: INR = 2.5-3.[address] [address] Performed By: #### CBC, BMP, PT, PTT ####[employer] [place] [address] Prothrombin time (PT) Coag time (PPP)12.1 sNormal9.4-12.6Mer[facility] Medical CenterComment on above:Result Comment: No clot found in specimen, results questionable.Performed By: #### CBC, BMP, PT, PTT ####[employer] [place] [address] [phone] + Screenon 12-27-8754Bysi + ScreenSample Expiration 02/01/2017 Arm Band Number [id number] ABO/Rh(D) A POSITIVE Antibody Screen NEGATIVEUnit Number [id number] Blood Component Type Leukocyte Reduced Red Cell Unit Division 00 Status of Unit REL FROM ALLOC Transfusion Status OK TO TRANSFUSE Crossmatch Result COMPATIBLE Unit Number [id number] Blood Component Type Leukocyte Reduced Red Cell Unit Division 00 Status of Unit REL FROMALLOC Transfusion Status OK TO TRANSFUSE Crossmatch Result COMPATIBLEUniversity [facility]als [facility] [address] [place] [phone] Health Willard HospitalComment on above:Performed By: #### TYS ####Kimmie [address] [address] Urinalysis, Routineon 12-33-5389Awijwgtnftvjc mass concNegativeNormalNEGMercy Health Willard HospitalComment on above:Performed By: #### NAEL FERNANDEZ ####Kimmie [address] [place] [address]682 Bilirubin (direct)NegativeNormalNEGMercy Health Willard HospitalComment on above: Performed By: #### NAEL FERNANDEZ ####Kimmei [address]erwjprsmu[address] [place] [address] [phone] mass conc (Bld)MODERATEAbnormalNEGMercy Health Willard HospitalComment on above:Performed By: #### NAEL FERNANDEZ ####Kimmie [address] [place] [address] Nitrite,UrNegativeNormal NEGMercy Health Willard HospitalComment on above:Performed By: #### REBECCA UMICAO ####[facility] [address] [place] [address] TurbidityCLEARNormalCLEARMercy Health Willard HospitalComment on above: Performed By: #### UA, UMICAO ####[facility] Zdpwyebnukky8817 [place] [address] Urine, colorYELLOWNormalYELMerMercy Medical Center [facility] Comment on above:Performed By: #### REBECCA, UMICAO ####[facility] Xunlvbpknent3634 [place] [address] Urine, glucose presenceNegativeNormalNEGMercy Health Willard HospitalComment on above:Performed By: #### REBECCA, UMICAO ####[facility] Hpniaipohdgl[address] [place] [address]25 Urine, leukocyte esterase presenceNegativeBruleNEGMercy Health Willard Hospital Comment on above:Result Comment: [address] [address] Performed By: #### REBECCA, UMICAO ####[address] [address] Urine, pH6.5 [pH]Normal5.0-8.0Mer[facility] Willard HospitalComment on above:Performed By: #### REBECCA, UMICAO ####[facility] [address]fct[address] [place] [address] 21280 Urine, protein presence NegativeNormalNEGMercy Health Willard HospitalComment on above:Performed By: #### REBECCA, UMICAO ####[facility] [address]cvcsqyqosrq[address] [place] [address]59 Urine, specific gravity1.400Edic1.005-1.030MerMercy Medical Center Merced Dominican CampusComment on above:Performed By: #### UA, UMICAO ####[facility] Ev[address]uqhfcyn7479 [place] [address] Urobilinogen,UrNormal NormalNORMMercy Health Willard HospitalComment on above:Performed By: #### UA, UMICAO ####[facility] Qrppgsfiopic[address] [place] [address] 37620 CommentNOT REPORTEDNormalMerMercy Medical Center Merced Dominican CampusComment on above: Performed By: #### NAEL FERNANDEZ ####[address]kycltsrjpg[address] [place], [place] [phone],Microon 01-29-2017-----NormalMercy Health Willard HospitalComment on above:Performed By: #### NAEL FERNANDEZ ####[facility] [address]xe[address] [place] [address] 25618 Urine WBC's5 TO 10Normal 0-5Mer[facility] Willard HospitalComment on above:Performed By: #### NAEL FERNANDEZ ####[address]xbn[address] [place] [address] 14089 Urine, epithelial cells in sediment0 TO 1Ygyxsq0-0UlripMercy Health Willard Hospital Comment on above:Result Comment: [facility] [address] [place] [address] Performed By: #### NAEL FERNANDEZ ####Kimmie [address]rbaoawjvab[address] [place] [address] 42757 Urine, dnnszsqemdax98 TO 84Fdfgue4-8OtvjxMercy Health Willard HospitalComment on above:Result Comment: Reference range defined for non-centrifuged specimen.Performed By: #### NAEL FERNANDEZ ####[address]pc[address]ucznu[address]246 [place], [place] [phone], RenalNOT SXWNQGPSKjneje8CtzfxMercy Health Willard HospitalComment on above:Performed By: #### REBECCA UMJENNAO ####[facility] Fzmzgbtpnlfz9334 [place], [place] [phone] StrandsNOT REPORTEDNormalNONEMercVan Ness campusComment on above:Performed By: #### REBECCA UMICAO ####[facility] Keihgsvwkurh8342 [place], [place] [phone] ObservationsNOT REPORTEDNormalNREQ [facility] Willard HospitalComment on above:Performed By: #### UA, UMICAO ####[facility] Xbqibotvyjik6293 [place] [address] TrichomonasNOT REPORTEDAshtabula General HospitalComment on above:Performed By: #### UA, UMICAO ####[facility] Fajzakncprsl0608 [place] [address] Urine, amorphous sediment presence in sedimentNOT REPORTED [facility] HospitalComment on above:Performed By: #### UA, UMICAO ####[facility] Nuusfogknfhb8008 [place] [address] Urine, bacteria in sedimentNOT REPORTEDAshtabula General HospitalComment on above:Performed By: #### UA, UMICAO ####[facility] Hqjluxrrbmmu3880 [place] [address] Urine, casts in sedimentNOT REPORTED [place] [address] [place], [place] [address]Comment on above:Performed By: #### UA, UMICAO ####[facility] Uyxhgkbhooqp7798 [place] [address] Urine, crystals in sedimentNOT REPORTEDAshtabula General Hospital Comment on above:Performed By: #### UA, UMICAO ####[facility] Cyxuobwjuqfz9341 [place] [address] Urine, yeast presence in sedimentNOT REPORTED [facility] HospitalComment on above:Performed By: #### UA, UMICAO ####[facility] Jtbknsmhypmj2324 [place] [address] Basic Metabolic Profon 01-26-2017(cont.)[facility] Comment on above:Result Comment: Average GFR for 60-69 years old: 85 mL/min/1.73sq mChronic Kidney Disease: <60 mL/min/1.73sq mKidney failure: <15 mL/min/1.73sq meGFR calculated using average adult body mass. Additional eGFR calculator available at:http://www.[employer].com/multiple_crcl_2012.htm[address] [address] Performed By: #### BMP ####Kimmie W[address]ovlfpjrfxi7565 [place] [address] Anion gap 17 mmol/LNormal9-17[facility] Will[facility] HospitalComment on above:Performed By: #### BMP ####[facility] [address]aozqgslfe[address]84 [place] [address] Calcium9.0 mg/dLNormal8.6-10.4[facility] Will[facility] HospitalComment on above: Performed By: #### BMP ####[address] [address] Qunqsvic965 mmol/YHypkty23-320IqbtzMercy Health Willard Hospital Comment on above:Performed By: #### BMP ####[facility] Qldeuoqzqnjn2839 [place] [address] RT573 mmol/PUipzka56-72YefcaMercy Health Willard HospitalComment on above:Performed By: #### BMP ####[facility] Qwunoiphjoik1437 [place] [address] Leibleutrc0.45 mg/dLLow0.50-0.90Mercy Health Willard HospitalComment on above:Performed By: #### BMP ####[facility] Lvcddhcbgcpd1898 [place] [address] eGFR (non-black) mL/min/{1.73_m2}Normal>60Mercy Health Willard HospitalComment on above: Performed By: #### BMP ####[facility] SystemVoxer LLCDgktrtgptonk8598 [place] [address] Glucose mass pcge966 mg/pBLgeb29-56PruszFountain Valley Regional Hospital and Medical CenterComment on above:Performed By: #### BMP ####Kimmie Gasgypwxdqju3514 [place] [address] Potassium molar conc4.0 mmol/LNormal3.7-5.3Mdiley ridge medical centery [facility] Regional Medical CenterComment on above:Performed By: #### BMP ####Kimmie Nvcgxorshfli6798 [place] [address] Sodium143 mmol/LNormal 135-144Mercy Health Willard HospitalComment on above:Performed By: #### BMP ####Kimmie Qmmbxuvmlcrz4056 [place] [address] Urea nitrogen 18 mg/dLNormal8-[facility] Willard HospitalComment on above:Performed By: #### BMP ####Kimmie Ylunau[address] [place] [address] BUN/CRE RatioNOT REPORTEDNormal9-20Mer[facility] Health Willard HospitalComment on above:Performed By: #### BMP ####Kimmie Hhrrzcurleao4913 [place] [address] Staging:NOT REPORTEDNormalMercy Health Willard Hospital Comment on above:Performed By: #### BMP ####Kimmie Rhvqgvmvhm[address] [place] [address] MRA HEAD WO CONTRASTon [id number] HEAD WO CONTRASTEXAMINATION:MRA OF THE HEAD WITHOUT CONTRAST; MRA/MRV OF THE HEAD WITH AND WITHOUTCONTRAST 01/26/2017 3:38 amTECHNIQUE:MRA of the head was performed utilizing xjnb-pc-kncsru imaging with MIP[employer]. Nointravenous contrast was administered.; Multiplanar multisequenceMRA/MRV of the [...] compression or tumor involvement of the right transversesinus.The distal right sigmoid sinus and the right jugular bulb are patent.Interpreted by:ANNA Lantiguaigned by:Abner Jacobson MD01/26/17Final resultNormalMercy Arrowhead Regional Medical CenterMRV HEAD W WO CONTRASTon [id number] HEAD W WO CONTRASTEXAMINATION:MRA OF THE HEAD WITHOUT CONTRAST; MRA/MRV OF THE HEAD WITH AND WITHOUTCONTRAST 01/26/2017 3:38 amTECHNIQUE:MRA of the head was performed utilizing wels-vz-pbazlz imaging with [employer]IPimages. Nointravenous contrast was administered.; Multiplanar multisequenceMRA/MRV of the head was performed with and without the administration ofintravenous contrast.COMPARISON:MRI brain January 25, 2017HISTOR Y:ORDERING SYSTEM PROVIDED HISTORY: HEADACHE; ORDERING SYSTEM PROVIDED HISTORY:surgical planningFINDINGS:There are extensive motion artifacts.MRA brain:ANTERIOR CIRCULATION: The internal carotid arteries are normal in course andcaliber without focal stenosis. The anterior cerebral and middle cerebra larteries demonstrate no focal stenosis.POSTERIOR CIRCULATION: The posterior [...] lobe large hypervascular mass, more likely to beextra- axial than intra-axial.Asymmetrically decreased signal in the right transverse sinus, possiblysecondary to tumor compression or tumor involvement of the right transversesinus.The distal right sigmoid sinus and the right jugular bulb are patent.Interpreted by:ANNA Lantiguaigned by:Abner Jacobson MD01/26/17Final resultNormalMercy Health Willard HospitalBasic Metabolic Profon 01-25-2017 (cont.)NormalMercy Health Willard HospitalComment on above:Result Comment: Average GFR for 60-69 years old: 85 mL/min/1.73sq mChronic Kidney Disease: <60 mL/min/1.73sq mKidney failure: <15 mL/min/1.73sq meGFR calculated using average adult body mass. Additional eGFR calculator available at:http://www.[employer] [place]/multiple_crcl_2012.htmMichelle Ville [address] [place] [address] [phone] By: #### LACTIC, PT, CBC, BMP ####[facility] Kvoihjuxmiwm5465 [place] [address] Anion gap14 mmol/LNormal-17Mer[facility] Health Willard HospitalComment on above:Performed By: #### LACTIC, PT, CBC, BMP ####[facility] Vmhtadbhymrq0662 [place] [address] Mbizzkg6.0 mg/dLNormal8.6-10.4[facility] Comment on above:Performed By: #### LACTIC, PT, CBC, BMP ####[facility] Wdzqggdlnpza2688 [place] [address] Blbjwdvj534 mmol/LNormal 98-107Mer[facility] Health Willard HospitalComment on above:Performed By: #### LACTIC, PT, CBC, BMP ####[facility] Lntrtvujjzbj8532 [place] [address] WZ026 mmol/GHmyokv54-49NulfmMercy Health Willard HospitalComment on above:Performed By: #### LACTIC, PT, CBC, BMP ####[facility] Hkspsjvhaplk9055 [place] [address] Sqafxjpizx8.43 mg/dLLow0.50-0.90Mer[facility] Health Willard HospitalComment on above:Performed By: #### LACTIC, PT, CBC, BMP ####[facility] Lxnztchlglxk7192 [place] [address] eGFR (non-black)mL/min/{1.73_m2}Normal>60Mer[facility] Willard HospitalComment on above:Performed By: #### LACTIC, PT, CBC, BMP ####[facility] Pqocmonsytyj7040 [place] [address] Glucose mass goup504 mg/dBWmjm47-09YzrzuFountain Valley Regional Hospital and Medical CenterComment on above:Performed By: #### LACTIC, PT, CBC, BMP ####[facility] Npgdukywhonu9258 [place] [address] Potassium molar conc3.4 mmol/LLow3.7-5.3MFountain Valley Regional Hospital and Medical CenterComment on above: Performed By: #### LACTIC, PT, CBC, BMP ####[facility] Wkstsvlbtrul8404 [place] [address] Kxwcea201 mmol/EBiwjql079-661EiubrMercy Health Willard HospitalComment on above:Performed By: #### LACTIC, PT, CBC, BMP ####[facility] Lgferkejjeqi4879 [place] [address] Urea ubjwkhdo56 mg/dL Normal8-23Mer[facility] Health Willard HospitalComment on above:Performed By: #### LACTIC, PT, CBC, BMP ####Kimmie Bosnvytbcaah[address] [place] [address] BUN/CRE RatioNOT REPORTEDNormal9-20[facility] Willard HospitalComment on above:Performed By: #### LACTIC, PT, CBC, BMP ####Kimmie Tlhaslvwosys[address] [place] [address] Staging:NOT REPORTED The Bellevue HospitalComment on above:Performed By: #### LACTIC, PT, CBC, BMP ####Kimmie Hhrbllrtoeug[address] [place] [address] (cont.)NormalMercy Health Willard HospitalComment on above: Result Comment: Average GFR for 60-69 years old: 85 mL/min/1.73sq mChronic Kidney Disease: <60 mL/min/1.73sq mKidney failure: <15 mL/min/1.73sq meGFR calculated using average adult body mass. Additional eGFR calculator available at:http://www.[employer] [place]/multiple_crcl_2012.htmMichelle Ville 189342 [place] [address] [phone] By: #### BMP ####Kimmie [address] [address] Anion gap15 mmol/LNormal 9-17Mer[facility] Willard HospitalComment on above:Performed By: #### BMP ####Suady Effdwpdrybdu[address] [place] [phone] mg/dLNormal8.6-10.4Mer[facility] Willard HospitalComment on above:Performed By: #### BMP ####Suady Xtrbnmkwktrp[address] [place] [address] Bmoknbyw71 mmol/TTfhjrl12-479LansmMercy Health Willard HospitalComment on above: Performed By: #### BMP ####Kimmie Asasnzwmdyhp2568 [place] [address] HA327 mmol/LYyzouq74-51WyzhuMercy Health Willard HospitalComment on above:Performed By: #### BMP ####Kimmie Afkroitikjyy5092 [place] [address] Vrdhxqbjso1.37 mg/dLLow0.50-0.90Mer[facility] Health Willard HospitalComment on above:Performed By: #### BMP ####Suad Ynjkkhyippel8184 [place] [address] eGFR (non-black)mL/min/{1.73_m2}Normal>60Mer[facility] Willard HospitalComment on above:Performed By: #### BMP ####[facility] Szilzecohhdk[address] [place] [address] Glucose mass conc76 mg/dMHalryh47-69BdbuzFountain Valley Regional Hospital and Medical CenterComment on above:Performed By: #### BMP ####[facility] Wvxhgmuvazyr7646 [place] [address] Potassium molar conc3.7 mmol/LNormal3.7-5.3MFountain Valley Regional Hospital and Medical Center Comment on above:Performed By: #### BMP ####SuadVoxer LLCHeauuetulvoi3702 [place] [address] Ywtcxj897 mmol/MDspeuz162-460AvacxMercy Health Willard HospitalComment on above:Performed By: #### BMP ####Kimmie Jjoksgexwrzu5818 [place] [address] Urea tdvrucvh89 mg/dLNormal8-23Mer[facility] Willard HospitalComment on above:Performed By: #### BMP ####SuadVoxer LLCBlvoaymwcspf8886 [place] [address] BUN/CRE RatioNOT REPORTEDNormal9-20[facility] Will[facility] HospitalComment on above:Performed By: #### BMP ####Kimmie Lwctrjeoprxp5285 [place] [address] Staging:NOT REPORTEDNormalMercy Health Willard HospitalComment on above: Performed By: #### BMP ####Kimmie Bshxjdmyaxtp[address] [place] [address] [phone] 87-23-0382Chkfpiauxuf distribution width Auto Ratio (RBC)13.2 %Ouafmw69.5-15.4Mer[facility] Health Willard HospitalComment on above: Performed By: #### LACTIC, PT, CBC, BMP ####[facility] Slpclkdtrnpw[address] [place] [address] Erythrocytes (RBC)4.88 10*6/uLNormal4.0-5.2MFountain Valley Regional Hospital and Medical CenterComment on above:Performed By: #### LACTIC, PT, CBC, BMP ####Suady Xarlheeefgxd[address] [place] [address] Hematocrit (HCT)41.2 %Qtmokc96-37XztvcMercy Health Willard HospitalComment on above: Performed By: #### LACTIC, PT, CBC, BMP ####Suady Wsaeclyzmzaf[address] [place] [address] [phone] mass conc (Bld)13.7 g/dLNormal 12.0-16.0Mer[facility] Willard HospitalComment on above:Performed By: #### LACTIC, PT, CBC, BMP ####[facility] Doenjetwaqsp7133 [place], [place] [phone] zoJthhzq60-42OmzwfMercy Health Willard HospitalComment on above:Performed By: #### LACTIC, PT, CBC, BMP ####[facility] Tgbxaqbawfdd6401 [place], [place] [phone] mass conc (RBC)33.3 g/qXOxfymy74-20 [facility] Will[facility] HospitalComment on above:Performed By: #### LACTIC, PT, CBC, BMP ####SuadOxigene Arsdimtfqsho2914 [place] [address] MCV 84.4 kTNawawx09-375FrideMercy Health Willard HospitalComment on above:Performed By: #### LACTIC, PT, CBC, BMP ####SuadVoxer LLCMlmjdoccywyt4204[address] [place] [phone] mean volume (PMV)6.8 fLNormal6.0-12.0Mer[facility] Willard HospitalComment on above:Result Comment: [employer] [facility] [place] [address] Performed By: #### LACTIC, PT, CBC, BMP ####[facility] SystemVoxer LLCIjhsdhfsvcrb6428 [place] [phone] 10*3/pGHhyipo108-794DjepqMercy Health Willard HospitalComment on above:Performed By: #### LACTIC, PT, CBC, BMP ####[employer].io[address] [place] [phone] (Leukocytes)8.3 10*3/uLNormal3.5-11.0Mer[facility] Willard HospitalComment on above:Performed By: #### LACTIC, PT, CBC, BMP ####[facility] SystemVoxer LLCAtdlxhwtsjgc110[address] [place] [address] ABDOMEN PELVIS W IV CONTRASTon [id number] ABDOMEN PELVIS W IV CONTRASTEXAMINATION:CT OF THE ABDOMEN AND PELVIS WITH CONTRAST 01/25/2017 12:05 amTECHNIQUE:CT of the abdomen and pelvis was performed with the administration ofintravenous contrast. Multiplanar reformatted images are provided for review.Dose modulation, iterative reconstruction, and/or weight based adjustment ofthe mA/kV was utilized to reduce the radiation dose to as low as reasonablyachievable.COMPARISON:None.HISTORY:ORDERING SYSTEM PROVIDED HISTORY: metastatic workupTECHNOLOGIST PROVIDED HISTORY:Additional Contrast?- >NoneFINDINGS:Lower Chest: There is a 5 mm nodule in the right lower lobe adjace nt to themajor fissure on the 1st scan [...] grossly normal. There are several surgical clipsin thelower pelvis apparently related to complete hysterectomy. Severalclips in the left pelvic sidewall suggest prior lymph node dissection.Peritoneum/Retroperitoneum: There is no adenopathy, free air or free fluid.There is no omental tumor.Bones/Soft Tissues: No definite osseous metastatic disease.IMPRESSION: There are a few small low-attenuation lesions within the liver that mayrepresent a combination of small hepatic cysts and hemangiomas. Metastaticdisease is not excluded. If prior studies are av ailable, comparison would behelpful.There is a 5 mm right basilar lung nodule adjacent to the majorfissure onthe 1st scan obtained. This likely represents a lymph node. Metastaticlesion is not excluded.Evidence of a hysterectomy with lymph node dissection.Interpreted by:ANNA Pinkigned by:Mitchell Salcido MD01/25/17Final resultNormalMercy Arrowhead Regional Medical CenterCT CHEST W CONTRASTon [id number] CHEST W CONTRASTEXAMINATION:CT OF THE CHEST WITH CONTRAST 01/25/2017 12:05 amTECHNIQUE:CT of the chest was performedwith the administration of intravenouscontrast. Multiplanar reformatted images are provided for review. Dosemodulation, iterative reconstruction, and/or weight based adjustment of themA/kV was utilized to reduce the radiation dose to as low as reasonablyachievable.COMPARISON:None.HISTORY:ORDERING SYSTEM PROVIDED HISTORY: metastatic work upFINDINGS:Mediastinum: There is no mediastinal or hilar jesus opathy. The heart size isnormal. No pericardial. Thoracic aorta is normal caliber.Lungs/pleura: There is a 5 mm triangular-shaped nodule with smooth margins inthe right lower lobe adjacent to the major fissure (axial scan 55). No otherpulmonary nodules. The lungs are free of acute infiltrate. No pne umothoraxor pleural effusionUpper Abdomen: There several low-attenuation lesions [...] metastatic disease.Interpreted by:ANNA Pinkigned by:Mitchell Salcido MD01/25/17Final resultNormalBlanchard Valley Health [facility] Noteon [id number] IP Note OR TranscriptionNormMercy Health Lorain HospitalHI IP Note OR TranscriptionNoKing's Daughters Medical Center OhioHI IP Note OR TranscriptionThe [facility] Hospital HIM IP Note OR TranscriptionNormMercy Health Lorain HospitalHemoglobin A1C on 32-33-4932Sqawrcl mass ymwo366 mg/dLNoKing's Daughters Medical Center Ohio Comment on above:Result Comment: The ADA and AACC recommend providing the estimated average glucose result to permitbetter patient understanding of their HBA1c result.[employer] [facility] [place] [address] Performed By: #### TSHX, GLYHGB ####Higgle Ynxgeovsgcuz4699 [place] [address] Hemoglobin A1c/Hemoglobin.total mass fraction (Bld)5.6 %Normal 4.0-6.0Mer[facility] Willard HospitalComment on above:Performed By: #### TSHX, GLYHGB ####[facility] SystemOxigene Rrtuttvqoota5149 [place] [address] History and Physicalon [id number] IP Note OR TranscriptionThe Bellevue HospitalLactic Acidon 06-85-6757Oasjmi Acid,Whole Bl2.4 mmol/LHigh 0.7-2.1Mer[facility] Medical CenterComment on above:Result Comment: [employer] [facility] [place] [address] ([phone] By: #### LACTIC, PT, CBC, BMP ####[facility] Glafofocufns1407 [place] [address] LactateNOT REPORTEDNormalMercy [facility] Comment on above:Performed By: #### LACTIC, PT, CBC, BMP ####[facility] Nbtdljsuevwb9319 [place] [address] MRI BRAIN W WO CONTRAST on [id number] BRAIN W WO CONTRASTEXAMINATION:MRI OF THE BRAIN WITHOUT AND WITH CONTRAST 01/25/2017 1:21 amTECHNIQUE:Multiplanar multisequence MRI of the head/brain was performed without andwith the administration of intravenous contrast.COMPARISON:None.HISTORY:ORDERING SYSTEM PROVIDED HISTORY: Intracranial Mass seen on CTFINDINGS:INTRACRANIAL STRUCTURES/VENTRICLES: There is a 5.7 x 6.6 x 8.4 cm(transverse by AP by craniocaudal) enhancing mass of the righttemporoparietal occipital lobes, more likely to be extra-axial thanintra-ax ial in location. There is calcification associated with [...] region appear unremarkable. Thenormal signal voids within themajor intracranial vessels appear maintained.There is mild crowding [...] a meningioma. Less likely differential considerationsinclude primary [employer]INE neoplasm or metastatic disease.Extension of the mass [...] 02:05.Interpreted by:ANNA Lantiguaigned by:Abner Jacobson MD01/25/17Final result The [facility] HospitalMRSA, DNA, Nasalon [id number], DNA, NasalNEGATIVE: MRSA DNA not detected by nucleic acid amplification.The Bellevue HospitalComment on above:Result Comment: Results should be used as an adjunct to nosocomial control efforts to identify patients needing enhanced precautions.The test is not intended to identify patients with staphylococcal infections. Results should not be used to guide or monitor treatment for MRSA infections.[employer] [address] [place] [address] ([phone] By: #### MRSANO ####[employer] [address] Specimen Description.NASAL SWABNormalMercy Health Willard HospitalComment on above:Performed By: #### MRSANO ####[employer] [place] [address] PTon [id number] Coag RelTime (PPP)1.1 {INR}The [facility] HospitalComment on above: Result Comment: Therapeutic Range: Moderate Anticoagulant Intensity: INR = 2.0- 3.0 High Anticoagulant Intensity: INR = 2.5-3.[address] [address] ([phone] By: #### LACTIC, PT, CBC, BMP ####[facility] Systemy Vmeaszgylyks8235 [place] [address] Prothrombin time (PT) Coag time (PPP)12.0 sNormal9.4-12.6[facility] Comment on above:Performed By: #### LACTIC, PT, CBC, BMP ####[facility]ena Xwiflkrkckwy[address] [place] [address] TSH w/reflex to FT4on 27-05-1484Smrlizu stimulating hormone (TSH)4.51 m[IU]/LNormal0.30-5.00[facility] Will[facility] HospitalComment on above:Result Comment: [address] [address] ([phone] By: #### TSHX, GLYHGB ####[address] [address] Type + Screen on 95-70-9482Hrbt + ScreenSample Expiration 01/28/2017 Arm Band Number [place] [id number] ABO/Rh(D) A POSITIVE Antibody Screen NEGATIVE [address] [address] ([phone] Health Willard HospitalComment on above:Performed By: #### TYS ####[address] [address] XR CHEST STANDARD TWO VW on 32-12-7047LC CHEST STANDARD TWO VWEXAMINATION:TWO VIEWS OF THE CHEST01/25/2017 11:16 amCOMPARISON:CT 01/24/2017HISTORY:ORDERING SYSTEMPROVIDED HISTORY: COUGH , SOBTECHNOLOGIST PROVIDED HISTORY:Reason for exam:->COUGH , SOBAcuity: U nknownType of Exam: UnknownFINDINGS:Heart is stable in size without evidence of vascular congestion. Lungs areessentially clear. No focal infiltrates or significant pleural effusions areseen. The patient is slightly rotated. Monitor leads overlie the chest.Mild degenerative changes of the spine andshoulders with no acute osseousabnormality identified. .IMPRESSION: No acute findings.Interpreted by:ANNA Pedrazaigned by:Aramis Lubin MD01/25/17Final resultNormalMerUSC Verdugo Hills Hospital CenterED Noteon [id number] IP Note OR TranscriptionNormalMercy [facility] Regional Medical CenterHIM IP Note OR Team Lead NormalMerMercy Medical Center Merced Dominican CampusHIM IP Note OR TranscriptionNormalMerThompson Memorial Medical Center Hospital Provider Noteon [id number] IP Note OR TranscriptionNormalMerMercy Medical Center [facility] Vital Signs Date TimeVital SignValuePerforming PuhndnqwiYpxlmjlm59-17-7752 13:36-0400Body vfshok492.4 Zan Stokes MD Work Phone: [phone] IndustriesPaulding [facility] Hospital10-31-2025 13:36-0400Body mass index (BMI) [Ratio]40.43 kg/y0DtoefvhAdolfo Stokes MD Work Phone: [phone] IndustriesPaulding [facility] Hospital10-31-2025 13:36-0400Body jaxvak13.89 kgAdolfo Stokes MD Work Phone: [phone] IndustriesPaulding [facility] Hospital10-31-2025 13:36-0400Diastolic blood xifveyyq32 mm[Hg]Adolfo Stokes MD Work Phone: [phone]-Qbox.ioPaulding County Hospital10-31-2025 13:36-0400Heart rate 67 /minScrystal Stokes MD Work Phone: [phone]-Qbox.ioPaulding County Hospital10-31-2025 13:36-4942IiA1% (BldA) [Mass fraction]98 %Adolfo Stokes MD Work Phone: [phone])860-Qbox.ioPaulding County Hospital10-31-2025 13:36-0400Systolic blood hepzbpmz712 mm[Hg]Adolfo Stokes MD Work Phone: [phone]-Qbox.ioPaulding County Hospital10-20-2025 16:05-0400Body memeor711.4 Ricardo Clancy MD Work Phone: [phone] [place], [place] 7313110-20-2025 16:05-0400 Body mass index (BMI) [Ratio]39 kg/m2Marisol Clancy MD Work Phone: [phone])[address] [place], [place] 7313110-20-2025 16:05-0400 Body viqbql50.71 kgMarisol Clancy MD Work Phone: [phone] [place], [place] 7313110-20-2025 16:05-0400 Diastolic blood gfquchfo33 mm[Hg]Marisol Clancy MD Work Phone: [phone] [place], [place] 7313110-20-2025 16:05-0400 Heart rate59 /minMarisol Clancy MD Work Phone: [phone])[address] [place], [place] 7313110-20-2025 16:05-0400 Systolic blood fgzkraig609 mm[Hg]Marisol Clancy MD Work Phone: [phone])[address] [place], [place] 7313108-28-2025 13:38-0400 Body fimowa861.4 cmJoty Clancy MD Work Phone: [phone] [place], [place] 7313108-28-2025 13:38-0400 Body mass index (BMI) [Ratio]40 kg/m2Marisol Clancy MD Work Phone: [phone])[address] [place], [place] 7313108-28-2025 13:38-0400 Body qleyab73.98 kgMarisol Clancy MD Work Phone: [phone])[address] [place], [place] 7313108-28-2025 13:38-0400 Diastolic blood mm[Hg]Marisol Clancy MD Work Phone: [phone] [place], [place] 7313108-28-2025 13:38-0400 Heart rate62 /minMarisol Clancy MD Work Phone: [phone] [place], [place] 7313108-28-2025 13:38-0400 SaO2% (BldA) [Mass fraction]97 %Marisol Clancy MD Work Phone: [phone])[address] [place], [place] 7313108-28-2025 13:38-0400 Systolic blood sryiqeca326 mm[Hg]Marisol Clancy MD Work Phone: [phone])[address] [place], [place] 7313108-01-2025 10:00-0400 Body .4 cmSteven Sanyaher DPM Work Phone: [facility] CenterUsusepgecr01-72-1712 10:00-0400Body mass index (BMI) [Ratio]39.06 kg/g3Bkdtsz Rusher DPM Work Phone: [facility] CenterNiirsrfhee92-13-2100 10:00-0400Body .72 kgSteven Rusher DPM Work Phone: [facility] CenterBgkeoxpsqc95-89-5520 12:17-0500Body wkfewt775.4 cmAngela Lowe PA Work Phone: [facility] CenterRbqnmuucsz85-47-2609 12:17-0500Body mass index (BMI) [Ratio]40.04 kg/j3Dxivfd Lowe PA Work Phone: [facility] CenterLdazeuctaj14-10-2537 12:17-0500Body uccnwv33.99 kgAngela Lowe PA Work Phone: [phone]-[facility] CenterGsyqbqoagt81-38-9373 12:17-0500Diastolic blood mm[Hg]Jil Lowe PA Work Phone: [phone]-[facility] CenterTihgcndbge00-14-5763 12:17-0500Heart rate62 /min Jil Lowe PA Work Phone: [phone]-[facility] CenterTdwwmwxceo70-38-6737 12:17-0500Respiratory rate16 /minAngela Lowe PA Work Phone: [phone] [place], [place] [address]Twktwybzvj92-01-9814 12:17-8669MhY4% (BldA) [Mass fraction]98 %Jil Lowe PA Work Phone: [phone] [place], [place] [address]Ownkstzccp54-59-6659 12:17-0500Systolic blood isekizcm396 mm[Hg]Jil Lowe PA Work Phone: [phone] [place], [place] [address]Bkeggeprdp05-88-3681 10:30-0400Body vmuwet181.4 Fela Nayak MD Work Phone: [facility] HospitalPowerInbox Inbwla24-72-1022 10:30-0400Body mass index (BMI) [Ratio]38.67 kg/q6HztloMakenzie Nayak MD Work Phone: [facility] [employer] Cruich96-08-8096 10:30-0400Body jckuri90.81 kgMakenzie Nayak MD Work Phone: [phone]-Qbox.ioVermont State HospitalPhytoCeutica Rzyryw41-20-8472 10:30-0400Diastolic blood uzyxzqen61 mm[Hg]Makenzie Nayak MD Work Phone: [phone])634-Qbox.ioPaulding County Hospital09-19-2024 10:30-0400Heart rate 55 /minMakenzie Nayak MD Work Phone: [phone]-Qbox.ioPaulding County Hospital09-19-2024 10:30-8769TtU2% (BldA) [Mass fraction]98 %Makenzie Nayak MD Work Phone: [facility] HospitalStem[facility] [employer] Healthsource SaginawRpijie72-05-9119 10:30-0400Systolic blood tqonbihz616 mm[Hg]Makenzie Nayak MD Work Phone: [facility] Encounters Encounter DateEncounter TypeCare ProviderFacilityStart: 67-44-6521rutteyssfeLake District Hospitaltart: 96-25-9226sdrixeaozbBCZXETSaint Alphonsus Medical Center - Ontariotart: 04-22-2025 End: 29-55-4121taayrumvwyWGLEKAPremier Healthtart: 04-17-2025 End: 12-72-2671Bgoiporrx department patient visitPremier Healthtart: 04-17-2025 End: 77-34-2339Fntdrl outpatient visit 25 minutesBridgett Harris MD Work Phone: [facility] Physicians CardiologyComment on above:Chest pain due to myocardial ischemia, unspecified ischemic chest pain type (Primary Dx); Essential hypertension; Palpitation; Mixed hyperlipidemia; PHYLLIS (obstructive sleep apnea)Start: 04-17-2025 End: 95-19-5698hvummflskeHMTFIMDMercy Health Springfield Regional Medical Centertart: 04-16-2025 End: 11-16-5277Yxbtdezhz department patient visitRAMGuernsey Memorial Hospitaltart: 04-07-2025 End: 86-90-1598egxbhdogysTZSSFCGuernsey Memorial Hospitaltart: 04-06-2025 End: 73-81-9851jialacpmwyGmwx P Imm MD Work Phone: -[facility] Neurology [facility] HospitalueStart: 04-06-2025 End: 58-19-0556Sfbeyrm encounter procedureJil Dos Santos COST ACCOUNTING CLERK-[facility] Work Phone: Start: 03-25-2025 End: 17-29-3242Nudscrkld encounterTifxochitl [facility] Physicians CardiologyComment on above:appt neededStart: 41-59-0815Mji-patient / Non-visit Bhakti Morales [facility] OutPt Work Phone: Start: 03-04-2025 End: 25-44-9942FrcqynEnfte B Patel MD Work Phone: [facility] Physicians CardiologyComment on above:Med RefillStart: 02-12-2025 End: 57-62-6599oevfuzcbjcCjhh P Imm MD Work Phone: [facility] Work Phone: Start: 02-12-2025 End: 87-03-2282Tpoavmb encounter procedureBhakti Carmen Tatiana [facility] Work Phone: Start: 01-16-2025 End: 97-54-5744Mqwxvt flowsheetSteven A Rusher DPM Work Phone: noMS Jones PodiatryStart: 01-16-2025 End: 92-64-6072Hvzvwv flowsheetSteven A Rusher DPM Work Phone: NOMS Jones PodiatryStart: 01-16-2025 End: 01-80-8608fpsisiwtkpSLHBOK A RUSHERNot AvailableStart: 01-16-2025 End: 63-37-0499Gddtnk outpatient new 30 minutesSteven A Rusher DPM Work Phone: NOCommunity [facility] PodiatryComment on above:Superficial foreign body of left foot without major open wound and without infection, initial encounter (Primary Dx); Pain in left foot; Difficulty walkingStart: 01-16-2025 End: 19-31-2045oalfhlfcmcKIWZFY A RUSHERNot AvailableStart: 01-01-2025 End: 81-61-8245proiungxoeKJSTIDDoctors Hospitaltart: 01-01-2025 End: 11-21-3438Kecreurpuq hospital visit by Bakari Hensley DO Work Phone: [facility] MRI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Start: 10-02-2024 End: 98-66-3777dooflcxgriZJGQI B PATELProMedica Scripps Memorial Hospitaltart: 08-08-2024 End: 61-22-2536yihkzuhtduUJSYGJ AQEELProMedica Scripps Memorial Hospitaltart: 07-14-2024 End: 87-35-8034ltyyfjccmlVUJQGCDoctors Hospitaltart: 07-14-2024 End: 49-90-4468Bvzxqcqwlv hospital visit by Bakari Hensley DO Work Phone: [facility] MRI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Start: 07-08-2024 End: 90-54-7832Qyguws flowsheetAngela Lowe PA Work Phone: aNA BELLEVUEStart: 07-08-2024 End: 77-06-9335Dflxzb flowsheetAngela Lowe PA Work Phone: aNA BELLEVUEStart: 07-08-2024 End: 75-01-7040pljihybmcqXZVBZY LOWENot AvailableStart: 07-08-2024 End: 04-95-0218Edvdjm outpatient visit 25 minutesAngela Lowe PA Work Phone: aNA BELLEVUEComment on above:Occipital neuralgia of right side (Primary Dx); Seizure (CMS/HCC); Sleep apnea, unspecified type; LightheadednessStart: 06-04-2024 End: 39-84-4381Xvyceryam encounterTiffanie Sanchez Physicians CardiologyStart: 06-02-2024 End: 55-63-8364pbbgkdwzxkXBNB HILLNot AvailableStart: 03-06-2024 End: 72-88-1686Hvisie outpatient visit 25 minutesMakenzie Nayak MD Work Phone: [facility] Physicians CardiologyComment on above: Essential hypertension (Primary Dx); Ventricular premature depolarizationStart: 03-05-2024 End: 05-34-1790Pykvncedf encounterSarah Davis CMAProMedica Physicians CardiologyStart: 02-11-2024 End: 98-07-5535jatnsjajhePPFN HILLNot AvailableStart: 10-05-2022 End: 58-99-7235Xuwhxapkqn [facility] MedComment on above:ArrivedHemangiopericytoma Start: 06-21-2022 End: 26-42-7920Qtmzzpyspa hospital visit by physicianS Mri Rm 1 (1.5t)[facility] MRIComment on above:HemangiopericytomaStart: 06-16-2020 End: 53-14-9761Dwdvhrqxig hospital visit by physicianS Mri 1MMet[facility] MRIComment on above:Hemangiopericytoma, malignant (HCC)Start: 03-01-2018 End: 80-20-1919Hivfddm encounterMitchell GonzálesFacility:[facility] Hospitaltart: 38-84-9787GrafjjlxrdSZEXWARWR YOONFacility:H4Wxawo: 01-30-2017 AmbulatoryYOUNGSOOK YOONFacility:R5Sclfi: 01-29-2017 End: 37-10-5082Txkfufluya and management of inpatientBETRO T Memorial Hospitaltart: 01-24-2017 End: 24-20-2510Kiovgilncm and management of inpatientZUBAIR [facility] Procedures DateProcedureProcedure DetailPerforming ClinicianStart: 29-96-4342Sof routine ecg w/least 12 lds w/i&rScrystal Stokes MD Work Phone: Start: 62-97-4109Eqxywv-up visitFollow-upSCRYSTAL HEtart: 78-56-5587Blulz calcaneus minimum 2 viewsStfreeman Poe DPM Work Phone: Start: 18-39-7922Vmr brain brain stem w/o w/contrast materialZubair Ahammad DO Work Phone: Start: 78-23-0160MOTESTHKMU W/GFR POINT OF CAREZubair Ahammad DO Work Phone: Start: 06-84-5240Nni brain brain stem w/o w/contrast materialZubair Ahammad DO Work Phone: Start: 21-32-4658ORILGTBGYL W/GFR POINT OF CAREZubair Ahammad DO Work Phone: Start: 63-55-0868Zlz imaging for ct attenuation whole bodyZubair Ahammad DO Work Phone: Start: 79-72-3484Pieadga blood reagent stripZubair Ahammad DO Work Phone: Start: 08-29-5160Pxj brain brain stem w/o w/contrast materialZubair Ahammad DO Work Phone: Start: 11-99-1299JYGYOKURHP W/GFR POINT OF CAREZubair Ahammad DO Work Phone: Start: 36-56-4140Jro brain brain stem w/o w/contrast materialZubair Ahammad Work Phone: Start: 18-29-6635ZFRTQTKGED W/GFR POINT OF CAREZubair Ahammad Work Phone: Start: 21-72-9541WMBLK OXIMETRY, CONTINUOUSZUBAIR AHAMMADStart: 77-48-6240PVFOXWSHFUFNX NURSING CARE ORDER (SPECIFY)LYNDA AHAMMAD Start: 83-37-0934YOH GLUCOSE FINGERSTICKZUBAIR AHAMMADStart: 00-14-5367CXOP GLUCOSEZUBAIR AHAMMADStart: 68-28-2894RSOAA OXIMETRY, CONTINUOUSZUBAIR AHAMMAD Start: 36-98-1918JT CONSULT TO UROLOGYZUBAIR AHAMMADStart: 21-42-5867FNPSASV COMMUNICATIONZUBAIR AHAMMADStart: 43-92-7644UPNQHITSP PATIENTZUBAIR AHAMMAD Start: 92-10-1915OZYDF CAREZUBAIR AHAMMADStart: 50-55-8223NEV GLUCOSE FINGERSTICKZUBAIR AHAMMADStart: 99-17-9056NYGA GLUCOSEZUBAIR AHAMMADStart: 69-53-0453VQHKPYDBM SPIROMETRY RTZUBAIR AHAMMADStart: 39-41-2427YRRYXWUH OXYGEN THERAPY PROTOCOLZUBAIR AHAMMADStart: 55-11-7958DVMSN OXIMETRY, CONTINUOUSZUBAIR AHAMMADStart: 84-13-9962PZICB METABOLIC PANELZUBAIR AHAMMADStart: 85-63-7597HDP WITH AUTO DIFFERENTIALZUBAIR AHAMMADStart: 36-32-9774ONTG GLUCOSEZUBAIR AHAMMAD Start: 06-17-1560FDFTB OXIMETRY, CONTINUOUSZUBAIR AHAMMADStart: 14-42-8333IWGUID AND OUTPUTZUBAIR AHAMMADStart: 66-31-8936DXWQU CHECKSZUBAIR AHAMMADStart: 72-56-2171SEYUQ OXIMETRY, CONTINUOUSZUBAIR AHAMMADStart: 88-28-6205BVC GLUCOSE FINGERSTICKZUBAIR AHAMMADStart: 08-41-7866ABXT GLUCOSEZUBAIR AHAMMADStart: 57-85-3268WIZVJ OXIMETRY, CONTINUOUSZUBAIR AHAMMADStart: 49-10-0751UIF GLUCOSE FINGERSTICKZUBAIR AHAMMADStart: 33-08-3555GMQBE OXIMETRY, CONTINUOUSZUBAIR AHAMMADStart: 93-15-5447MIWMYPGK PATIENTZUBAIR AHAMMADStart: 83-20-1828DJRJBOR, IONIZEDZUBAIR AHAMMADStart: 05-14-0040XVM GLUCOSE FINGERSTICKZUBAIR AHAMMAD Start: 61-54-9845LWGP GLUCOSEZUBAIR AHAMMADStart: 82-60-5464KLQLF OXIMETRY, CONTINUOUSZUBAIR AHAMMADStart: 07-84-6396BMR EVAL AND TREATZUBAIR AHAMMADStart: 35-52-6569NNHN GENERALZUBAIR AHAMMADStart: 29-21-3204TABN GLUCOSEZUBAIR AHAMMAD Start: 81-35-0763FCSGIFXWZ SPIROMETRY RTZUBAIR AHAMMADStart: 49-45-4113EHAYDJKB OXYGEN THERAPY PROTOCOLZUBAIR AHAMMADStart: 44-65-9688EIZSP OXIMETRY, CONTINUOUS LYNDA AHAMMADStart: 50-03-9007SAW GLUCOSE FINGERSTICKZUBAIR AHAMMADStart: 26-89-0234YN CONSULT TO IV TEAMZUBAIR AHAMMADStart: 65-38-1877HLABE METABOLIC PANELZUBAIR AHAMMADStart: 31-27-6242KFO WITH AUTO DIFFERENTIALZUBAIR AHAMMAD Start: 74-86-4376KTFG GLUCOSEZUBAIR AHAMMADStart: 25-04-0443KYVXK OXIMETRY, CONTINUOUSZUBAIR AHAMMADStart: 16-94-8015UNPQMWF HEELS OFF OF BEDZUBAIR AHAMMAD Start: 84-58-6386VVOV OF BED 60 DEGREES OR LESSZUBAIR AHAMMADStart: 02-01-2017 NURSING COMMUNICATIONZUBAIR AHAMMADStart: 26-98-6968VZSB PATIENTZUBAIR AHAMMAD Start: 69-62-3551KXUNXQ AND OUTPUTZUBAIR AHAMMADStart: 31-04-6488SMDWA CHECKS LYNDA AHAMMADStart: 24-14-0629ZLGUD OXIMETRY, CONTINUOUSZUBAIR AHAMMADStart: 02-09-0996UOETYSL SCANZUBAIR AHAMMADStart: 73-31-4329WWVMVODU CATHZUBAIR AHAMMAD Start: 58-23-6684KYB GLUCOSE FINGERSTICKZUBAIR AHAMMADStart: 88-96-9500NMIK GLUCOSEZUBAIR AHAMMADStart: 88-04-5149ANEDR OXIMETRY, CONTINUOUSZUBAIR AHAMMAD Start: 71-62-4667WHP GLUCOSE FINGERSTICKZUBAIR AHAMMADStart: 12-04-0421RQ CONSULT TO PHYSICAL MEDICINE REHABZUBAIR AHAMMADStart: 67-23-9668ULJOG OXIMETRY, CONTINUOUSZUBAIR AHAMMADStart: 78-47-6111DJC WITH AUTO DIFFERENTIALZUBAIR AHAMMADStart: 90-65-5807HYGERHVX SPECIMENZUBAIR AHAMMADStart: 09-45-2651IXO GLUCOSE FINGERSTICKZUBAIR AHAMMADStart: 65-82-2514XLHS GLUCOSEZUBAIR AHAMMAD Start: 16-78-2797HLMLG OXIMETRY, CONTINUOUSZUBAIR AHAMMADStart: 01-31-2017 COMPREHENSIVE METABOLIC PANELZUBAIR AHAMMADStart: 58-06-0164DEO GLUCOSE FINGERSTICKZUBAIR AHAMMADStart: 66-69-3072ATWC GLUCOSEZUBAIR AHAMMADStart: 12-24-6450OOJPFYEJO SPIROMETRY RTZUBAIR AHAMMADStart: 73-03-1934OVIGWOBV OXYGEN THERAPY PROTOCOLZUBAIR AHAMMADStart: 29-26-1507QNCQF OXIMETRY, CONTINUOUSZUBAIR AHAMMADStart: 38-26-1121FGWR GLUCOSEZUBAIR AHAMMADStart: 70-03-6669DZKNS OXIMETRY, CONTINUOUSZUBAIR AHAMMADStart: 05-53-6818Eys brain brain stem w/o w/contrast materialZUBAIR AHAMMADStart: 58-06-5953JCLIAE AND OUTPUTZUBAIR AHAMMADStart: 84-92-7728QGTHT CHECKSZUBAIR AHAMMADStart: 11-43-7622QRZYH OXIMETRY, CONTINUOUSZUBAIR AHAMMADStart: 21-42-1648WPM GLUCOSE FINGERSTICKZUBAIR AHAMMADStart: 99-01-0259RKYC GLUCOSEZUBAIR AHAMMADStart: 91-17-1451HWUWL OXIMETRY, CONTINUOUSZUBAIR AHAMMADStart: 63-51-7926WSTGH METABOLIC PANELZUBAIR AHAMMADStart: 75-52-5313CXWEHRWHP AHAMMADStart: 25-20-7797IRYKPOC DIET TOLERATED (NURSING COMMUNICATION)LYNDA AHAMMADStart: 26-36-8690GIJINKXK PATIENT LYNDA AHAMMADStart: 13-91-4070DNMVNWWFZ AHAMMADStart: 93-37-7756TKLQ CODEZUBAIR AHAMMADStart: 56-44-9740HFFGX INTERMITTENT PNEUMATIC COMPRESSION DEVICEZUBAIR AHAMMADStart: 33-79-8356HYXAL CAREZUBAIR AHAMMADStart: 98-90-4525Rc head/brain w/o contrast materialZUBAIR AHAMMADStart: 66-58-6035PARZK OXIMETRY, CONTINUOUS LYNDA AHAMMADStart: 98-96-5083QIFXWZW, IONIZEDZUBAIR AHAMMADStart: 01-30-2017 OPEN HEART PANELZUBAIR AHAMMADStart: 64-30-9934URBV GLUCOSEZUBAIR AHAMMADStart: 64-17-4564HTPZQXA, IONIZEDZUBAIR AHAMMADStart: 28-28-0965SEXP HEART PANELZUBAIR AHAMMADStart: 94-14-5384OQANA OXIMETRY, CONTINUOUSZUBAIR AHAMMADStart: 08-39-2624XUYUASAE PATHOLOGYZUBAIR AHAMMADStart: 09-38-3505ORDRJTCP PATHOLOGY LYNDA AHAMMADStart: 68-44-6934UMRJMCW, IONIZEDZUBAIR AHAMMADStart: 01-30-2017 OPEN HEART PANELZUBAIR AHAMMADStart: 69-12-3303QRMC GLUCOSEZUBAIR AHAMMADStart: 19-63-9170XHGYJMOWN SPIROMETRY RTZUBAIR AHAMMADStart: 31-28-6812UMXBCYVA OXYGEN THERAPY PROTOCOLZUBAIR AHAMMADStart: 07-83-5690NRNIJ OXIMETRY, CONTINUOUSZUBAIR AHAMMADStart: 06-04-7162CAVAYDYLDL AHAMMADStart: 07-88-1694XWXQA METABOLIC PANEL LYNDA AHAMMADStart: 88-07-9462CFL WITH AUTO DIFFERENTIALZUBAIR AHAMMADStart: 62-24-2339RYBUNTQLQULJHIA AHAMMADStart: 07-50-2202JYONAFJ-INRZUBAIR AHAMMAD Start: 27-35-6327OBRV GLUCOSEZUBAIR AHAMMADStart: 39-18-4493WMAZX OXIMETRY, CONTINUOUSZUBAIR AHAMMADStart: 88-12-0858BEYYQ WEIGHTSZUBAIR AHAMMADStart: 82-91-6779WSOLWX AND OUTPUTZUBAIR AHAMMADStart: 12-36-9588JADTK CHECKSZUBAIR AHAMMADStart: 72-89-5292DKMDE OXIMETRY, CONTINUOUSZUBAIR AHAMMADStart: 80-96-7141VUFRZXGHYSQBRXA AHAMMADStart: 92-69-9660NNQ GLUCOSE FINGERSTICKZUBAIR AHAMMADStart: 96-74-7050Jkp brain brain stem w/contrast materialZUBAIR AHAMMAD Start: 73-24-5766LAAF GLUCOSEZUBAIR AHAMMADStart: 92-45-6991HHJBL OXIMETRY, CONTINUOUSZUBAIR AHAMMADStart: 08-90-2797RHIZR METABOLIC PANELZUBAIR AHAMMAD Start: 05-21-5351VSOCCYH, URINE CATHETERZUBAIR AHAMMADStart: 01-29-2017 Microscopic urinalysisZUBAIR AHAMMADStart: 54-51-1018ZdpaootbxjVQPJSM AHAMMAD Start: 75-25-3889ANIK DNA PROBE, NASALZUBAIR AHAMMADStart: 81-38-1773TOSMWKMZY LYNDA AHAMMADStart: 22-50-3506LTJ GLUCOSE FINGERSTICKZUBAIR AHAMMADStart: 01-65-2510LPZWYLW RBC (CROSSMATCH)LYNDA AHAMMADStart: 98-39-8453OYXHUNIZ REMOVALZUBAIR AHAMMADStart: 20-07-9028YPAZZE GARCIA CATHETERZUBAIR AHAMMADStart: 11-00-3264RD CONSULT TO ENDOVASCULAR NEUROSURGERYZUBAIR AHAMMADStart: 01-29-2017 IP CONSULT TO NEUROSURGERYZUBAIR AHAMMADStart: 24-67-9333OGPUO INTERMITTENT PNEUMATIC COMPRESSION DEVICEZUBAIR AHAMMADStart: 43-16-1884PKVMVQ FOR NO CHEMICAL VTE PROPHYLAXISZUBAIR AHAMMADStart: 49-52-7860SSPCGPKJZHOG AHAMMAD Start: 77-70-3880NWWJKCYXY DEEP BREATHING AND COUGHINGZUBAIR AHAMMADStart: 98-93-4917FYCKLAMHL SPIROMETRY RTZUBAIR AHAMMADStart: 89-00-9875QLSILFJR OXYGEN THERAPY PROTOCOLZUBAIR AHAMMADStart: 82-16-8947BVFAHX AND OUTPUTZUBAIR AHAMMAD Start: 94-00-2520DDKRV CHECKSZUBAIR AHAMMADStart: 42-43-4510CYNEN/VASCULAR CHECKSZUBAIR AHAMMADStart: 87-83-8178IVNTPX PHYSICIAN (SPECIFY)LYNDA AHAMMAD Start: 08-71-6320DSMBEKC COMMUNICATIONZUBAIR AHAMMADStart: 68-21-1468OV EVAL AND TREATZUBAIR AHAMMADStart: 49-92-5876IX EVAL AND TREATZUBAIR AHAMMADStart: 81-98-6975QQEVU OXIMETRY, CONTINUOUSZUBAIR AHAMMADStart: 58-65-9828ZCIEV SIGNS LYNDA AHAMMADStart: 88-93-6796NQMLA DRESSINGZUBAIR AHAMMADStart: 01-29-2017 INITIATE RT PROTOCOLZUBAIR AHAMMADStart: 39-09-7059EP CONSULT TO SOCIAL WORK LYNDA AHAMMADStart: 74-04-0292IBDXXUKZTOSTN NURSING CARE ORDER (SPECIFY)LYNDA AHAMMADStart: 03-28-0369NJHF GLUCOSEZUBAIR AHAMMADStart: 28-80-2502QFLJNAW PRECAUTIONSZUBAIR AHAMMADStart: 48-20-3892IOEIYHRCY MONITORINGZUBAIR AHAMMAD Start: 53-45-7513QNKWIBR STATUS (DIRECT)LYNDA AHAMMADStart: 48-50-7105Fqern cath carotid/innom art angio intrcranl artZUBAIR AHAMMADStart: 01-29-2017 ACTIVATED CLOTTING TIMEZUBAIR AHAMMADStart: 14-97-4570RTPW AND SCREENZUBAIR AHAMMADStart: 04-12-2156RCIDTMORXI AHAMMADStart: 36-02-1744VVEUK METABOLIC PANEL LYNDA AHAMMADStart: 49-66-6645SUYKTVCQA AHAMMADStart: 69-77-1289QIFFAKC-INR LYNDA AHAMMADStart: 66-03-5523VJUX GLUCOSEZUBAIR AHAMMADStart: 59-67-6824TUAP GLUCOSEZUBAIR AHAMMADStart: 68-47-0861SHBLXKIRQ PATIENTZUBAIR AHAMMADStart: 74-62-3297VFRQM METABOLIC PANELZUBAIR AHAMMADStart: 26-78-1537WGUA GLUCOSEZUBAIR AHAMMADStart: 43-74-7760WOV GLUCOSE FINGERSTICKZUBAIR AHAMMADStart: 01-26-2017 POCT GLUCOSEZUBAIR AHAMMADStart: 24-52-1002QZHA GLUCOSEZUBAIR AHAMMADStart: 99-12-7931Dmk head w/o & w/contrast materialZUBAIR AHAMMADStart: 57-15-6594Cmu head w/o contrst materialZUBAIR AHAMMADStart: 79-78-3830RNWLTRJWQNBYX NURSING CARE ORDER (SPECIFY)LYNDA AHAMMADStart: 23-84-9114JIP GLUCOSE FINGERSTICKZUBAIR AHAMMADStart: 21-08-3057NHYF GLUCOSEZUBAIR AHAMMADStart: 50-50-3545AWW GLUCOSE FINGERSTICKZUBAIR AHAMMADStart: 72-46-5333JSKR AND SCREENZUBAIR AHAMMADStart: 75-61-4520HIKO GENERALZUBAIR AHAMMADStart: 46-29-9317DLYB GLUCOSEZUBAIR AHAMMAD Start: 50-36-4787LXQAUBQ PRECAUTIONSZUBAIR AHAMMADStart: 27-97-5170GGP GLUCOSE FINGERSTICKZUBAIR AHAMMADStart: 07-32-8954Eextj x-rayZUBAIR AHAMMADStart: 86-63-5432FPT GLUCOSE FINGERSTICKZUBAIR AHAMMADStart: 17-04-6335KTIM GLUCOSE LYNDA AHAMMADStart: 79-08-7783DTJYQ METABOLIC PANELZUBAIR AHAMMADStart: 81-28-7209BXIINAIAT AHAMMADStart: 71-92-4313RVPCHR ACID, PLASMAZUBAIR AHAMMAD Start: 52-36-4538DUQYXJX-INRZUBAIR AHAMMADStart: 38-08-5638GELUCJS BLOOD #1 LYNDA AHAMMADStart: 50-63-7273MAUSAZF BLOOD #2ZUBAIR AHAMMADStart: 01-25-2017 HEMOGLOBIN A4TMQMJUH AHAMMADStart: 30-20-2149VUI WITH REFLEXZUBAIR AHAMMADStart: 63-18-1560UQWQ DNA PROBE, NASALZUBAIR AHAMMADStart: 95-78-2077SAZYL WEIGHTS LYNDA AHAMMADStart: 61-00-3440XBOC CODEZUBAIR AHAMMADStart: 41-18-1677WN CONSULT TO SOCIAL WORKZUBAIR AHAMMADStart: 36-71-5029AXKBKF PHYSICIAN (SPECIFY) LYNDA AHAMMADStart: 81-62-2672GI EVAL AND TREATZUBAIR AHAMMADStart: 01-25-[address] INTERMITTENT PNEUMATIC COMPRESSION DEVICEZUBAIR AHAMMADStart: 69-83-6271GM EVAL AND TREATZUBAIR AHAMMADStart: 77-27-1575VJSTES FOR NO CHEMICAL VTE PROPHYLAXISZUBAIR AHAMMADStart: 39-42-6275FDVNX SIGNSZUBAIR AHAMMADStart: 63-22-4016Kxo brain brain stem w/o w/contrast materialZUBAIR AHAMMADStart: 48-11-0134Ue abdomen & pelvis w/contrast materialZUBAIR AHAMMADStart: 01-25-2017 Ct thorax w/contrast materialZUBAIR AHAMMADStart: 74-83-6685ZKXBZ METABOLIC PANELZUBAIR AHAMMADStart: 52-23-2934PIUHUHS STATUS (FROM ED OR OR/PROCEDURAL) LYNDA AHAMMADStart: 70-37-3555RM CONSULT TO INTERNAL MEDICINEZUBAIR AHAMMAD Start: 50-07-3012MY CONSULT TO NEUROSURGERYZUBAIR AHAMMADStart: 10-17-2015 ColonoscopyJennisrael Davis CMAH/O: surgeryS/P resection of meningiomaMarisol Clancy MD Work Phone: Comment on above:Problem List clean-up per request of Phys. EHR Cmte Plan of Treatment DateCare ActivityDetailAuthorStart: 48-57-4672Lbloc BMI ScreeningAdult BMI ScreeningProHighland District Hospitalca Health SystemStart: 68-09-9450Evetgwt ScreeningTobacco ScreeningProHighland District Hospitalca [facility] SystemStart: 12-30-2025 End: 39-12-0262Xljisiu encounter ywleisizi37/15/2026 1:30 PM EDT Office Visit [facility] [address] [place] [id number] Vaishnavi Hensleyir, DO [address] [place] [id number] [facility]Start: 12-09-2025 End: 66-70-3754Lqkkwvp encounter miswpbiox41/24/2026 2:00 PM EDT [facility] [address], [address] [place] [id number] Shellie, Lynda, DO [address] [place] [address] [facility] [place]edoStart: 00-81-8199Srwbhxrut for malignant neoplasm of colonColonoscopyProClermont County Hospital SystemStart: 05-13-2025 End: 24-44-5396Ffqzzyv encounter qwtpbnxni41/26/2025 10:00 AM EST Appointment [facility] [place] [address] [place] [address] [facility]LrcpbeHend[facility] - CTStart: 04-17-2025 End: 19-03-6142JRM Heart and Coronary arteries WO and W contrast IVCT angiogram coronary arteries with or without scoring Imaging Routine Chest pain due to myocardialischemia, unspecified ischemic chest pain type Expected: 04/17/2025, Expires: 04/17/2026[facility] Work Phone: Comment on above:Expected: 04/17/2025, Expires: 04/17/2026Start: 04-17-2025 End: 71-19-6862Usrg complete W/O contrastEcho complete W/O contrast Echocardiography Routine Chest pain due to myocardial ischemia, unspecified ischemic chest pain type Essential hypertension Palpitation Expected: 04/17/2025, Expires: 04/17/2026ProLaurel Oaks Behavioral [facility] Center Health SystemComment on above:Expected: 04/17/2025, Expires: 04/17/2026Start: 00-37-3085Hqosb BMI ScreeningAdult BMI ScreeningHolzer Health System SystemStart: 86-62-9848Hbrtvck ScreeningTobacco ScreeningProClermont County Hospital SystemStart: 18-50-5321Eriex BMI ScreeningAdult BMI ScreeningProClermont County Hospital SystemStart: 56-76-5150EYYSG-19 Vaccine ( season)COVID-19 Vaccine ()[facility] SystemStart: 26-30-3647Iebejzlxc vaccinationInfluenza VaccineHolzer Health System SystemStart: 16-86-6220Hdlkqnmwo vaccinationFlu vaccine (#1)[facility]: 01-16-2025 End: 65-10-4801Furcvkf encounter xlsrxaoyp63/01/2025 10:00 AM EDT Office Visit [facility] [address] [place] [id number] Santi Poe DPM [address] [place] [address] [facility]NO[facility]ert PodiatryComment on above:ArrivedStart: 11-27-2024 Tobacco ScreeningTobacco ScreeningHolzer Health System SystemStart: 07-08-2024 End: 92-80-1589Ilsgrawreovkc levelLevetiracetam level Lab Routine Seizure (CMS/HCC) Expected: 07/08/2024 (Approximate), Expires: 07/08/2025[facility] Work Phone: comment on above:Expected: 07/08/2024 (Approximate), Expires: 07/08/2025Start: 07-08-2024 End: 55-77-3952Fsuqvwv encounter trsjezlyw06/21/2025 12:20 PM EST Office Visit KENDRA HINOJOSA [address] [address] [place] [phone] Jil Evangelista PA [address] [place] [address] Sarah MICAELAComment on above:ArrivedStart: 06-18-2024 Annual Wellness Visit (Medicare Advantage)Annual Wellness Visit (Medicare Advantage)[facility] System[facility]: 06-12-2024 End: 56-91-1546Stjukl monitor studyHolter monitor 24-48 hour Cardiac Services Routine Bradycardia Expected: 06/12/2024, Expires: 06/12/2025[facility] Work Phone: Comment on above:Expected: 06/12/2024, Expires: 06/12/2025Start: 03-06-2024 End: 52-40-0404Oihjxhv encounter /19/2024 10:45 AM EDT Office Visit [facility] [address] [place] [address] Makenzie Nayak MD [address] [place] [address] [facility]iologyStart: 93-88-4719BCNNJ- 19 Vaccine ( season)COVID-19 Vaccine ( season)[facility] SystemStart: 23-26-4048XRXGV-19 Vaccine ( season)COVID-19 Vaccine ( season)[facility] SystemStart: 83-34-4433CWKOT-19 Vaccine ( season)COVID-19 Vaccine ( season)[facility] SystemStart: 82-97-5117KFRQJ-19 Vaccine ( season)COVID-19 Vaccine ( season)[facility] SystemStart: 64-87-1715Brkcurxzv vaccinationInfluenza VaccineProLaurel Oaks [facility] Health SystemStart: 00-71-2573Vkmmzrfve vaccinationFlu vaccine (#1)[facility] SystemStart: 06-25-2023 End: 32-21-4029Xedlvmw encounter kouwvhena93/08/2024 Office Visit Neurosurgery Lynda Hensley DO [address] [place] [address] [facility]: 18-87-4910Rtktsrgete measurementCreatinine monitoringMary [facility]: 06-15-2021 End: 40-31-0769Ajlatc Visit06/15/2021 Office Visit Neurosurgery Lynda Hensley, [address] [place] [address] [facility]Start: 06-66-0202Wkakk panel LipidsBON [facility]: 87-61-6443GNRYC-19 Vaccine (2 - Booster for Sotero series)COVID-19 Vaccine (2 - Booster for Sotero series)[facility]: 15-24-8904Kibmgg Wellness Visit (AWV)Annual Wellness Visit (AWV)[facility]: 47-71-2757Isiwgwiag vaccinationFlu vaccine (#1)[facility]: 71-63-3813Kdwfiuap screenDiabetes screenBON [facility]: 66-41-7530Laxw Risk ScreeningFall Risk Screening [facility] SystemStart: 59-04-2454Nazvgoxuf monitoringPotassium monitoring [facility]: 75-90-1440ZLG QnTSH testingMary [facility] Hospital: 27-63-9592Trlcwohzzvu Syncytial Virus (RSV) or age 60 yrs+ (1 - Risk 60-74 years 1-dose series)Respiratory Syncytial Virus (RSV) or age 60 yrs+ (1 - Risk 60-74 years 1-dose series)[facility]: 75-30-2749IEM ( or age 60+ yrs) (1 - Risk 60-74 years 1-dose series)RSV ( or age 60+ yrs) (1 - Risk 60-74 years 1-dose series)[facility]: 49-12-5315Fdpmeugyh for osteoporosisDEXA (modify frequency per FRAX score)[facility]: 20-44-9271Hgjyiqmojgpwqh of varicella zoster vaccineZoster (Shingles) Vaccine (1 of 2)[facility] CA[facility]art: 60-27-3472Wmrcffrkb for malignant neoplasm of breastBreast cancer screenCRITICAL ACCESS HOSPITALStart: 79-61-5695Bysrnznhd for malignant neoplasm of colon Colon cancer screen colonoscopyTucson, [place]Start: 90-69-7543Qgixtfon Vaccine (1 of 2)Shingles Vaccine (1 of 2)[facility] Hospitalart: 38-12-0394Gsbqyzfes for malignant neoplasm of colonBON [facility] Start: 18-88-2753Roesplfxe for malignant neoplasm of breastBreast cancer screen [facility]: 54-42-9037Ejwysfozp for malignant neoplasm of cervixCervical cancer [facility]: 44-85-0201FVuM,Tdap and Td Vaccines (1 - Tdap)DTaP,Tdap and Td Vaccines (1 - Tdap)[facility]: 59-07-7674DNcE/Tdap/Td vaccine (1 - Tdap)DTaP/Tdap/Td vaccine (1 - Tdap)[facility]: 68-84-4327Drtdp BMI Follow Up PlanAdult BMI Follow Up PlanFormerly [facility], [facility]: 54-42-6889Zljtvizfj C screening Hepatitis C screenCRITICAL ACCESS HOSPITALStart: 45-26-5393WPI screeningHIV [place], [place]Start: 12-13-0714Jjdpnbfxbz ScreenDepression ScreenSentara [facility] General Hospitalart: 65-86-1744Stssjzmvlu ScreeningDepression Screening [facility]: 08-98-9196Bmnnp panelCRITICAL ACCESS HOSPITAL Start: 85-93-1183Qhkwhytfk C screeningHepatitis C [place], [place] Start: 04-28-1955Medicare Annual Wellness VisitMedicare Annual Wellness Visit [facility] End: 72-31-7792Vpnpsmojeusjv metabolic 2000 panel - Serum or PlasmaComprehensive metabolic panel Lab Routine Essential hypertension 1 Occurrences starting 03/06/2025 until 03/06/2026Pro[employer] Work Phone: Comment on above:1 Occurrences starting 03/06/2025 until 03/06/2026MRI BRAIN W WO CONTRASTMRI BRAIN W WO CONTRAST Imaging Routine Hemangiopericytoma 06/21/2022 9:02 AM [facility] [place] Work Phone: [facility] Immunizations Immunization DateImmunizationNotesCare PwtztbrsAhgzmcxj27-59-3337lvpwzgqpj virus vaccine, unspecified formulationJeannie Davis CMAHolzer Health System System Payers DatePayer CategoryPayerPolicy [id number] (Managed Care)[facility] MEDICARE ADVANTAGE [id number] 2022MedicareANTHEMMedicareANTHEM MEDICARE ANTHEM MEDICARE ADVANTAGE [id number] 2021-Present [phone] [address] [place] [id number] Medicare [facility] Member Subscriber Plan / Payer (Effective 2021-Present) Name: Shukri Fuller Relation to Subscriber: Self Name: Shukri Fuller Payer ID: [id number] (NAIC) Group ID: [id number] Type: Not on file Address: [address] [place] [id number] [id number] 2015MedicareAETNA MEDICARE AETNA MEDICARE ADVANTAGE HMO [id number] 2014- Present [address] [place] [address] [id number] [id number] 2..1.940093.3.57[id number] 2..1.078257.3.57[id number] 2..1.468715.3.57[id number] 2..1.870786.3.57[id number] 2..1.093028.3.57[id number] 2.0.1.484896.3.57[id number] 2.0.1.595764.3.57[id number] 2.0.1.388449.3.57[id number] 2.0.1.942659.3.57[id number] 2.16.840.1.546237.3.57[id number] 2.16.840.1.886285.3.57[id number] 2.16.840.1.153411.3.57[id number] 2.16.840.1.834486.3.57[id number] 2.16.840.1.178691.3.57[id number] 2.16.840.1.807741.3.57[id number] 2.16.840.1.112448.3.57[id number] 2.16.840.1.360390.3.579.2.1286 Social History DateTypeDetailFacilityStart: 08-28-2018 End: 49-76-5312Mghgols smoking status NHISFormer [facility] [place] Start: 08-28-2018 End: 55-64-7244Ohlydwe use and exposureNever usedMary [facility]: 08-28-2018 End: 32-48-3365Xwegari intakeCurrent non-drinker of alcohol (finding)[facility]: 62-99-5996Afi Assigned At BirthNot on [place], [place]Exposure to SARS-CoV-2 (event)Not sureMary [facility]: 03-27-1976 End: 26-14-0416Doaaqrb of tobacco useCurrent [facility] [place] Work Phone: start: 03-27-1976 End: 70-49-3530Gggiuzm of tobacco useCigarette SmokerPaulding County Hospital Start: 07-29-2020 End: 28-15-1759Fotaeamjxt smoked current (pack per day) - Reported0.5[facility]: 07-29-2020 End: 94-76-6714Wcoqbyq use panelPaulding County HospitalChildcareUnknownPUNC Health Rextart: 07-28-2012 End: 36-55-1691JchCwhmwx (finding)[facility]: 12-27-2023 End: 31-47-3456Qzjksgnzl beverage intakeLifetime non-drinker (finding)[facility] CenterStart: 68-33-5380Gboscpm Commentcaffeine: 2-3 cups per dayUniversity Health Lakewood Medical CenterStart: 02-61-4348Nfq assigned at birthFeWrentham Developmental Center HealthcareStart: 31-66-2254Epwofm identityIdentifies as female gender (finding)[facility] Start: 91-90-9219Azwnlm orientationHeterosexual (finding)[facility] Medical CenterHow often do you have a drink containing alcohol?NeverPaulding County Hospital Medical Equipment Procedure CodeEquipment CodeEquipment Original TextEquipment IdentifierDates Cover Plate Bur Hole Low Prof W/Tab [id number]: 70-05-2593Sfiak Self Drilling 1.5x4mm Min Order [id number]: 46-89-1321Yiurt Mesh Contourabl 1.7mm [id number]_impStart: 48-93-8260Rfc-Graft Patch Dura Regeneration [id number]_impStart: 01-30-2017 Functional Status PqzcBazntzjztsQzwofyXecrvbjd66-17-5007Ackbw score [AUDIT-C]0 04/17/2025 1:47 PM EDT Jayne Winters CMASelect [facility]ty [facility] Clinical Notes 03-05-2024 to 04-17-2025 Note Date & HnwdJlaqKxiqilxy09-12-6761 History of Present illness Narrative* Adolfo Stokes MD - 04/17/2025 1:45 PM EDT Shukri Fuller Date of visit: 04/17/2025 Date of : 1955 Age: 69 y.o. Patient Active Problem List Diagnosis Urinary retention Palpitation Chest pain due to myocardial ischemia Ventricular premature depolarization Obesity (BMI 30-39.9) PHYLLIS (obstructive sleep apnea) Essential hypertension Mixed hyperlipidemia Allergies Allergen Reactions Bactrim [Sulfamethoxazole-Trimethoprim] Pneumococcal Vaccine Current Outpatient Medications Medication Sig Dispense Refill albuterol (PROVENTIL HFA;VENTOLIN HFA) 90 mcg/actuation inhaler Inhale 2 puffs every 4 (four) hoursas needed for wheezing or shortness of breath. aspirin 81 mg Take 1 tablet (81 mg total) by mouth in the morning. atorvastatin (LIPITOR) 40 mg tablet Take 1 tablet (40 mg total) by mouth in the morning. azithromycin (ZITHROMAX) 250 mg tablet Take 1 tablet (250 mg total) by mouth in the morning. budesonide-formoteroL (SYMBICORT) 160-4.5 mcg/actuation inhaler Inhale 2 puffs in the morning and 2puffs before bedtime. cetirizine (ZyrTEC) 10 mg tablet Take 1 tablet (10 mg total) by mouth in the morning. 1 TABLET ORALLY ONCE A DAY. ibuprofen (MOTRIN) 800 mg tablet Take 1 tablet (800 mg total) by mouth every 6 (six) hours as needed for pain. levETIRAcetam (KEPPRA) 250 mg tablet Take 2 tablets (500 mg total) by mouth in the morning and 2 tablets (500 mg total) before bedtime. levothyroxine (SYNTHROID, LEVOTHROID) 75 MCG tablet Take 1 tablet (75 mcg total) by mouth in the morning. lisinopriL (PRINIVIL,ZESTRIL) 20 mg tablet Take 1 tablet (20 mg total) by mouth in the morning. lisinopril-hydroCHLOROthiazide (PRINZIDE,ZESTORETIC) 20-25 mg per tablet Take 1 tablet by mouth in the morning. montelukast (SINGULAIR) 10 mg tablet Take 1 tablet (10 mg total) by mouth nightly. omeprazole (PriLOSEC) 40 mg capsule Take 1 capsule (40 mg total) by mouth every morning before breakfast. verapamil SR (CALAN-SR) 180 mg CR tablet TAKE 1 TABLET BY MOUTH EVERY MORNING 90 tablet 0 No current facility-administered medications for this visit. Chief Complaint Patient presents with Follow-up 14MO F/U-L/S RBP-ER VISIT 04/16 PMH-LABS/CHEST XRAY/ECG 04/16 PMH-SCHD APPT W/PT History of Present Illness 69-year-old female with hypertension, PVCs who presents to our office after she had an ER visit yesterday. Patient was last seen by Dr. Juno Nayak in February of 2024 and due to asymptomatic iatrogenic bradycardia, verapamil was decreased to 180 mg daily. Patient was recently started on azithromycin and steroid for possible pneumonia/asthma exacerbation. Since patient's symptoms of shortness of breath and chest tightness did not improve, she went to the ER on 04/16/2025. Patient's symptoms resolved after she received GI cocktail. Blood work revealednegative troponins x2 with BNP of 85 and normal blood work including CBC and BNP. X-ray reveals no evidence of acute cardiopulmonary process. Patient feels her symptoms unlikely secondary to steroids and she just does not feel good. Has intermittent epigastric chest pain which is nonexertional and not radiating. Denies any shortness of breath, palpitations, lightheadedness or dizziness. 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 Hematuria Hypertension Hypothyroidism Obesity Peripheral neuropathy Renal mass Seizures ([facility]-HCC) Sleep apnea Ureteropelvic junction obstruct, congenital Urinary retention Past Surgical History: Procedure Laterality Date BRAIN SURGERY COLONOSCOPY HYSTERECTOMY 1989 RELEASE CARPAL TUNNEL Right 02/20/2018 Performed by Mitchell Gonzáles DO at [facility] TONSILLECTOMY Family History Problem Relation Age of [...] date: 03/27/1975 Quit date: 03/27/1995 Years since quittin.0 Smokeless tobacco: Never Vaping Use Vaping status: Never Used Substance and Sexual Activity Alcohol use: No Drug use: No Sexual activity: Yes Partners: Male Other Topics Concern Caffeine Use No Social History Narrative Not on file Social Drivers of Health Financial Resource Strain: Not on file Food Insecurity: No Food Insecurity (04/17/2025) Hunger Screening Food Insecurity - Worry: Never True Food Insecurity - Inability: Never True Transportation Needs: Not on file Physical Activity: Not on file Stress: Not on file Social Connections: Not on file Interpersonal Safety: Not on file Housing Instability: Not on file Review of Systems Review of Systems Constitutional: Negative. HENT: Negative. Eyes: Negative. Cardiovascular: Positive for chest pain. Respiratory: Positive for cough and shortness of breath. Endocrine: Negative. Hematologic/Lymphatic: Negative. Skin: Negative. Musculoskeletal: Negative. Gastrointestinal: Positive for change in bowel habit. Genitourinary: Negative. Neurological: Positive for dizziness, light-headedness and loss of balance. Psychiatric/Behavioral: Negative. Allergic/Immunologic: Positive for environmental allergies. Vascular: Negative. CARDIOVASCULAR: Please review HPI. Physical Examination General [...] mood, memory and judgement. VITAL SIGNS: BP 144/78 Pulse 67 Ht 152.4 cm (5') Wt 93.9 kg (207 lb) SpO2 98% BMI 40.43 kg/m Orders Placed or Reconciled This Encounter Medications azithromycin (ZITHROMAX) 250 mg tablet Sig: Take 1 tablet (250 mg total) by mouth in the morning. levothyroxine (SYNTHROID, LEVOTHROID) 75 MCG tablet Sig: Take 1 tablet (75 mcg total) by mouth in the morning. cetirizine (ZyrTEC) 10 mg tablet Sig: Take 1 tablet (10 mg total) by mouth in the morning. 1 TABLET ORALLY ONCE A DAY. budesonide-formoteroL (SYMBICORT) 160-4.5 mcg/actuation inhaler Sig: Inhale 2 puffs in the morning and 2 puffs before bedtime. Medications Discontinued During This Encounter Medication Reason albuterol (ACCUNEB) 1.25 mg/3 mL nebulizer solution amoxicillin (AMOXIL) 500 mg capsule busPIRone (BUSPAR) 10 mg tablet citalopram (CeleXA) 20 mg tablet levothyroxine (SYNTHROID, LEVOTHROID) 125 MCG tablet fluticasone propionate (FLOVENT HFA) 110 mcg/actuation inhaler loratadine (CLARITIN) 10 mg tablet omeprazole (PriLOSEC) 20 mg capsule potassium chloride (K-TAB,KLOR-CON) 10 MEQ CR tablet 10/08/2024: 24 hour Holter monitor. Primary rhythm was sinus. Average heart rate 68 beats per minute ranging between 56-132 beats per minute. Rare supraventricular ectopy. Two supraventricular arrhythmias longest event 19 beats, fastest event 132 beats per minute. This appears to be atrial tachycardia. No significant atrial fibrillation/flutter, ventricular arrhythmias, AV blocks or pauses noted. Patient documented symptoms of heart fluttering/racing and anxiety were associated with normal sinus rhythm. IMPRESSIONS/PLAN 1. Chest pain - CT angiogram coronary arteries with or without scoring; Future - Echo complete W/O contrast; Future - POCT EKG Sinus rhythm with heart rate of 64 BPM. Low-voltage QRS complexes in precordial leads. Otherwise normal EKG. As compared to the prior EKG from 04/16/2025 at 2:19 a.m., no significant changes were noted. Patient's chest pain is very atypical in origin. Given her risk factors, discussed with the patient that she would benefit from coronary CTA to ruleout CAD. Continue aggressive risk factor and lifestyle modifications. Discussed with the patient if her symptoms do not improve go to the ER for further evaluation. 2. Essential hypertension - Echo complete W/O contrast; Future Blood pressure is fairly well controlled on current medication regimen of lisinopril 40 mg daily and hydrochlorothiazide 25 mg daily and verapamil SR 180 mg daily. 3. Palpitation - Echo complete W/O contrast; Future Fairly well suppressed on verapamil. 4. Mixed hyperlipidemia On atorvastatin, tolerating it well with no side effects. 5. PHYLLIS (obstructive sleep apnea) TODAYS ORDERS Orders Placed This Encounter Procedures CT angiogram coronary arteries with or without scoring POCT EKG Echo complete W/O contrast FOLLOW UP Return in about 3 months (around 07/18/2025). PCP: REBECA KELLY MD Referring Physician: Rebeca Kelly MD [address] [place] [address] documented in this encounterPaulding County Hospital10-08-2025 Miscellaneous Notes* Telephone Encounter - Salima Townsend RN - 03/25/2025 11:08 AM EDT Recv'd med refill request for verapamil. Per med list we sent 3 month supply 02/2025. Pt due for yearly appt. Called and LMOM to call for yearly appt. Has 2 month of meds and we can send refills at that time. Per the holter results in September we said she can stop med if she wanted. She was going to speak with pcp at the November appt and keep us updated. documented in this encounterPaulding County Hospital10-08-2025 Telephone encounter Note* Telephone Encounter - Salima Townsend RN - 03/25/2025 11:08 AM EDT Recv'd med refill request for verapamil. Per med list we sent 3 month supply 02/2025. Pt due for yearly appt. Called and LMOM to call for yearly appt. Has 2 month of meds and we can send refills at that time. Per the holter results in September we said she can stop med if she wanted. She was going to speak with pcp at the November appt and keep us updated. [facility]09-17-2025 Miscellaneous Notes* Telephone Encounter - Traci Rodgers RN - 03/04/2025 6:25 AM EDT Last OV 03/06/24 CMP 02/20/24 CMP pended; refill letter mailed documented in this encounterPaulding County Hospital09-17-2025 Telephone encounter Note* Telephone Encounter - Traci Rodgers RN - 03/04/2025 6:25 AM EDT Last OV 03/06/24 CMP 02/20/24 CMP pended; refill letter mailed [facility]08-28-2025 Evaluation note* Diagnosis Onset Date Resolution Status Admit Date Hypersomnia acuteAugust 2024 1:14pmMeningiomaacuteAugust 2024 1:14pmNumbness and tinglingacuteAugust 2024 1:14pmOSA (obstructive sleep apnea)acuteAugust 2024 1:14pmSeizure disorderacuteAugust 2024 1:14pmSeizuresnoneactive [place] 2024 1:14pm [facility] Work Phone: 1(311) 381-428308-01-2025 History of Present illness Narrative* Santi Poe, YUVAL - 01/16/2025 10:00 AM EDT Images from the original note were not [...] 4 (four) hours if needed for wheezing, Disp:, Rfl: aspirin 81 MG EC tablet, Take [...] before bedtime., Disp: , Rfl: Allergies Bactrim [sulfamethoxazole-trimethoprim], Iodinated contrast media, Iodine, and Pneumococcal vaccine [...] erythematous, without kriss cellulitis, swelling, warmth or softtissue fluctuance. No drainage is encountered. Localized callus formation, with eventual identification of a small shard of glass; with resultant small superficial soft tissue cleft. Otherwise unremarkable for deep probing or tracking. Soft tissue envelope well-perfused. There are no other clinicalsigns of trauma. Orthopedic: Range of motion: Functional [...] understanding. Santi Poe DPM documented in this encounterUniversity Health Lakewood Medical [id number] Instructions* Patient Instructions* Santi Poe DPM - 01/16/2025 10:00 AM EDT Post-procedure instructions as noted documented in this encounterUniversity Health Lakewood Medical CenterOjbjyorvtm07-22-4010 Miscellaneous Notes* Telephone Encounter - Tiffanie Chaudhry RN - 06/04/2024 3:58 PM EST Received p/c from pt. [place] there was a recall on Verapamil ER and wants to know if needs to keep taking something that was started many years ago. Film Flat Inspector called [facility] to see if there is a recall. Phamacist isn't aware of this. Patient wants to know if still needs to be on Verapamil Will message RBP for advice * Telephone Encounter - Makenzie Nayak MD - 06/04/2024 3:58 PM EST Yes continue, would get a repeat holter to make sure no significant chun, I had previously decreased dose * Telephone Encounter - Tiffanie Chaudhry RN - 06/04/2024 3:58 PM EST Response called to pt. Central scheduling phone number provider to pt to schedule documented in this encounterPaulding County Hospital12-18-2024 Telephone encounter Note* Telephone Encounter - Tiffanie Chaudhry RN - 06/04/2024 3:58 PM EST Received p/c from pt. [place] there was a recall on Verapamil ER and wants to know if needs to keep taking something that was started many years ago. Film Flat Inspector called [facility] to see if there is a recall. Phamacist isn't aware of this. Patient wants to know if still needs to be on Verapamil Will message RBP for advice [facility]12-18-2024 Telephone encounter Note* Telephone Encounter - Makenzie Nayak MD - 06/04/2024 3:58 PM EST Yes continue, would get a repeat holter to make sure no significant chun, I had previously decreased dose Fwd: Power12-18-2024 Telephone encounter Note* Telephone Encounter - Tiffanie Chaudhry RN - 06/04/2024 3:58 PM EST Response called to pt. Central scheduling phone number provider to pt to schedule Fwd: Power09-19-2024 History of Present illness Narrative* Makenzie Nayak MD - 03/06/2024 10:45 AM EDT [place] Date of visit: 03/06/2024 Date of : [...] inhaler Inhale 2 puffs every 4 (four) hoursas needed for wheezing or shortness of breath. [...] Inhale 2 puffs in the morning and atbedtime. 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 Hematuria Hypertension Hypothyroidism Obesity Peripheral neuropathy Renal mass Seizures (CMS-HCC) Sleep apnea Ureteropelvic junction obstruct, congenital Urinary retention No data recorded No data recorded No data recorded Past Surgical History: Procedure Laterality Date BRAIN SURGERY COLONOSCOPY HYSTERECTOMY 1989 RELEASE CARPAL TUNNEL Right 02/20/2018 Performed by Mitchell Gonzáles DO at [facility] TONSILLECTOMY Family History Problem Relation Age of [...] Beth MD Referring Physician: Humaira Beth MD [address] [place] [address] documented in this encounterOhioHealth Van Wert HospitalEnvysion Healthsource [id number] Miscellaneous Notes* Telephone Encounter - Sarah Davis CMA - 03/05/2024 10:32 AM EDT Called patient to remind them to bring their most current copy of their medication list with them to their appt. Patient verbalizes understanding. documented in this encounterOhioHealth Van Wert HospitalEnvysion Healthsource [id number] Telephone encounter Note* Telephone Encounter - Sarah Davis CMA - 03/05/2024 10:32 AM EDT Called patient to remind them to bring their most current copy of their medication list with them to their appt. Patient verbalizes understanding. [facility] HospitalFit&Color SystemEvaluation note* Diagnosis Hemangiopericytoma Neoplasm of uncertain behavior of connective and other soft tissue documented in this encounter [employer] Phone: evaluation note* Diagnosis Hemangiopericytoma Neoplasm of uncertain behavior of connective and other soft tissue documented in this encounter [employer] Phone: evaluation note* Diagnosis Bradycardia- Primary Other specified cardiac dysrhythmias documented in this encounter [facility] CenterEventcheqEvaluation note* Diagnosis Occipital neuralgia of right side- Primary Seizure (CMS/HCC) Other convulsions Sleep apnea, unspecified type Lightheadedness Dizziness and giddiness documented in this encounter [facility] HealthcareEvaluation note* Diagnosis Hemangiopericytoma Neoplasm of uncertain behavior of connective and other soft tissue documented [facility]* Diagnosis Essential hypertension- Primary Unspecified essential hypertension Ventricular premature depolarization Other premature beats documented in this encounter [facility] SystemEvaluation note* Diagnosis Hemangiopericytoma Neoplasm of uncertain behavior of connective and other soft tissue documented in this encounter [facility]* Diagnosis Superficial foreign body of left foot without major open wound and without infection, initial encounter- Primary Pain in left foot Pain in soft tissues of limb Difficulty walking Difficulty in walking documented in this encounter [facility] HealthcareEvaluation note* Diagnosis Onset Date Resolution Status Admit Date Seizures noneactiveAugust 2024 1:14pm [facility] Work Phone: Evaluation note* Diagnosis Essential hypertension- Primary Unspecified essential hypertension documented in this encounter [facility]MW[facility] SystemEvaluation note* Diagnosis Chest pain due to myocardial ischemia, unspecified ischemic chest pain type- Primary Essential hypertension Unspecified essential hypertension Palpitation Palpitations Mixed hyperlipidemia PHYLLIS (obstructive sleep apnea) Obstructive sleep apnea (adult) (pediatric) documented in this encounter [facility] SystemInstructionsNot on filedocumented in this encounter [facility] SystemInstructionsNot on filedocumented in this encounter [facility] SystemInstructionsNot on filedocumented in this encounter [facility] SystemInstructionsNot on filedocumented in this encounter [facility] SystemInstructionsNot on filedocumented in this encounter [facility] SystemReason for referral (narrative)No reason for referral information availableHolzer Health System Work Phone: Reason for visit Narrative* Imaging (Routine) - Closed SpecialtyDiagnoses / ProceduresReferred By ContactReferred To ContactRadiology Diagnoses Hemangiopericytoma Procedures MRI BRAIN W WO CONTRAST Lynda Hensley, [address] [place] [address] Phone: tel: fax: Referral IDStatusReasonStart DateExpiration DateVisits RequestedVisits [id number]/// Shade Sinclair [facility] Summary Purpose Family History No Family History Records Found Relationship Condition Age at Onset Recorded Date/T ayden father Malignant neoplasm Unknown sisterMalignant neoplasmUnknown Advance Directives No Advanced Directives Records FoundDocuments on File TypeDate RecordedPatient RepresentativeExplanationACP-Advance DirectiveACP-Power of AttorneyCode StatusDate ActivatedDate InactivatedCommentsFull Code01/30/2017 5:59 PM02/02/2017 7:26 PMFull Code01/29/2017 3:43 PM01/30/2017 5:59 PMFull Code 01/29/2017 3:43 PM01/29/2017 3:43 PMFull Code01/25/2017 1:20 AM01/27/2017 9:36 AM Code StatusDate ActivatedDate InactivatedCommentsFull Code01/30/2017 5:59 PM 02/02/2017 7:26 PMCode StatusDate ActivatedDate InactivatedCommentsFull Code 01/29/2017 3:43 PM01/30/2017 5:59 PMFull Code01/29/2017 3:43 PM01/29/2017 3:43 PM Full Code01/25/2017 1:20 AM01/27/2017 9:36 AMDate ActivatedDate Inactivated Comments01/30/2017 5:59 PM02/02/2017 7:26 PMDate ActivatedDate InactivatedComments 01/29/2017 3:43 PM01/30/2017 5:59 PMDate ActivatedDate InactivatedComments 01/29/2017 3:43 PM01/29/2017 3:43 PMDate ActivatedDate InactivatedComments 01/25/2017 1:20 AM01/27/2017 9:36 AM Advance Directive Response Recorded Date/ Time Advance Directives No April 2:36pm Reason for Referral StatusReasonSpecialtyDiagnoses / ProceduresReferred By ContactReferred To ContactClosedRadiology Diagnoses Hemangiopericytoma, malignant (HCC) Procedures MRI BRAIN W WO CONTRAST HC MRI-BRAIN WO & W CONTRAST Lynda Hensley, DO [address] [facility] [address] [address] [facility] [address] [place] [address] SpecialtyDiagnoses / ProceduresReferred By ContactReferred To ContactRadiology Diagnoses Hemangiopericytoma Procedures MRI BRAIN W WO CONTRAST [facility] [address] [facility] [address] [address] Referral IDStatusReasonStart DateExpiration DateVisits RequestedVisits [id number] / Procedures Referred By ContactReferred To ContactRadiology Diagnoses Hemangiopericytoma Procedures PET CT WHOLE BODY [facility] Lynda, DO [address] [facility] [address] [address] Referral IDStatusReasonStart DateExpiration DateVisits RequestedVisits [id number] IDStatusReasonStart Date Expiration DateVisits RequestedVisits [id number]/2/20251/ 1 Assessments Diagnosis Hemangiopericytoma, malignant (HCC) Malignant neoplasm of connective and other soft tissue, site unspecified Chief Complaint and Reason for Visit Reason for Visit Admit Date Seizures February 12, 2025 1: 14pm Chief Complaint Admit Date F/U TO GO OVER SLEEP STUDY April 06, 2025 3:51pm Reason for Visit Admit Date Hypersomnia February 12, 2025 1: 14pm Meningioma February 12, 2025 1: 14pm Numbness and tingling February 12, 2025 1:14pm PHYLLIS (obstructive sleep apnea) January 1:14pm Seizure disorder February 12, 2025 1: 14pm Seizures February 12, 2025 1: 14pm Additional Source Comments INFORMATION SOURCE (unrecogn ized section and content) DATE CREATED AUTHOR 12/12/2017 [facility] DATE CREATED AUTHOR AUTHOR'S ORGANIZ ATION 12/12/2017 [facility] DATE CREATED AUTHOR AUTHOR'S ORGANIZ ATION 04/04/2018 [facility] DATE CREATED AUTHOR AUTHOR'S ORGANIZ ATION 01/18/2025 [facility] DATE CREATED AUTHOR AUTHOR'S ORGANIZ ATION 02/01/2025 [facility] DATE CREATED AUTHOR AUTHOR'S ORGANIZ ATION 04/24/2025 [facility] Reason for Visit (unrecogniz ed section and content) StatusReasonSpecialtyDiagnoses / ProceduresReferred By ContactReferred To ContactClosedRadiology Diagnoses Hemangiopericytoma, malignant (HCC) Procedures MRI BRAIN W WO CONTRAST HC MRI-BRAIN WO & W CONTRAST Ahammad, Lynda, DO [address] [facility] [address] [address] [facility] [address] [place] [address] SpecialtyDiagnoses / ProceduresReferred By ContactReferred To ContactRadiology Diagnoses Hemangiopericytoma Procedures MRI BRAIN W WO CONTRAST [facility], Lynda, DO [address] [facility] [address] [address] Referral IDStatusReasonStart DateExpiration DateVisits RequestedVisits [id number]/30/20223/[id number] / Procedures Referred By ContactReferred To ContactRadiology Diagnoses Hemangiopericytoma Procedures PET CT WHOLE BODY Ahammad, Lynda, DO 2 [facility] [address] [address] Referral IDStatusReasonStart DateExpiration DateVisits RequestedVisits [id number]/18/20237/[id number]qukjvf ID StatusReasonStart DateExpiration DateVisits RequestedVisits [id number] Closed/[id number]-um5 MONTHSPalpitationsHypertension ReasonCommentsForeign BodyPT is here today for possible foreign body in the Lt heel, she thinks she stepped on glass about 1.5 weeks ago. There is a small red area that is tender for her. SS: 8WReasonCommentsMed RefillReasonOnset Date Commentsappt ssgrhp8503/25/2025ReasonCommentsFollow-up14MO F/U-L/S RBP-ER VISIT 04/16 PM-LABS/CHEST XRAY/ECG 04/16 PM-SCHD APPT W/PT Care Teams (unrecognized sec tion and content) Team MemberRelationshipSpecialtyStart DateEnd Date Marva Garibay PA-C [address] [place] [address] PCP - GeneralFamily Medicine06/25/18Team MemberRelationshipSpecialtyStart DateEnd Date Marva Garibay PA-C [address] [place] [address] PCP - GeneralFamily Medicine06/25/18Team MemberRelationshipSpecialtyStart DateEnd Date Marva Garibay PA-C [address] [place] [address] PCP - GeneralFamily Medicine06/25/18Team MemberRelationshipSpecialtyStart DateEnd Date Humaira Beth MD [address] [place] [address] PCP - GeneralFamily Medicine02/20/24Team MemberRelationshipSpecialtyStart DateEnd Date Rebeca Kelly MD [address] [place] [address] PCP - GeneralInternal Dlropful88/16/24 Santi Smith MD [address] [place] [address] Referring CwcwvacfvPszrfhclt99/16/24Team MemberRelationshipSpecialtyStart Date End Date Rebeca Kelly MD [address] [place] [address] [facility] - [facility] Npmovnvx35/16/24 Santi Smith MD [address] [place] [address] Referring CtyajugmgEbobjsbze44/16/24Team MemberRelationshipSpecialtyStart Date End Date Marva Garibay PA-C [address] [place] [address] PCP - Generalmily Medicine06/25/18Team MemberRelationshipSpecialtyStart DateEnd Date Humaira Beth MD [address] [place], [place] [id number] PCP - Generalmily Medicine02/20/24Team MemberRelationshipSpecialtyStart DateEnd Date Humaira Beth MD [address] [place] [address] PCP - Generalmily Medicine02/20/24Team MemberRelationshipSpecialtyStart DateEnd Date Marva Garibay PA-C [address] [place] [address] PCP - Generalmily Medicine06/25/18Team MemberRelationshipSpecialtyStart DateEnd Date Rebeca Kelly MD [address] [place] [phone] PCP - GeneralInternal Ochnetpo77/16/24 Santi Smith MD [address] [facility] [place] [address] Referring QrgxecyubMrhattwen05/16/24Team MemberRelationshipSpecialtyStart Date End Date Rebeca Kelly MD [address] [place] [address] PCP - GeneralW[facility] Healthcare Centernal Xgmclgck56/16/24 Santi Smith MD [address] [place] [address] Referring AwvqupbcjUohrayvwx52/16/24 Team Status: Active Member Role Status Dates Marisol Clancy MD Primary Care Provider Active Team Status: Inactive Member Role Status Dates Marisol Clancy MD Primary Care Provider Active Sta rt: February 12, 2025 End: February 12, 2025NicAshwin Mejia ProviderActiveStart: February 12, 2025 End: February 12, 2025Team MemberRelationshipSpecialtyStart DateEnd Date Rebeca Kelly MD [address] [address] [facility] Ntslhale88/27/24Team MemberRelationshipSpecialtyStart Date End Date Rebeca Kelly MD [address] [place], [place] [id number] [facility] Sggaxwxp63/27/24 Team Status: Active Member Role/Relationship Status Dates Marisol Clancy MD Primary Care Provider Active Team Status: Inactive Member Role/Relationship Status Dates Marisol Clancy MD Primary Care Provider Active Sta rt: February 12, 2025 End: February 12, 2025Nicole Ashwin Simpson ProviderActiveStart: February 12, 2025 End: February 12, 2025 Team Status: Active Member Role/Relationship Status Dates Marisol Clancy MD Primary Care Provider Active Sta rt: March 04, 2025 Bhakti Simpson Rhonda ProviderActiveStart: March 04, 2025 Team Status: Inactive Member Role/Relationship Status Dates Marisol Clancy MD Primary Care Provider Active Sta rt: April 06, 2025 End: April 06nickvilma Dos Santos Conrad TERRIBrett ProviderActiveStart: April 06, 2025 End: April 06, 2025Team MemberRelationshipSpecialtyStart DateEnd Date Rebeca Kelly MD [address] [place] [address] PCP - GeneralInternal Juxrzqmw68/27/24 Goals (unrecognized section and content) Goals may [...] BE BASED ON THE PRIMARY CLINICAL RECORDS. [facility] [employer] [facility]. provides no warranty or guarantee of the accuracy or completeness of information in this document.
== END 2025-05-26 21:08 | disposition home or self-care (01) ==
PROVIDERS: PCP Nurse Practitioner Family; Visit Provider Nurse Practitioner Family
DX: G47.33 Obstructive sleep apnea (adult) (pediatric) (principal)
CPT/HCPCS: 95811